=== PATIENT | female | born 1975 | race Caucasian/White ===

== ENCOUNTER 2025-02-25 13:12 | Emergency (ER) | payer MEDICAID, SELFPAY ==
[2025-02-25] VITALS (12 sets, daily range): BP systolic 150–195; BP diastolic 76–110; PULSE 81–101; RESP 9–23; TEMP 36.4; O2SAT 88–100; BMI 57.9
--- NOTE | 2025-02-25 13:16 | ECG_ITS ---
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 Measurements Intervals Gill Rate: 101 P: 39 NE: 156 QRS: 24 QRSD: 89 T: 78 QT: 346 QTc: 449 Interpretive Statements SINUS TACHYCARDIA ABNORMAL RHYTHM ECG No previous ECG available for comparison Electronically Signed On 02-26-2025 11:57:58 CDT by Jing Stewart M.D. [id number] [id number]
--- NOTE | 2025-02-25 14:20 | XR_ITS ---
WS: [id number] Exam: XR chest 1V portable [id number] Date/Time of Exam: 02/25/2025 2:23 PM Reason For Exam: chest pain No priors. Lungs are clear and fully inflated. Normal cardiomediastinal silhouette and regional bony elements. No pleural effusions. XR/XR chest 1V portable [id number] IMPRESSION: 1. Normal chest.
--- NOTE | 2025-02-25 14:21 | ED_ITS ---
Documented by User: Cornelio Smith DO 02/26/25 14:55 HPI - Chest Pain 2 General: Chief Complaint: Chest Pain Stated Complaint: chest pain Time Seen by Provider: 02/25/25 14:19 History of Present Illness: 49-year-old female with a history of cor onary disease presents emergency room complaining of chest pain along with vomiting. She is complaining of some epigastric left upper quadrant abdominal pains. She states has had it in the past multiple times she states she has a chronic pancreatic condition as well as coronary artery disease she is usually seen at [facility]. She is not having any shortness of breath denies any hematemesis coffee-ground emesis no dysuria urgency or frequency. Old records were ordered from [facility]. Associated symptoms: Deny abdominal pain, dyspnea or fever(s) Related Data Home Medications ?Medication ?Instructions ?Recorded ?Confirmed cetirizine 10 mg tablet 10 mg PO DAILY 03/22/2302/10 insulin regular human 100 unit/mL See Rx Instructions .Route .COMPLEX 03/22/23 02/25/25 injection solution (Humulin R Regular U-100 Insulin) aspirin 81 mg tablet,delayed 81 mg PO DAILY 02/25/25 0 02/25/25 release clopidogrel 75 mg tablet (Plavix) 75 mg PO DAILY 02/2502/25/25 pantoprazole 40 mg tablet,delayed 40 mg PO DAILY 02/2502/25/25 release (Protonix) Previous Rx's ?Medication ?Instructions ?Recorded hyoscyamine sulfate 0.125 mg 0.125 mg sublingual Q8H P RN 02/26/25 sublingual tablet (Levsin/SL) epigastric abdominal paulo n #20 tabs ondansetron 8 mg disintegrating 8 mg PO Q8H PRN nausea and 02/26/25 tablet vomiting 5 days #20 tabs promethazine 25 mg rectal 25 mg AR Q4H PRN nausea and 02/26/25 suppository vomiting #12 ea Allergies Allergy/AdvReac Type Severity Reaction Status Date / Time tramadol Allergy Mild hives Verified 02/25/25 19:34 sulfamethoxazole (From Allergy ALGY-Hives Verified 02/25/25 13:24 Bactrim) trimethoprim (From Bactrim) Allergy ALGY-Hives Verified 02/25/25 13:24 flurocet Allergy ADR-Confusi Uncoded 02/25/25 13:24 on Review of Systems 2 Const: Denies: fever(s) or chills Card: Denies: chest pain Resp: Denies: dyspnea GI: Denies: abdominal pain : Denies: dysuria, urinary frequency or urinary urgency Musc: Denies: neck pain or back pain Skin/Breast: Denies: rash Physical Exam 2 Const: GENERAL APPEARANCE: cooperative ORIENTATION/CONSCIOUSNESS: Yes awake, Yes oriented to person, Yes oriented to place and Yes oriented to time HENMT: COMMON NORMALS: normocephalic, atraumatic and hearing grossly normal bilaterally HEAD & SCALP: normocephalic and atraumatic Resp: COMMON NORMALS: normal respiratory effort, No retractions, No use of accessory muscles and clear to auscultation bilaterally AUSCULTATION: clear to auscultation bilaterally Cardio: COMMON NORMALS: regular rate, regular rhythm and No murmurs present (Cardio) RATE: regular rate RHYTHM: regular rhythm GI: COMMON NORMALS: No hepatosplenomegaly present AUSCULTATION: Yes normoactive bowel sounds PALPATION: Yes Tenderness to palpation present (GI) (Epigastric left upper quadrant), No Guarding due to palpation present (GI) and Yes No hepatosplenomegaly present Extremity: COMMON NORMALS: normal to inspection, capillary refill normal, no clubbing, cyanosis or edema, no calf tenderness and no pedal edema Neuro: SENSORIUM/ORIENTATION: Yes oriented to person, Yes oriented to place and Yes oriented to time Skin: COMMON NORMALS: no rashes or lesions noted GENERAL SKIN EXAM: no rashes or lesions noted Course 2 Vital Signs: Vital signs: Vital Signs Temperature 97.5 F L 02/25/25 13:19 Pulse Rate 88 02/26/25 03:47 Respiratory Rate 16 02/26/25 03:47 Blood Pressure 191/95 02/26/25 03:47 Pulse Oximetry 100 02/26/25 03:47 Oxygen Delivery Me thod Nasal Cannula 02/26/25 02:00 Oxygen Flow Rate 2 02/26/25 02:00 MDM - Chest Pain Medical Decision Making Old records received from outside facility. Care signed out to Dr. Sam at change of shift. See final notes for diagnosis and disposition. 49-year-old female, O2 dependent, insulin diabetic emotionally labile by history. BMI in the 60s. History of PAD with toe potation's. Heart failure with preserved EF. Untreated SANGITA, pancreatic device some and CKD 3. Who has chronic epigastric abdominal pain plus or minus cyclical emesis plus or minus hyperemesis cannabinoid syndrome. The patient strongly advocates that this could not possibly be the cause of her issues despite using copious marijuana products and not stopping them despite having a consistently issue with nausea vomiting abdominal pain. She has been seen in this ER. Treated with multiple medications. She absolutely refuses, incentive care treatments for some things. Including only a one-time try before and mild side effects that can be avoided. No allergies to medications. She only wants Dilaudid Phenergan and Zofran. She has chronic pain prescriptions. Reviewed outside hospital paperwork for patient advised she took previous care. She does have documented history of pancreatic device on. As well as chronic pain and emotional lability. Is also clear that they have concerns for cannabinoid hyperemesis as well. Lab Data 02/25/25 14:36 02/25/25 14:36 Radiology Impressions Chest X-Ray 02/25/25 14:20 IMPRESSION: 1. Normal chest. Abdomen/Pelvis CT 02/25/25 14:35 IMPRESSION: 1. No acute findings. 2. Small fat containing ventral hernia. 3. Splenomegaly. Laboratory Results WBC 10.82 10^3/uL (3.29-11.43) 02/25/25 14:36 RBC 4.42 10^6/uL (3.85-5.65) 02/25/25 14:36 Hgb 12.20 g/dL (11.27-16.99) 02/25/25 14:36 Hct 37.0 % (36-47) 02/25/25 14:36 MCV 83.7 fl (85-98) L 02/25/25 14:36 MCH 27.6 pg (27-33) 02/25/25 14:36 MCHC 33.0 g/dL (30-55) 02/25/25 14:36 RDW 15.1 % (12.1-15.1) 02/25/25 14:36 Plt Count 276 10^3/cmm (157-399) 02/25/25 14:36 MPV 10.4 fL (7.4-10.4) 02/25/25 14:36 Neut % (Auto) 89.7 % 02/25/25 14:36 Lymph % (Auto) 6.7 % 02/25/25 14:36 Fleming % (Auto) 2.8 % 02/25/25 14:36 Eos % (Auto) 0.1 % 02/25/25 14:36 Baso % (Auto) 0.3 % 02/25/25 14:36 Neut # (Auto) 9.72 10^3/uL (1.8-7.7) H 02/25/25 14:36 Lymph # (Auto) 0.7 10^3/uL (0.8-4.8) L 02/25/25 14:36 Fleming # (Auto) 0.3 10^3/uL (0.2-0.9) 02/25/25 14:36 Eos # (Auto) 0.0 10^3/uL (0.0-0.8) 02/25/25 14:36 Baso # (Auto) 0.0 10^3/uL (0.0-0.1) 02/25/25 14:36 Nucleated RBC % (auto) 0 % 02/25/25 14:36 Nucleated RBCs # 0.0 /100WBC 02/25/25 14:36 Sodium 135 mmol/L (136-145) L 02/25/25 14:36 Potassium 4.5 mmol/L (3.5-5.1) 02/25/25 14:36 Chloride 98 mmol/L (98-107) 02/25/25 14:36 Carbon Dioxide 21 mmol/L (22-29) L 02/25/25 14:36 Anion Gap 20.5 (5-19) H 02/25/25 14:36 BUN 26 mg/dL (6-20) H 02/25/25 14:36 Creatinine 1.2 mg/dL (0.5-0.9) H 02/25/25 14:36 GFR Calculation 48.2 mL/min (90-130) L 02/25/25 14:36 Glucose 433 mg/dL (65-115) H 02/25/25 14:36 POC Glucose 332 mg/dL (70-110) H 02/25/25 21:03 Calculated Osmolality 303 mOsm/kg (285-295) H 02/25/25 14:36 Calcium 9.5 mg/dL (8.5-10.5) 02/25/25 14:36 Total Bilirubin 0.4 mg/dL (0.15-1.2) 02/25/25 14:36 AST 14 U/L (0-32) 02/25/25 14:36 ALT 13 U/L (0-33) 02/25/25 14:36 Alkaline Phosphatase 75 U/L (35-105) 02/25/25 14:36 Troponin T Baseline 35 ng/L (0-10) H 02/25/25 14:36 Troponin T 120 Minute 30.65 ng/L (0-10) H 02/25/25 16:55 Delta Troponin T -4.35 ABS# (0-10) L 02/25/25 16:55 Troponin T Hi Sens 6Hr 27.52 ng/L (0-10) H 02/25/25 20:02 Troponin T Hi Sens 6Hr Delta -7.48 ng/L (0-12) L 02/25/25 20:02 Total Protein 7.5 g/dL (6.6-8.7) 02/25/25 14:36 Albumin 3.7 g/dL (3.5-5.2) 02/25/25 14:36 Globulin 3.8 g/dL (1.3-4.6) 02/25/25 14:36 Lipase 19 U/L (13-60) 02/25/25 14:36 Urine Color Yellow (Yellow) 02/25/25 17:24 Urine Appearance Clear (CLEAR) 02/25/25 17:24 Urine pH 6.5 (5-7) 02/25/25 17:24 Ur Specific Carson 1.034 (1.005-1.030) H 02/25/25 17:24 Urine Protein 4+ (Negative) A 02/25/25 17:24 Urine Glucose (UA) 3+ (Normal) H 02/25/25 17:24 Urine Ketones Negative (Negative) 02/25/25 17:24 Urine Blood 2+ (Negative) A 02/25/25 17:24 Urine Nitrate Negative (Negative) 02/25/25 17:24 Urine Bilirubin Negative (Negative) 02/25/25 17:24 Urine Urobilinogen 0.2 mg/dL (Negative) 02/25/25 17:24 Ur Leukocyte Esterase Negative (Negative) 02/25/25 17:24 Urine RBC 6-10 /hpf (0-2) 02/25/25 17:24 Urine WBC 0-5 /hpf (0-5) 02/25/25 17:24 Ur Squamous Epith Cells 0-5 /hpf (0-5) 02/25/25 17:24 Amorphous Sediment Not Reportable 02/25/25 17:24 Urine Bacteria None seen /hpf (NONE) 02/25/25 17:24 Hyaline Casts 0.40 /lpf 02/25/25 17:24 Discharge Plan Discharge Patient Disposition: Home Clinical Impression: Nausea & vomiting, Abdominal pain, chronic, epigastric Condition: Stable Prescriptions: New promethazine 25 mg suppository 25 mg AR Q4H PRN (Reason: nausea and vomiting) Qty: 12 2RF ondansetron 8 mg tablet,disintegrating 8 mg PO Q8H PRN (Reason: nausea and vomiting) 5 Days Qty: 20 0RF hyoscyamine sulfate [Levsin/SL] 0.125 mg tablet, sublingual 0.125 mg sublingual Q8H PRN (Reason: epigastric abdominal pain) Qty: 20 0RF No Action Humulin R Regular U-100 Insuln 100 unit/mL solution See Rx Instructions .ROUTE .COMPLEX Rx Instructions: inject 20 units subcut in AM, 10 units at noon, and 20 units at HS cetirizine 10 mg tablet 10 mg PO DAILY clopidogrel [Plavix] 75 mg Tablet 75 mg PO DAILY aspirin [Aspir-81] 81 mg Tablet,Delayed Release (Dr/Ec) 81 mg PO DAILY pantoprazole [Protonix] 40 mg Tablet,Delayed Release (Dr/Ec) 40 mg PO DAILY Discharge Orders: Discharge ED (Routine); Ordered 02/26/25 Ordered By: Flaco Bergeron Discharge Diet: Advance as tolerated and Full LIquid Discharge Activity: Increase activity as tolerated Patient Instructions: Chronic Pain (ED), Abdominal Pain (ED), Pain Management Activity Restrictions/Additional Instructions: Please follow-up with your primary care and your GI doctor. If you are having chronic pain you may also want to consider following up with a pain management clinic. For more consistency in your care and with continuity. Recommend following from the same health system as those providers as well. However when you have emergencies always feel free to seek your nearest emergency department. Print Language: Malagasy Sign Out Sign Out Data: Patient Sign Out occurred on 02/25/25 at 18:28. Patient's care was discussed, and care was transferred from Cornelio Smith DO to Flaco Bergeron MD. Coding Level of Care Code ED Business Banking Relationship Manager for Chg Fwd Documented by User: Flaco Bergeron MD 02/26/25 03:40 HPI - Chest Pain 2 General: Chief Complaint: Chest Pain Stated Complaint: chest pain Time Seen by Provider: 02/25/25 14:19 Related Data Home Medications ?Medication ?Instructions ?Recorded ?Confirmed cetirizine 10 mg tablet 10 mg PO DAILY 03/22/2302/10 insulin regular human 100 unit/mL See Rx Instructions .Route .COMPLEX 03/22/23 02/25/25 injection solution (Humulin R Regular U-100 Insulin) aspirin 81 mg tablet,delayed 81 mg PO DAILY 02/25/25 0 02/25/25 release clopidogrel 75 mg tablet (Plavix) 75 mg PO DAILY 02/2502/25/25 pantoprazole 40 mg tablet,delayed 40 mg PO DAILY 02/2502/25/25 release (Protonix) Previous Rx's ?Medication ?Instructions ?Recorded hyoscyamine sulfate 0.125 mg 0.125 mg sublingual Q8H P RN 02/26/25 sublingual tablet (Levsin/SL) epigastric abdominal paulo n #20 tabs ondansetron 8 mg disintegrating 8 mg PO Q8H PRN nausea and 02/26/25 tablet vomiting 5 days #20 tabs promethazine 25 mg rectal 25 mg AR Q4H PRN nausea and 02/26/25 suppository vomiting #12 ea Allergies Allergy/AdvReac Type Severity Reaction Status Date / Time tramadol Allergy Mild hives Verified 02/25/25 19:34 sulfamethoxazole (From Allergy ALGY-Hives Verified 02/25/25 13:24 Bactrim) trimethoprim (From Bactrim) Allergy ALGY-Hives Verified 02/25/25 13:24 flurocet Allergy ADR-Confusi Uncoded 02/25/25 13:24 on Course 2 Reevaluation(s): Reevaluation #1: Reevaluated patient, still having issues with pain and nausea vomiting. Requesting more medication for pain. Time: 19:30 Reevaluation #2: Her patient vomitings went back and rechecked. She is still having vomiting episodes. She reports she was resting and doing fine but then we woke her up, implying that it is our fault that she is still vomiting. Offered to try something else for her nausea vomiting but she refuses all other meds. Due to the potential for side effects that she finds displeasing. It is apparent that she finds the nausea vomiting less displeasing than the side effects. Time: 21:19 Reevaluation #3: Up until this moment patient has been stable sleeping in room. Also has had food in the room. So she is tolerated some p.o. intake. Patient then woke up and called the nurse reporting that she needed more blankets even more than she had before as well as more pain medication and nausea medication. Vitals have remained stable. Patient has unremarkable lab work. Time: 03:29 Vital Signs: Vital signs: Vital Signs Temperature 97.5 F L 02/25/25 13:19 Pulse Rate 88 02/26/25 03:47 Respiratory Rate 16 02/26/25 03:47 Blood Pressure 191/95 02/26/25 03:47 Pulse Oximetry 100 02/26/25 03:47 Oxygen Delivery Me thod Nasal Cannula 02/26/25 02:00 Oxygen Flow Rate 2 02/26/25 02:00 MDM - Chest Pain Medical Decision Making 49-year-old female, O2 dependent, insulin diabetic emotionally labile by history. BMI in the 60s. History of PAD with toe potation's. Heart failure with preserved EF. Untreated SANGITA, pancreatic device some and CKD 3. Who has chronic epigastric abdominal pain plus or minus cyclical emesis plus or minus hyperemesis cannabinoid syndrome. The patient strongly advocates that this could not possibly be the cause of her issues despite using copious marijuana products and not stopping them despite having a consistently issue with nausea vomiting abdominal pain. She has been seen in this ER. Treated with multiple medications. She absolutely refuses, incentive care treatments for some things. Including only a one-time try before and mild side effects that can be avoided. No allergies to medications. She only wants Dilaudid Phenergan and Zofran. She has chronic pain prescriptions. Reviewed outside hospital paperwork for patient advised she took previous care. She does have documented history of pancreatic device on. As well as chronic pain and emotional lability. Is also clear that they have concerns for cannabinoid hyperemesis as well. Medical Records I reviewed the patient's medical records. Lab Data I reviewed the patient's lab results. 02/25/25 14:36 02/25/25 14:36 Radiology Impressions Chest X-Ray 02/25/25 14:20 IMPRESSION: 1. Normal chest. Abdomen/Pelvis CT 02/25/25 14:35 IMPRESSION: 1. No acute findings. 2. Small fat containing ventral hernia. 3. Splenomegaly. Laboratory Results WBC 10.82 10^3/uL (3.29-11.43) 02/25/25 14:36 RBC 4.42 10^6/uL (3.85-5.65) 02/25/25 14:36 Hgb 12.20 g/dL (11.27-16.99) 02/25/25 14:36 Hct 37.0 % (36-47) 02/25/25 14:36 MCV 83.7 fl (85-98) L 02/25/25 14:36 MCH 27.6 pg (27-33) 02/25/25 14:36 MCHC 33.0 g/dL (30-55) 02/25/25 14:36 RDW 15.1 % (12.1-15.1) 02/25/25 14:36 Plt Count 276 10^3/cmm (157-399) 02/25/25 14:36 MPV 10.4 fL (7.4-10.4) 02/25/25 14:36 Neut % (Auto) 89.7 % 02/25/25 14:36 Lymph % (Auto) 6.7 % 02/25/25 14:36 Fleming % (Auto) 2.8 % 02/25/25 14:36 Eos % (Auto) 0.1 % 02/25/25 14:36 Baso % (Auto) 0.3 % 02/25/25 14:36 Neut # (Auto) 9.72 10^3/uL (1.8-7.7) H 02/25/25 14:36 Lymph # (Auto) 0.7 10^3/uL (0.8-4.8) L 02/25/25 14:36 Fleming # (Auto) 0.3 10^3/uL (0.2-0.9) 02/25/25 14:36 Eos # (Auto) 0.0 10^3/uL (0.0-0.8) 02/25/25 14:36 Baso # (Auto) 0.0 10^3/uL (0.0-0.1) 02/25/25 14:36 Nucleated RBC % (auto) 0 % 02/25/25 14:36 Nucleated RBCs # 0.0 /100WBC 02/25/25 14:36 Sodium 135 mmol/L (136-145) L 02/25/25 14:36 Potassium 4.5 mmol/L (3.5-5.1) 02/25/25 14:36 Chloride 98 mmol/L (98-107) 02/25/25 14:36 Carbon Dioxide 21 mmol/L (22-29) L 02/25/25 14:36 Anion Gap 20.5 (5-19) H 02/25/25 14:36 BUN 26 mg/dL (6-20) H 02/25/25 14:36 Creatinine 1.2 mg/dL (0.5-0.9) H 02/25/25 14:36 GFR Calculation 48.2 mL/min (90-130) L 02/25/25 14:36 Glucose 433 mg/dL (65-115) H 02/25/25 14:36 POC Glucose 332 mg/dL (70-110) H 02/25/25 21:03 Calculated Osmolality 303 mOsm/kg (285-295) H 02/25/25 14:36 Calcium 9.5 mg/dL (8.5-10.5) 02/25/25 14:36 Total Bilirubin 0.4 mg/dL (0.15-1.2) 02/25/25 14:36 AST 14 U/L (0-32) 02/25/25 14:36 ALT 13 U/L (0-33) 02/25/25 14:36 Alkaline Phosphatase 75 U/L (35-105) 02/25/25 14:36 Troponin T Baseline 35 ng/L (0-10) H 02/25/25 14:36 Troponin T 120 Minute 30.65 ng/L (0-10) H 02/25/25 16:55 Delta Troponin T -4.35 ABS# (0-10) L 02/25/25 16:55 Troponin T Hi Sens 6Hr 27.52 ng/L (0-10) H 02/25/25 20:02 Troponin T Hi Sens 6Hr Delta -7.48 ng/L (0-12) L 02/25/25 20:02 Total Protein 7.5 g/dL (6.6-8.7) 02/25/25 14:36 Albumin 3.7 g/dL (3.5-5.2) 02/25/25 14:36 Globulin 3.8 g/dL (1.3-4.6) 02/25/25 14:36 Lipase 19 U/L (13-60) 02/25/25 14:36 Urine Color Yellow (Yellow) 02/25/25 17:24 Urine Appearance Clear (CLEAR) 02/25/25 17:24 Urine pH 6.5 (5-7) 02/25/25 17:24 Ur Specific Carson 1.034 (1.005-1.030) H 02/25/25 17:24 Urine Protein 4+ (Negative) A 02/25/25 17:24 Urine Glucose (UA) 3+ (Normal) H 02/25/25 17:24 Urine Ketones Negative (Negative) 02/25/25 17:24 Urine Blood 2+ (Negative) A 02/25/25 17:24 Urine Nitrate Negative (Negative) 02/25/25 17:24 Urine Bilirubin Negative (Negative) 02/25/25 17:24 Urine Urobilinogen 0.2 mg/dL (Negative) 02/25/25 17:24 Ur Leukocyte Esterase Negative (Negative) 02/25/25 17:24 Urine RBC 6-10 /hpf (0-2) 02/25/25 17:24 Urine WBC 0-5 /hpf (0-5) 02/25/25 17:24 Ur Squamous Epith Cells 0-5 /hpf (0-5) 02/25/25 17:24 Amorphous Sediment Not Reportable 02/25/25 17:24 Urine Bacteria None seen /hpf (NONE) 02/25/25 17:24 Hyaline Casts 0.40 /lpf 02/25/25 17:24 All radiology interpretation(s) finalized by discharge Discharge Plan Discharge Patient Disposition: Home Clinical Impression: Nausea & vomiting, Abdominal pain, chronic, epigastric Condition: Stable Prescriptions: New promethazine 25 mg suppository 25 mg AR Q4H PRN (Reason: nausea and vomiting) Qty: 12 2RF ondansetron 8 mg tablet,disintegrating 8 mg PO Q8H PRN (Reason: nausea and vomiting) 5 Days Qty: 20 0RF hyoscyamine sulfate [Levsin/SL] 0.125 mg tablet, sublingual 0.125 mg sublingual Q8H PRN (Reason: epigastric abdominal pain) Qty: 20 0RF No Action Humulin R Regular U-100 Insuln 100 unit/mL solution See Rx Instructions .ROUTE .COMPLEX Rx Instructions: inject 20 units subcut in AM, 10 units at noon, and 20 units at HS cetirizine 10 mg tablet 10 mg PO DAILY clopidogrel [Plavix] 75 mg Tablet 75 mg PO DAILY aspirin [Aspir-81] 81 mg Tablet,Delayed Release (Dr/Ec) 81 mg PO DAILY pantoprazole [Protonix] 40 mg Tablet,Delayed Release (Dr/Ec) 40 mg PO DAILY Discharge Orders: Discharge ED (Routine); Ordered 02/26/25 Ordered By: Flaco Bergeron Discharge Diet: Advance as tolerated and Full LIquid Discharge Activity: Increase activity as tolerated Patient Instructions: Chronic Pain (ED), Abdominal Pain (ED), Pain Management Activity Restrictions/Additional Instructions: Please follow-up with your primary care and your GI doctor. If you are having chronic pain you may also want to consider following up with a pain management clinic. For more consistency in your care and with continuity. Recommend following from the same health system as those providers as well. However when you have emergencies always feel free to seek your nearest emergency department. Print Language: Malagasy Sign Out Sign Out Data: Patient Sign Out occurred on 02/25/25 at 18:28. Patient's care was discussed, and care was transferred from Cornelio Smith DO to Flaco Bergeron MD. Coding Level of Care Code ED Business Banking Relationship Manager for Chg Reny
--- NOTE | 2025-02-25 14:35 | CTR_ITS ---
PROCEDURE INFORMATION: Exam: CT Abdomen And Pelvis With Contrast Exam date and time: 02/25/2025 4:01 PM Age: 49 years old Clinical indication: Vomiting; Abdominal pain; Additional info: Abd pain TECHNIQUE: Imaging protocol: Computed tomography of the abdomen and pelvis with contrast. Radiation optimization: All CT scans at this facility use at least one of these dose optimization techniques: automated exposure control; mA and/or kV adjustment per patient size (includes targeted exams where dose is matched to clinical indication); or iterative reconstruction. Contrast material: OMNI 350; Contrast volume: 100 ml; Contrast route: INTRAVENOUS (IV); COMPARISON: CR XR chest 1V portable [id number] 02/25/2025 2:45 PM RADIATION DOSE METRICS: Total DLP (mGy-cm): 1401.23 FINDINGS: Liver: Normal. No mass. Gallbladder and biliary ducts: Status post cholecystectomy. No ductal dilation. Pancreas: Normal. No ductal dilation. Spleen: Splenomegaly with craniocaudal dimension 17.7 cm. Adrenal glands: Right adrenal nodularity measures 1.1 cm. Kidneys and ureters: Normal. No hydronephrosis. Stomach and bowel: Unremarkable. No obstruction. No mucosal thickening. Appendix: No evidence of appendicitis. Intraperitoneal space: Unremarkable. No free air. No significant fluid collection. Vasculature: Unremarkable. No abdominal aortic aneurysm. Lymph nodes: Unremarkable. No enlarged lymph nodes. Urinary bladder: Unremarkable as visualized. Reproductive: Unremarkable as visualized. Bones/joints: Unremarkable. No acute fracture. Soft tissues: There is a mild fat containing ventral hernia which is periumbilical. CT/CT abdomen pelvis w con* [id number] IMPRESSION: 1. No acute findings. 2. Small fat containing ventral hernia. 3. Splenomegaly.
[2025-02-25 14:48] LABS: Basophils % 0.3 %; Eosinophils % 0.1 %; Lymphocytes # 0.7 10^3/uL (0.8-4.8); Lymphocytes % 6.7 %; Mean Corpuscular Hemoglobin 27.6 pg (27-33); Mean Corpuscular Volume 83.7 fl (85-98); Mean Platelet Volume 10.4 fL (7.4-10.4); Monocytes # 0.3 10^3/uL (0.2-0.9); Monocytes % 2.8 %; Neutrophils # 9.72 10^3/uL (1.8-7.7); Neutrophils % 89.7 %; Nucleated Red Blood Cells % 0 %; Platelet Count 276 10^3/cmm (157-399); Red Blood Count 4.42 10^6/uL (3.85-5.65); Red Cell Distribution Width 15.1 % (12.1-15.1); White Blood Count 10.82 10^3/uL (3.29-11.43)
[2025-02-25] MEDS: promethazine 25 mg/mL SDV 1 mL IM ×2 (14:52→19:45)
[2025-02-25] MEDS: aspirin 81 mg Chew Tablet 324 MG PO (14:54)
[2025-02-25 15:00] LABS: Troponin(5th) Baseline 35 ng/L (0-10)
[2025-02-25 15:10] LABS: Alanine Aminotransferase 13 U/L (0-33); Albumin Level 3.7 g/dL (3.5-5.2); Alkaline Phosphatase 75 U/L (35-105); Aspartate Amino Transferase 14 U/L (0-32); Blood Urea Nitrogen 26 mg/dL (6-20); Calcium 9.5 mg/dL (8.5-10.5); Carbon Dioxide 21 mmol/L (22-29); Chloride 98 mmol/L (98-107); Creatinine Clr Calc Pharmacy 95.2366; Globulin 3.8 g/dL (1.3-4.6); Glomerular Filtration Rate 48.2 mL/min (90-130); Glucose 433 mg/dL (65-115); Lipase 19 U/L (13-60); Osmolality Calculated 303 mOsm/kg (285-295); Sodium 135 mmol/L (136-145); Total Bilirubin 0.4 mg/dL (0.15-1.2); Total Protein 7.5 g/dL (6.6-8.7)
[2025-02-25 15:11] LABS: Anion Gap 20.5 (5-19); Potassium 4.5 mmol/L (3.5-5.1)
--- NOTE | 2025-02-25 15:12 | PC.PHAR ---
Pt verified her medications and states she last took them yesterday 02/24/25. MIC Vidal. gave last fill dates with day supply. Pt should be out of these medications.
[2025-02-25] MEDS: iohexol 350 mg/mL 500 mL Btl (per mL) IV (16:09)
[2025-02-25] MEDS: ketorolac 30 mg/mL INJ 60 MG IM (16:15)
[2025-02-25] MEDS: sodium chloride 0.9% 1,000 ML 999 ML IV (16:16)
--- NOTE | 2025-02-25 16:57 | ECG_ITS ---
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 Measurements Intervals [place] Rate: 93 P: 55 MI: 160 QRS: 56 QRSD: 92 T: 87 QT: 390 QTc: 487 Interpretive Statements SINUS RHYTHM Compared to ECG 02/25/2025 13:16:41 Sinus tachycardia no longer present Electronically Signed On 02-26-2025 13:05:32 CDT by Jing Stewart M.D. [email or web address]
[2025-02-25] MEDS: LORazepam 1 MG/0.5 ML injection 2 MG IVP (17:14)
[2025-02-25 17:26] LABS: Troponin 5 2HR 30.65 ng/L (0-10)
[2025-02-25 17:27] LABS: Troponin 5 2HR Delta -4.35 ABS# (0-10)
[2025-02-25 17:30] LABS: Bilirubin Urine Negative (Negative); Blood Urine 2+ (Negative); Glucose Urine UA 3+ (Normal); Ketones Urine Negative (Negative); Leukocyte Esterase Urine Negative (Negative); Nitrate Urine Negative (Negative); Protein Urine 4+ (Negative); Urine Appearance Clear (CLEAR); Urine Color Yellow (Yellow); Urobilinogen Urine 0.2 mg/dL (Negative); pH Urine 6.5 (5-7)
[2025-02-25 17:35] LABS: Add Urine Microscopic? YES; Bacteria Urine None Seen /hpf; Squamous Epithelial Cell Urine 0-5 /hpf (0-5); WBC Urine 0-5 /hpf (0-5)
[2025-02-25 17:40] LABS: Specific Gravity, Urine 1.034 (1.005-1.030)
[2025-02-25] MEDS: diphenhydrAMINE 50 mg/mL SDV 1mL IVP (18:17)
[2025-02-25] MEDS: HYDROmorphone 0.5 MG/0.5 ML INJ IVP (19:44)
[2025-02-25] MEDS: insulin regular-human 100 units/1 mL 10 UNIT IVP (20:10)
[2025-02-25 20:14] LABS: Glucose Point of Care 386 mg/dL (70-110)
--- NOTE | 2025-02-25 20:17 | ECG_ITS ---
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 Measurements Intervals [place] Rate: 97 P: 88 IA: 159 QRS: 63 QRSD: 91 T: 76 QT: 389 QTc: 495 Interpretive Statements SINUS RHYTHM Compared to ECG 02/25/2025 16:57:52 No significant changes Electronically Signed On 02-26-2025 12:14:37 CDT by Jing Stewart M.D. [email or web address]
[2025-02-25 20:27] LABS: Troponin 5 6HR 27.52 ng/L (0-10); Troponin 5 6HR Delta -7.48 ng/L (0-12)
[2025-02-25 21:07] LABS: Glucose Point of Care 332 mg/dL (70-110)
[2025-02-25] MEDS: ondansetron 2 mg/ML SDV 2 mL 8 MG IVP (21:48)
[2025-02-26] VITALS: BP 143/81; PULSE 90; RESP 19; O2SAT 93
[2025-02-26 01:00] VITALS: BP 148/82; PULSE 80; RESP 15; O2SAT 98
[2025-02-26 02:00] VITALS: BP 171/91; PULSE 83; RESP 15; O2SAT 96
[2025-02-26] MEDS: promethazine 25 mg/mL SDV 1 mL IM (03:36)
[2025-02-26] MEDS: HYDROmorphone 0.5 MG/0.5 ML INJ IVP (03:37)
[2025-02-26 03:47] VITALS: BP 191/95; PULSE 88; RESP 16; O2SAT 100
== END 2025-02-26 03:52 | disposition home or self-care (01) ==
PROVIDERS: Family Medicine; Emergency Provider Emergency Medicine
DX: R11.2 Nausea with vomiting, unspecified (principal); R10.13 Epigastric pain; Z79.82 Long term (current) use of aspirin; Z79.02 Long term (current) use of antithrombotics/antiplatelets
CPT/HCPCS: 36415; 36416; 71045; 74177; 80053; 81001; 82962; 83690; 84484; 85025; 93005; 96372; 96374; 96375; 96376; 99285; J1171; J1200; J1815; J1885; J2060; J2405; J2550; J7030; J9999

== ENCOUNTER 2025-03-28 22:05 | Inpatient (IN) | payer MEDICAID, SELFPAY ==
[2025-03-28 22:45] LABS: Basophils % 0.2 %; Eosinophils # 0.1 10^3/uL (0.0-0.8); Eosinophils % 0.7 %; Hematocrit 35.1 % (36-47); Lymphocytes # 0.9 10^3/uL (0.8-4.8); Lymphocytes % 6.3 %; Mean Corpuscular HGB Conc 32.5 g/dL (30-55); Mean Corpuscular Hemoglobin 28.9 pg (27-33); Mean Corpuscular Volume 88.9 fl (85-98); Mean Platelet Volume 10.3 fL (7.4-10.4); Monocytes # 0.8 10^3/uL (0.2-0.9); Monocytes % 5.7 %; Neutrophils # 12.57 10^3/uL (1.8-7.7); Neutrophils % 86.5 %; Nucleated Red Blood Cells % 0 %; Platelet Count 212 10^3/cmm (157-399); Red Blood Count 3.95 10^6/uL (3.85-5.65); Red Cell Distribution Width 14.9 % (12.1-15.1); White Blood Count 14.53 10^3/uL (3.29-11.43)
[2025-03-28 22:46] LABS: Erythrocyte Sedimentation Rate 28 mm/hr (0-15)
[2025-03-28 23:07] LABS: Alanine Aminotransferase 9 U/L (0-33); Albumin Level 3.5 g/dL (3.5-5.2); Alkaline Phosphatase 63 U/L (35-105); Anion Gap 19.7 (5-19); Aspartate Amino Transferase 11 U/L (0-32); Blood Urea Nitrogen 28 mg/dL (6-20); Carbon Dioxide 18 mmol/L (22-29); Chloride 101 mmol/L (98-107); Globulin 3.7 g/dL (1.3-4.6); Glomerular Filtration Rate 53.2 mL/min (90-130); Glucose 300 mg/dL (65-115); Osmolality Calculated 295 mOsm/kg (285-295); Potassium 4.7 mmol/L (3.5-5.1); Sodium 134 mmol/L (136-145); Total Bilirubin 0.4 mg/dL (0.15-1.2); Total Protein 7.2 g/dL (6.6-8.7)
[2025-03-28 23:12] LABS: Lactic Sepsis W/Reflex 1.6 mmol/L (0.5-2.2)
[2025-03-29] VITALS (24 sets, daily range): BP systolic 101–185; BP diastolic 50–92; PULSE 73–120; RESP 16–26; TEMP 36.6–38; O2SAT 92–99; BMI 57.9; BMI 60.0
--- NOTE | 2025-03-29 01:02 | XRR_ITS ---
PROCEDURE INFORMATION: Exam: XR Chest Exam date and time: 03/29/2025 1:35 AM Age: 49 years old Clinical indication: Fever; Additional info: Fevers TECHNIQUE: Imaging protocol: Radiologic exam of the chest. Views: 1 view. COMPARISON: CR XR chest 1V portable [id number] 02/25/2025 2:45 PM FINDINGS: Tubes, catheters and devices: Right IJ central line unchanged in position. Lungs: Unremarkable. No consolidation. Pleural spaces: Unremarkable. No pleural effusion. No pneumothorax. Heart/Mediastinum: Unremarkable. No cardiomegaly. Bones/joints: Unremarkable. XR/XR chest 1V portable [id number] IMPRESSION: No acute cardiopulmonary process.
--- NOTE | 2025-03-29 01:14 | ED_ITS ---
HPI - Fever 2 General: Chief Complaint: Fever Stated Complaint: fever,chills,R side neck pain, alonzo port issue Time Seen by Provider: 03/29/25 00:58 History of Present Illness: 49-year-old female with history of obesi ty, diabetes and osteomyelitis who presents emergency room with fevers and malaise. She is concerned about her right sided cath that she had placed for IV antibiotics for osteomyelitis about a year ago. She feels like she has some swelling and lymph nodes in her right chest. No cough. No shortness of breath. No dysuria. Related Data Home Medications ?Medication ?Instructions ?Recorded ?Confirmed cetirizine 10 mg tablet 10 mg PO DAILY 03/22/2302/10 insulin regular human 100 unit/mL See Rx Instructions .Route .COMPLEX 03/22/23 02/25/25 injection solution (Humulin R Regular U-100 Insulin) aspirin 81 mg tablet,delayed 81 mg PO DAILY 02/25/25 0 02/25/25 release clopidogrel 75 mg tablet (Plavix) 75 mg PO DAILY 02/2502/25/25 pantoprazole 40 mg tablet,delayed 40 mg PO DAILY 02/2502/25/25 release (Protonix) Previous Rx's ?Medication ?Instructions ?Recorded hyoscyamine sulfate 0.125 mg 0.125 mg sublingual Q8H P RN 02/26/25 sublingual tablet (Levsin/SL) epigastric abdominal paulo n #20 tabs promethazine 25 mg rectal 25 mg [place] Q4H PRN nausea and 02/26/25 suppository vomiting #12 ea Allergies Allergy/AdvReac Type Severity Reaction Status Date / Time tramadol Allergy Mild hives Verified 02/25/25 19:34 sulfamethoxazole (From Allergy ALGY-Hives Verified 02/25/25 13:24 Bactrim) trimethoprim (From Bactrim) Allergy ALGY-Hives Verified 02/25/25 13:24 daptomycin AdvReac blurry Verified 03/29/25 00:15 vision flurocet Allergy ADR-Confusi Uncoded 02/25/25 13:24 on Review of Systems 2 Narrative: Constitutional symptoms: Negative except as documented in HPI. Skin symptoms: Negative except as documented in HPI. Eye symptoms: Negative except as documented in HPI. ENMT symptoms: Negative except as documented in HPI. Respiratory symptoms: Negative except as documented in HPI. Cardiovascular symptoms: Negative except as documented in HPI. Gastrointestinal symptoms: Negative except as documented in HPI. Genitourinary symptoms: Negative except as documented in HPI. Musculoskeletal symptoms: Negative except as documented in HPI. Neurologic symptoms: Negative except as documented in HPI. Psychiatric symptoms: Negative except as documented in HPI. Endocrine symptoms: Negative except as documented in HPI. [facility] ED 2 Female Reproductive History: Date of last menstrual period: 03/24/25 Physical Exam 2 Narrative: EXAM NARRATIVE: General: Alert, no acute distress. Skin: Warm, dry. Head: Normocephalic, atraumatic. Neck: Supple, trachea midline. Eye: Extraocular movements are intact. Ears, nose, mouth and throat: mucosa moist. Cardiovascular: Regular, Normal peripheral perfusion. There is a right subclavian central line. Respiratory: Lungs are clear to auscultation, respirations are non-labored, breath sounds are equal, Symmetrical chest wall expansion. Gastrointestinal: Soft, Nontender, Non distended Musculoskeletal: Normal ROM, no deformity. Neurological: Alert and oriented, No focal neurological deficit observed. Psychiatric: Cooperative, appropriate mood & affect. Course 2 Vital Signs: Vital signs: Vital Signs Temperature 99.5 F 03/29/25 00:03 Pulse Rate 97 03/29/25 00:03 Respiratory Rate 16 03/29/25 00:03 Blood Pressure 109/77 03/29/25 00:03 Pulse Oximetry 97 03/29/25 00:03 Oxygen Delivery Me thod Room Air 03/29/25 00:03 MDM - Fever Medical Decision Making Medical decision making: Differential diagnosis for patient presenting with generalized weakness including but not limited to and based on the above HPI, review of systems and physical exam: Sepsis. Dehydration. Renal failure. Electrolyte abnormalities. Anemia. Congestive heart failure. Hypotension. Coronary syndrome. Hepatitis. Cirrhosis. Infections such as pneumonia, urinary tract infection, [place] illness, Cellulitis, Viral infections including influenza and Covid-19. Workup: labwork and lab/exam driven imaging ordered to evaluate, rule in and rule out above pathologies. Chest x-ray: Central line in place. No acute process. No infiltrate. No pneumothorax. Films were interpreted by myself the emergency room provider and pending final radiology review.. Lab Review: Laboratory results were reviewed and interpreted by myself the emergency room physician. Leukocytosis with white count of 14,000. BUN and creatinine are mildly elevated at 28 1.1. Lactate is not elevated it is 1.4. CRP is quite elevated. Urinalysis is negative. Flu COVID and RSV are negative. I reviewed the patient's medical record. Reexamination: Patient remained stable. No increased work of breathing. No altered mental status. No focal motor deficits. Consultation: I spoke with Dr. Strange who says he can be consulted tomorrow for line removal. Consultation: I spoke with Dr. Brown who is on-call for the hospitalist service who agrees to admission. Assessment and plan: Central line infection ?In this patient with no other source of infection and overdue central line must presume that her fevers and white count are secondary to a line infection. Broad-spectrum antibiotics were given and fluids. She does not appear septic at this time. Zyvox and meropenem were given. -I discussed the patient with the hospitalist on-call who is admitting the patient. - Discussed findings and plan with patient. Answered any questions. - All laboratory values were reviewed and interpreted personally by myself, the ER physician - All imaging was reviewed and interpreted personally by myself, the ER physician. - Evaluation and treatment of this problem were appropriate in the emergency setting Lab Data 03/28/25 22:38 03/28/25 22:38 Laboratory Results WBC 14.53 10^3/uL (3.29-11.43) H 03/28/25 22:38 RBC 3.95 10^6/uL (3.85-5.65) 03/28/25 22:38 Hgb 11.40 g/dL (11.27-16.99) 03/28/25 22:38 Hct 35.1 % (36-47) L 03/28/25 22:38 MCV 88.9 fl (85-98) 03/28/25 22:38 MCH 28.9 pg (27-33) 03/28/25 22: MCHC 32.5 g/dL (30-55) 03/28/25 22:38 RDW 14.9 % (12.1-15.1) 03/28/25 22:38 Plt Count 212 10^3/cmm (157-399) 03/28/25 22:38 MPV 10.3 fL (7.4-10.4) 03/28/25 22:38 Neut % (Auto) 86.5 % 03/28/25 22:38 Lymph % (Auto) 6.3 % 03/28/25 22:38 [place] % (Auto) 5.7 % 03/28/25 22: Eos % (Auto) 0.7 % 03/28/25 22:38 Baso % (Auto) 0.2 % 03/28/25 22: Neut # (Auto) 12.57 10^3/uL (1.8-7.7) H 03/28/25 22:38 Lymph # (Auto) 0.9 10^3/uL (0.8-4.8) 03/28/25 22:38 [place] # (Auto) 0.8 10^3/uL (0.2-0.9) 03/28/25 22: Eos # (Auto) 0.1 10^3/uL (0.0-0.8) 03/28/25 22: Baso # (Auto) 0.0 10^3/uL (0.0-0.1) 03/28/25 22: Nucleated RBC % (auto) 0 % 03/28/25: Nucleated RBCs # 0.0 /100WBC 03/28/25 22:38 ESR 28 mm/hr (0-15) H 03/28/25 22:38 Sodium 134 mmol/L (136-145) L 03/28/25 22:38 Potassium 4.7 mmol/L (3.5-5.1) 03/28/25 22: Chloride 101 mmol/L (98-107) 03/28/25 22:38 Carbon Dioxide 18 mmol/L (22-29) L 03/28/25 22:38 Anion Gap 19.7 (5-19) H 03/28/25 22:38 BUN 28 mg/dL (6-20) H 03/28/25 22:38 Creatinine 1.1 mg/dL (0.5-0.9) H 03/28/25 22:38 GFR Calculation 53.2 mL/min (90-130) L 03/28/25 22:38 Glucose 300 mg/dL (65-115) H 03/28/25 22:38 Calculated Osmolality 295 mOsm/kg (285-295) 03/28/25 22:38 Lactic Acid 1.4 mmol/L (0.5-2.2) 03/29/25 01:58 Calcium 9.0 mg/dL (8.5-10.5) 03/28/25 22:38 Total Bilirubin 0.4 mg/dL (0.15-1.2) 03/28/25 22:38 AST 11 U/L (0-32) 03/28/25 22:38 ALT 9 U/L (0-33) 03/28/25 22:38 Alkaline Phosphatase 63 U/L (35-105) 03/28/25 22:38 C-Reactive Protein 48.0 mg/L (0.0-4.9) H 03/28/25 22:38 Total Protein 7.2 g/dL (6.6-8.7) 03/28/25 22:38 Albumin 3.5 g/dL (3.5-5.2) 03/28/25 22:38 Globulin 3.7 g/dL (1.3-4.6) 03/28/25 22:38 Procalcitonin 0.10 ng/mL (0-0.5) 03/29/25 00:00 Urine Color Yellow (Yellow) 03/29/25 01:38 Urine Appearance Clear (CLEAR) 03/29/25 01:38 Urine pH 5.5 (5-7) 03/29/25 01:38 Ur Specific [place] 1.022 (1.005-1.030) 03/29/25 01:38 Urine Protein 4+ (Negative) A 03/29/25 01:38 Urine Glucose (UA) 2+ (Normal) H 03/29/25 01:38 Urine Ketones Negative (Negative) 03/29/25 01:38 Urine Blood 3+ (Negative) A 03/29/25 01:38 Urine Nitrate Negative (Negative) 03/29/25 01:38 Urine Bilirubin Negative (Negative) 03/29/25 01:38 Urine Urobilinogen 1.0 mg/dL (Negative) 03/29/25 01:38 Ur Leukocyte Esterase Negative (Negative) 03/29/25 01:38 Urine RBC 0-2 /hpf (0-2) 03/29/25 01:38 Urine WBC 0-5 /hpf (0-5) 03/29/25 01:38 Ur Squamous Epith Cells 0-5 /hpf (0-5) 03/29/25 01:38 Amorphous Sediment Not Reportable 03/29/25 01:38 Urine Bacteria Trace /hpf (NONE) 03/29/25 01:38 Hyaline Casts 4.11 /lpf 03/29/25 01:38 Influenza A (PCR) Negative (Negative) 03/29/25 01:00 Influenza Type B (PCR) Negative (Negative) 03/29/25 01:00 RSV (PCR) Negative (Negative) 03/29/25 01:00 SARS-CoV-2 (PCR) Negative (Negative) 03/29/25 01:00 XR interpretation done by ED provider, pending radiology final review Discharge Plan Discharge Patient Disposition: Admitted As Inpatient Clinical Impression: Central line infection Condition: Stable Coding Level of Care Code ED [employer] 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
[2025-03-29 01:50] LABS: Bilirubin Urine Negative (Negative); Blood Urine 3+ (Negative); Glucose Urine UA 2+ (Normal); Ketones Urine Negative (Negative); Leukocyte Esterase Urine Negative (Negative); Nitrate Urine Negative (Negative); Protein Urine 4+ (Negative); Specific Gravity, Urine 1.022 (1.005-1.030); Urine Appearance Clear (CLEAR); Urine Color Yellow (Yellow); pH Urine 5.5 (5-7)
[2025-03-29 01:55] LABS: Bacteria Urine Trace /hpf; Hyaline Casts Urine 4.11 /lpf; RBC Urine 0-2 /hpf (0-2); Squamous Epithelial Cell Urine 0-5 /hpf (0-5); WBC Urine 0-5 /hpf (0-5)
[2025-03-29 02:01] LABS: Influenza A NEGATIVE (Negative); Influenza B NEGATIVE (Negative); Respiratory Syncytial Virus Ce NEGATIVE (Negative); SARS-CoV-2 PCR NEGATIVE (Negative)
--- NOTE | 2025-03-29 02:02 | ECG_ITS ---
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 Measurements Intervals [place] Rate: 101 P: 39 [place]: 145 QRS: 29 QRSD: 89 T: 95 QT: 349 QTc: 453 Interpretive Statements SINUS TACHYCARDIA ABNORMAL QRS-T ANGLE [QRS-T AXIS DIFFERENCE > 60] Compared to ECG 02/25/2025 20:17:07 Sinus rhythm no longer present Electronically Signed On 03-31-2025 08:22:34 CDT by Jing Stewart M.D. [email or web address]
[2025-03-29] MEDS: sodium chloride 0.9% 1,000 ML 999 ML IV (02:03)
[2025-03-29] MEDS: linezolid premix 600 MG/300 ML PREMIX 300 MG IV ×2 (02:04→11:48)
[2025-03-29] MEDS: meropenem 500 mg SDV IVP (02:05)
[2025-03-29 02:11] LABS: Add Urine Culture? No; UA Slide Review UA Slide Review Perf
[2025-03-29 02:19] LABS: Lactic Sepsis W/Reflex 1.4 mmol/L (0.5-2.2)
[2025-03-29] MEDS: HYDROcodone-acetaminophen 5-325 mg Tablet 1 TAB PO (02:36)
--- NOTE | 2025-03-29 04:42 | PM.HP ---
Providers/Chief Complaint Admitting Physician: Shannan Brown MD--- patient seen after 12 midnight Primary Care Provider: Joselo Burris MD Chief Complaint: fever,chills,R side neck pain, alonzo port issue, History of Present Illness Pablo Saunders is a 49 year old female with medical history significant for a prior acute renal failure requiring hemodialysis which has since resolved. Patient also had a history of osteomyelitis of the foot requiring a Alonzo catheter to be placed for treatment osteomyelitis. The osteomyelitis he has since also been resolved. The Alonzo has been in place for the past 1 year post treatment to the formerly [facility]. Patient now started having fevers, myalgia neck pain headaches not feeling well . For this reason patient came to the emergency room for further evaluation. Patient has been seen by ED attending who called called general surgeon on consultation concerning the Alonzo catheter removal. This will be removed today by general surgeon. Patient has been pancultured from blood and had received Zyvox and meropenem in the emergency room. I have continued with cefepime and Zyvox for this patient. Must monitor patient prior to discharge. Patient be fever free at least 24 to 48 hours prior to discharge. Must continue to monitor closely. Review of Systems Narrative: System review upon 10 organ review were noted to be unremarkable except for systemic fever Cardiovascular patient does have a Alonzo most likely had been infected and a plan to remove it today. Medications/Allergies Home Medications ?Medication ?Instructions ?Recorded ?Confirmed ?Last Taken ?Type cetirizine 10 mg tablet 10 mg PO DAILY 03/22/23 03/29/25 03/28/25 History insulin regular human 100 unit/mL See Rx Instructions .Route .COMPLEX 03/22/23 03/29/25 02/24/25 History injection solution (Humulin R Regular U-100 Insulin) aspirin 81 mg tablet,delayed 81 mg PO DAILY 02/25/25 03/29/25 03/28/25 History release clopidogrel 75 mg tablet (Plavix) 75 mg PO DAILY 02/25/25 03/29/25 03/28/25 History pantoprazole 40 mg tablet,delayed 40 mg PO DAILY 02/25/25 03/29/25 03/28/25 History release (Protonix) hyoscyamine sulfate 0.125 mg 0.125 mg sublingual Q8H PRN 02/26/25 03/29/25 Unknown Rx sublingual tablet (Levsin/SL) epigastric abdominal pain #20 tabs promethazine 25 mg rectal 25 mg [place] Q4H PRN nausea and 02/26/25 03/29/25 Unknown Rx suppository vomiting #12 ea alprazolam 0.5 mg tablet (Xanax) 0.5 mg PO TID PRN Anxiety 03/29/25 03/29/25 Unknown History tizanidine 4 mg tablet 4 mg PO TID PRN muscle spasms 03/29/25 03/29/25 Unknown History Allergies Allergy/AdvReac Type Severity Reaction Status Date / Time tramadol Allergy Mild hives Verified 02/25/25 19:34 sulfamethoxazole (From Allergy ALGY-Hives Verified 02/25/25 13:24 Bactrim) trimethoprim (From Bactrim) Allergy ALGY-Hives Verified 02/25/25 13:24 daptomycin AdvReac blurry Verified 03/29/25 00:15 vision flurocet Allergy ADR-Confusi Uncoded 02/25/25 13:24 on PFSH Acute Female Reproductive History: Date of last menstrual period: 03/24/25 Vitals/I&O/Wt Last Vital Signs Temp 97.8 F 03/29/25 03:42 Pulse 108 H 03/29/25 03:42 Resp 19 H 03/29/25 03:42 BP 185/69 03/29/25 03:42 Pulse Ox 94 03/29/25 03:42 O2 Del Method Room Air 03/29/25 02:53 03/28/25 03/28/25 03/29/25 14:59 22:59 06:59 Intake Total 1300 / 1300 Balance 1300 / 1300 Weight last 48 hrs Weight 174.043 kg Weight 167.829 kg Physical Exam Narrative: Generally patient is doing okay stable had lites sepsis but not in shock. Patient mentating well. HEENT normocephalic atraumatic neck neck is supple cardiovascular heart rate is regular lungs are pretty much clear abdomen soft nontender nondistended however a very weak obese abdomen. unremarkable extremities intact no edema has good pulses neurology he has no focality lab studies lab studies reviewed and noted For leukocytosis and hyperglycemia and is not indicative of infection underlining Data 03/28/25 22:38 06/16/25 22:38 Micro: Microbiology 03/29/25 01:58 Blood Culture - Preliminary Blood SPECIMEN COLLECTED 03/28/25 22:28 Blood Culture - Preliminary Blood SPECIMEN COLLECTED A&P Assessment and plan (1) Line sepsis: Admit to general medical floor Panculture from blood Antibiotics initiated from the emergency room I have continued with cefepime and vancomycin for pharmacy to dose. (2) Central line infection: Alonzo is a tunneled catheter continue to care for line sepsis (3) Myalgia: Myalgia will go away once patient is adequately treated with IV antibiotics and following up with the cultures. (4) Fever: Fever will resolve most monitor and optimize (5) Leukocytosis: Leukocytosis indicative of underlining infection in this case we will continue to treat with IV antibiotics this will resolve as well. Monitor for serial CBC. (6) Diabetes type 2: Keep patient euglycemic optimize blood sugar while infection is being treated. Must continue to monitor PDMP PDMP Reviewed: Last Reviewed 03/29/25 08:00 by Shannan Brown MD Attestations Medical Necessity Statement*: Patient with Sepsis need to be admitted pancultured follow through with antibiotics treatment follow through with lab studies with CBC and keep patient fever free for at least 24 to 48 hours prior to discharge. And should the blood culture be bacteremic it must be free of bacteremia prior to discharge. This being said patient does deserve inpatient admission allowing at least a minimum of 2 midnights Coding Level of Care Code 85968 Diagnoses Line sepsis T85.79XA; A41.9 Central line infection T80.219A Myalgia M79.10 Fever R50.9 Leukocytosis D72.829 Diabetes type 2 E11.9 Time Spent (min) 60
[2025-03-29] MEDS: pantoprazole 40 mg SDV IVP (05:26)
[2025-03-29] MEDS: sodium chloride 0.9% 1,000 ML 75 ML IV (05:26)
[2025-03-29] MEDS: ondansetron 2 mg/ML SDV 2 mL 4 MG IVP ×2 (05:26→14:00)
[2025-03-29] MEDS: docusate sodium 100 mg Capsule PO (07:28)
[2025-03-29] MEDS: cefepime 1,000 mg SDV 1000 MG IVP (07:29)
[2025-03-29] MEDS: morphine 4 mg/mL SDV 1 mL 2 MG IVP ×4 (07:41→22:58)
--- NOTE | 2025-03-29 08:01 | P.CONIM_ITS ---
Providers/Reason For Consult 2 Consulting Physician/Specialty*: General Surgery Reason for Consult*: Sepsis due to tunneled catheter infection Attending Physician: Shannan Brown MD Primary Care Provider: Joselo Burris MD History of Present Illness History of Present Illness Pablo Saunders is a 49 year old female with multiple comorbidities who has history of osteomyelitis for which she got a tunneled catheter on the right IJ that has been used for antibiotics until January of this year. Over the last 24 to 40 hours she has noted purulent discharge around the catheter fever chills and neck pain. Workup in the ER shows evidence of tachycardia and an elevated white count. Review of Systems 2 General: Reports: 10 or more systems reviewed and unremarkable except in HPI and below Medications/Allergies Home Medications ?Medication ?Instructions ?Recorded ?Confirmed ?Last Taken ?Type cetirizine 10 mg tablet 10 mg PO DAILY 03/22/2303/1303/28/25 History insulin regular human 100 unit/mL See Rx Instructions .Route .COMPLEX 03/22/23 03/29/25 02/24/25 History injection solution (Humulin R Regular U-100 Insulin) aspirin 81 mg tablet,delayed 81 mg PO DAILY 02/25/25 0 03/29/25 03/28/25 History release clopidogrel 75 mg tablet (Plavix) 75 mg PO DAILY 02/2503/29/25 03/28/25 History pantoprazole 40 mg tablet,delayed 40 mg PO DAILY 02/2503/29/25 03/28/25 History release (Protonix) hyoscyamine sulfate 0.125 mg 0.125 mg sublingual Q8H P RN 02/26/25 03/29/25 Unknown Rx sublingual tablet (Levsin/SL) epigastric abdominal paulo n #20 tabs promethazine 25 mg rectal 25 mg [place] Q4H PRN nausea and 02/26/25 03/29/25 Unknown Rx suppository vomiting #12 ea alprazolam 0.5 mg tablet (Xanax) 0.5 mg PO TID PRN Anx iety 03/29/25 03/29/25 Unknown History tizanidine 4 mg tablet 4 mg PO TID PRN muscle spasm s 03/29/25 03/29/25 Unknown History Allergies Allergy/AdvReac Type Severity Reaction Status Date / Time tramadol Allergy Mild hives Verified 02/25/25 19:34 sulfamethoxazole (From Allergy ALGY-Hives Verified 02/25/25 13:24 Bactrim) trimethoprim (From Bactrim) Allergy ALGY-Hives Verified 02/25/25 13:24 daptomycin AdvReac blurry Verified 03/29/25 00:15 vision flurocet Allergy ADR-Confusi Uncoded 02/25/25 13:24 on Current Medications Generic Name Dose Route Start Last Admin Trade Name Freq PRN Reason Stop Dose Admin Cefepime HCl 1,000 mg 03/29/25 08:00 03/29/25 07:29 Cefepime 1,000 Mg Sdv IVP 1,000 mg Q8H HEATHER Administration Protocol Docusate Sodium 100 mg 03/29/25 09:00 03/29/25 07:28 Docusate Sodium 100 Mg Capsule PO 100 mg BID HEATHER Administration Heparin Sodium (Porcine) 5,000 unit 03/29/25 09:00 03/29/25 07:31 Heparin 5,000 Unit/Ml Inj 1 Ml SUBCUT Not Given Q12H HEATHER Sodium Chloride 1,000 mls @ 75 mls/hr 03/29/25 04:30 03/29/25 05:26 Sodium Chloride 0.9% IV 75 mls/hr .[id number] HEATHER Administration Morphine Sulfate 2 mg 03/29/25 04:30 03/29/25 07:41 Morphine 4 Mg/Ml Sdv 1 Ml IVP 2 mg Q4H PRN Administration SEVERE PAIN Ondansetron HCl 4 mg 03/29/25 04:30 03/29/25 05:26 Ondansetron 2 Mg/Ml Sdv 2 Ml IVP 4 mg Q8H PRN Administration vomiting, or N/V if npo Pantoprazole Sodium 40 mg 03/29/25 04:30 03/29/25 05:26 Pantoprazole 40 Mg Sdv IVP 40 mg Q24H HEATHER Administration PFSH Acute 2 Female Reproductive History: Date of last menstrual period: 03/24/25 Vitals/I&O/Wt Last Vital Signs Temp 98.9 F 03/29/25 07:43 Pulse 120 H 03/29/25 07:43 Resp 18 03/29/25 07:43 BP 152/67 03/29/25 07:43 Pulse Ox 99 03/29/25 07:43 O2 Del Method Nasal Cannula 03/29/25 07:43 03/28/25 03/29/25 03/29/25 22:59 06:59 14:59 Intake Total 1300 / 1300 Balance 1300 / 1300 Weight last 48 hrs Weight 383 lb Weight 383 lb 11.2 oz Weight 370 lb Physical Exam 2 Chest: OTHER: In the right upper chest there is a tunneled line. There is purulent discharge around the line Data 03/28/25 22:38 03/28/25 22:38 Micro: Microbiology 03/29/25 01:58 Blood Culture - Preliminary Blood SPECIMEN COLLECTED 03/28/25 22:28 Blood Culture - Preliminary Blood SPECIMEN COLLECTED A&P Assessment and plan (1) Central line infection: Plan After complete history physical examination and review of all available clinical data I have offered the patient excision of tunneled catheter due to sepsis. I have informed the patient all risk and benefits including the risk of bleeding, infection, increased risk of intraprocedural alarm postprocedural bleeding due to Plavix use. Patellar fracture and retained fragments, need for transfer to higher level of care, inability to remove the catheter. She shows understanding agrees with the plan. We will take the patient to the OR this afternoon for excision of the catheter. All other management per medical team PDMP PDMP Reviewed: Not Reviewed Coding Level of Care Code Acute Code for Chg Fwd Diagnoses Central line infection T80.219A
[2025-03-29] MEDS: morphine 4 mg/mL SDV 1 mL 2 MG IM (09:22)
[2025-03-29 11:25] LABS: Glucose Point of Care 496 mg/dL (70-110)
[2025-03-29] MEDS: insulin lispro 100 unit/1 mL SUBCUT ×3 (11:47→23:00)
--- NOTE | 2025-03-29 12:18 | ANES.PREANE2 ---
Pre-Anesthetic Assessment Height/Weight: Height 5 ft 7 in Weight 383 lb Temp Pulse Resp BP Pulse Ox O2 Del Method 99.8 F H 91 16 158/54 94 Nasal Cannula 03/29/25 12:05 03/29/25 12:05 03/29/25 12:05 03/29/25 12:05 03/29/25 12:05 03/29/25 12:05 Preop Diagnosis: Dialysis catheter infection Operation Date: 03/29/25 13:50 Proposed Procedures p Dialysis Catheter Removal(Not Applicable) - Scout Bennett MD Was Beta Andrea taken within 24 hours: N/A Was Clonidine taken within 24 hours: N/A Social No alcohol and No tobacco Exam alert, oriented x 3 and regular rate & rhythm Airway Submandibular: within normal limits Cervical ROM: within normal limits Mallampati: Class III Comments: Comments: edentulous, large neck circumference Anesthetic Plan ASA status: 4 Other: Patient admitted today for for concern of dialysis catheter infection. Hemodialysis catheter was initially placed for acute renal failure in the setting of osteomyelitis of the foot requiring prolonged antibiotics. Mcdermott catheter has been in place for the past year Patient is actively throwing up bile in the preop area History of type 2 diabetes on chronic insulin. Patient received insulin on the floor. BS 372 in preop. Will recheck prior to going to surgery GERD on Protonix Labs reviewed, leukocytosis noted Patient is currently febrile with temp of 99.8 Plan for GETA with RSI Medications/Allergies Home Medications ?Medication ?Instructions ?Recorded ?Confirmed ?Last Taken ?Type cetirizine 10 mg tablet 10 mg PO DAILY 03/22/23 03/29/25 03/28/25 History insulin regular human 100 unit/mL See Rx Instructions .Route .COMPLEX 03/22/23 03/29/25 02/24/25 History injection solution (Humulin R Regular U-100 Insulin) aspirin 81 mg tablet,delayed 81 mg PO DAILY 02/25/25 03/29/25 03/28/25 History release clopidogrel 75 mg tablet (Plavix) 75 mg PO DAILY 02/25/25 03/29/25 03/28/25 History pantoprazole 40 mg tablet,delayed 40 mg PO DAILY 02/25/25 03/29/25 03/28/25 History release (Protonix) hyoscyamine sulfate 0.125 mg 0.125 mg sublingual Q8H PRN 02/26/25 03/29/25 Unknown Rx sublingual tablet (Levsin/SL) epigastric abdominal pain #20 tabs promethazine 25 mg rectal 25 mg MS Q4H PRN nausea and 02/26/25 03/29/25 Unknown Rx suppository vomiting #12 ea alprazolam 0.5 mg tablet (Xanax) 0.5 mg PO TID PRN Anxiety 03/29/25 03/29/25 Unknown History tizanidine 4 mg tablet 4 mg PO TID PRN muscle spasms 03/29/25 03/29/25 Unknown History Allergies Allergy/AdvReac Type Severity Reaction Status Date / Time tramadol Allergy Mild hives Verified 02/25/25 19:34 sulfamethoxazole (From Allergy ALGY-Hives Verified 02/25/25 13:24 Bactrim) trimethoprim (From Bactrim) Allergy ALGY-Hives Verified 02/25/25 13:24 daptomycin AdvReac blurry Verified 03/29/25 00:15 vision flurocet Allergy ADR-Confusi Uncoded 02/25/25 13:24 on Current Medications Generic Name Dose Route Start Last Admin Trade Name Freq PRN Reason Stop Dose Admin Cefepime HCl 1,000 mg 03/29/25 08:00 03/29/25 07:29 Cefepime 1,000 Mg Sdv IVP 1,000 mg Q8H [facility] Administration Protocol Docusate Sodium 100 mg 03/29/25 09:00 03/29/25 07:28 Docusate Sodium 100 Mg Capsule PO 100 mg BID [facility] Administration Heparin Sodium (Porcine) 5,000 unit 03/29/25 09:00 03/29/25 07:31 Heparin 5,000 Unit/Ml Inj 1 Ml SUBCUT Not Given Q12H [facility] Linezolid 600 mg in 300 mls @ 300 mls/hr 03/29/25 12:00 03/29/25 11:48 Zyvox Premix IV 300 mls/hr Q12H [facility] Administration Protocol Insulin Human Lispro 0 unit 03/29/25 12:00 03/29/25 11:47 Insulin Lispro 100 Unit/1 Ml SUBCUT 16 unit WM&BEDTIME [facility] Administration Protocol Morphine Sulfate 2 mg 03/29/25 04:30 03/29/25 11:47 Morphine 4 Mg/Ml Sdv 1 Ml IVP 2 mg Q4H PRN Administration SEVERE [employer]IN Ondansetron HCl 4 mg 03/29/25 04:30 03/29/25 05:26 Ondansetron 2 Mg/Ml Sdv 2 Ml IVP 4 mg Q8H PRN Administration vomiting, or N/V if npo Pantoprazole Sodium 40 mg 03/29/25 04:30 03/29/25 05:26 Pantoprazole 40 Mg Sdv IVP 40 mg Q24H HEATHER Administration PFSH Anesthesia Female Reproductive History Date of last menstrual period: 03/24/25 Data Anesthesia 03/28/25 22:38 03/28/25 22:38 Short CBC 03/28/25 Range/Units 22:38 WBC 14.53 H (3.29-11.43) 10^3/uL Hgb 11.40 (11.27-16.99) g/dL Hct 35.1 L (36-47) % MCV 88.9 (85-98) fl Plt Count 212 (157-399) 10^3/cmm Neut % (Auto) 86.5 % Neut # (Auto) 12.57 H (1.8-7.7) 10^3/uL BMP 03/28/25 22:38 Sodium 134 L Potassium 4.7 Chloride 101 Carbon Dioxide 18 L BUN 28 H Creatinine 1.1 H Glucose 300 H Calcium 9.0 Liver Function 03/28/25 Range/Units 22:38 Total Bilirubin 0.4 (0.15-1.2) mg/dL AST 11 (0-32) U/L ALT 9 (0-33) U/L Alkaline Phosphatase 63 (35-105) U/L Albumin 3.5 (3.5-5.2) g/dL Urine 03/29/25 Range/Units 01:38 Urine Color Yellow (Yellow) Urine Appearance Clear (CLEAR) Urine pH 5.5 (5-7) Ur Specific [place] 1.022 (1.005-1.030) Urine Protein 4+ A (Negative) Urine Glucose (UA) 2+ H (Normal) Urine Ketones Negative (Negative) Urine Nitrate Negative (Negative) Urine Bilirubin Negative (Negative) Ur Leukocyte Esterase Negative (Negative) Urine RBC 0-2 (0-2) /hpf Urine WBC 0-5 (0-5) /hpf COVID Results 03/29/25 01:00 SARS-CoV-2 (PCR) Negative Coags 03/28/25 22:38 ESR 28 H C-Reactive Protein 48.0 H Microbiology 03/29/25 01:58 Blood Culture - Preliminary Blood SPECIMEN COLLECTED 03/28/25 22:28 Blood Culture - Preliminary Blood SPECIMEN COLLECTED
[2025-03-29 12:56] LABS: OR HCG Qualitative Urine Negative (Negative)
[2025-03-29 13:35] LABS: Glucose Point of Care 372 mg/dL (70-110)
--- NOTE | 2025-03-29 14:58 | SUR.PREOP ---
14:45 anesthesia informed of pt's temperature.
[2025-03-29] MEDS: BUPivacaine 0.5% INJ 30 mL INJECTION (15:31)
[2025-03-29] MEDS: lidocaine-epi 1% PF 1:200,000 30 mL SDV INJECTION (15:34)
--- NOTE | 2025-03-29 15:45 | USCV_ITS ---
Pablo Saunders Age: 49 Gender: F : 1975 Exam Date: 03/29/2025 19:13 Ordering Phys: Steve Baker MD Technologist: MIS [place] [facility] [place]: positive blood cultures, acute renal failure on dialysis BP: 133 / 73 HR: 85 Rhythm: Sinus Technical Quality: Adequate MEASUREMENTS (Male / Female) Normal Values 2D ECHO LV Diastolic Diameter PLAX 4.7 cm 4.2 - 5.9 / 3.9 - 5.3 cm IVS Diastolic Thickness 1.3 cm 0.6 - 1.0 / 0.6 - 0.9 cm IVS Systolic Thickness 2.0 cm LVPW Diastolic Thickness 1.6 cm 0.6 - 1.0 / 0.6 - 0.9 cm LVPW Systolic Thickness 1.9 cm LVOT Diameter 2.5 cm LV Ejection Fraction 2D Teich 68.0 % LV Ejection Fraction MOD 4C 36.9 % LV Ejection Fraction MOD 2C 77.4 % LV Ejection Fraction 2C AL 79.2 % LA Diameter 5.0 cm Aorta at Sinotubular Diameter 2.8 cm IVC Diameter 2.0 cm M-MODE LA Ao Ratio MM 1.8 AV Cusp Separation MM 1.8 cm DOPPLER AV Peak Velocity 154.0 cm/s LVOT Peak Velocity 94.0 cm/s AV Area Cont Eq vti 3.1 cm squared AV Area Cont Eq pk 2.9 cm squared MV Peak Velocity 136.0 cm/s MV Area PHT 3.5 cm squared Mitral E to A Ratio 1.5 TV Peak Velocity 309.0 cm/s TR Peak Velocity 370.0 cm/s TR Peak Gradient 54.8 mmHg TV Peak E Velocity 65.0 cm/s PV Peak Velocity 127.0 cm/s FINDINGS Left Ventricle Normal left ventricular size and systolic function, EF 68%.no regional wall motion abnormalities. Mild left ventricular hypertrophy. Right Ventricle The right ventricle is normal in size and function. Right Atrium The right atrium is normal in size. Left Atrium Mildly increased left atrial size. Mitral Valve Mild mitral annular calcification. Thickened mitral valve. Aortic Valve No gross abnormalities noted Tricuspid Valve Trace to mild tricuspid valve regurgitation. Pulmonic Valve No gross abnormalities noted Pericardium Normal pericardium without effusion. Aorta Normal aortic annulus size. IVC Normal inferior vena cava. CONCLUSIONS Normal left ventricular size and systolic function, EF 68%.no regional wall motion abnormalities. Mild left ventricular hypertrophy. Mildly increased left atrial size. Mild mitral annular calcification. Thickened mitral valve. Trace to mild tricuspid valve regurgitation. There is no pericardial effusion. There are no intracardiac masses. No obvious vegetation No similar previous studies are available for comparison Dr William Rucker MD FACC (Electronically Signed) Final Date: 29 March 2025 22:43 S
--- NOTE | 2025-03-29 15:45 | P.OP_ITS ---
Operative Report Date of procedure: March 29, 2025 Pre-op diagnosis: Sepsis Post-op diagnosis: Same Procedure done: Excision of right IJ tunneled central line Specimens removed/disposition: Right IJ tunneled central line Surgeon: Scout Bennett MD Banana Rip[facility] Room Supervisor: AURELIO OR STaff Estimated blood loss: 5 Brief History: 49-year-old female with sepsis lately due to central line. I was consulted for line removal. After discussion with reason benefits documented my preop note except to proceed to the OR for removal Procedure: Patient was brought into the OR, she was placed in the supine position. Anesthesia care was initiated. The right upper chest was prepped and draped in the usual sterile fashion. A timeout was conducted. I removed several stitches from the line to the skin. I then proceeded to use a hemostat to dilate the tract. I then took cultures from inside the tract, minimal purulence was noted. I then circumferentially dissected them cuff and with a firm pulm maneuver I was able to remove the whole line. Distal tip of the line was caught and sent for culture. Pressures was held until hemostasis was verified. I then washed the wound with profuse amount of saline. The wound was then packed with quarter inch iodoform packing and a sterile dressing was applied. At the end of the procedure all counts were correct the patient tolerated well the procedure was transferred to PACU in stable condition
--- NOTE | 2025-03-29 15:48 | CTR_ITS ---
PROCEDURE INFORMATION: Exam: CT Chest Without Contrast; Diagnostic Exam date and time: 03/29/2025 4:56 PM Age: 49 years old Clinical indication: Fever; Dyspnea; Additional info: Fever, n/v TECHNIQUE: Imaging protocol: Diagnostic computed tomography of the chest without contrast. Radiation optimization: All CT scans at this facility use at least one of these dose optimization techniques: automated exposure control; mA and/or kV adjustment per patient size (includes targeted exams where dose is matched to clinical indication); or iterative reconstruction. COMPARISON: CR (CHEST, ) 03/29/2025 1:35 AM RADIATION DOSE METRICS: Total DLP (mGy-cm): 1744.2 FINDINGS: Lungs: Linear scarring involves both lung bases. I see no infiltrate or mass. Pleural spaces: Unremarkable. No pneumothorax. No pleural effusion. Heart: Unremarkable. No cardiomegaly. No pericardial effusion. Coronary arteries: Coronary artery calcifications are noted. Lymph nodes: Unremarkable. No enlarged lymph nodes. Vasculature: Unremarkable. No aortic aneurysm. Bones/joints: Unremarkable. No acute fracture. Soft tissues: Unremarkable. PROCEDURE INFORMATION: Exam: CT Abdomen And Pelvis Without Contrast Exam date and time: 03/29/2025 4:56 PM Age: 49 years old Clinical indication: Fever; Dyspnea; Additional info: Fever, n/v TECHNIQUE: Imaging protocol: Computed tomography of the abdomen and pelvis without contrast. Radiation optimization: All CT scans at this facility use at least one of these dose optimization techniques: automated exposure control; mA and/or kV adjustment per patient size (includes targeted exams where dose is matched to clinical indication); or iterative reconstruction. COMPARISON: CT abdomen pelvis w con* [id number] 02/25/2025 4:01 PM RADIATION DOSE METRICS: Total DLP (mGy-cm): 23.66 FINDINGS: Lungs: Lung bases are clear. No pleural effusion. Liver: Normal. No mass. Gallbladder and biliary ducts: The gallbladder has been resected. Pancreas: Normal. No ductal dilation. Spleen: Moderate splenomegaly is noted. Adrenal glands: Normal. No mass. Kidneys and ureters: Normal. No hydronephrosis. Stomach and bowel: Unremarkable. No obstruction. No mucosal thickening. Appendix: No evidence of appendicitis. Intraperitoneal space: Unremarkable. No free air. No significant fluid collection. Vasculature: Unremarkable. No abdominal aortic aneurysm. Lymph nodes: Unremarkable. No enlarged lymph nodes. Urinary bladder: Unremarkable as visualized. Reproductive: Unremarkable as visualized. Bones/joints: Unremarkable. No acute fracture. Soft tissues: Unremarkable. CT/[place] [id number] IMPRESSION: No acute findings. IMPRESSION: 1. No acute findings. 2. Moderate splenomegaly of uncertain etiology
[2025-03-29 16:01] LABS: Glucose Point of Care 337 mg/dL (70-110)
[2025-03-29 16:22] LABS: Basophils % 0.4 %; Eosinophils % 0.4 %; Hematocrit 30.5 % (36-47); Lymphocytes # 0.4 10^3/uL (0.8-4.8); Lymphocytes % 3.4 %; Mean Corpuscular HGB Conc 33.4 g/dL (30-55); Mean Corpuscular Hemoglobin 29.4 pg (27-33); Mean Corpuscular Volume 87.9 fl (85-98); Monocytes # 0.5 10^3/uL (0.2-0.9); Monocytes % 4.9 %; Neutrophils # 9.62 10^3/uL (1.8-7.7); Neutrophils % 89.8 %; Nucleated Red Blood Cells % 0 %; Platelet Count 164 10^3/cmm (157-399); Red Blood Count 3.47 10^6/uL (3.85-5.65); Red Cell Distribution Width 15.3 % (12.1-15.1); White Blood Count 10.71 10^3/uL (3.29-11.43)
--- NOTE | 2025-03-29 16:22 | ANE.PACU2 ---
Inpatient post-anesthesia follow up: Airway intact: Yes Vital signs: Temperature 97.6 F Pulse Rate 87 Respiratory Rate 18 Blood Pressure 125/66 Pulse Oximetry 95 Oxygen Delivery Me thod Room Air Oxygen Flow Rate 2 Fraction of Inspir ed Oxygen Hydration adequate: Yes Nausea and vomiting: No Pain level: 1 Mental status: Baseline
[2025-03-29 16:38] LABS: Anion Gap 14.9 (5-19); Blood Urea Nitrogen 26 mg/dL (6-20); C Reactive Protein 181.3 mg/L (0.0-4.9); Calcium 8.1 mg/dL (8.5-10.5); Carbon Dioxide 19 mmol/L (22-29); Chloride 97 mmol/L (98-107); Glomerular Filtration Rate 40.3 mL/min (90-130); Glucose 308 mg/dL (65-115); Lipase 11 U/L (13-60); Osmolality Calculated 278 mOsm/kg (285-295); Potassium 4.9 mmol/L (3.5-5.1); Sodium 126 mmol/L (136-145)
[2025-03-29 16:48] LABS: Ketone (Acetest) Serum Negative (Negative)
[2025-03-29 16:49] LABS: ABG PCO2 36.1 mmHg (35-45); ABG PH Result 7.38 (7.35-7.45); Arterial Blood Gas Hematocrit 32.7 % (37-47); Base Excess ABG -3.1 mmol/L (-2.0-2.0); Blood Gas Operator Identificat GD; Blood Gas Sample Site Brachial, left; Blood Gas Sample Type Arterial; HCO3 ABG 21.5 mmol/L (22-26); Oxygen Device NC; PO2 ABG 83.6 mmHg (80.0-100.0); PO2 FiO2 Ratio Arterial Blood 298
[2025-03-29 17:02] LABS: Alanine Aminotransferase 13 U/L (0-33); Albumin Level 3.2 g/dL (3.5-5.2); Alkaline Phosphatase 54 U/L (35-105); Anion Gap 15.9 (5-19); Aspartate Amino Transferase 17 U/L (0-32); Blood Urea Nitrogen 26 mg/dL (6-20); Calcium 7.9 mg/dL (8.5-10.5); Carbon Dioxide 19 mmol/L (22-29); Chloride 97 mmol/L (98-107); Globulin 2.6 g/dL (1.3-4.6); Glomerular Filtration Rate 40.3 mL/min (90-130); Glucose 308 mg/dL (65-115); Magnesium 1.3 mg/dL (1.7-2.3); Osmolality Calculated 280 mOsm/kg (285-295); Phosphorus 2.7 mg/dL (2.5-4.5); Potassium 4.9 mmol/L (3.5-5.1); Sodium 127 mmol/L (136-145); Total Bilirubin 0.8 mg/dL (0.15-1.2); Total Protein 5.8 g/dL (6.6-8.7)
--- NOTE | 2025-03-29 17:34 | P.PN_ITS ---
Subjective 2 Subjective: - Patient was seen this morning - She reports that she had a Mcdermott cat heter placed in July at [facility] for diabetic foot infection which has healed - Since then her Mcdermott catheter was ke pt in she is not exactly clear why potentially for poor peripheral access - Nonetheless she tells me that she has not had any of her dressing changed on her Mcdermott catheter nor has she had her port flushed - Reports that she had noticed increased swelling around Mcdermott catheter site, with some purulence around Mcdermott catheter site - Does report nausea and vomiting - Does report fevers and chills - She does on her bilateral lower extrem ities, have areas of erythema, she tells me that she had venous ulcers in these locations which have healed over well she used to follow-up with wound care - Denies any abdominal pain, no diarrhea , she is status post cholecystectomy - No shortness of breath, no cough - Discussed plans on removal of Mcdermott catheter, she agrees - Patient was seen on postop recovery, -I was told by anesthesia, patient was i ntubated for procedure as she had nausea vomiting before the procedure, no evidence of aspiration - She is on oxy mask, alert oriented x 3 , following all commands, denies any abdominal pain - She was extubated with no evidence of aspiration - Repeat BMP, ABG, ketones ordered to ru le out DKA - Discussed with patient we will put her on clear liquids, advance her diet as tolerated, broaden antibiotic coverage, CT chest ordered, cardiac echo ordered - Will monitor her blood sugars closely Vitals/I&O/Wt Last Vital Signs Temp 98.3 F 03/29/25 16:36 Pulse 97 03/29/25 16:36 Resp 18 03/29/25 16:36 BP 133/73 03/29/25 16:36 Pulse Ox 93 03/29/25 16:36 O2 Del Method Nasal Cannula 03/29/25 16:36 O2 Flow Rate 2 03/29/25 16:17 03/29/25 03/29/25 03/29/25 06:59 14:59 22:59 Intake Total 1300 / 1300 825 / 825 100 / 925 Output Total 5 / 5 Balance 1300 / 1300 825 / 825 95 / 920 Weight last 48 hrs Weight 173.726 kg Weight 174.043 kg Weight 167.829 kg Physical Exam 2 Const: COMMON NORMALS: no acute distress and patient oriented x3 Resp: COMMON NORMALS: normal respiratory effort, No retractions, No use of accessory muscles and clear to auscultation bilaterally AUSCULTATION: clear to auscultation bilaterally Cardio: COMMON NORMALS: regular rate, regular rhythm, S1 normal heart sound present and S2 normal heart sound present RATE: regular rate RHYTHM: r egular rhythm HEART SOUNDS: S1 normal heart sound present and S2 normal heart sound present GI: COMMON NORMALS: Normal to inspection, nondistended, normoactive bowel sounds present and non-tender Extremity: COMMON NORMALS: no pedal edema Neuro: COMMON NORMALS: patient oriented x3 Psych: COMMON NORMALS: mental status grossly normal Skin: NARRATIVE SKIN EXAM: Bilateral shins, patchy areas of erythema, swelling, tenderness, Right right measuring 5 x 5 cm Will left measuring 5 x 5 cm Data 03/29/25 16:10 03/29/25 16:10 Micro: Microbiology 03/28/25 22:28 Blood Culture - Preliminary Blood Staphylococcus aureus 03/29/25 01:58 Blood Culture - Preliminary Blood SPECIMEN COLLECTED A&P Assessment and plan (1) Central line infection: (2) Line sepsis: (3) Leukocytosis: (4) Diabetes type 2: (5) Fever: Plan Hyperglycemia, with history of type 2 diabetes - Blood sugars over 400, with nausea vomiting - Repeat BMP ordered anion gap 14.9, bicarb 19, ketones negative, pH 7.38, currently no evidence of diabetic ketoacidosis or HHS - Blood sugars now down to 337 Plan - Continue high-dose sliding scale - Lantus 10 units every 24 hours - Monitor blood sugars closely - Clear liquids for now Intractable nausea vomiting - Patient had episode of nausea and vomiting before surgery - She was intubated for surgery - She was seen in postop recovery, on nasal cannula - Denies any abdominal pain - Will continue to monitor nausea vomiting - Zofran for nausea - Reglan for nausea Mcdermott catheter infection, concerns for CLABSI -Status post removal of Mcdermott catheter - Follow blood cultures - Follow catheter tip culture - Follow abscess culture - Continue vancomycin - Continue Zosyn - Cardiac echo to evaluate valves - CT chest abdomen and pelvis Bilateral lower extremity anterior pedraza erythema - Concern for cellulitis - Continue broad-spectrum antibiotic therapy History of CAD status post 4 stents in March 2024 - Resume aspirin, Plavix tomorrow as per surgery Hypomagnesemia, will replace Acute kidney injury, IV fluids Morbid obesity Full code Lovenox for DVT prophylaxis PDMP PDMP Reviewed: Not Reviewed Attestations 2 Medical Necessity Statement*: Patient requires hospitalization for Mcdermott catheter infection, bilateral extremity cellulitis, hyperglycemia, HIREN, intractable nausea vomiting Diagnoses Central line infection T80.219A Line sepsis T85.79XA; A41.9 Leukocytosis D72.829 Diabetes type 2 E11.9 Fever R50.9
[2025-03-29] MEDS: lactated ringers 500 ML 999 ML IV (17:55)
[2025-03-29] MEDS: lactated ringers 1,000 ML 125 ML IV (17:58)
[2025-03-29] MEDS: vancomycin 2,000 MG/400 ML PIGGYBACK 200 MG IV (17:59)
[2025-03-29 18:25] LABS: Glucose Point of Care 439 mg/dL (70-110)
[2025-03-29 18:25] LABS: Glucose Point of Care 375 mg/dL (70-110)
[2025-03-29] MEDS: magnesium sulfate premix 1 GM/100 ML PIGGYBACK IV (18:38)
[2025-03-29 19:25] LABS: Estmated Average Glucose 243; Hemoglobin A1C 10.1 % (4.0-6.0)
--- NOTE | 2025-03-29 20:34 | PHA.VACGOAL ---
Vancomycin Goal - Goal Vancomycin Goal:: 15-20 mg/L Vancomycin Indication:: Other (Central line infection) - Therapy Current therapy:: Pip/Tazo Day of therpy:: Day [1]of [] . Actual body weight (kg): 173.726 kg - Data Labs: WBC 10.71 10^3/uL (3.29-11.43) 03/29/25 16:10 RBC 3.47 10^6/uL (3.85-5.65) L 03/29/25 16:10 Hgb 10.20 g/dL (11.27-16.99) L 03/29/25 16:10 Hct 30.5 % (36-47) L 03/29/25 16:10 MCV 87.9 fl (85-98) 03/29/25 16:10 MCH 29.4 pg (27-33) 03/29/25 16:10 MCHC 33.4 g/dL (30-55) 03/29/25 16:10 RDW 15.3 % (12.1-15.1) H 03/29/25 16:10 Sodium 126 mmol/L (136-145) L 03/29/25 16:10 Sodium 127 mmol/L (136-145) L 03/29/25 16:10 Potassium 4.9 mmol/L (3.5-5.1) 03/29/25 16:10 Potassium 4.9 mmol/L (3.5-5.1) 03/29/25 16:10 Chloride 97 mmol/L (98-107) L 03/29/25 16:10 Chloride 97 mmol/L (98-107) L 03/29/25 16:10 Carbon Dioxide 19 mmol/L (22-29) L 03/29/25 16:10 Carbon Dioxide 19 mmol/L (22-29) L 03/29/25 16:10 Anion Gap 14.9 (5-19) 03/29/25 16:10 Anion Gap 15.9 (5-19) 03/29/25 16:10 BUN 26 mg/dL (6-20) H 03/29/25 16:10 BUN 26 mg/dL (6-20) H 03/29/25 16:10 Creatinine 1.4 mg/dL (0.5-0.9) H 03/29/25 16:10 Creatinine 1.4 mg/dL (0.5-0.9) H 03/29/25 16:10 GFR Calculation 40.3 mL/min (90-130) L 03/29/25 16:10 GFR Calculation 40.3 mL/min (90-130) L 03/29/25 16:10 Treatment plan:: new consult Regimen:: New start vancomcyin for Central line infection/cellulitis. Blood cultures drawn on 03/28 growing-Staphylococcus aureus. No prior vancomycin history found. 2000 mg loading dose ordered. Started on maintenance dose of 1750 mg q18h. Microbiology 03/28/25 22:28 Blood Blood Culture - Preliminary Staphylococcus aureus
[2025-03-29 20:41] LABS: Glucose Point of Care 374 mg/dL (70-110)
[2025-03-29] MEDS: piperacillin-tazobactam 3.375 GM in sodium chloride 0.9% (plus) 50 ML IV (21:27)
[2025-03-29] MEDS: ALPRAZolam 0.5 mg Tablet PO (21:28)
[2025-03-29 22:20] LABS: Amphetamines Screen Urine Negative (Negative); Barbiturates Screen Urine Negative (Negative); Benzodiazepines Screen Urine Negative (Negative); Cocaine Screen Urine Negative (Negative); Opiate Screen Urine Positive (Negative); PCP Screen Urine Negative (Negative); THC Screen Urine Positive (Negative)
[2025-03-29] MEDS: tizanidine 4 mg Tablet PO (23:00)
[2025-03-30] VITALS (11 sets, daily range): BP systolic 109–126; BP diastolic 66–82; PULSE 81–89; RESP 16–20; TEMP 36.4–37; O2SAT 95–98
[2025-03-30] MEDS: acetaminophen 325 mg Tablet 650 MG PO (01:14)
[2025-03-30] MEDS: pantoprazole 40 mg SDV IVP (04:59)
[2025-03-30] MEDS: vancomycin 1,750 MG/350 ML PIGGYBACK 175 MG IV (05:00)
[2025-03-30] MEDS: morphine 4 mg/mL SDV 1 mL 2 MG IVP ×5 (05:02→22:26)
[2025-03-30 06:12] LABS: Basophils % 0.6 %; Eosinophils % 0.2 %; Hematocrit 29.2 % (36-47); Lymphocytes # 0.7 10^3/uL (0.8-4.8); Lymphocytes % 11.3 %; Mean Corpuscular HGB Conc 32.2 g/dL (30-55); Mean Corpuscular Hemoglobin 28.5 pg (27-33); Mean Corpuscular Volume 88.5 fl (85-98); Mean Platelet Volume 10.7 fL (7.4-10.4); Monocytes # 0.4 10^3/uL (0.2-0.9); Neutrophils # 5.28 10^3/uL (1.8-7.7); Neutrophils % 80.8 %; Nucleated Red Blood Cells % 0 %; Platelet Count 151 10^3/cmm (157-399); Red Cell Distribution Width 15.6 % (12.1-15.1); White Blood Count 6.53 10^3/uL (3.29-11.43)
[2025-03-30 06:20] LABS: Glucose Point of Care 391 mg/dL (70-110)
[2025-03-30 06:30] LABS: Alanine Aminotransferase 19 U/L (0-33); Albumin Level 2.9 g/dL (3.5-5.2); Alkaline Phosphatase 64 U/L (35-105); Anion Gap 16.9 (5-19); Aspartate Amino Transferase 30 U/L (0-32); Blood Urea Nitrogen 30 mg/dL (6-20); C Reactive Protein 227.7 mg/L (0.0-4.9); Calcium 8.1 mg/dL (8.5-10.5); Carbon Dioxide 20 mmol/L (22-29); Chloride 97 mmol/L (98-107); Globulin 3.3 g/dL (1.3-4.6); Glomerular Filtration Rate 30.2 mL/min (90-130); Glucose 341 mg/dL (65-115); Magnesium 1.6 mg/dL (1.7-2.3); Osmolality Calculated 288 mOsm/kg (285-295); Phosphorus 3.4 mg/dL (2.5-4.5); Potassium 4.9 mmol/L (3.5-5.1); Sodium 129 mmol/L (136-145); Total Bilirubin 0.9 mg/dL (0.15-1.2); Total Protein 6.2 g/dL (6.6-8.7)
[2025-03-30 06:48] LABS: Procalcitonin 1.07 ng/mL (0-0.5)
--- NOTE | 2025-03-30 08:24 | PC.NURSE ---
Addendum entered by Rebecca Gaffney LPN 03/30/25 08:33: md changed orders at this time. Original Note: patient continues to refuse lantus. blood sugar of 391 this am. sliding scale given as ordered. MD notified of refusal.
[2025-03-30] MEDS: ALPRAZolam 0.5 mg Tablet PO ×2 (08:48→18:06)
[2025-03-30] MEDS: insulin lispro 100 unit/1 mL 21 UNIT SUBCUT (08:49)
[2025-03-30] MEDS: piperacillin-tazobactam 3.375 GM in sodium chloride 0.9% (plus) 50 ML IV ×2 (08:49→17:08)
[2025-03-30] MEDS: aspirin 81 mg EC Tablet PO (09:08)
[2025-03-30] MEDS: clopidogrel 75 mg Tablet PO (09:08)
[2025-03-30] MEDS: docusate sodium 100 mg Capsule PO ×2 (09:08→17:09)
[2025-03-30] MEDS: lactated ringers 1,000 ML 125 ML IV (09:08)
--- NOTE | 2025-03-30 10:44 | PC.CHAP ---
Pastoral Care Encounter/Spiritual Assessment Type of Contact [] Declined guard museum visit [] Patient/Family/Request visit [] Outpatient visit [] Follow-up visit [] Physician referral [] Code/Alert [x] Routine visit [] Staff referral [] Actively dying [] Patient sleeping [] Family support [] [] Out of room [] Palliative care [] [] Receiving care in room [] Pre-surgical visit [] Trauma [] Long length of stay [] ICU visit [] Other: Relational/Emotional Strength [x] Patient feels connected with others/family/visitors/staff [] Distress [] Loneliness/isolation [] Abandonment Spirituality of Patient [x] Person of Lillie [] Attends Restorationist of their Lillie [x] Believes in Prayer [] Reads Bible or Restorationist materials [] There are Spiritual issues to be addressed Molder Inflated Ball Interventions [x] Prayer [x] Active listening [] Non-anxious presence [x] Spiritual/emotional support [] Crisis/trauma care [] Spiritual counseling [] Bereavement support [] Provided bereavement packet [] Provided Bible/devotional materials [] Provided toy/stuffed animal, coloring book to patient or family member [] Provided Communion [] Anointing/[place] [] Salvation [x] Completed spiritual assessment [] Other: Impact on Illness or Injury [] Angry [] Fearful [] Anxious [] Often cries [] Exhaustion [] Unable to work [] Unable to attend denominational [] Unable to walk/stand [] Unable to read [] Unable to drive [] Unable to eat/drink [] Unable to sleep [] Unable to be with family [] Patient intubated [] Other: Summary Time spent with patient 5 min
--- NOTE | 2025-03-30 11:32 | P.CONIM_ITS ---
<Statement entered by Johnathan Hanson MD - 03/30/25 14:00> I have reviewed the documentation and plan of care and agree with the assessment and plan of care as written. Dr. Johnathan Hanson Providers/Reason For Consult 2 Consulting Physician/Specialty*: Wound care Reason for Consult*: Open wound to second digit on right foot Requesting Physician: Dr. Baker Attending Physician: Steve Baker MD Primary Care Provider: Joselo Burris MD History of Present Illness History of Present Illness Pablo Saunders is a 49 year old female who was admitted to the hospital on March 29 for a central line infection. She has a past medical history that includes coronary artery disease-s/p 4 stents in 2023, type 2 diabetes, kidney disease for which she was treated with temporary dialysis during December and January 2025, morbid obesity, neuropathy, venous leg ulcers, and osteomyelitis of a diabetic foot wound in July 2024 for which she received IV antibiotics. She permanently resides in [place], [place] and she is established as a patient within the [facility]. She is currently visiting her sister in a nearby town. She presented to the emergency room on March 29 due to concerns of the central line which has not been used since January. She was admitted to the medical surgical floor for a central line infection, sepsis, type 2 diabetes with hyperglycemia, hypomagnesemia, and acute kidney injury all being managed by hospitalist service. Dr. Yanes, general surgeon removed the Mcdermott catheter yesterday. Cultures are pending. Ms. Saunders has had multiple toe amputations including the left 3rd and 4th toes in 2016 and the right great toe, 3rd toe, and a partial amputation of the 2nd toe which occurred between 2021 and 2023. She reports the partial amputation of the 2nd toe was performed in 2022. The open ulceration is located on the distal end of the remaining second toe. She reports this has been open for a month or so and she has been monitoring it. She sees a engineer technician at [facility], Dr. Brannon for whom she was scheduled to see tomorrow for evaluation of this. She reports pain in the toe 4 out of 10 currently and describes it as a constant pain. Review of Systems 2 General: Reports: 10 or more systems reviewed and unremarkable except in HPI and below Const: Denies: chills, change in appetite or change in weight Card: Denies: chest pain Resp: Denies: dyspnea GI: Denies: abdominal pain Skin/Breast: Reports: sores (On remaining end of right second toe) Medications/Allergies Home Medications ?Medication ?Instructions ?Recorded ?Confirmed ?Last Taken ?Type cetirizine 10 mg tablet 10 mg PO DAILY 03/22/2303/1303/28/25 History insulin regular human 100 unit/mL See Rx Instructions .Route .COMPLEX 03/22/23 03/29/25 02/24/25 History injection solution (Humulin R Regular U-100 Insulin) aspirin 81 mg tablet,delayed 81 mg PO DAILY 02/25/25 0 03/29/25 03/28/25 History release clopidogrel 75 mg tablet (Plavix) 75 mg PO DAILY 02/2503/29/25 03/28/25 History pantoprazole 40 mg tablet,delayed 40 mg PO DAILY 02/2503/29/25 03/28/25 History release (Protonix) hyoscyamine sulfate 0.125 mg 0.125 mg sublingual Q8H P RN 02/26/25 03/29/25 Unknown Rx sublingual tablet (Levsin/SL) epigastric abdominal paulo n #20 tabs promethazine 25 mg rectal 25 mg [place] Q4H PRN nausea and 02/26/25 03/29/25 Unknown Rx suppository vomiting #12 ea alprazolam 0.5 mg tablet (Xanax) 0.5 mg PO TID PRN Anx iety 03/29/25 03/29/25 Unknown History tizanidine 4 mg tablet 4 mg PO TID PRN muscle spasm s 03/29/25 03/29/25 Unknown History Allergies Allergy/AdvReac Type Severity Reaction Status Date / Time tramadol Allergy Mild hives Verified 02/25/25 19:34 sulfamethoxazole (From Allergy ALGY-Hives Verified 02/25/25 13:24 Bactrim) trimethoprim (From Bactrim) Allergy ALGY-Hives Verified 02/25/25 13:24 daptomycin AdvReac blurry Verified 03/29/25 00:15 vision flurocet Allergy ADR-Confusi Uncoded 02/25/25 13:24 on Current Medications Generic Name Dose Route Start Last Admin Trade Name Freq PRN Reason Stop Dose Admin Acetaminophen 650 mg 03/29/25 04:30 03/30/25 01:14 Acetaminophen 325 Mg Tablet PO 650 mg Q6H PRN Administration Mild/Mod Pain Or Temp >/= 101 Alprazolam 0.5 mg 03/29/25 17:53 03/30/25 08:48 Alprazolam 0.5 Mg Tablet PO 0.5 mg TID PRN Administration ANXIETY Aspirin 81 mg 03/30/25 09:00 03/30/25 09:08 Aspirin 81 Mg Ec Tablet PO 81 mg DAILY HEATHER Administration Clopidogrel Bisulfate 75 mg 03/30/25 09:00 03/30/25 09:08 Clopidogrel 75 Mg Tablet PO 75 mg DAILY HEATHER Administration Docusate Sodium 100 mg 03/29/25 09:00 03/30/25 09:08 Docusate Sodium 100 Mg Capsule PO 100 mg BID HEATHER Administration Heparin Sodium (Porcine) 5,000 unit 03/29/25 09:00 03/30/25 09:06 Heparin 5,000 Unit/Ml Inj 1 Ml SUBCUT Not Given Q12H HEATHER Lactated Ringer's 1,000 mls @ 50 mls/hr 03/29/25 16:15 03/30/25 09:38 Lactated Ringers IV 50 mls/hr .Q20H HEATHER Infusion Vancomycin HCl 1,750 mg in 350 mls @ 175 mls/hr 03/30/25 06:00 03/30/25 06:40 Vancocin IV 175 mls/hr On Hold: 03/30/25 07:18 Q18H HEATHER Infusion Comment: WAITING ON TROUGH RESULT Piperacillin Sod/Tazobactam 50 mls @ 12.5 mls/hr 03/29/25 18:30 03/30/25 08:49 Sod 3.375 gm/ Sodium Chloride IV 12.5 mls/hr Q8H HEATHER Administration Morphine Sulfate 2 mg 03/29/25 04:30 03/30/25 09:22 Morphine 4 Mg/Ml Sdv 1 Ml IVP 2 mg Q4H PRN Administration SEVERE PAIN Ondansetron HCl 4 mg 03/29/25 04:30 03/29/25 05:26 Ondansetron 2 Mg/Ml Sdv 2 Ml IVP 4 mg Q8H PRN Administration vomiting, or N/V if npo Pantoprazole Sodium 40 mg 03/29/25 04:30 03/30/25 04:59 Pantoprazole 40 Mg Sdv IVP 40 mg Q24H HEATHER Administration Tizanidine HCl 4 mg 03/29/25 22:32 03/29/25 23:00 Tizanidine 4 Mg Tablet PO 4 mg TID PRN Administration SPASMS PFSH Acute 2 Female Reproductive History: Date of last menstrual period: 03/24/25 Vitals/I&O/Wt Last Vital Signs Temp 98.6 F 03/30/25 07:48 Pulse 89 03/30/25 07:48 Resp 20 H 03/30/25 09:22 BP 116/73 03/30/25 07:48 Pulse Ox 95 03/30/25 07:48 O2 Del Method Room Air 03/30/25 07:48 O2 Flow Rate 2 03/29/25 16:17 03/29/25 03/30/25 03/30/25 22:59 06:59 14:59 Intake Total 1589.792 / 2414.792 1986.875 / 4401.667 720.833 / 720.833 Output Total 5 / 5 Balance 1584.792 / 2409.792 1986.875 / 4396.667 720.833 / 720.833 Weight last 48 hrs Weight 173.726 kg Weight 173.726 kg Weight 174.043 kg Weight 167.829 kg Physical Exam 2 Const: COMMON NORMALS: no acute distress, patient oriented x3 and alert G ENERAL APPEARANCE: cooperative and comfortable NUTRITIONAL APPEARANCE: obese morbidly obese ORIENTATION/CONSCIOUSNESS: Yes awake, Yes oriented to person, Yes oriented to place and Yes oriented to time HENMT: COMMON NORMALS: normocephalic HEAD & SCALP: normal to inspection and normocephalic Eye: GENERAL EYE: appearance normal, both eyes and all related structures Neck/C-Spine: GENERAL: Yes normal visual inspection and Yes trachea midline Chest: OTHER: clean dry and intact tegaderm/gauze dressing to right upper chest Resp: COMMON NORMALS: normal respiratory effort EFFORT & INSPECTION: Yes able to speak in complete sentences and Yes symmetric chest movement Cardio: COMMON NORMALS: regular rate and regular rhythm RATE: regular rate RHYTHM: regular rhythm PERIPHERAL PULSES: posterior tibial pulses present positive right dopplerable (Biphasic) and dorsalis pedis present positive right dopplerable (Biphasic) OTHER: Less than 3-second capillary refill in distal digits of right foot Extremity: RIGHT LOWER EXTREMITY: Yes lower leg Right lower leg: Yes inspection (Edematous; hemosiderin staining) LEFT LOWER EXTREMITY: Yes lower leg Left lower leg: Yes inspection (Edematous; hemosiderin staining) Neuro: COMMON NORMALS: patient oriented x3 SENSORIUM/ORIENTATION: Yes alert, Yes oriented to person, Yes oriented to place and Yes oriented to time Psych: COMMON NORMALS: mental status grossly normal, Normal thought process present, cooperative and speech normal ATTITUDE: Yes calm and Yes engaged ACTIVITY/MOTOR BEHAVIOR: Yes appropriate eye contact SPEECH: Yes normal speech THOUGHT PROCESS: Normal thought process present MEMORY/COGNITION: Y es memory grossly intact Skin: WOUNDS: Yes wounds noted (See wound assessment) Data 03/30/25 05:35 03/30/25 05:35 Micro: Microbiology 03/29/25 01:58 Blood Culture - Preliminary Blood NEGATIVE TO DATE 03/28/25 22:28 Blood Culture - Preliminary Blood Staphylococcus aureus A&P Assessment and plan (1) Type 2 diabetes mellitus with foot ulcer: (2) Diabetes type 2: Plan Ms. Saunders has had a previous history of osteomyelitis in the right second toe which required a partial toe amputation. The wound extends 0.6 cm abutting the remaining phalanx, though there is soft tissue coverage over this. The toe is slightly edematous and has modest erythema surrounding the wound edges. No streaking is appreciated. Given her history of multiple amputations due to osteomyelitis and the noted above findings, it would be beneficial to obtain an xray to rule out any bony process. I have discussed this with Dr. Baker and placed and order for the x- ray of the right foot. The wound would benefit from a debridement in the near future to remove periwound callus as well as biofilm and exudative material. We will utilize Hydrofera Blue as the primary dressing. This should be changed daily. She reports her skin tears with most tape, therefore she requested to use Tegaderm to secure the dressing. Wound was thoroughly cleansed and the dressing was applied during the visit. Offloading of this area will be necessary for wound healing. Tight glucose control and opitimized nutrition will expedite healing as well. Once discharged she would benefit from ongoing wound care. Will schedule appointment upon discharge to [facility]. Wound care will follow-up daily until discharge. PDMP PDMP Reviewed: Not Reviewed Consult Attestations 2 Time Spent in Patient Care: 16 - 35 minutes Coding Level of Care Code Acute Code for Chg Fwd Diagnoses Type 2 diabetes mellitus with foot ulcer E11.621; L97.509 Diabetes type 2 E11.9 Wound Assessment Wound Assessment Wound Number 1 Toe Second: Descriptor: Right Primary Etiology: Diabetic Would/Ulcer of the Lower Extremity Classification: Grade 1 Length (cm): 1.4 cm Width (cm): 1.6 cm Depth (cm): 0.6 cm Epithelialization: None Tunneling: No Undermining: No Exudate Amount: Medium Drainage Type: Serosanguineous Foul Odor After Cleansing: No Slough/Fibrin?: No Granulation Amount: Medium (34-66%) Granulation Quality: Thorp Necrotic Amount: Small (1-33%) Necrotic Type: Adherent Slough Wound Orders Wound Number 1: Dressing change frequency: Daily Wound Cleansing: Saline Primary Wound Care Dressing: Hydrofera Blue ready Secondary Wound Care Dressing: Tegaderm Bathing/Showering/Hygiene: May shower with protection but do not get dressing wet. Off-Loading: Other (Limit ambulation)
--- NOTE | 2025-03-30 12:07 | P.CONIM_ITS ---
Providers/Reason For Consult 2 Consulting Physician/Specialty*: josie stringer md/ telenephrology Reason for Consult*: ESRD care Requesting Physician: Dr Rakel Baker Attending Physician: Steve Baker MD Primary Care Provider: Joselo Burris MD History of Present Illness History of Present Illness Pablo Saunders is a 49 year old female with medical history significant for uncontrolled IDDM, rt leg surgery w/ a [place], osteomyelitis of the foot requiring a Mcdermott catheter to be placed for treatment osteomyelitis. BRIDGET requiring temporary HD at [facility], morbid obesity. Pt presented yesterday with an infected Mcdermott catheter. She was having fevers, myalgia neck pain headaches not feeling well . she was started on iv abx -zosyn and vaco. she grew out a staph bacteremia. she was on home bumex. she was hypotensive yesterday. her cr nafisa from 1.1 to 1.4 to 1.8 mg/dl in last 48 hrs. she developed hyponatremia and renal is asked to see the pt. Review of Systems 2 Narrative: She complains of leg edema but states it is better she has no shortness of breath. She states her fevers are better headaches are better she is feeling better since she had surgery and removal of her Mcdermott catheter. She was not eating well. She denies urinary complaints she has redness and tenderness in her legs which are chronic. Medications/Allergies Home Medications ?Medication ?Instructions ?Recorded ?Confirmed ?Last Taken ?Type cetirizine 10 mg tablet 10 mg PO DAILY 03/22/2303/1303/28/25 History insulin regular human 100 unit/mL See Rx Instructions .Route .COMPLEX 03/22/23 03/29/25 02/24/25 History injection solution (Humulin R Regular U-100 Insulin) aspirin 81 mg tablet,delayed 81 mg PO DAILY 02/25/25 0 03/29/25 03/28/25 History release clopidogrel 75 mg tablet (Plavix) 75 mg PO DAILY 02/2503/29/25 03/28/25 History pantoprazole 40 mg tablet,delayed 40 mg PO DAILY 02/2503/29/25 03/28/25 History release (Protonix) hyoscyamine sulfate 0.125 mg 0.125 mg sublingual Q8H P RN 02/26/25 03/29/25 Unknown Rx sublingual tablet (Levsin/SL) epigastric abdominal paulo n #20 tabs promethazine 25 mg rectal 25 mg [place] Q4H PRN nausea and 02/26/25 03/29/25 Unknown Rx suppository vomiting #12 ea alprazolam 0.5 mg tablet (Xanax) 0.5 mg PO TID PRN Anx iety 03/29/25 03/29/25 Unknown History tizanidine 4 mg tablet 4 mg PO TID PRN muscle spasm s 03/29/25 03/29/25 Unknown History Allergies Allergy/AdvReac Type Severity Reaction Status Date / Time tramadol Allergy Mild hives Verified 02/25/25 19:34 sulfamethoxazole (From Allergy ALGY-Hives Verified 02/25/25 13:24 Bactrim) trimethoprim (From Bactrim) Allergy ALGY-Hives Verified 02/25/25 13:24 daptomycin AdvReac blurry Verified 03/29/25 00:15 vision flurocet Allergy ADR-Confusi Uncoded 02/25/25 13:24 on Current Medications Generic Name Dose Route Start Last Admin Trade Name Freq PRN Reason Stop Dose Admin Acetaminophen 650 mg 03/29/25 04:30 03/30/25 01:14 Acetaminophen 325 Mg Tablet PO 650 mg Q6H PRN Administration Mild/Mod Pain Or Temp >/= 101 Alprazolam 0.5 mg 03/29/25 17:53 03/30/25 08:48 Alprazolam 0.5 Mg Tablet PO 0.5 mg TID PRN Administration ANXIETY Aspirin 81 mg 03/30/25 09:00 03/30/25 09:08 Aspirin 81 Mg Ec Tablet PO 81 mg DAILY HEATHER Administration Clopidogrel Bisulfate 75 mg 03/30/25 09:00 03/30/25 09:08 Clopidogrel 75 Mg Tablet PO 75 mg DAILY HEATHER Administration Docusate Sodium 100 mg 03/29/25 09:00 03/30/25 09:08 Docusate Sodium 100 Mg Capsule PO 100 mg BID HEATHER Administration Heparin Sodium (Porcine) 5,000 unit 03/29/25 09:00 03/30/25 09:06 Heparin 5,000 Unit/Ml Inj 1 Ml SUBCUT Not Given Q12H [facility] Lactated Ringer's 1,000 mls @ 50 mls/hr 03/29/25 16:15 03/30/25 09:38 Lactated Ringers IV 50 mls/hr .Q20H HEATHER Infusion Vancomycin HCl 1,750 mg in 350 mls @ 175 mls/hr 03/30/25 06:00 03/30/25 06:40 Vancocin IV 175 mls/hr On Hold: 03/30/25 07:18 Q18H HEATHER Infusion Comment: WAITING ON TROUGH RESULT Piperacillin Sod/Tazobactam 50 mls @ 12.5 mls/hr 03/29/25 18:30 03/30/25 08:49 Sod 3.375 gm/ Sodium Chloride IV 12.5 mls/hr Q8H HEATHER Administration Morphine Sulfate 2 mg 03/29/25 04:30 03/30/25 09:22 Morphine 4 Mg/Ml Sdv 1 Ml IVP 2 mg Q4H PRN Administration SEVERE PAIN Ondansetron HCl 4 mg 03/29/25 04:30 03/29/25 05:26 Ondansetron 2 Mg/Ml Sdv 2 Ml IVP 4 mg Q8H PRN Administration vomiting, or N/V if npo Pantoprazole Sodium 40 mg 03/29/25 04:30 03/30/25 04:59 Pantoprazole 40 Mg Sdv IVP 40 mg Q24H HEATHER Administration Tizanidine HCl 4 mg 03/29/25 22:32 03/29/25 23:00 Tizanidine 4 Mg Tablet PO 4 mg TID PRN Administration SPASMS PFSH Acute 2 Female Reproductive History: Date of last menstrual period: 03/24/25 Vitals/I&O/Wt Last Vital Signs Temp 97.6 F 03/30/25 12:00 Pulse 87 03/30/25 12:00 Resp 18 03/30/25 12:00 BP 125/66 03/30/25 12:00 Pulse Ox 98 03/30/25 12:00 O2 Del Method Room Air 03/30/25 12:00 O2 Flow Rate 2 03/29/25 16:17 03/29/25 03/30/25 03/30/25 22:59 06:59 14:59 Intake Total 1589.792 / 2414.792 1986.875 / 4401.667 720.833 / 720.833 Output Total 5 / 5 Balance 1584.792 / 2409.792 1986.875 / 4396.667 720.833 / 720.833 Weight last 48 hrs Weight 173.726 kg Weight 173.726 kg Weight 174.043 kg Weight 167.829 kg Physical Exam 2 Narrative: Morbidly obese lady sitting up in bed no apparent distress. Vital signs noted blood pressure stable. Oxygenating well. HEENT normocephalic atraumatic. Neck is supple no JVP. Lungs are clear to auscultation. Heart is regular without rubs or gallops. Abdomen is soft positive bowel sounds. Extremities left greater than right leg edema with redness. Denies tenderness. Patient states edema is chronic. Neuro awake alert oriented x 3. Data 03/30/25 05:35 03/30/25 05:35 Micro: Microbiology 03/29/25 01:58 Blood Culture - Preliminary Blood NEGATIVE TO DATE 03/28/25 22:28 Blood Culture - Preliminary Blood Staphylococcus aureus A&P Assessment and plan (1) BRIDGET (acute kidney injury): 49 lady diabetic, morbid obesity, question of heart failure preserved EF, proteinuria. History of acute kidney injury within the last year requiring temporary dialysis that has improved. Patient is here now with sepsis due to infected Mcdermott catheter. Patient grew out Staphylococcus bacteremia. Patient was hypotensive yesterday Mcdermott catheter removed 1. Acute kidney injury likely from being on Bumex and having sepsis concern for prerenal azotemia versus ATN. Can send urine electrolytes but hold diuretics and would also hold IV fluids at this time. 2. Hyponatremia likely from effective intravascular volume depletion from low albumin recent diuretics and leaky capillaries from sepsis. With free water restrict and monitor can check an a.m. cortisol level and TSH. Will check urine electrolytes. 3. Hyperglycemia insulin as per primary care 4. Continue to replete magnesium. 5. Anemia evaluation. 6. Patient has underlying proteinuria and urinalysis has some hematuria most likely she has diabetic nephropathy. I discussed with her that she can follow- up with her outpatient respiratory scientist to see if there is any reason to look for further glomerular disease. However hemoglobin A1c of 10.2- this is likely diabetic nephropathy. Will follow the patient along with you as stated would hold diuretics and fluids at this time. Limit salt in diet. Limit water. Patient was seen examined using audiovisual equipment with the aid of a nurse. The patient consented to telehealth visit. Case discussed in detail with medical team including nurse and Dr. Rakel Baker PDMP PDMP Reviewed: Not Reviewed Consult Attestations 2 Medical Necessity Statement: bridget, hyponatremia Time Spent in Patient Care: Greater than 35 minutes (>than 50% of time spent in counselling and/or direct pt care on unit) . Coding Level of Care Code Acute Code for [facility] Fwd Diagnoses BRIDGET (acute kidney injury) N17.9
[2025-03-30 12:08] LABS: Glucose Point of Care 321 mg/dL (70-110)
--- NOTE | 2025-03-30 12:18 | USR_ITS ---
PROCEDURE INFORMATION: Exam: US Retroperitoneal, Complete, Kidneys and Bladder Exam date and time: 03/30/2025 4:01 PM Age: 49 years old Clinical indication: Condition or disease; Other: Dav TECHNIQUE: Imaging protocol: Real-time ultrasound of the retroperitoneum with image documentation. Complete exam focused on the bilateral kidneys and urinary bladder. COMPARISON: CT abdomen pelvis w con* [id number] 02/25/2025 4:01 PM FINDINGS: Limitations: Study is limited due to patient body habitus. Right kidney: Right kidney measures 10.1 x 4.7 x 4.7 cm (volume 115 cc). There is normal cortical thickness and echogenicity. No focal abnormality is seen in the right kidney. There is no hydronephrosis. Left kidney: Left kidney measures 11.7 x 4.6 x 4.8 cm (volume 132 cc). There is normal cortical thickness and echogenicity. No focal abnormality seen in the left kidney. There is no hydronephrosis. Urinary bladder: Urinary bladder not seen on this examination US/US renal BI* [id number] IMPRESSION: Limited study due to patient body habitus. The kidneys are grossly normal without hydronephrosis.
[2025-03-30] MEDS: insulin lispro 100 unit/1 mL 35 UNIT SUBCUT ×2 (13:04→17:09)
--- NOTE | 2025-03-30 13:40 | XR_ITS ---
WS: [id number] Right foot, 3 views, 03/30/2025 Clinical Data: non-healing ulcer r 2nd toe; r/o osteomyelitis Comparison: Right foot, 04/22/2023 Findings: There is amputation of the right first and third toes and of the middle and distal phalanges of the right second toe. No bone destruction or erosion is seen. There are no fractures or dislocations. 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 There is a plantar spur and an Achilles spur. There are subcutaneous calc ifications of the distal right leg with swelling probably from edema. XR/XR foot RT min 3V* [id number] Impression: 1. No definite osteomyelitis is present. 2. Amputation of right first and third toes and middle and distal phalanges of right second toe. 3. Soft tissue swelling of the distal right leg. 4. 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
[2025-03-30] MEDS: tizanidine 4 mg Tablet PO ×2 (13:44→22:24)
[2025-03-30 14:37] LABS: Creatinine Urine, Random 127 mg/dL (28-217)
[2025-03-30 14:38] LABS: Potassium, Radom Urine 44 mmol/L; Urine Creatinine 122 mg/dL (28-217); Urine Protein Random 157 mg/dL; Urine Random Chloride 15 mmol/L; Urine Random Sodium 39 mmol/L
[2025-03-30 14:51] LABS: Microalbum Creatinine Ratio Ur 780 mg/dL (0-20); Microalbumin Random Urine 99 ug/dL (0-20)
--- NOTE | 2025-03-30 15:06 | P.PN_ITS ---
Subjective 2 Subjective: Patient was seen this morning, currently alert oriented x 3, following all commands, tells me her nausea is more under control she tells me that she does not tolerate Lantus well, he has declined Lantus she takes Humalog 25 units 3 times daily with meals that typically controls her blood sugar, denies any fevers, no chills, Vitals/I&O/Wt Last Vital Signs Temp 97.6 F 03/30/25 12:00 Pulse 87 03/30/25 12:00 Resp 18 03/30/25 13:45 BP 125/66 03/30/25 12:00 Pulse Ox 95 03/30/25 13:45 O2 Del Method Room Air 03/30/25 12:00 O2 Flow Rate 2 03/29/25 16:17 03/30/25 03/30/25 03/30/25 06:59 14:59 22:59 Intake Total 1985.875 / 4401.667 1250.833 / 1250.833 Output Total 150 / 150 Balance 1985.875 / 4396.667 1100.833 / 1100.833 Weight last 48 hrs Weight 173.726 kg Weight 173.726 kg Weight 174.043 kg Weight 167.829 kg Physical Exam 2 Const: COMMON NORMALS: no acute distress and patient oriented x3 Chest: OTHER: Right hip pain chest port site looks clean and dry Resp: COMMON NORMALS: normal respiratory effort, No retractions, No use of accessory muscles and clear to auscultation bilaterally AUSCULTATION: clear to auscultation bilaterally Cardio: COMMON NORMALS: regular rate, regular rhythm, S1 normal heart sound present and S2 normal heart sound present RATE: regular rate RHYTHM: r egular rhythm HEART SOUNDS: S1 normal heart sound present and S2 normal heart sound present GI: COMMON NORMALS: Normal to inspection, nondistended, normoactive bowel sounds present and non-tender Extremity: COMMON NORMALS: no pedal edema Neuro: COMMON NORMALS: patient oriented x3 Psych: COMMON NORMALS: mental status grossly normal Skin: NARRATIVE SKIN EXAM: Right foot, second digit, wound, looks clean and dry Data 03/30/25 05:35 03/30/25 05:35 Micro: Microbiology 03/29/25 01:58 Blood Culture - Preliminary Blood NEGATIVE TO DATE 03/28/25 22:28 Blood Culture - Preliminary Blood Staphylococcus aureus A&P Assessment and plan (1) Central line infection: (2) Line sepsis: (3) Leukocytosis: (4) Diabetes type 2: (5) Fever: (6) Staphylococcus aureus bacteremia: Plan Hyperglycemia, with history of type 2 diabetes - Blood sugars over 400, with nausea vomiting - Repeat BMP ordered anion gap 14.9, bicarb 19, ketones negative, pH 7.38, currently no evidence of diabetic ketoacidosis or HHS - Blood sugars now down to 300s Plan - Switch to her home NovoLog 25 units 3 times daily with meals - Patient declines taking Lantus or Levemir - Monitor blood sugars closely - Switch to diabetic diet Intractable nausea vomiting - Patient had episode of nausea and vomiting before surgery - She was intubated for surgery - She was seen in postop recovery, on nasal cannula, currently on room air - Denies any abdominal pain - Will continue to monitor nausea vomiting - Zofran for nausea - Reglan for nausea Staphylococcus aureus bacteremia Mcdermott catheter infection, concerns for CLABSI -Status post removal of Mcdermott catheter - Follow blood cultures, positive for Staph aureus -Follow repeat blood cultures - Follow catheter tip culture - Follow abscess culture - Continue vancomycin - Continue Zosyn - Cardiac echo to evaluate valves no gross vegetation -Will pursue transesophageal echocardiogram, cardiology consulted - CT chest abdomen and pelvis, no acute findings Bilateral lower extremity anterior pedraza erythema - Concern for cellulitis - Continue broad-spectrum antibiotic therapy Right foot, second digit, diabetic wound - Wound care History of CAD status post 4 stents in March 2024 - Resume aspirin, Plavix tomorrow as per surgery Hypomagnesemia, monitor Acute kidney injury, creatinine 1.8 -Patient reports a history of CKD -Back in January 2025 she was hospitalized at [facility] she needed dialysis for over a week for fluid overload was then taken off dialysis - Nephrology consulted - Gentle IV hydration Morbid obesity Full code Lovenox for DVT prophylaxis Plan for today continue IV antibiotics, wound care consulted, cardiology consulted, nephrology consulted PDMP PDMP Reviewed: Not Reviewed Attestations 2 Medical Necessity Statement*: Patient requires hospitalization for Staph aureus bacteremia Diagnoses Central line infection T80.219A Line sepsis T85.79XA; A41.9 Leukocytosis D72.829 Diabetes type 2 E11.9 Fever R50.9 Staphylococcus aureus bacteremia R78.81; B95.61
[2025-03-30 15:36] LABS: Complement C3 143 mg/dL (90-180); Creatine Phosphokinase 50 U/L (26-192); Uric Acid 10.2 mg/dL (2.4-5.7)
--- NOTE | 2025-03-30 15:45 | P.PN_ITS ---
Subjective 2 Subjective: Patient doing well overnight no significant issues has been feeling much better since catheter was removed. Vitals/I&O/Wt Last Vital Signs Temp 97.6 F 03/30/25 15:34 Pulse 71 03/30/25 15:34 Resp 16 03/30/25 15:34 BP 151/87 03/30/25 15:34 Pulse Ox 94 03/30/25 15:34 O2 Del Method Nasal Cannula 03/30/25 15:34 O2 Flow Rate 2 03/29/25 16:17 03/30/25 03/30/25 03/30/25 06:59 14:59 22:59 Intake Total 1985.875 / 4401.667 1250.833 / 1250.833 Output Total 150 / 150 Balance 1985.875 / 4396.667 1100.833 / 1100.833 Weight last 48 hrs Weight 383 lb Weight 383 lb Weight 383 lb 11.2 oz Weight 370 lb Physical Exam 2 Chest: OTHER: Right upper chest catheter site is healing well packing was removed and replaced with a dry dressing. Data 03/30/25 05:35 03/30/25 05:35 Micro: Microbiology 03/30/25 14:52 Blood Culture - Preliminary Blood SPECIMEN COLLECTED 03/30/25 14:52 Blood Culture - Preliminary Blood SPECIMEN COLLECTED 03/29/25 01:58 Blood Culture - Preliminary Blood NEGATIVE TO DATE 03/28/25 22:28 Blood Culture - Preliminary Blood Staphylococcus aureus A&P Assessment and plan (1) Staphylococcus aureus bacteremia: Plan Good progression from the surgical standpoint. Can continue dry dressing daily. No need for packing. All other management per medical team. At this point general surgery will sign off. PDMP PDMP Reviewed: Not Reviewed Attestations 2 Medical Necessity Statement*: Per medical team Coding Level of Care Code Acute Code for [facility] Fwd Diagnoses Staphylococcus aureus bacteremia R78.81; B95.61
[2025-03-30 16:31] LABS: Glucose Point of Care 157 mg/dL (70-110)
--- NOTE | 2025-03-30 17:02 | P.CONIM_ITS ---
Providers/Reason For Consult 2 Consulting Physician/Specialty*: LILIAN Rucker MD/cardiology Reason for Consult*: Patient with staph bacteremia, infected Mcdermott catheter, consider HERMINIO for ruling out endocarditis Requesting Physician: Dr. Baker Attending Physician: Steve Baker MD Primary Care Provider: Joselo Burris MD History of Present Illness History of Present Illness Pablo Saunders is a 49 year old female, is admitted to the hospital with complaints of fever and chills for the last few days. She was found to have an infected Mcdermott catheter. The catheter was taken out yesterday. The blood culture grew gram-positive cocci. Patient is morbidly obese. A HERMINIO was requested to look for any evidence of endocarditis. This patient has a history of atherosclerotic heart diseas, diabetes and dyslipidemia. She had multivessel PCI in January of 2024 total of 4 stents. She had a 1 more stent in April 2024 at the [facility] in [place]. Since then, she has been doing okay with no chest pain or chest tightness. No unusual shortness of breath. She has a questionable history of heart failure but no recent decompensation. She has a history of esophageal erosion and gastric ulcer bleeding many years ago. Occasionally she may have some difficulty in swallowing. She had endoscopies in the past and had no difficulty?. Denies any abdominal pain. She has a history of chronic osteomyelitis of both lower extremities. Review of Systems 2 Narrative: CONSTITUTIONAL: Fever and chills as mentioned above EYES: No blurring of vision or other visual disturbances lately. [] ENT: No hoarseness of voice, auditory disturbances or sore throat. [] CARDIOVASCULAR: As mentioned above. [] RESPIRATORY: No significant cough. [] GASTROINTESTINAL: No hematemesis or melena. [] GENITOURINARY: No dysuria or hematuria. [] INTEGUMENTARY: No skin rashes or history of skin cancer. [] NEURO: No transient ischemic attacks or amaurosis. [] PSYCHIATRIC: No history of psychosis or major depression. [] HEMATOLOGIC: No bleeding disorders or significant anemia. [] ENDOCRINE: No history of polyuria or polydipsia. [] MUSCULOSKELETAL: No recent joint pain or swelling. [] ALLERGY/IMMUNOLOGY: As mentioned above. [] Medications/Allergies Home Medications ?Medication ?Instructions ?Recorded ?Confirmed ?Last Taken ?Type cetirizine 10 mg tablet 10 mg PO DAILY 03/22/23 06/05/0603/28/25 History insulin regular human 100 unit/mL See Rx Instructions .Route .COMPLEX 03/22/23 03/29/25 02/24/25 History injection solution (Humulin R Regular U-100 Insulin) aspirin 81 mg tablet,delayed 81 mg PO DAILY 02/25/25 0 03/29/25 03/28/25 History release clopidogrel 75 mg tablet (Plavix) 75 mg PO DAILY 02/2503/29/25 03/28/25 History pantoprazole 40 mg tablet,delayed 40 mg PO DAILY 02/2503/29/25 03/28/25 History release (Protonix) hyoscyamine sulfate 0.125 mg 0.125 mg sublingual Q8H P RN 02/26/25 03/29/25 Unknown Rx sublingual tablet (Levsin/SL) epigastric abdominal paulo n #20 tabs promethazine 25 mg rectal 25 mg AR Q4H PRN nausea and 02/26/25 03/29/25 Unknown Rx suppository vomiting #12 ea alprazolam 0.5 mg tablet (Xanax) 0.5 mg PO TID PRN Anx iety 03/29/25 03/29/25 Unknown History tizanidine 4 mg tablet 4 mg PO TID PRN muscle spasm s 03/29/25 03/29/25 Unknown History Allergies Allergy/AdvReac Type Severity Reaction Status Date / Time tramadol Allergy Mild hives Verified 02/25/25 19:34 sulfamethoxazole (From Allergy ALGY-Hives Verified 02/25/25 13:24 Bactrim) trimethoprim (From Bactrim) Allergy ALGY-Hives Verified 02/25/25 13:24 daptomycin AdvReac blurry Verified 03/29/25 00:15 vision flurocet Allergy ADR-Confusi Uncoded 02/25/25 13:24 on Current Medications Generic Name Dose Route Start Last Admin Trade Name Freq PRN Reason Stop Dose Admin Acetaminophen 650 mg 03/29/25 04:30 03/30/25 01:14 Acetaminophen 325 Mg Tablet PO 650 mg Q6H PRN Administration Mild/Mod Pain Or Temp >/= 101 Alprazolam 0.5 mg 03/29/25 17:53 03/30/25 08:48 Alprazolam 0.5 Mg Tablet PO 0.5 mg TID PRN Administration ANXIETY Aspirin 81 mg 03/30/25 09:00 03/30/25 09:08 Aspirin 81 Mg Ec Tablet PO 81 mg DAILY HEATHER Administration Clopidogrel Bisulfate 75 mg 03/30/25 09:00 03/30/25 09:08 Clopidogrel 75 Mg Tablet PO 75 mg DAILY HEATHER Administration Docusate Sodium 100 mg 03/29/25 09:00 03/30/25 09:08 Docusate Sodium 100 Mg Capsule PO 100 mg BID HEATHER Administration Heparin Sodium (Porcine) 5,000 unit 03/29/25 09:00 03/30/25 09:06 Heparin 5,000 Unit/Ml Inj 1 Ml SUBCUT Not Given Q12H HEATHER Lactated Ringer's 1,000 mls @ 50 mls/hr 03/29/25 16:15 03/30/25 09:38 Lactated Ringers IV 50 mls/hr .Q20H HEATHER Infusion Vancomycin HCl 1,750 mg in 350 mls @ 175 mls/hr 03/30/25 06:00 03/30/25 06:40 Vancocin IV 175 mls/hr On Hold: 03/30/25 07:18 Q18H HEATHER Infusion Comment: WAITING ON TROUGH RESULT Piperacillin Sod/Tazobactam 50 mls @ 12.5 mls/hr 03/29/25 18:30 03/30/25 13:05 Sod 3.375 gm/ Sodium Chloride IV Infused Q8H HEATHER Infusion Insulin Human Lispro 35 unit 03/30/25 12:00 03/30/25 13:04 Insulin Lispro 100 Unit/1 Ml SUBCUT 35 unit TIDWM HEATHER Administration Morphine Sulfate 2 mg 03/29/25 04:30 03/30/25 13:45 Morphine 4 Mg/Ml Sdv 1 Ml IVP 2 mg Q4H PRN Administration SEVERE PAIN Ondansetron HCl 4 mg 03/29/25 04:30 03/29/25 05:26 Ondansetron 2 Mg/Ml Sdv 2 Ml IVP 4 mg Q8H PRN Administration vomiting, or N/V if npo Pantoprazole Sodium 40 mg 03/29/25 04:30 03/30/25 04:59 Pantoprazole 40 Mg Sdv IVP 40 mg Q24H HEATHER Administration Tizanidine HCl 4 mg 03/29/25 22:32 03/30/25 13:44 Tizanidine 4 Mg Tablet PO 4 mg TID PRN Administration SPASMS PFSH Acute 2 Female Reproductive History: Date of last menstrual period: 03/24/25 Vitals/I&O/Wt Last Vital Signs Temp 98.2 F 03/30/25 15:34 Pulse 83 03/30/25 15:34 Resp 17 03/30/25 15:34 BP 111/67 03/30/25 15:34 Pulse Ox 96 03/30/25 15:34 O2 Del Method Nasal Cannula 03/30/25 15:34 O2 Flow Rate 2 03/29/25 16:17 03/30/25 03/30/25 03/30/25 06:59 14:59 22:59 Intake Total 1985.875 / 4401.667 1250.833 / 1250.833 Output Total 150 / 150 Balance 1986.875 / 4396.667 1100.833 / 1100.833 Weight last 48 hrs Weight 383 lb Weight 383 lb Weight 383 lb 11.2 oz Weight 370 lb Physical Exam 2 Narrative: GENERAL: The patient is alert and oriented times three. Not in any acute distress. Morbidly obese HEENT: No significant pallor, icterus or lymphadenopathy.Oral cavity: There are no mucous membrane lesions. NECK: Trachea appears to be central. No masses noted. No JVD or thyromegaly appreciated. RESPIRATORY: Chest is symmetrical. No intercostals muscle retraction or any accessory muscle activation. There is no chest wall tenderness. Breath sounds are heard bilaterally. No rales or rhonchi heard. No evidence of any consolidation. BREASTS: Deferred. HEART: The heart sounds are normal. No S3 or S4. No significant murmurs. No pericardial rub ABDOMEN: No vessel pulsations or distention. No tenderness. No organomegaly appreciated. Bowel sounds are normally heard. : Deferred. RECTAL: Deferred. LYMPHATIC: No lymphadenopathy noted in the neck. EXTREMITIES: Features of chronic venous stasis, stasis dermatitis MUSCULOSKELETAL: No acute joint deformities or swelling SKIN: There are no significant rashes or ecchymosis NEUROPSYCHIATRIC: The patient is alert and oriented x3. Appears to be in a good mood. No tremors or rigidity noted. Data 03/30/25 05:35 03/30/25 05:35 Other Labs: Laboratory Last Values WBC 6.53 10^3/uL (3.29-11.43) 03/30/25 05:35 RBC 3.30 10^6/uL (3.85-5.65) L 03/30/25 05:35 Hgb 9.40 g/dL (11.27-16.99) L 03/30/25 05:35 Hct 29.2 % (36-47) L 03/30/25 05:35 MCV 88.5 fl (85-98) 03/30/25 05:35 MCH 28.5 pg (27-33) 03/30/25 05:35 MCHC 32.2 g/dL (30-55) 03/30/25 05:35 RDW 15.6 % (12.1-15.1) H 03/30/25 05:35 Plt Count 151 10^3/cmm (157-399) L 03/30/25 05:35 MPV 10.7 fL (7.4-10.4) H 03/30/25 05:35 Neut % (Auto) 80.8 % 03/30/25 05:35 Lymph % (Auto) 11.3 % 03/30/25 05:35 Petroleum % (Auto) 6.0 % 03/30/25 05:35 Eos % (Auto) 0.2 % 03/30/25 05:35 Baso % (Auto) 0.6 % 03/30/25 05:35 Neut # (Auto) 5.28 10^3/uL (1.8-7.7) 03/30/25 05:35 Lymph # (Auto) 0.7 10^3/uL (0.8-4.8) L 03/30/25 05:35 Petroleum # (Auto) 0.4 10^3/uL (0.2-0.9) 03/30/25 05:35 Eos # (Auto) 0.0 10^3/uL (0.0-0.8) 03/30/25 05:35 Baso # (Auto) 0.0 10^3/uL (0.0-0.1) 03/30/25 05:35 Nucleated RBC % (auto) 0 % 03/30/25 05:35 Nucleated RBCs # 0.0 /100WBC 03/30/25 05:35 ESR 28 mm/hr (0-15) H 03/28/25 22:38 Specimen Type Arterial 03/29/25 16:32 Sample Site Brachial, left 03/29/25 16:32 ABG pH 7.38 (7.35-7.45) 03/29/25 16:32 ABG pCO2 36.1 mmHg (35-45) 03/29/25 16:32 ABG pO2 83.6 mmHg (80.0-100.0) 03/29/25 16:32 ABG PO2/FiO2 Ratio 298 03/29/25 16:32 ABG HCO3 21.5 mmol/L (22-26) L 03/29/25 16:32 ABG Base Excess -3.1 mmol/L (-2.0-2.0) L 03/29/25 16:32 Johny Test N/a 03/29/25 16:32 Hematocrit 32.7 % (37-47) L 03/29/25 16:32 O2 Delivery Device Nc 03/29/25 16:32 O2 Liters/Min 2.0 % 03/29/25 16:32 FiO2 28.0 % 03/29/25 16:32 International Representative ID Gd 03/29/25 16:32 Sodium 129 mmol/L (136-145) L 03/30/25 05:35 Potassium 4.9 mmol/L (3.5-5.1) 03/30/25 05:35 Chloride 97 mmol/L (98-107) L 03/30/25 05:35 Carbon Dioxide 20 mmol/L (22-29) L 03/30/25 05:35 Anion Gap 16.9 (5-19) 03/30/25 05:35 BUN 30 mg/dL (6-20) H 03/30/25 05:35 Creatinine 1.8 mg/dL (0.5-0.9) H 03/30/25 05:35 GFR Calculation 30.2 mL/min (90-130) L 03/30/25 05:35 Glucose 341 mg/dL (65-115) H 03/30/25 05:35 POC Glucose 157 mg/dL (70-110) H 03/30/25 16:22 Estimat Average Glucose 243 03/29/25 18:50 Hemoglobin A1c 10.1 % (4.0-6.0) H 03/29/25 18:50 Calculated Osmolality 288 mOsm/kg (285-295) 03/30/25 05:35 Lactic Acid 1.4 mmol/L (0.5-2.2) 03/29/25 01:58 Uric Acid 10.2 mg/dL (2.4-5.7) H 03/30/25 14:52 Calcium 8.1 mg/dL (8.5-10.5) L 03/30/25 05:35 Phosphorus 3.4 mg/dL (2.5-4.5) 03/30/25 05:35 Magnesium 1.6 mg/dL (1.7-2.3) L 03/30/25 05:35 Total Bilirubin 0.9 mg/dL (0.15-1.2) 03/30/25 05:35 AST 30 U/L (0-32) 03/30/25 05:35 ALT 19 U/L (0-33) 03/30/25 05:35 Alkaline Phosphatase 64 U/L (35-105) 03/30/25 05:35 Creatine Kinase 50 U/L (26-192) 03/30/25 14:52 C-Reactive Protein 227.7 mg/L (0.0-4.9) H 03/30/25 05:35 Total Protein 6.2 g/dL (6.6-8.7) L 03/30/25 05:35 Albumin 2.9 g/dL (3.5-5.2) L 03/30/25 05:35 Globulin 3.3 g/dL (1.3-4.6) 03/30/25 05:35 Lipase 11 U/L (13-60) L 03/29/25 16:10 Procalcitonin 1.07 ng/mL (0-0.5) H 03/30/25 05:35 Urine Color Yellow (Yellow) 03/29/25 01:38 Urine Appearance Clear (CLEAR) 03/29/25 01:38 Urine pH 5.5 (5-7) 03/29/25 01:38 Ur Specific Bearden 1.022 (1.005-1.030) 03/29/25 01:38 Urine Protein 4+ (Negative) A 03/29/25 01:38 Urine Glucose (UA) 2+ (Normal) H 03/29/25 01:38 Urine Ketones Negative (Negative) 03/29/25 01:38 Urine Blood 3+ (Negative) A 03/29/25 01:38 Urine Nitrate Negative (Negative) 03/29/25 01:38 Urine Bilirubin Negative (Negative) 03/29/25 01:38 Urine Urobilinogen 1.0 mg/dL (Negative) 03/29/25 01:38 Ur Leukocyte Esterase Negative (Negative) 03/29/25 01:38 Urine RBC 0-2 /hpf (0-2) 03/29/25 01:38 Urine WBC 0-5 /hpf (0-5) 03/29/25 01:38 Ur Squamous Epith Cells 0-5 /hpf (0-5) 03/29/25 01:38 Amorphous Sediment Not Reportable 03/29/25 01:38 Urine Bacteria Trace /hpf (NONE) 03/29/25 01:38 Hyaline Casts 4.11 /lpf 03/29/25 01:38 Ur Random Microalbumin 99 ug/dL (0-20) H 03/30/25 13:53 U Random Total Protein 157 mg/dL 03/30/25 13:53 Ur Random Sodium 39 mmol/L 03/30/25 13:53 Ur Random Potassium 44 mmol/L 03/30/25 13:53 Ur Random Chloride 15 mmol/L 03/30/25 13:53 Urine Creatinine 122 mg/dL (28-217) 03/30/25 13:53 Urine Creatinine 127 mg/dL (28-217) 03/30/25 13:53 Microalb/Creat Ratio 780 mg/dL (0-20) H 03/30/25 13:53 Urine HCG, Qual Negative (Negative) 03/29/25 01:38 Urine Opiates Screen Positive ng/mL (Negative) H 03/29/25 21:28 Ur Barbiturates Screen Negative ng/mL (Negative) 03/29/25 21:28 Ur Phencyclidine Scrn Negative ng/mL (Negative) 03/29/25 21:28 Ur Amphetamines Screen Negative ng/mL (Negative) 03/29/25 21:28 U Benzodiazepines Scrn Negative ng/mL (Negative) 03/29/25 21:28 Urine Cocaine Screen Negative ng/mL (Negative) 03/29/25 21:28 U Marijuana (THC) Screen Positive ng/mL (Negative) H 03/29/25 21:28 Serum Ketones Negative (Negative) 03/29/25 16:10 Complement C3 143 mg/dL (90-180) 03/30/25 14:52 Complement C4 23 mg/dL (10-40) 03/30/25 14:52 Influenza A (PCR) Negative (Negative) 03/29/25 01:00 Influenza Type B (PCR) Negative (Negative) 03/29/25 01:00 RSV (PCR) Negative (Negative) 03/29/25 01:00 SARS-CoV-2 (PCR) Negative (Negative) 03/29/25 01:00 Micro: Microbiology 03/29/25 15:43 Gram Stain - Final Chest 03/30/25 14:52 Blood Culture - Preliminary Blood SPECIMEN COLLECTED 03/30/25 14:52 Blood Culture - Preliminary Blood SPECIMEN COLLECTED 03/29/25 01:58 Blood Culture - Preliminary Blood NEGATIVE TO DATE 03/28/25 22:28 Blood Culture - Preliminary Blood Staphylococcus aureus A&P Assessment and plan (1) Staphylococcus aureus bacteremia: Most likely related to the infected Mcdermott's catheter. Possibility of endocarditis cannot be excluded. Because of her morbid obesity, a HERMINIO might be appropriate to evaluate for any endocarditis. (2) Central line infection: Status post removal of the infected catheter (3) Atherosclerosis of coronary artery of [place] heart without angina pectoris: Clinically stable. (4) HIREN (acute kidney injury): May continue the close monitoring (5) Type 2 diabetes mellitus with foot ulcer: The diabetes seems to be fairly under control Plan To better evaluate for the endocarditis, a HERMINIO would be appropriate. The risks and benefits of the procedure discussed with the patient in detail. The risk of aspiration, bleeding, soft tissue injury, perforation of the stomach/esophagus and other concomitant complications were explained to the patient in detail. The patient understood this well and consented to proceed. Because of the patient's history of esophageal erosions/gastric ulcer she carries a higher risk of bleeding. Patient understand this well. As of now she has no hematemesis or melena. Will keep the patient n.p.o. after midnight. We we will plan to have the procedure done sometime in the morning. PDMP PDMP Reviewed: Not Reviewed Consult Attestations 2 Medical Necessity Statement: Patient requires continued hospital stay for close monitoring and further management Coding Level of Care Code 33621 Diagnoses Staphylococcus aureus bacteremia R78.81; B95.61 Central venous line infection, initial encounter T80.219A Encounter type: initial encounter Atherosclerosis of [place] coronary artery of [place] heart without angina pectoris I25.10 Coronary Disease-Associated Artery/Lesion type: [place] artery HIREN (acute kidney injury) N17.9 Type 2 diabetes mellitus with foot ulcer, with long-term current use of insulin E11.621; L97.509; Z79.4 Diabetes mellitus intermediate teacher insulin use: with intermediate teacher use
[2025-03-30 20:44] LABS: Glucose Point of Care 248 mg/dL (70-110)
[2025-03-30 22:29] LABS: Vancomycin Trough 22.9 ug/mL (10-15)
[2025-03-31] VITALS (12 sets, daily range): BP systolic 107–160; BP diastolic 54–87; PULSE 80–99; RESP 16–21; TEMP 36.3–37.1; O2SAT 93–99
[2025-03-31] MEDS: ALPRAZolam 0.5 mg Tablet PO ×3 (00:16→15:24)
[2025-03-31] MEDS: piperacillin-tazobactam 3.375 GM in sodium chloride 0.9% (plus) 50 ML IV (00:16)
[2025-03-31] MEDS: acetaminophen 325 mg Tablet 650 MG PO (00:28)
[2025-03-31] MEDS: pantoprazole 40 mg SDV IVP ×2 (03:41→15:01)
[2025-03-31] MEDS: lactated ringers 1,000 ML 50 ML IV (03:42)
[2025-03-31] MEDS: morphine 4 mg/mL SDV 1 mL 2 MG IVP ×2 (03:42→08:05)
[2025-03-31 05:16] LABS: Bacillus cereus group Not Detected (NOT DETECT); Bacillus subtillis group Not Detected (NOT DETECT); Corynebacterium Not Detected (NOT DETECT); Cutibacterium acnes (P.acnes) Not Detected (NOT DETECT); Enterococcus Not Detected (NOT DETECT); Enterococcus faecalis Not Detected (NOT DETECT); Enterococcus faecium Not Detected (NOT DETECT); Lactobacillus species Not Detected (NOT DETECT); Listeria Not Detected (NOT DETECT); Listeria monocytogenes Not Detected (NOT DETECT); Micrococcus Not Detected (NOT DETECT); Pan Candida Not Detected (NOT DETECT); Pan Gram-Negative Not Detected (NOT DETECT); Staphylococcus epidermidis Not Detected (NOT DETECT); Staphylococcus lugdunensis Detected (NOT DETECT); Staphylococcus species Detected (NOT DETECT); Streptococcus agalactiae Not Detected (NOT DETECT); Streptococcus anginosus group Not Detected (NOT DETECT); Streptococcus pneumoniae Not Detected (NOT DETECT); Streptococcus pyogenes Not Detected (NOT DETECT); Streptococcus species Not Detected (NOT DETECT); mecA Not Detected (NOT DETECT); mecC Not Detected (NOT DETECT)
[2025-03-31 06:12] LABS: Basophils % 0.4 %; Eosinophils # 0.1 10^3/uL (0.0-0.8); Eosinophils % 1.5 %; Hematocrit 27.3 % (36-47); Lymphocytes # 0.9 10^3/uL (0.8-4.8); Lymphocytes % 16.7 %; Mean Corpuscular HGB Conc 32.2 g/dL (30-55); Mean Corpuscular Volume 90.1 fl (85-98); Mean Platelet Volume 10.8 fL (7.4-10.4); Monocytes # 0.6 10^3/uL (0.2-0.9); Monocytes % 10.1 %; Neutrophils # 3.84 10^3/uL (1.8-7.7); Neutrophils % 70.4 %; Nucleated Red Blood Cells % 0 %; Platelet Count 130 10^3/cmm (157-399); Red Blood Count 3.03 10^6/uL (3.85-5.65); Red Cell Distribution Width 15.8 % (12.1-15.1); White Blood Count 5.45 10^3/uL (3.29-11.43)
[2025-03-31 06:32] LABS: Alanine Aminotransferase 34 U/L (0-33); Albumin Level 2.8 g/dL (3.5-5.2); Alkaline Phosphatase 71 U/L (35-105); Anion Gap 16.9 (5-19); Aspartate Amino Transferase 43 U/L (0-32); Blood Urea Nitrogen 39 mg/dL (6-20); C Reactive Protein 143.2 mg/L (0.0-4.9); Carbon Dioxide 21 mmol/L (22-29); Chloride 96 mmol/L (98-107); Globulin 3.4 g/dL (1.3-4.6); Glomerular Filtration Rate 22.7 mL/min (90-130); Glucose 432 mg/dL (65-115); Magnesium 1.8 mg/dL (1.7-2.3); Osmolality Calculated 296 mOsm/kg (285-295); Phosphorus 4.9 mg/dL (2.5-4.5); Potassium 4.9 mmol/L (3.5-5.1); Sodium 129 mmol/L (136-145); Total Bilirubin 0.7 mg/dL (0.15-1.2); Total Protein 6.2 g/dL (6.6-8.7)
[2025-03-31 07:00] LABS: Procalcitonin 1.17 ng/mL (0-0.5)
--- NOTE | 2025-03-31 07:08 | P.PN_ITS ---
Subjective 2 Subjective: Patient is feeling okay. No chest pain or shortness of breath. Remains afebrile. She underwent a HERMINIO today. Was found to have no evidence of endocarditis Medications: Medication Review Details: Current Medications Acetaminophen (Acetaminophen 325 Mg Tablet) 650 mg PO Q6H PRN PRN Reason: Mild/Mod Pain Or Temp >/= 101 Last Admin: 03/31/25 00:28 Dose: 650 mg Alprazolam (Alprazolam 0.5 Mg Tablet) 0.5 mg PO TID PRN PRN Reason: ANXIETY Last Admin: 03/31/25 00:16 Dose: 0.5 mg Aspirin (Aspirin 81 Mg Ec Tablet) 81 mg PO DAILY [facility] Last Admin: 03/30/25 09:08 Dose: 81 mg Clopidogrel Bisulfate (Clopidogrel 75 Mg Tablet) 75 mg PO DAILY [facility] Last Admin: 03/30/25 09:08 Dose: 75 mg Docusate Sodium (Docusate Sodium 100 Mg Capsule) 100 mg PO BID [facility] Last Admin: 03/30/25 17:09 Dose: 100 mg Glucagon (Glucagon 1 Mg/Ml Kit 1 Ml) 1 mg IM ONCE PRN; Protocol PRN Reason: Adult Acute Hypoglycemia Nursing Prot. Heparin Sodium (Porcine) (Heparin 5,000 Unit/Ml Inj 1 Ml) 5,000 unit SUBCUT Q12H [facility] Last Admin: 03/30/25 20:21 Dose: Not Given Dextrose (D5w) 500 mls @ 0 mls/hr IV ONCE PRN; Protocol PRN Reason: Adult Acute Hypoglycemia Prot Dextrose (D10w) 125 mls @ 750 mls/hr IV PRN PRN; Protocol PRN Reason: Adult Acute Hypoglycemia Nursing Protocol Dextrose (D10w) 250 mls @ 1,000 mls/hr IV PRN PRN; Protocol PRN Reason: Adult Acute Hypoglycemia Nursing Protocol Lactated Ringer's (Lactated Ringers) 1,000 mls @ 50 mls/hr IV .Q20H [facility] Last Admin: 03/31/25 03:42 Dose: 50 mls/hr Vancomycin HCl (Vancocin) 1,750 mg in 350 mls @ 175 mls/hr IV Q18H [facility] On Hold: 03/31/25 00:09 Last Infusion: 03/30/25 06:40 Dose: 175 mls/hr Piperacillin Sod/Tazobactam (Sod 3.375 gm/ Sodium Chloride) 50 mls @ 12.5 mls/hr IV Q8H [facility] Last Infusion: 03/31/25 05:16 Dose: Infused Insulin Human Lispro (Insulin Lispro 100 Unit/1 Ml) 35 unit SUBCUT TIDWM [facility] Last Admin: 03/30/25 17:09 Dose: 35 unit Metoclopramide HCl (Metoclopramide 5 Mg/Ml Sdv 2 Ml) 5 mg IVP Q6H PRN PRN Reason: NAUSEA AND VOMITING Morphine Sulfate (Morphine 4 Mg/Ml Sdv 1 Ml) 2 mg IVP Q4H PRN PRN Reason: SEVERE PAIN Last Admin: 03/31/25 03:42 Dose: 2 mg Ondansetron HCl (Ondansetron 2 Mg/Ml Sdv 2 Ml) 4 mg IVP Q8H PRN PRN Reason: vomiting, or N/V if npo Last Admin: 03/29/25 05:26 Dose: 4 mg Pantoprazole Sodium (Pantoprazole 40 Mg Sdv) 40 mg IVP Q24H [facility] Last Admin: 03/31/25 03:41 Dose: 40 mg Tizanidine HCl (Tizanidine 4 Mg Tablet) 4 mg PO TID PRN PRN Reason: SPASMS Last Admin: 03/30/25 22:24 Dose: 4 mg Vitals/I&O/Wt Last Vital Signs Temp 97.7 F 03/31/25 04:00 Pulse 80 03/31/25 04:00 Resp 18 03/31/25 04:00 BP 121/71 03/31/25 04:00 Pulse Ox 94 03/31/25 04:00 O2 Del Method Room Air 03/31/25 04:00 O2 Flow Rate 2 03/29/25 16:17 03/30/25 03/31/25 03/31/25 22:59 06:59 14:59 Intake Total 530 / 1780.833 987.5 / 2768.333 Output Total 0 / 150 Balance 530 / 1630.833 987.5 / 2618.333 Weight last 48 hrs Weight 399 lb Weight 383 lb Physical Exam 2 Narrative: GENERAL: The patient is alert and oriented times three. Not in any acute distress. Morbidly obese HEENT: No significant pallor, icterus or lymphadenopathy.Oral cavity: There are no mucous membrane lesions. NECK: Trachea appears to be central. No masses noted. No JVD or thyromegaly appreciated. RESPIRATORY: Chest is symmetrical. No intercostals muscle retraction or any accessory muscle activation. There is no chest wall tenderness. Breath sounds are heard bilaterally. No rales or rhonchi heard. No evidence of any consolidation. BREASTS: Deferred. HEART: The heart sounds are normal. No S3 or S4. No significant murmurs. No pericardial rub ABDOMEN: No vessel pulsations or distention. No tenderness. No organomegaly appreciated. Bowel sounds are normally heard. : Deferred. RECTAL: Deferred. LYMPHATIC: No lymphadenopathy noted in the neck. EXTREMITIES: Features of chronic venous stasis, stasis dermatitis MUSCULOSKELETAL: No acute joint deformities or swelling SKIN: There are no significant rashes or ecchymosis NEUROPSYCHIATRIC: The patient is alert and oriented x3. Appears to be in a good mood. No tremors or rigidity noted. Data 03/31/25 05:27 03/31/25 13:42 Micro: Microbiology 03/29/25 01:58 Blood Culture - Preliminary Blood Staphylococcus aureus Staphylococcus lugdunensis 03/29/25 15:43 Gram Stain - Final Chest Anaerobic Culture - Preliminary Abscess Culture - Preliminary 03/30/25 14:52 Blood Culture - Preliminary Blood SPECIMEN COLLECTED 03/30/25 14:52 Blood Culture - Preliminary Blood SPECIMEN COLLECTED A&P Assessment and plan (1) Staphylococcus aureus bacteremia: HERMINIO revealed no evidence of vegetations. (2) Central line infection: Status post removal of the infected catheter. (3) Atherosclerosis of coronary artery of [place] heart without angina pectoris: Clinically stable. May continue on the current management (4) HIREN (acute kidney injury): May continue the close monitoring (5) Type 2 diabetes mellitus with foot ulcer: The diabetes seems to be fairly under control Plan Since the patient's cardiovascular status seems to be stable, she may not require any further cardiac intervention at this point. I may sign off at this point. PDMP PDMP Reviewed: Not Reviewed Attestations 2 Medical Necessity Statement*: Deferred to the primary Coding Level of Care Code 59483 Diagnoses Staphylococcus aureus bacteremia R78.81; B95.61 Central venous line infection, initial encounter T80.219A Encounter type: initial encounter Atherosclerosis of [place] coronary artery of [place] heart without angina pectoris I25.10 Coronary Disease-Associated Artery/Lesion type: [place] artery HIREN (acute kidney injury) N17.9 Type 2 diabetes mellitus with foot ulcer, with long-term current use of insulin E11.621; L97.509; Z79.4 Diabetes mellitus snf insulin use: with intermodal dispatcher use
[2025-03-31] MEDS: insulin lispro 100 unit/1 mL 35 UNIT SUBCUT ×3 (08:00→18:11)
[2025-03-31] MEDS: aspirin 81 mg EC Tablet PO (08:06)
[2025-03-31] MEDS: docusate sodium 100 mg Capsule PO ×2 (08:06→18:10)
[2025-03-31 08:23] LABS: Glucose Point of Care 461 mg/dL (70-110)
[2025-03-31] MEDS: sodium chloride 0.9% 1,000 ML 15 ML IV (08:33)
[2025-03-31 08:40] LABS: Glucose Point of Care 385 mg/dL (70-110)
--- NOTE | 2025-03-31 09:17 | P.ANESASSM_ITS ---
Pre-Anesthetic Assessment Height/Weight: Height 5 ft 7 in Weight 399 lb Temp Pulse Resp BP Pulse Ox O2 Del Method O2 Flow Rate 98.1 F 86 17 160/81 98 Room Air 2 03/31/25 08:22 03/31/25 08:22 03/31/25 08:22 03/31/25 08:22 03/31/25 08:22 03/31/25 08:22 03/29/25 16:17 Preop Diagnosis: Dialysis catheter infection Operation Date: 03/29/25 13:50 Proposed Procedures p Dialysis Catheter Removal(Not Applicable) - Scout Bennett MD Operation Date: 03/31/25 09:00 Proposed Procedures p HERMINIO(Not Applicable) - William Rucker MD Was Beta Andrea taken within 24 hours: N/A Was Clonidine taken within 24 hours: N/A Last intake: Intake Last Liquid Date 03/30/25 Last Liquid Time 23:30 Last Solid Date 03/30/25 Last Solid Time 22:00 Social No alcohol and No tobacco Exam alert, oriented x 3, clear to auscultation bilaterally and regular rate & rhythm Airway Submandibular: within normal limits Cervical ROM: within normal limits Mallampati: Class III Comments: Comments: Edentulous, large neck circumference Anesthetic Plan ASA status: 4 Anesthesia: MAC Other: Patient admitted today for for concern of dialysis catheter infection. Hemodialysis catheter was initially placed for acute renal failure in the setting of osteomyelitis of the foot requiring prolonged antibiotics. General anesthesia on 03/29/2025 without issues History of type 2 diabetes on chronic insulin. Patient received insulin on the floor. Blood sugar 432 prior to insulin this morning. Recheck in preop GERD on Protonix Labs reviewed, leukocytosis noted Plan for MAC anesthesia Medications/Allergies Home Medications ?Medication ?Instructions ?Recorded ?Confirmed ?Last Taken ?Type cetirizine 10 mg tablet 10 mg PO DAILY 03/22/23 06/05/0603/28/25 History insulin regular human 100 unit/mL See Rx Instructions .Route .COMPLEX 03/22/23 03/29/25 02/24/25 History injection solution (Humulin R Regular U-100 Insulin) aspirin 81 mg tablet,delayed 81 mg PO DAILY 02/25/25 0 03/29/25 03/28/25 History release clopidogrel 75 mg tablet (Plavix) 75 mg PO DAILY 02/2503/29/2503/28/25 History pantoprazole 40 mg tablet,delayed 40 mg PO DAILY 02/2503/29/25 03/28/25 History release (Protonix) hyoscyamine sulfate 0.125 mg 0.125 mg sublingual Q8H P RN 02/26/25 03/29/25 Unknown Rx sublingual tablet (Levsin/SL) epigastric abdominal paulo n #20 tabs promethazine 25 mg rectal 25 mg NM Q4H PRN nausea and 02/26/25 03/29/25 Unknown Rx suppository vomiting #12 ea alprazolam 0.5 mg tablet (Xanax) 0.5 mg PO TID PRN Anx iety 03/29/25 03/29/25 Unknown History tizanidine 4 mg tablet 4 mg PO TID PRN muscle spasm s 03/29/25 03/29/25 Unknown History Allergies Allergy/AdvReac Type Severity Reaction Status Date / Time tramadol Allergy Mild hives Verified 02/25/25 19:34 sulfamethoxazole (From Allergy ALGY-Hives Verified 02/25/25 13:24 Bactrim) trimethoprim (From Bactrim) Allergy ALGY-Hives Verified 02/25/25 13:24 daptomycin AdvReac blurry Verified 03/29/25 00:15 vision flurocet Allergy ADR-Confusi Uncoded 02/25/25 13:24 on Current Medications Generic Name Dose Route Start Last Admin Trade Name Freq PRN Reason Stop Dose Admin Acetaminophen 650 mg 03/29/25 04:30 03/31/25 00:28 Acetaminophen 325 Mg Tablet PO 650 mg On Hold: 03/31/25 08:21 Q6H PRN Administration Comment: Order held by Process Mild/Mod Pain Or Temp >/= 101 Transfer Alprazolam 0.5 mg 03/29/25 17:53 03/31/25 08:06 Alprazolam 0.5 Mg Tablet PO 0.5 mg On Hold: 03/31/25 08:21 TID PRN Administration Comment: Order held by Process ANXIETY Transfer Aspirin 81 mg 03/30/25 09:00 03/31/25 08:06 Aspirin 81 Mg Ec Tablet PO 81 mg On Hold: 03/31/25 08:21 DAILY [facility] Administration Comment: Order held by Process Transfer Clopidogrel Bisulfate 75 mg 03/30/25 09:00 03/30/25 09:08 Clopidogrel 75 Mg Tablet PO 75 mg On Hold: 03/31/25 08:21 DAILY [facility] Administration Comment: Order held by Process Transfer Docusate Sodium 100 mg 03/29/25 09:00 03/31/25 08:06 Docusate Sodium 100 Mg Capsule PO 100 mg On Hold: 03/31/25 08:21 BID [facility] Administration Comment: Order held by Process Transfer Heparin Sodium (Porcine) 5,000 unit 03/29/25 09:00 03/30/25 20:21 Heparin 5,000 Unit/Ml Inj 1 Ml SUBCUT Not Given On Hold: 03/31/25 08:21 Q12H [facility] Comment: Order held by Process Transfer Lactated Ringer's 1,000 mls @ 50 mls/hr 03/29/25 16:15 03/31/25 03:42 Lactated Ringers IV 50 mls/hr On Hold: 03/31/25 08:21 .Q20H [facility] Administration Comment: Order held by Process Transfer Vancomycin HCl 1,750 mg in 350 mls @ 175 mls/hr 03/30/25 06:00 03/30/25 06:40 Vancocin IV 175 mls/hr On Hold: 03/31/25 00:09 Q18H [facility] Infusion Piperacillin Sod/Tazobactam 50 mls @ 12.5 mls/hr 03/29/25 18:30 03/31/25 05:16 Sod 3.375 gm/ Sodium Chloride IV Infused On Hold: 03/31/25 08:21 Q8H [facility] Infusion Comment: Order held by Process Transfer Sodium Chloride 1,000 mls @ 15 mls/hr 03/31/25 08:22 03/31/25 08:33 Sodium Chloride 0.9% IV 04/01/25 08:21 15 mls/hr .Q24H PRN Administration COLONOSCOPY FLUIDS Insulin Human Lispro 35 unit 03/30/25 12:00 03/30/25 17:09 Insulin Lispro 100 Unit/1 Ml SUBCUT 35 unit On Hold: 03/31/25 08:21 TIDWM [facility] Administration Comment: Order held by Process Transfer Morphine Sulfate 2 mg 03/29/25 04:30 03/31/25 08:05 Morphine 4 Mg/Ml Sdv 1 Ml IVP 2 mg On Hold: 03/31/25 08:21 Q4H PRN Administration Comment: Order held by Process SEVERE PAIN Transfer Ondansetron HCl 4 mg 03/29/25 04:30 03/29/25 05:26 Ondansetron 2 Mg/Ml Sdv 2 Ml IVP 4 mg On Hold: 03/31/25 08:21 Q8H PRN Administration Comment: Order held by Process vomiting, or N/V if npo Transfer Pantoprazole Sodium 40 mg 03/29/25 04:30 03/31/25 03:41 Pantoprazole 40 Mg Sdv IVP 40 mg On Hold: 03/31/25 08:21 Q24H [facility] Administration Comment: Order held by Process Transfer Tizanidine HCl 4 mg 03/29/25 22:32 03/30/25 22:24 Tizanidine 4 Mg Tablet PO 4 mg On Hold: 03/31/25 08:21 TID PRN Administration Comment: Order held by Process SPASMS Transfer Additional Medication Information Current Medications Acetaminophen (Acetaminophen 325 Mg Tablet) 650 mg PO Q6H PRN PRN Reason: Mild/Mod Pain Or Temp >/= 101 Last Admin: 03/31/25 00:28 Dose: 650 mg Alprazolam (Alprazolam 0.5 Mg Tablet) 0.5 mg PO TID PRN PRN Reason: ANXIETY Last Admin: 03/31/25 00:16 Dose: 0.5 mg Aspirin (Aspirin 81 Mg Ec Tablet) 81 mg PO DAILY [facility] Last Admin: 03/30/25 09:08 Dose: 81 mg Clopidogrel Bisulfate (Clopidogrel 75 Mg Tablet) 75 mg PO DAILY [facility] Last Admin: 03/30/25 09:08 Dose: 75 mg Docusate Sodium (Docusate Sodium 100 Mg Capsule) 100 mg PO BID [facility] Last Admin: 03/30/25 17:09 Dose: 100 mg Glucagon (Glucagon 1 Mg/Ml Kit 1 Ml) 1 mg IM ONCE PRN; Protocol PRN Reason: Adult Acute Hypoglycemia Nursing Prot. Heparin Sodium (Porcine) (Heparin 5,000 Unit/Ml Inj 1 Ml) 5,000 unit SUBCUT Q12H [facility] Last Admin: 03/30/25 20:21 Dose: Not Given Dextrose (D5w) 500 mls @ 0 mls/hr IV ONCE PRN; Protocol PRN Reason: Adult Acute Hypoglycemia Prot Dextrose (D10w) 125 mls @ 750 mls/hr IV PRN PRN; Protocol PRN Reason: Adult Acute Hypoglycemia Nursing Protocol Dextrose (D10w) 250 mls @ 1,000 mls/hr IV PRN PRN; Protocol PRN Reason: Adult Acute Hypoglycemia Nursing Protocol Lactated Ringer's (Lactated Ringers) 1,000 mls @ 50 mls/hr IV .Q20H [facility] Last Admin: 03/31/25 03:42 Dose: 50 mls/hr Vancomycin HCl (Vancocin) 1,750 mg in 350 mls @ 175 mls/hr IV Q18H [facility] On Hold: 03/31/25 00:09 Last Infusion: 03/30/25 06:40 Dose: 175 mls/hr Piperacillin Sod/Tazobactam (Sod 3.375 gm/ Sodium Chloride) 50 mls @ 12.5 mls/hr IV Q8H [facility] Last Infusion: 03/31/25 05:16 Dose: Infused Insulin Human Lispro (Insulin Lispro 100 Unit/1 Ml) 35 unit SUBCUT TIDWM [facility] Last Admin: 03/30/25 17:09 Dose: 35 unit Metoclopramide HCl (Metoclopramide 5 Mg/Ml Sdv 2 Ml) 5 mg IVP Q6H PRN PRN Reason: NAUSEA AND VOMITING Morphine Sulfate (Morphine 4 Mg/Ml Sdv 1 Ml) 2 mg IVP Q4H PRN PRN Reason: SEVERE PAIN Last Admin: 03/31/25 03:42 Dose: 2 mg Ondansetron HCl (Ondansetron 2 Mg/Ml Sdv 2 Ml) 4 mg IVP Q8H PRN PRN Reason: vomiting, or N/V if npo Last Admin: 03/29/25 05:26 Dose: 4 mg Pantoprazole Sodium (Pantoprazole 40 Mg Sdv) 40 mg IVP Q24H [facility] Last Admin: 03/31/25 03:41 Dose: 40 mg Tizanidine HCl (Tizanidine 4 Mg Tablet) 4 mg PO TID PRN PRN Reason: SPASMS Last Admin: 03/30/25 22:24 Dose: 4 mg PFSH Anesthesia Female Reproductive History Date of last menstrual period: 03/24/25 Data Anesthesia 03/31/25 05:27 03/31/25 05:27 Short CBC 03/29/25 03/30/2525 Range/Units 16:10 05:35 05:27 WBC 10.71 6.53 5.45 (3.29-11.43) 10^3/uL Hgb 10.20 L 9.40 L 8.80 L (11.27-16.99) g/dL Hct 30.5 L 29.2 L 27.3 L (36-47) % MCV 87.9 88.5 90.1 (85-98) fl Plt Count 164 151 L 130 L (157-399) 10^3/cmm Neut % (Auto) 89.8 80.8 70.4 % Neut # (Auto) 9.62 H 5.28 3.84 (1.8-7.7) 10^3/uL BMP 03/29/25 03/29/25 03/29/25 16:10 16:10 16:10 Sodium 127 L 126 L Potassium 4.9 4.9 Chloride 97 L Carbon Dioxide BUN Creatinine Glucose Calcium 03/29/25 03/29/25 03/29/25 16:10 16:10 16:10 Sodium Potassium Chloride 97 L Carbon Dioxide 19 L 19 L BUN 26 H 26 H Creatinine 1.4 H Glucose Calcium 03/29/25 03/29/25 03/29/25 16:10 16:10 16:10 Sodium Potassium Chloride Carbon Dioxide BUN Creatinine 1.4 H Glucose 308 H 308 H Calcium 7.9 L 8.1 L 03/30/25 03/31/25 05:35 05:27 Sodium 129 L 129 L Potassium 4.9 4.9 Chloride 97 L 96 L Carbon Dioxide 20 L 21 L BUN 30 H 39 H Creatinine 1.8 H 2.3 H Glucose 341 H 432 H Calcium 8.1 L 8.0 L Cardiac Enzymes 03/30/25 Range/Units 14:52 Creatine Kinase 50 (26-192) U/L Liver Function 03/29/25 03/30/25 03/31/25 Range/Units 16:10 05:35 05:27 Total Bilirubin 0.8 0.9 0.7 (0.15-1.2) mg/dL AST 17 30 43 H (0-32) U/L ALT 13 19 34 H (0-33) U/L Alkaline Phosphatase 54 64 71 (35-105) U/L Albumin 3.2 L 2.9 L 2.8 L (3.5-5.2) g/dL Coags 03/29/25 03/30/25 03/31/25 16:10 05:35 05:27 C-Reactive Protein 181.3 H 227.7 H 143.2 H ABG 03/29/25 16:32 Specimen Type Arterial Sample Site Brachial, left ABG pH 7.38 ABG pCO2 36.1 ABG pO2 83.6 ABG PO2/FiO2 Ratio 298 ABG HCO3 21.5 L ABG Base Excess -3.1 L O2 Delivery Device Nc O2 Liters/Min 2.0 FiO2 28.0 Microbiology 03/29/25 01:58 Blood Culture - Preliminary Blood Staphylococcus aureus Staphylococcus lugdunensis 03/29/25 15:43 Gram Stain - Final Chest Anaerobic Culture - Preliminary Abscess Culture - Preliminary 03/30/25 14:52 Blood Culture - Preliminary Blood SPECIMEN COLLECTED 03/30/25 14:52 Blood Culture - Preliminary Blood SPECIMEN COLLECTED Cardiac Studies: 2 Echocardiogram 03/29/25
--- NOTE | 2025-03-31 09:34 | W.PM.OPSUD ---
Surgery/Procedure H&P Update DATE OF PROCEDURE: March 31, 2025 DATE H&P PERFORMED: 03/30/25 H&P UPDATE INFORMATION: I have reviewed H&P completed within last 30 days, I have examined patient prior to procedure and No changes to prior documentation PREOP DIAGNOSIS: Rule out endocarditis PRIMARY INDICATION FOR PROCEDURE: [place] catheter infection. Gram-positive bacteremia. Rule out endocarditis PLANNED PROCEDURE: Operation Date: 03/29/25 13:50 Proposed Procedures p Dialysis Catheter Removal(Not Applicable) - Scout Bennett MD Operation Date: 03/31/25 09:00 Proposed Procedures p HERMINIO(Not Applicable) - William Rucker MD
--- NOTE | 2025-03-31 10:17 | PM.OP ---
Operative Report Date of procedure: March 31, 2025 Pre-op diagnosis: Sepsis Surgeon: William Rucker MD Procedure: Patient had a HERMINIO under IV sedation by the anesthesia She was found to have no vegetations. Mild tricuspid regurgitation. Tolerated the procedure well. No complications.
--- NOTE | 2025-03-31 10:37 | ANE.PACU2 ---
Inpatient post-anesthesia follow up: Airway intact: Yes Vital signs: Temperature 97.4 F Pulse Rate 93 Respiratory Rate 18 Blood Pressure 123/54 Pulse Oximetry 95 Oxygen Delivery Me thod Room Air Oxygen Flow Rate 2 Fraction of Inspir ed Oxygen Hydration adequate: Yes Nausea and vomiting: No Pain level: 1 Mental status: Baseline
[2025-03-31] MEDS: HYDROmorphone 0.5 MG/0.5 ML INJ IVP ×3 (10:58→19:55)
[2025-03-31] MEDS: ondansetron 2 mg/ML SDV 2 mL 4 MG IVP ×2 (10:59→19:55)
--- NOTE | 2025-03-31 11:13 | USCV_ITS ---
Chip Pablo Age: 49 Gender: F : 1975 Exam Date: 03/30/2025 13:38 Ordering Phys: Steve Baker MD Technologist: Exam Location: [facility] – [place], [place] Indication: ? veg BP: 98 / 61 HR: Rhythm: Sinus Technical Quality: Good MEASUREMENTS (Male / Female) Normal Values DOPPLER TR Peak Velocity 305.0 cm/s TR Peak Gradient 37.2 mmHg Medications IV propofol administered with anesthesia service Complications None Proc. Components The HERMINIO probe was passed into the posterior pharynx , mid- esophagus, distal esophagus, and gastric fundus. HERMINIO was performed at multiple levels. The patient tolerated the procedure well and there were no complications. FINDINGS Left Ventricle Normal left ventricular size and systolic function, EF 55%. Right Ventricle Normal LV size ejection fraction Right Atrium The right atrium is normal in size. Left Atrium No intracavitary masses. Appears to be of normal size LA Appendage Normal size and contractility IA Septum Interatrial septum measuring 1.6 x 1.0 cm. No thrombus or intracavitary masses noted Mitral Valve No gross abnormalities noted no gross abnormalities noted Aortic Valve Structurally normal trileaflet aortic valve. Tricuspid Valve Mild tricuspid valve regurgitation. Pulmonic Valve No gross abnormalities noted Pericardium No pericardial effusion. Aorta Mild diffuse plaques CONCLUSIONS Normal left ventricular size and systolic function, EF 55%. No vegetations or masses noted in the intracardiac structures No evidence of any [id number] shunt based on the color-flow Doppler examination No intracavitary mass Left atrial appendage appears to be of normal size and contractility. No similar previous studies are available for comparison Dr William Rucker MD [facility] (Electronically Signed) Final Date: 01 April 2025 12:16 S
[2025-03-31 11:38] LABS: Glucose Point of Care 243 mg/dL (70-110)
[2025-03-31] MEDS: ceFAZolin 2,000 mg SDV 2000 MG IVP ×2 (12:38→18:10)
--- NOTE | 2025-03-31 13:27 | PM.PN ---
Subjective Subjective: denies h/a, d/itching, cp. has nausea and throat pain. Medications: Reviewed: Yes Medication Review Details: Current Medications Acetaminophen (Acetaminophen 325 Mg Tablet) 650 mg PO Q6H PRN PRN Reason: Mild/Mod Pain Or Temp >/= 101 Last Admin: 03/31/25 00:28 Dose: 650 mg Alprazolam (Alprazolam 0.5 Mg Tablet) 0.5 mg PO TID PRN PRN Reason: ANXIETY Last Admin: 03/31/25 08:06 Dose: 0.5 mg Aspirin (Aspirin 81 Mg Ec Tablet) 81 mg PO DAILY [facility] Last Admin: 03/31/25 08:06 Dose: 81 mg Cefazolin Sodium (Cefazolin 2,000 Mg Sdv) 2,000 mg IVP Q8H [facility]; Protocol Last Admin: 03/31/25 12:38 Dose: 2,000 mg Clopidogrel Bisulfate (Clopidogrel 75 Mg Tablet) 75 mg PO DAILY [facility] Last Admin: 03/30/25 09:08 Dose: 75 mg Docusate Sodium (Docusate Sodium 100 Mg Capsule) 100 mg PO BID [facility] Last Admin: 03/31/25 08:06 Dose: 100 mg Glucagon (Glucagon 1 Mg/Ml Kit 1 Ml) 1 mg IM ONCE PRN; Protocol PRN Reason: Adult Acute Hypoglycemia Nursing Prot. Heparin Sodium (Porcine) (Heparin 5,000 Unit/Ml Inj 1 Ml) 5,000 unit SUBCUT Q12H [facility] Last Admin: 03/30/25 20:21 Dose: Not Given Hydromorphone HCl (Hydromorphone 0.5 Mg/0.5 Ml Inj) 0.5 mg IVP Q4H PRN PRN Reason: PAIN Last Admin: 03/31/25 10:58 Dose: 0.5 mg Dextrose (D5w) 500 mls @ 0 mls/hr IV ONCE PRN; Protocol PRN Reason: Adult Acute Hypoglycemia Prot Dextrose (D10w) 125 mls @ 750 mls/hr IV PRN PRN; Protocol PRN Reason: Adult Acute Hypoglycemia Nursing Protocol Dextrose (D10w) 250 mls @ 1,000 mls/hr IV PRN PRN; Protocol PRN Reason: Adult Acute Hypoglycemia Nursing Protocol Insulin Human Lispro (Insulin Lispro 100 Unit/1 Ml) 35 unit SUBCUT TIDWM [facility] Last Admin: 03/31/25 12:37 Dose: 35 unit Metoclopramide HCl (Metoclopramide 5 Mg/Ml Sdv 2 Ml) 5 mg IVP Q6H PRN PRN Reason: NAUSEA AND VOMITING Ondansetron HCl (Ondansetron 2 Mg/Ml Sdv 2 Ml) 4 mg IVP Q8H PRN PRN Reason: vomiting, or N/V if npo Last Admin: 03/31/25 10:59 Dose: 4 mg Pantoprazole Sodium (Pantoprazole 40 Mg Sdv) 40 mg IVP Q24H [facility] Last Admin: 03/31/25 03:41 Dose: 40 mg Tizanidine HCl (Tizanidine 4 Mg Tablet) 4 mg PO TID PRN PRN Reason: SPASMS Last Admin: 03/30/25 22:24 Dose: 4 mg Vitals/I&O/Wt Last Vital Signs Temp 98.1 F 03/31/25 12:15 Pulse 87 03/31/25 12:15 Resp 18 03/31/25 12:15 BP 157/78 03/31/25 12:15 Pulse Ox 99 03/31/25 12:15 O2 Del Method Room Air 03/31/25 12:15 O2 Flow Rate 2 03/29/25 16:17 03/30/25 03/31/25 03/31/25 22:59 06:59 14:59 Intake Total 530 / 1780.833 987.5 / 2768.333 774.920 / 774.920 Output Total 0 / 150 Balance 530 / 1630.833 987.5 / 2618.333 774.920 / 774.920 Weight last 48 hrs Weight 180.983 kg Weight 173.726 kg Physical Exam Narrative: Morbidly obese lady sitting up in bed no apparent distress. Vital signs noted blood pressure stable. Oxygenating well. HEENT normocephalic atraumatic. Neck is supple no JVP. Lungs are clear to auscultation. Heart is regular without rubs or gallops. Abdomen is soft positive bowel sounds. Extremities left greater than right leg edema with redness. Denies tenderness. Patient states edema is chronic. Neuro awake alert oriented x 3. Data 03/31/25 05:27 03/31/25 05:27 Micro: Microbiology 03/29/25 01:58 Blood Culture - Preliminary Blood Staphylococcus aureus Staphylococcus lugdunensis 03/29/25 15:43 Gram Stain - Final Chest Anaerobic Culture - Preliminary Abscess Culture - Preliminary 03/30/25 14:52 Blood Culture - Preliminary Blood SPECIMEN COLLECTED 03/30/25 14:52 Blood Culture - Preliminary Blood SPECIMEN COLLECTED A&P Assessment and plan (1) HIREN (acute kidney injury): 49 lady diabetic, morbid obesity, question of heart failure preserved EF, proteinuria. History of acute kidney injury within the last year requiring temporary dialysis that has improved. Patient is here now with sepsis due to infected Mcdermott catheter. Patient grew out Staphylococcus bacteremia. Patient was hypotensive yesterday Mcdermott catheter removed 1. Acute kidney injury likely from being on Bumex and having sepsis concern for prerenal azotemia versus ATN. she was hypotensive and had an infection -normal complements speak against infection related GN -urine noted. she was on bumex then ivf -for now will hold ivf and diuretics. 1b. anemia and HIREN- send LDH, retic count and haptoglobin 2. Hyponatremia likely from effective intravascular volume depletion from low albumin recent diuretics and leaky capillaries from sepsis. also HIREN can contribute -check tsh free water restrict 3. Hyperglycemia insulin as per primary care 4. Continue to replete magnesium. 5. Anemia evaluation. 6. Patient has underlying proteinuria and urinalysis has some hematuria most likely she has diabetic nephropathy. I discussed with her that she can follow-up with her outpatient [employer] consultant to see if there is any reason to look for further glomerular disease. However hemoglobin A1c of 10.2- this is likely diabetic nephropathy. Will follow the patient along with you as stated would hold diuretics and fluids at this time. Limit salt in diet. Limit water. Patient was seen examined using audiovisual equipment with the aid of a nurse. The patient consented to telehealth visit. Case discussed in detail with pt and RN HERMINIO today w/o significant valvular abnormalities Plan see above PDMP PDMP Reviewed: Not Reviewed Attestations Medical Necessity Statement*: hiren, bacteremia Time Spent in Patient Care: Greater than 35 minutes (>than 50% of time spent in counselling and/or direct pt care on unit). Coding Level of Care Code Acute Code for [facility] Diagnoses HIREN (acute kidney injury) N17.9
[2025-03-31] MEDS: tizanidine 4 mg Tablet PO (13:59)
--- NOTE | 2025-03-31 14:08 | PM.PN ---
Subjective Subjective: Ms. Saunders was evaluated at bedside on [facility] today. She underwent a HERMINIO earlier this morning. Reports some nausea from the anesthesia. The dressing is clean dry and intact to her right second toe. Vitals/I&O/Wt Last Vital Signs Temp 98.1 F 03/31/25 12:15 Pulse 87 03/31/25 12:15 Resp 18 03/31/25 12:15 BP 157/78 03/31/25 12:15 Pulse Ox 99 03/31/25 12:15 O2 Del Method Room Air 03/31/25 12:15 O2 Flow Rate 2 03/29/25 16:17 03/30/25 03/31/25 03/31/25 22:59 06:59 14:59 Intake Total 530 / 1780.833 987.5 / 2768.333 774.920 / 774.920 Output Total 0 / 150 Balance 530 / 1630.833 987.5 / 2618.333 774.920 / 774.920 Weight last 48 hrs Weight 180.983 kg Weight 173.726 kg Physical Exam Const: COMMON NORMALS: no acute distress, patient oriented x3 and alert GENERAL APPEARANCE: cooperative and comfortable NUTRITIONAL APPEARANCE: obese morbidly obese ORIENTATION/CONSCIOUSNESS: Yes awake, Yes oriented to person, Yes oriented to place and Yes oriented to time HENMT: COMMON NORMALS: normocephalic HEAD & SCALP: normal to inspection and normocephalic Eye: GENERAL EYE: appearance normal, both eyes and all related structures Neck/C-Spine: GENERAL: Yes normal visual inspection and Yes trachea midline Resp: COMMON NORMALS: normal respiratory effort EFFORT & INSPECTION: Yes able to speak in complete sentences and Yes symmetric chest movement Cardio: COMMON NORMALS: regular rate RATE: regular rate OTHER: Less than 3-second capillary refill in distal digits of right foot Extremity: RIGHT LOWER EXTREMITY: Yes lower leg Right lower leg: Yes inspection (Edematous; hemosiderin staining) LEFT LOWER EXTREMITY: Yes lower leg Left lower leg: Yes inspection (Edematous; hemosiderin staining) Neuro: COMMON NORMALS: patient oriented x3 SENSORIUM/ORIENTATION: Yes alert, Yes oriented to person, Yes oriented to place and Yes oriented to time Psych: COMMON NORMALS: mental status grossly normal, Normal thought process present, cooperative and speech normal ATTITUDE: Yes calm and Yes engaged ACTIVITY/MOTOR BEHAVIOR: Yes appropriate eye contact SPEECH: Yes normal speech THOUGHT PROCESS: Normal thought process present MEMORY/COGNITION: Yes memory grossly intact Skin: WOUNDS: Yes wounds noted (See wound assessment) Data 03/31/25 05:27 03/31/25 05:27 Micro: Microbiology 03/29/25 01:58 Blood Culture - Preliminary Blood Staphylococcus aureus Staphylococcus lugdunensis 03/29/25 15:43 Gram Stain - Final Chest Anaerobic Culture - Preliminary Abscess Culture - Preliminary 03/30/25 14:52 Blood Culture - Preliminary Blood SPECIMEN COLLECTED 03/30/25 14:52 Blood Culture - Preliminary Blood SPECIMEN COLLECTED A&P Assessment and plan (1) Type 2 diabetes mellitus with foot ulcer: (2) Diabetes type 2: Plan Wound to right second toe remains stable without evidence of further decline. No signs or symptoms of active infection at this time. X-ray taken yesterday showed no bone destruction or erosion in the remaining phalanx of the right second toe. The wound would benefit from a debridement in the near future to remove periwound callus as well as biofilm and exudative material. I have encouraged her to keep the open wound covered at all times due to risk for infection. Will continue utilizing Hydrofera Blue as the primary dressing. Continue daily dressing change. She reports her skin tears with most tape, therefore she requested to use Tegaderm to secure the dressing. Wound was thoroughly cleansed and the dressing was applied during the visit. Offloading of this area will be necessary for wound healing. Tight glucose control and optimized nutrition will expedite healing as well. Once discharged she would benefit from ongoing wound care. Will schedule appointment upon discharge to [facility]. Wound care will follow-up daily until discharge. PDMP PDMP Reviewed: Not Reviewed Attestations Medical Necessity Statement*: Ongoing wound care Medical management per hospitalist service Time Spent in Patient Care: 16 - 35 minutes Coding Level of Care Code Acute Code for [facility] Diagnoses Type 2 diabetes mellitus with foot ulcer, with long-term current use of insulin E11.621; L97.509; Z79.4 Diabetes mellitus terminal carman insulin use: with senior living use Diabetes type 2 E11.9 Wound Assessment Wound Assessment Wound Number 1 Toe Second: Descriptor: Right Primary Etiology: Diabetic Would/Ulcer of the Lower Extremity Classification: Grade 1 Length (cm): 1.4 cm Width (cm): 1.6 cm Depth (cm): 0.6 cm Epithelialization: None Tunneling: No Undermining: No Exudate Amount: Medium Drainage Type: Serosanguineous Foul Odor After Cleansing: No Slough/Fibrin?: No Granulation Amount: Medium (34-66%) Granulation Quality: [place] Necrotic Amount: Small (1-33%) Necrotic Type: Adherent Slough Wound Orders Wound Number 1: Dressing change frequency: Daily Wound Cleansing: Saline Primary Wound Care Dressing: Hydrofera Blue ready Secondary Wound Care Dressing: Tegaderm Bathing/Showering/Hygiene: May shower with protection but do not get dressing wet. Off-Loading: Other (Limit ambulation)
[2025-03-31 14:16] LABS: Glucose Point of Care 264 mg/dL (70-110)
[2025-03-31 14:30] LABS: Alanine Aminotransferase 35 U/L (0-33); Alkaline Phosphatase 71 U/L (35-105); Anion Gap 16.6 (5-19); Aspartate Amino Transferase 37 U/L (0-32); Blood Urea Nitrogen 38 mg/dL (6-20); Calcium 8.1 mg/dL (8.5-10.5); Carbon Dioxide 20 mmol/L (22-29); Chloride 101 mmol/L (98-107); Globulin 3.4 g/dL (1.3-4.6); Glomerular Filtration Rate 25.2 mL/min (90-130); Glucose 247 mg/dL (65-115); Lactate Dehydrogenase 232 U/L (135-214); Osmolality Calculated 293 mOsm/kg (285-295); Potassium 4.6 mmol/L (3.5-5.1); Sodium 133 mmol/L (136-145); Thyroid Stimulating Hormone 4.22 uIU/mL (0.27-4.20); Total Bilirubin 0.4 mg/dL (0.15-1.2); Total Protein 6.4 g/dL (6.6-8.7)
[2025-03-31 14:32] LABS: Reticulocyte % 3.5 % (0.5-2.0)
[2025-03-31] MEDS: sucralfate 1 gm/10 mL Oral Liq UDC PO ×2 (15:01→20:49)
[2025-03-31] MEDS: promethazine 25 mg/mL SDV 1 mL 12.5 MG IM (15:02)
[2025-03-31 16:00] LABS: Anti-Double Strand DNA AB <1 IU/mL
[2025-03-31] MEDS: lactulose oral liq 20 gm/30 mL UDC PO (16:00)
--- NOTE | 2025-03-31 16:22 | P.PN_ITS ---
Subjective 2 Subjective: Patient was seen this morning, currently alert oriented x 3, following all commands - She status post transesophageal echoca rdiogram - We discussed watching her kidney funct ion as her creatinine is up to 2.3 - She tells me that when she was hospita lized back in July the vancomycin in her terms seem to mess up my kidneys so they took her off of it but denies a specific allergy to vancomycin - Discussed switching her off vancomycin and trying cefazolin as cultures are showing Staphylococcus aureus - Discussed her uncontrolled blood sugar s, we discussed that I have increased her NovoLog to 35 units twice daily I might have to add on a sliding scale on top of that - Discussed trying Lantus or Levemir but patient adamantly declines using these medications as she tells me that her body and her pancreas does not processes medications well Vitals/I&O/Wt Last Vital Signs Temp 97.7 F 03/31/25 15:58 Pulse 86 03/31/25 15:58 Resp 18 03/31/25 15:58 BP 149/87 03/31/25 15:58 Pulse Ox 96 03/31/25 15:58 O2 Del Method Room Air 03/31/25 15:58 O2 Flow Rate 2 03/29/25 16:17 03/31/25 03/31/25 03/31/25 06:59 14:59 22:59 Intake Total 987.5 / 2768.333 1254.920 / 1254.920 Output Total 0 / 150 Balance 987.5 / 2618.333 1254.920 / 1254.920 Weight last 48 hrs Weight 180.983 kg Weight 173.726 kg Physical Exam 2 Const: COMMON NORMALS: no acute distress and patient oriented x3 Resp: COMMON NORMALS: normal respiratory effort, No retractions, No use of accessory muscles and clear to auscultation bilaterally AUSCULTATION: clear to auscultation bilaterally Cardio: COMMON NORMALS: regular rate, regular rhythm, S1 normal heart sound present and S2 normal heart sound present RATE: regular rate RHYTHM: r egular rhythm HEART SOUNDS: S1 normal heart sound present and S2 normal heart sound present GI: COMMON NORMALS: Normal to inspection, nondistended, normoactive bowel sounds present and non-tender Extremity: COMMON NORMALS: no pedal edema Neuro: COMMON NORMALS: patient oriented x3 Psych: COMMON NORMALS: mental status grossly normal Data 03/31/25 05:27 03/31/25 13:42 Micro: Microbiology 03/29/25 15:43 Gram Stain - Final Chest Anaerobic Culture - Preliminary Abscess Culture - Preliminary Coag positive Staphylococcus 03/29/25 15:43 Catheter Tip Culture - Preliminary Other Source Coag positive Staphylococcus 03/30/25 14:52 Blood Culture - Preliminary Blood NEGATIVE TO DATE 03/30/25 14:52 Blood Culture - Preliminary Blood NEGATIVE TO DATE 03/28/25 22:28 Blood Culture - Preliminary Blood Staphylococcus aureus 03/29/25 01:58 Blood Culture - Preliminary Blood Staphylococcus aureus Staphylococcus lugdunensis A&P Assessment and plan (1) Central line infection: (2) Line sepsis: (3) Leukocytosis: (4) Diabetes type 2: (5) Fever: (6) Staphylococcus aureus bacteremia: Plan Hyperglycemia, with history of type 2 diabetes - Blood sugars over 400, with nausea vomiting - Repeat BMP ordered anion gap 14.9, bicarb 19, ketones negative, pH 7.38, currently no evidence of diabetic ketoacidosis or HHS - Blood sugars now down to 300s Plan - Switch to her home NovoLog 35 units 3 times daily with meals - Patient declines taking Lantus or Levemir - Monitor blood sugars closely - Switch to diabetic diet Intractable nausea vomiting, resolving - Patient had episode of nausea and vomiting before surgery - She was intubated for surgery - She was seen in postop recovery, on nasal cannula, currently on room air - Denies any abdominal pain - Will continue to monitor nausea vomiting - Zofran for nausea - Reglan for nausea Staphylococcus aureus bacteremia Mcdermott catheter infection, concerns for CLABSI -Status post removal of Mcdermott catheter - Follow blood cultures, positive for Staph aureus -Follow repeat blood cultures, so far negative - Follow catheter tip culture showing Staph aureus - Follow abscess culture showed Staph aureus - De-escalate to cefazolin - Cardiac echo to evaluate valves no gross vegetation - Transesophageal echocardiogram no vegetations seen - CT chest abdomen and pelvis, no acute findings Bilateral lower extremity anterior pedraza erythema - Concern for cellulitis - De-escalate antibiotic therapy Right foot, second digit, diabetic wound - Wound care History of CAD status post 4 stents in March 2024 - Resume aspirin, Plavix Hypomagnesemia, monitor Acute kidney injury, creatinine 2.3 -Patient reports a history of CKD -Back in January 2025 she was hospitalized at [facility] she needed dialysis for over a week for fluid overload was then taken off dialysis - Nephrology consulted - Gentle IV hydration Morbid obesity Full code Lovenox for DVT prophylaxis Plan for today status post HERMINIO, monitor blood sugars, continue cefazolin PDMP PDMP Reviewed: Not Reviewed Attestations 2 Medical Necessity Statement*: Patient requires hospitalization for Staphylococcus aureus bacteremia Diagnoses Central venous line infection, initial encounter T80.219A Encounter type: initial encounter Line sepsis T85.79XA; A41.9 Leukocytosis D72.829 Diabetes type 2 E11.9 Fever R50.9 Staphylococcus aureus bacteremia R78.81; B95.61
[2025-03-31 16:26] LABS: Glucose Point of Care 325 mg/dL (70-110)
[2025-03-31 20:30] LABS: Glucose Point of Care 217 mg/dL (70-110)
[2025-03-31] MEDS: insulin lispro 100 unit/1 mL SUBCUT (20:48)
[2025-04-01] MEDS: phenol oral Spray 177 mL 3 SPRAY MUCOUS MEM ×2 (00:20→03:18)
[2025-04-01] MEDS: HYDROmorphone 0.5 MG/0.5 ML INJ IVP ×5 (00:21→20:56)
[2025-04-01] MEDS: tizanidine 4 mg Tablet PO ×2 (00:22→22:41)
[2025-04-01] MEDS: promethazine 25 mg/mL SDV 1 mL 12.5 MG IM ×3 (00:42→22:22)
[2025-04-01] MEDS: pantoprazole 40 mg SDV IVP ×2 (03:15→13:01)
[2025-04-01] MEDS: sucralfate 1 gm/10 mL Oral Liq UDC PO ×4 (03:16→20:56)
[2025-04-01] MEDS: ceFAZolin 2,000 mg SDV 2000 MG IVP ×3 (03:16→22:22)
[2025-04-01 03:59] VITALS: BP 136/76; PULSE 85; RESP 18; TEMP 36.6; O2SAT 95
[2025-04-01 05:40] LABS: Basophils % 0.3 %; Eosinophils # 0.1 10^3/uL (0.0-0.8); Eosinophils % 1.2 %; Hematocrit 26.8 % (36-47); Lymphocytes # 1.4 10^3/uL (0.8-4.8); Lymphocytes % 23.1 %; Mean Corpuscular HGB Conc 31.7 g/dL (30-55); Mean Corpuscular Hemoglobin 29.1 pg (27-33); Mean Corpuscular Volume 91.8 fl (85-98); Monocytes # 0.6 10^3/uL (0.2-0.9); Monocytes % 10.7 %; Neutrophils # 3.82 10^3/uL (1.8-7.7); Neutrophils % 63.9 %; Nucleated Red Blood Cells % 0 %; Platelet Count 154 10^3/cmm (157-399); Red Blood Count 2.92 10^6/uL (3.85-5.65); Red Cell Distribution Width 15.6 % (12.1-15.1); White Blood Count 5.98 10^3/uL (3.29-11.43)
[2025-04-01 05:58] LABS: Vancomycin Random 13.1 ug/mL (20.0-40.0)
[2025-04-01 05:59] LABS: Alanine Aminotransferase 48 U/L (0-33); Alkaline Phosphatase 105 U/L (35-105); Anion Gap 18.3 (5-19); Aspartate Amino Transferase 59 U/L (0-32); Blood Urea Nitrogen 39 mg/dL (6-20); C Reactive Protein 82.9 mg/L (0.0-4.9); Calcium 8.3 mg/dL (8.5-10.5); Carbon Dioxide 20 mmol/L (22-29); Chloride 98 mmol/L (98-107); Glomerular Filtration Rate 25.2 mL/min (90-130); Glucose 335 mg/dL (65-115); Magnesium 1.9 mg/dL (1.7-2.3); Osmolality Calculated 295 mOsm/kg (285-295); Phosphorus 4.5 mg/dL (2.5-4.5); Potassium 5.3 mmol/L (3.5-5.1); Sodium 131 mmol/L (136-145); Total Bilirubin 0.4 mg/dL (0.15-1.2)
[2025-04-01 06:10] LABS: Cortisol Random 10.66 ug/dL (2.47-19.5)
[2025-04-01 06:11] LABS: Procalcitonin 0.76 ng/mL (0-0.5); Thyroid Stimulating Hormone 2.03 uIU/mL (0.27-4.20)
[2025-04-01 06:23] LABS: Glucose Point of Care 341 mg/dL (70-110)
[2025-04-01 07:11] LABS: PROTEIN, TOTAL 5.5 g/dL (6.1-8.1)
[2025-04-01 07:31] VITALS: BP 131/83; PULSE 82; RESP 16; TEMP 36.4; O2SAT 94
[2025-04-01] MEDS: insulin lispro 100 unit/1 mL 35 UNIT SUBCUT ×3 (08:22→17:13)
[2025-04-01] MEDS: ALPRAZolam 0.5 mg Tablet PO ×2 (08:23→17:14)
[2025-04-01] MEDS: aspirin 81 mg EC Tablet PO (08:23)
[2025-04-01] MEDS: clopidogrel 75 mg Tablet PO (08:23)
--- NOTE | 2025-04-01 09:00 | P.PN_ITS ---
Subjective 2 Subjective: Patient was seen and examined. Patient developed shortness of breath and required to sit up this morning complains of orthopnea and dyspnea. Patient started wheezing patient has a right second toe wound as per Dr. Solorzano. Medications: Reviewed: Yes Medication Review Details: Current Medications Acetaminophen (Acetaminophen 325 Mg Tablet) 650 mg PO Q6H PRN PRN Reason: Mild/Mod Pain Or Temp >/= 101 Last Admin: 03/31/25 00:28 Dose: 650 mg Alprazolam (Alprazolam 0.5 Mg Tablet) 0.5 mg PO TID PRN PRN Reason: ANXIETY Last Admin: 04/01/25 08:23 Dose: 0.5 mg Aspirin (Aspirin 81 Mg Ec Tablet) 81 mg PO DAILY [facility] Last Admin: 04/01/25 08:23 Dose: 81 mg Cefazolin Sodium (Cefazolin 2,000 Mg Sdv) 2,000 mg IVP Q8H [facility]; Protocol Last Admin: 04/01/25 03:16 Dose: 2,000 mg Clopidogrel Bisulfate (Clopidogrel 75 Mg Tablet) 75 mg PO DAILY [facility] Last Admin: 04/01/25 08:23 Dose: 75 mg Docusate Sodium (Docusate Sodium 100 Mg Capsule) 100 mg PO BID [facility] Last Admin: 04/01/25 08:23 Dose: Not Given Glucagon (Glucagon 1 Mg/Ml Kit 1 Ml) 1 mg IM ONCE PRN; Protocol PRN Reason: Adult Acute Hypoglycemia Nursing Prot. Glucagon (Glucagon 1 Mg/Ml Kit 1 Ml) 1 mg IM ONCE PRN; Protocol PRN Reason: Adult Acute Hypoglycemia Nursing Prot. Heparin Sodium (Porcine) (Heparin 5,000 Unit/Ml Inj 1 Ml) 5,000 unit SUBCUT Q12H [facility] Last Admin: 04/01/25 08:23 Dose: Not Given Hydromorphone HCl (Hydromorphone 0.5 Mg/0.5 Ml Inj) 0.5 mg IVP Q4H PRN PRN Reason: PAIN Last Admin: 04/01/25 08:23 Dose: 0.5 mg Dextrose (D5w) 500 mls @ 0 mls/hr IV ONCE PRN; Protocol PRN Reason: Adult Acute Hypoglycemia Prot Dextrose (D10w) 125 mls @ 750 mls/hr IV PRN PRN; Protocol PRN Reason: Adult Acute Hypoglycemia Nursing Protocol Dextrose (D10w) 250 mls @ 1,000 mls/hr IV PRN PRN; Protocol PRN Reason: Adult Acute Hypoglycemia Nursing Protocol Dextrose (D5w) 500 mls @ 0 mls/hr IV ONCE PRN; Protocol PRN Reason: Adult Acute Hypoglycemia Prot Dextrose (D10w) 125 mls @ 750 mls/hr IV PRN PRN; Protocol PRN Reason: Adult Acute Hypoglycemia Nursing Protocol Dextrose (D10w) 250 mls @ 1,000 mls/hr IV PRN PRN; Protocol PRN Reason: Adult Acute Hypoglycemia Nursing Protocol Insulin Human Lispro (Insulin Lispro 100 Unit/1 Ml) 35 unit SUBCUT TIDWM [facility] Last Admin: 04/01/25 08:22 Dose: 35 unit Insulin Human Lispro (Insulin Lispro 100 Unit/1 Ml) 0 unit SUBCUT BEDTIME [facility]; Protocol Last Admin: 03/31/25 20:48 Dose: 2 unit Ondansetron HCl (Ondansetron 2 Mg/Ml Sdv 2 Ml) 4 mg IVP Q8H PRN PRN Reason: vomiting, or N/V if npo Last Admin: 03/31/25 19:55 Dose: 4 mg Pantoprazole Sodium (Pantoprazole 40 Mg Sdv) 40 mg IVP Q12H [facility] Last Admin: 04/01/25 03:15 Dose: 40 mg Phenol (Phenol Oral Bogart 177 Ml) 3 spray MUCOUS MEM Q2H PRN PRN Reason: SORE THROAT Last Admin: 04/01/25 03:18 Dose: 3 spray Promethazine HCl (Promethazine 25 Mg/Ml Sdv 1 Ml) 12.5 mg IM Q6H PRN PRN Reason: NAUSEA Last Admin: 04/01/25 00:42 Dose: 12.5 mg Sucralfate (Sucralfate 1 Gm/10 Ml Oral Liq Udc) 1 gm PO Q6H [facility] Last Admin: 04/01/25 08:23 Dose: 1 gm Tizanidine HCl (Tizanidine 4 Mg Tablet) 4 mg PO TID PRN PRN Reason: SPASMS Last Admin: 04/01/25 00:22 Dose: 4 mg Vitals/I&O/Wt Last Vital Signs Temp 97.6 F 04/01/25 07:31 Pulse 82 04/01/25 07:31 Resp 16 04/01/25 07:31 BP 131/83 04/01/25 07:31 Pulse Ox 94 04/01/25 07:31 O2 Del Method Room Air 04/01/25 07:31 O2 Flow Rate 2 03/29/25 16:17 03/31/25 04/01/25 04/01/25 22:59 06:59 14:59 Intake Total 800 / 2054.920 300 / 2354.920 Output Total 500 / 500 Balance 300 / 1554.920 300 / 1854.920 Weight last 48 hrs Weight 178.942 kg Weight 180.983 kg Physical Exam 2 Narrative: Morbidly obese lady sitting up in bed no apparent distress. Vital signs noted blood pressure stable. She is saturating 94% on room air HEENT normocephalic atraumatic. Neck is supple no JVP. Lungs she has developed expiratory wheezes Heart is regular without rubs or gallops. Abdomen is soft positive bowel sounds. Extremities left greater than right leg edema with redness. Denies tenderness. Patient states edema is chronic. Neuro awake alert oriented x 3. Data 04/01/25 04:48 04/01/25 04:48 Micro: Microbiology 03/29/25 15:43 Gram Stain - Final Chest Anaerobic Culture - Preliminary Abscess Culture - Preliminary Coag positive Staphylococcus 03/29/25 15:43 Catheter Tip Culture - Preliminary Other Source Coag positive Staphylococcus 03/30/25 14:52 Blood Culture - Preliminary Blood NEGATIVE TO DATE 03/30/25 14:52 Blood Culture - Preliminary Blood NEGATIVE TO DATE 03/28/25 22:28 Blood Culture - Preliminary Blood Staphylococcus aureus 03/29/25 01:58 Blood Culture - Preliminary Blood Staphylococcus aureus Staphylococcus lugdunensis A&P Assessment and plan (1) HIREN (acute kidney injury): 49 lady diabetic, morbid obesity, question of heart failure preserved EF, proteinuria. History of acute kidney injury within the last year requiring temporary dialysis that has improved. Patient is here now with sepsis due to infected Mcdermott catheter. Patient grew out Staphylococcus bacteremia. Patient was hypotensive yesterday Mcdermott catheter removed 1. Acute kidney injury likely from being on Bumex and having sepsis concern for prerenal azotemia versus ATN. she was hypotensive and had an infection -normal complements speak against infection related GN -urine noted. she was on bumex then ivf - Creatinine is stable. 2. Patient developed shortness of breath will give a dose of furosemide. See if it helps her. If it does not please get a chest x-ray. 3. Hyponatremia Free water restrict the patient monitor how she does on diuretics. Please note that sodium corrects to approximately 134 given glucose of 335 4. Hyperkalemia patient needs to be on a low potassium diet will give Kayexalate once. 5. anemia mild thrombocytopenia, and HIREN-this is unlikely to be hemolysis his total bilirubin is 0.4 His LDH is 232 mildly elevated Serum protein electrophoresis is pending. Please follow-up on retic count and haptoglobin 6. Hyperglycemia insulin as per primary care 7. Patient has underlying proteinuria and urinalysis has some hematuria most likely she has diabetic nephropathy. 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 However hemoglobin A1c of 10.2- this is likely diabetic nephropathy. 8. Appreciate podiatry liking a toe wound. Creatinine is stabilizing hopefully she will turn around soon. Monitor shortness of breath may need x-ray. Patient was seen examined using audiovisual equipment with the aid of a nurse. The patient consented to telehealth visit. Case discussed in detail with pt and RN HERMINIO today w/o significant valvular abnormalities Plan see above PDMP PDMP Reviewed: Not Reviewed Attestations 2 Medical Necessity Statement*: Acute kidney injury, hyponatremia, toe infection/wound, hyperkalemia, shortness of breath Time Spent in Patient Care: Greater than 35 minutes (>than 50% of time spent in counselling and/or direct pt care on unit) . Coding Level of Care Code Acute Code for [facility] Diagnoses HIREN (acute kidney injury) N17.9
--- NOTE | 2025-04-01 09:38 | PM.CONSULT ---
Providers/Reason For Consult Consulting Physician/Specialty*: Lucy Díaz MD/ Infectious disease Reason for Consult*: Staphylococcus bacteremia Requesting Physician: Steve Baker MD Attending Physician: Steve Baker MD Primary Care Provider: Joselo Burris MD History of Present Illness History of Present Illness Pablo Saunders is a 49 year old female with PMH DM, h/o osteomyelitis of the foot in 07/2024 which required placement of a Mcdermott catheter for iv abx infusion at OSH. Patient is uncertain why she received a [place] instead of a PICC line at that time. Reportedly her hospital discharge course was complicated by development of renal failure needing temporary dialysis via HD cath in the left upper chest which has been removed as of December 2024. She states she had not had any routine care for her iv access and was planned to undergo a scheduled mcdermott catheter removal at the end of March. On 03/29 she came to the ER with 3-4 days of swelling and pus discharge at site of her catheter. Her blood cx has returned positive for MSSA and Staph lugdiensis fare. from 03/29. HERMINIO has returned negative for vegetations she does not have any indwelling cardiac hardware She has an orthopedic [place] in her left tibia but no other replaced joints. She denies any lymphedema. Noted to have B/L LE edema today for which she is on diuresis No recent cellulitis. She had skin breakdown over left pedraza however this has since improved. Patient states this was not present at time of admit. Review of Systems General: Reports: 10 or more systems reviewed and unremarkable except in HPI and below Const: Denies: fever(s), chills or body aches Eyes: Denies: change in vision, blurry vision or photophobia ENMT: Reports: hoarseness; Denies: throat pain, enlarged tonsils, odynophagia or nasal congestion Card: Denies: chest pain, palpitations, irregular heart rhythm, edema, swelling of feet/ankles, lightheadedness, pre-syncope, dyspnea on exertion or orthopnea Resp: Denies: dyspnea, productive cough, non-productive cough, wheezing, stridor, pain on inspiration, change in phlegm color, hemoptysis or chest congestion GI: Denies: abdominal pain, nausea, vomiting, hematemesis, coffee ground emesis, dysphagia, heartburn, diarrhea, constipation, GI cramping, change in stool character, hematochezia or melena : Denies: flank pain, difficulty voiding, dysuria, urinary frequency, urinary urgency, urinary hesitancy or hematuria Musc: Denies: neck pain, back pain, extremity pain, joint swelling, joint warmth or deformity Neuro: Denies: headache(s), numbness in extremities, weakness in extremities, sensory changes, difficulty walking, frequent falls, dizziness, vertigo, behavioral changes, Slurred speech present or seizure-like activity Psych: Denies: anxiety, depression, suicidal ideation or homicidal ideation Endo: Denies: polyuria, polydipsia, tired all the time, cold intolerance or hot flashes Chris/Lymph: Denies: easy bruising or easy bleeding Medications/Allergies Home Medications ?Medication ?Instructions ?Recorded ?Confirmed ?Last Taken ?Type cetirizine 10 mg tablet 10 mg PO DAILY 03/22/23 03/29/25 03/28/25 History insulin regular human 100 unit/mL See Rx Instructions .Route .COMPLEX 03/22/23 03/29/25 02/24/25 History injection solution (Humulin R Regular U-100 Insulin) aspirin 81 mg tablet,delayed 81 mg PO DAILY 02/25/25 03/29/25 03/28/25 History release clopidogrel 75 mg tablet (Plavix) 75 mg PO DAILY 02/25/25 03/29/25 03/28/25 History pantoprazole 40 mg tablet,delayed 40 mg PO DAILY 02/25/25 03/29/25 03/28/25 History release (Protonix) hyoscyamine sulfate 0.125 mg 0.125 mg sublingual Q8H PRN 02/26/25 03/29/25 Unknown Rx sublingual tablet (Levsin/SL) epigastric abdominal pain #20 tabs promethazine 25 mg rectal 25 mg NC Q4H PRN nausea and 02/26/25 03/29/25 Unknown Rx suppository vomiting #12 ea alprazolam 0.5 mg tablet (Xanax) 0.5 mg PO TID PRN Anxiety 03/29/25 03/29/25 Unknown History tizanidine 4 mg tablet 4 mg PO TID PRN muscle spasms 03/29/25 03/29/25 Unknown History Allergies Allergy/AdvReac Type Severity Reaction Status Date / Time tramadol Allergy Mild hives Verified 02/25/25 19:34 sulfamethoxazole (From Allergy ALGY-Hives Verified 02/25/25 13:24 Bactrim) trimethoprim (From Bactrim) Allergy ALGY-Hives Verified 02/25/25 13:24 daptomycin AdvReac blurry Verified 03/29/25 00:15 vision flurocet Allergy ADR-Confusi Uncoded 02/25/25 13:24 on Current Medications Generic Name Dose Route Start Last Admin Trade Name Freq PRN Reason Stop Dose Admin Acetaminophen 650 mg 03/29/25 04:30 03/31/25 00:28 Acetaminophen 325 Mg Tablet PO 650 mg Q6H PRN Administration Mild/Mod Pain Or Temp >/= 101 Alprazolam 0.5 mg 03/29/25 17:53 04/01/25 08:23 Alprazolam 0.5 Mg Tablet PO 0.5 mg TID PRN Administration ANXIETY Aspirin 81 mg 03/30/25 09:00 04/01/25 08:23 Aspirin 81 Mg Ec Tablet PO 81 mg DAILY HEATHER Administration Cefazolin Sodium 2,000 mg 03/31/25 11:00 04/01/25 03:16 Cefazolin 2,000 Mg Sdv IVP 2,000 mg Q8H HEATHER Administration Protocol Clopidogrel Bisulfate 75 mg 03/30/25 09:00 04/01/25 08:23 Clopidogrel 75 Mg Tablet PO 75 mg DAILY HEATHER Administration Docusate Sodium 100 mg 03/29/25 09:00 04/01/25 08:23 Docusate Sodium 100 Mg Capsule PO Not Given BID HEATHER Heparin Sodium (Porcine) 5,000 unit 03/29/25 09:00 04/01/25 08:23 Heparin 5,000 Unit/Ml Inj 1 Ml SUBCUT Not Given Q12H HEATHER Hydromorphone HCl 0.5 mg 03/31/25 10:53 04/01/25 08:23 Hydromorphone 0.5 Mg/0.5 Ml Inj IVP 0.5 mg Q4H PRN Administration PAIN Insulin Human Lispro 35 unit 03/30/25 12:00 04/01/25 08:22 Insulin Lispro 100 Unit/1 Ml SUBCUT 35 unit TIDWM HEATHER Administration Insulin Human Lispro 0 unit 03/31/25 21:00 03/31/25 20:48 Insulin Lispro 100 Unit/1 Ml SUBCUT 2 unit BEDTIME HEATHER Administration Protocol Ondansetron HCl 4 mg 03/29/25 04:30 03/31/25 19:55 Ondansetron 2 Mg/Ml Sdv 2 Ml IVP 4 mg Q8H PRN Administration vomiting, or N/V if npo Pantoprazole Sodium 40 mg 03/31/25 14:30 04/01/25 03:15 Pantoprazole 40 Mg Sdv IVP 40 mg Q12H HEATHER Administration Phenol 3 spray 03/31/25 22:38 04/01/25 03:18 Phenol Oral [place] 177 Ml MUCOUS MEM 3 spray Q2H PRN Administration SORE THROAT Promethazine HCl 12.5 mg 03/31/25 14:23 04/01/25 00:42 Promethazine 25 Mg/Ml Sdv 1 Ml IM 12.5 mg Q6H PRN Administration NAUSEA Sucralfate 1 gm 03/31/25 14:30 04/01/25 08:23 Sucralfate 1 Gm/10 Ml Oral Liq Udc PO 1 gm Q6H HEATHER Administration Tizanidine HCl 4 mg 03/29/25 22:32 04/01/25 00:22 Tizanidine 4 Mg Tablet PO 4 mg TID PRN Administration SPASMS PFSH Acute Female Reproductive History: Date of last menstrual period: 03/24/25 Vitals/I&O/Wt Last Vital Signs Temp 97.6 F 04/01/25 07:31 Pulse 82 04/01/25 07:31 Resp 16 04/01/25 07:31 BP 131/83 04/01/25 07:31 Pulse Ox 94 04/01/25 07:31 O2 Del Method Room Air 04/01/25 07:31 O2 Flow Rate 2 03/29/25 16:17 03/31/25 04/01/25 04/01/25 22:59 06:59 14:59 Intake Total 800 / 2054.920 300 / 2354.920 720 / 720 Output Total 500 / 500 Balance 300 / 1554.920 300 / 1854.920 720 / 720 Weight last 48 hrs Weight 178.942 kg Weight 180.983 kg Physical Exam Narrative: General: No acute distress, AO x3 HEENT: PERRLA, pupils bilaterally equal and reactive, pallors not present Chest: Normal vesicular breath sounds, no added sounds, equal good air entry bilaterally CVS: S1-S2 regular, no murmurs, no tachycardia, no gallops, no rubs Abdomen: Soft, nontender, no organomegaly, bowel sounds present Neuro: No focal deficits, no facial deformity, AO x3, power 5/5 in all limbs Data 04/01/25 04:48 04/01/25 04:48 Micro: Microbiology 03/29/25 15:43 Gram Stain - Final Chest Anaerobic Culture - Preliminary Abscess Culture - Preliminary Coag positive Staphylococcus S aureus M.I.C. RX --------- ------ * Ciprofloxacin <=1 S * Clindamycin <=0.5 S * Erythromycin <=0.5 S * Gentamicin <=4 S * Levofloxacin <=1 S * Linezolid 2 S * Moxifloxacin <=0.5 S * Oxacillin 0.5 S * Penicillin >8 R * Rifampin <=1 S * Tetracycline <=4 S * Trimethoprim/Sulfamethoxazole <=0.5/9.5 S Vancomycin 1 S Daptomycin <=0.5 S 03/29/25 15:43 Catheter Tip Culture - Preliminary Other Source Coag positive Staphylococcus 03/30/25 14:52 Blood Culture - Preliminary Blood NEGATIVE TO DATE 03/30/25 14:52 Blood Culture - Preliminary Blood NEGATIVE TO DATE 03/28/25 22:28 Blood Culture - Preliminary Blood Staphylococcus aureus S aureus M.I.C. RX --------- ------ * Ciprofloxacin <=1 S * Clindamycin <=0.5 S * Erythromycin <=0.5 S * Levofloxacin <=1 S * Linezolid 4 S * Moxifloxacin <=0.5 S * Oxacillin 1 S * Penicillin >8 R * Rifampin <=1 S * Tetracycline <=4 S * Trimethoprim/Sulfamethoxazole <=0.5/9.5 S Vancomycin 2 S Daptomycin 1 S 03/29/25 01:58 Blood Culture - Preliminary Blood Staphylococcus aureus Staphylococcus lugdunensis Blood Culture Preliminary 03/31/25-0533 1 OF 4 BOTTLES POSITIVE DIRECT GRAM STAIN: GRAM POSITIVE COCCI IN CLUSTERS IDENTIFICATION BY DIRECT PCR RESULTS TO FOLLOW Organism 1 Staphylococcus aureus Growth 1 BOTTLE Organism 2 Staphylococcus lugdunensis Growth 1 BOTTLE CRITICAL RESULT YES/NO: YES CRITICAL CALLED BY: [email or web address] TO AND READ BACK BY: [email or web address] DATE: 03/31/25 TIME: 0533 Blood Culture Preliminary (changed) 03/30/25-199 NEGATIVE TO DATE Blood Culture Preliminary (changed) 03/29/25-205 SPECIMEN COLLECTED Other data: Operative Report Date of procedure: March 31, 2025 Pre-op diagnosis: Sepsis Surgeon: William Rucker MD Procedure: Patient had a HERMINIO under IV sedation by the anesthesia She was found to have no vegetations. Mild tricuspid regurgitation. Tolerated the procedure well. No complications. A&P Assessment and plan (1) Staphylococcus aureus bacteremia: (2) Infected venous access port: Plan 49 female with PMH as above currently admitted for MSSA septicemia related to infected Mcdermott catheter now s/p removal of above catheter on 03/29 Blood cx from 03/28 with MSSA Blood cx 03/29 with MSSA and Staph lugdeniensis reported on direct PCR. Discussed at length with microbiology tech today. In reviewing the PCR log from this date and also reviewing all culture plates, there is no evidence of Staph lugdenienses. The latter appears to have been an error in reporting, reporst will be addended in the computer after all verification is completed. Thus far PCR and cx from 03/28 and 03/29 show MSSA only. HERMINIO negative for vegetations Agree with switch to ov cefazolin. Please dose at 2g iv q12h for cr cl 25 Should cr cl improve to > 30, dose to be optimized to 2g iv q8h Total duration to be 6 weeks from port removal (03/29-05/10) Okay to place PICC line once blood x from 03/30 is negative for 48-72 hrs Thank you for this consult. PDMP PDMP Reviewed: Not Reviewed Coding Level of Care Code Acute Code for [facility] Diagnoses Staphylococcus aureus bacteremia R78.81; B95.61 Infected venous access port T80.219A
[2025-04-01 10:34] LABS: Glucose Point of Care 334 mg/dL (70-110)
--- NOTE | 2025-04-01 10:59 | P.PN_ITS ---
Subjective 2 Subjective: Ms. Saunders was evaluated at bedside on [facility] today. She reports she is feeling okay, though tired. She was up multiple times this morning while the nurse was trying to get a new IV placed. She also reports her lower extremities are more swollen. Nurse was at bedside and was administering IV Lasix during time of visit. She is on a fluid restriction. She was sitting on the side of the bed with her leg hanging off the side upon arrival. The Hydrofera Blue had shifted off of the right second toe, but was still covered by the Tegaderm. Vitals/I&O/Wt Last Vital Signs Temp 97.6 F 04/01/25 07:31 Pulse 82 04/01/25 07:31 Resp 16 04/01/25 07:31 BP 131/83 04/01/25 07:31 Pulse Ox 94 04/01/25 07:31 O2 Del Method Room Air 04/01/25 07:31 O2 Flow Rate 2 03/29/25 16:17 03/31/25 04/01/25 04/01/25 22:59 06:59 14:59 Intake Total 800 / 2054.920 300 / 2354.920 720 / 720 Output Total 500 / 500 Balance 300 / 1554.920 300 / 1854.920 720 / 720 Weight last 48 hrs Weight 178.942 kg Weight 180.983 kg Physical Exam 2 Const: COMMON NORMALS: no acute distress, patient oriented x3 and alert G ENERAL APPEARANCE: cooperative and comfortable NUTRITIONAL APPEARANCE: obese morbidly obese ORIENTATION/CONSCIOUSNESS: Yes awake, Yes oriented to person, Yes oriented to place and Yes oriented to time HENMT: COMMON NORMALS: normocephalic HEAD & SCALP: normal to inspection and normocephalic Eye: GENERAL EYE: appearance normal, both eyes and all related structures Neck/C-Spine: GENERAL: Yes normal visual inspection and Yes trachea midline Resp: COMMON NORMALS: normal respiratory effort EFFORT & INSPECTION: Yes able to speak in complete sentences and Yes symmetric chest movement Cardio: COMMON NORMALS: regular rate RATE: regular rate OTHER: Less than 3-second capillary refill in distal digits of right foot Extremity: RIGHT LOWER EXTREMITY: Yes lower leg Right lower leg: Yes inspection (Edematous; hemosiderin staining) LEFT LOWER EXTREMITY: Yes lower leg Left lower leg: Yes inspection (Edematous; hemosiderin staining) Neuro: COMMON NORMALS: patient oriented x3 SENSORIUM/ORIENTATION: Yes alert, Yes oriented to person, Yes oriented to place and Yes oriented to time Psych: COMMON NORMALS: mental status grossly normal, Normal thought process present, cooperative and speech normal ATTITUDE: Yes calm and Yes engaged ACTIVITY/MOTOR BEHAVIOR: Yes appropriate eye contact SPEECH: Yes normal speech THOUGHT PROCESS: Normal thought process present MEMORY/COGNITION: Y es memory grossly intact Skin: WOUNDS: Yes wounds noted (See wound assessment) Data 04/01/25 04:48 04/01/25 04:48 Micro: Microbiology 03/29/25 15:43 Gram Stain - Final Chest Anaerobic Culture - Preliminary Abscess Culture - Preliminary Coag positive Staphylococcus 03/29/25 15:43 Catheter Tip Culture - Preliminary Other Source Coag positive Staphylococcus 03/30/25 14:52 Blood Culture - Preliminary Blood NEGATIVE TO DATE 03/30/25 14:52 Blood Culture - Preliminary Blood NEGATIVE TO DATE 03/28/25 22:28 Blood Culture - Preliminary Blood Staphylococcus aureus A&P Assessment and plan (1) Type 2 diabetes mellitus with foot ulcer: (2) Diabetes type 2: Plan Wound remains stable without signs or symptoms of active infection. There is a small amount of new epithelialization noted at the superior portion of the wound. Will continue Hydrofera Blue to the wound daily securing with Tegaderm. I educated the patient to frequently check her foot to ensure the dressing was in proper placement and if it was not, to have her nurse redressed the wound. The wound was cleansed and the dressing was applied during the visit. I have encouraged her to keep the open wound covered at all times due to risk for infection. Offloading of this area will be necessary for wound healing. She has been educated to limit her ambulation. Tight glucose control and optimized nutrition will expedite healing as well. I thoroughly educated her on leg elevation and to avoid hanging her legs in a dependent position for long periods of time. Once discharged she would benefit from ongoing wound care. Will schedule appointment upon discharge to [facility]. Will sign off for now. Any further wound care recommendation should be guided by hospitalist service. If patient is still admitted on Friday, I will follow- up at that time. If not we will plan to see her in the wound care center. 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
[2025-04-01 11:21] VITALS: BP 147/89; PULSE 78; RESP 17; TEMP 36.9; O2SAT 94
[2025-04-01] MEDS: FUROsemide 10 mg/mL SDV 4mL 40 MG IVP (11:31)
[2025-04-01] MEDS: sodium polystyrene sulfonate 15 gm/60 mL Btl 30 GM PO (11:49)
[2025-04-01 14:15] LABS: KAPPA LIGHT CHAIN, FREE, SERUM 78.1 mg/L (3.3-19.4); KAPPA/LAMBDA LIGHT CHAINS FREE 1.53 (0.26-1.65); LAMBDA LIGHT CHAIN, FREE, SERU 50.9 mg/L (5.7-26.3)
--- NOTE | 2025-04-01 14:48 | P.PN_ITS ---
Subjective 2 Subjective: Patient was seen this morning, no acute events overnight no fevers, no chills, no cough, discussed her Staph aureus bacteremia, so far blood cultures are -24 hours will follow repeat blood cultures to ensure that they are negative before placing an PICC line, she will likely need IV antibiotics, but will speak with infectious disease, one of her blood culture bottles were positive for Staphylococcus lugdunensis, will speak with infectious disease Vitals/I&O/Wt Last Vital Signs Temp 98.5 F 04/01/25 11:21 Pulse 78 04/01/25 11:21 Resp 17 04/01/25 11:21 BP 147/89 04/01/25 11:21 Pulse Ox 94 04/01/25 11:21 O2 Del Method Room Air 04/01/25 11:21 O2 Flow Rate 2 03/29/25 16:17 03/31/25 04/01/25 04/01/25 22:59 06:59 14:59 Intake Total 800 / 2054.920 300 / 2354.920 720 / 720 Output Total 500 / 500 1350 / 1350 Balance 300 / 1554.920 300 / 1854.920 -630 / -630 Weight last 48 hrs Weight 178.942 kg Weight 180.983 kg Physical Exam 2 Const: COMMON NORMALS: no acute distress and patient oriented x3 Resp: COMMON NORMALS: normal respiratory effort, No retractions, No use of accessory muscles and clear to auscultation bilaterally AUSCULTATION: clear to auscultation bilaterally Cardio: COMMON NORMALS: regular rate, regular rhythm, S1 normal heart sound present and S2 normal heart sound present RATE: regular rate RHYTHM: r egular rhythm HEART SOUNDS: S1 normal heart sound present and S2 normal heart sound present GI: COMMON NORMALS: Normal to inspection, nondistended, normoactive bowel sounds present and non-tender Extremity: COMMON NORMALS: no pedal edema Neuro: COMMON NORMALS: patient oriented x3 Psych: COMMON NORMALS: mental status grossly normal Data 04/01/25 04:48 04/01/25 04:48 Micro: Microbiology 03/29/25 15:43 Gram Stain - Final Chest Anaerobic Culture - Preliminary Abscess Culture - Final Staphylococcus aureus 03/29/25 15:43 Catheter Tip Culture - Final Other Source Staphylococcus aureus 03/30/25 14:52 Blood Culture - Preliminary Blood NEGATIVE TO DATE 03/30/25 14:52 Blood Culture - Preliminary Blood NEGATIVE TO DATE 03/28/25 22:28 Blood Culture - Preliminary Blood Staphylococcus aureus A&P Assessment and plan (1) Central line infection: (2) Line sepsis: (3) Leukocytosis: (4) Diabetes type 2: (5) Fever: (6) Staphylococcus aureus bacteremia: Plan Hyperglycemia, with history of type 2 diabetes - Blood sugars over 400, with nausea vomiting - Repeat BMP ordered anion gap 14.9, bicarb 19, ketones negative, pH 7.38, currently no evidence of diabetic ketoacidosis or HHS - Blood sugars now down to 300s Plan - Switch to her home NovoLog 35 units 3 times daily with meals - Patient declines taking Lantus or Levemir - Monitor blood sugars closely - Switch to diabetic diet Intractable nausea vomiting, resolving - Patient had episode of nausea and vomiting before surgery - She was intubated for surgery - She was seen in postop recovery, on nasal cannula, currently on room air - Denies any abdominal pain - Will continue to monitor nausea vomiting - Zofran for nausea - Reglan for nausea Staphylococcus aureus bacteremia Mcdermott catheter infection, concerns for CLABSI -Status post removal of Mcdermott catheter - Follow blood cultures, positive for Staph aureus -Follow repeat blood cultures, so far negative - Follow catheter tip culture showing Staph aureus - Follow abscess culture showed Staph aureus - De-escalate to cefazolin - Cardiac echo to evaluate valves no gross vegetation - Transesophageal echocardiogram no vegetations seen - CT chest abdomen and pelvis, no acute findings - Once blood cultures are -[address] PICC line - Will require 6 weeks of IV cefazolin from negative blood culture 1 out of 4 blood cultures positive for Staphylococcus lugdunensis - Will speak with infectious disease Bilateral lower extremity anterior pedraza erythema - Concern for cellulitis - De-escalate antibiotic therapy Right foot, second digit, diabetic wound - Wound care History of CAD status post 4 stents in March 2024 - Resume aspirin, Plavix Hypomagnesemia, monitor Acute kidney injury, creatinine 2.1 -Patient reports a history of CKD -Back in January 2025 she was hospitalized at [facility] she needed dialysis for over a week for fluid overload was then taken off dialysis - Nephrology consulted - Receiving Lasix today Morbid obesity Full code Lovenox for DVT prophylaxis Plan for today continue IV cefazolin, monitor creatinine, monitor urine output PDMP PDMP Reviewed: Not Reviewed Attestations 2 Medical Necessity Statement*: Patient requires hospitalization for Staphylococcus aureus bacteremia Diagnoses Central venous line infection, initial encounter T80.219A Encounter type: initial encounter Line sepsis T85.79XA; A41.9 Leukocytosis D72.829 Diabetes type 2 E11.9 Fever R50.9 Staphylococcus aureus bacteremia R78.81; B95.61
[2025-04-01 15:16] LABS: Anti-Nuclear Antibody Screen NEGATIVE (NEGATIVE)
[2025-04-01 15:39] VITALS: BP 163/91; PULSE 85; RESP 18; TEMP 36.7; O2SAT 95
--- NOTE | 2025-04-01 16:18 | PC.NURSE ---
Pt has refused all stool softeners.
[2025-04-01 16:48] LABS: Glucose Point of Care 175 mg/dL (70-110)
[2025-04-01 20:00] VITALS: BP 153/68; PULSE 92; RESP 17; TEMP 36.6; O2SAT 94
[2025-04-01 20:31] LABS: Glucose Point of Care 196 mg/dL (70-110)
[2025-04-01] MEDS: insulin lispro 100 unit/1 mL SUBCUT (20:55)
[2025-04-01 23:42] VITALS: BP 163/80; PULSE 89; RESP 18; TEMP 36.8; O2SAT 98
[2025-04-02] MEDS: HYDROmorphone 0.5 MG/0.5 ML INJ IVP ×2 (01:12→08:41)
[2025-04-02] MEDS: ALPRAZolam 0.5 mg Tablet PO ×3 (01:13→21:26)
[2025-04-02] MEDS: pantoprazole 40 mg SDV IVP ×2 (01:13→13:41)
[2025-04-02] MEDS: sucralfate 1 gm/10 mL Oral Liq UDC PO ×4 (01:13→21:26)
[2025-04-02 04:00] VITALS: BP 143/83; PULSE 91; RESP 19; TEMP 37.2; O2SAT 92
[2025-04-02 05:13] LABS: Basophils % 0.3 %; Eosinophils # 0.1 10^3/uL (0.0-0.8); Eosinophils % 1.2 %; Hematocrit 27.9 % (36-47); Lymphocytes # 1.7 10^3/uL (0.8-4.8); Lymphocytes % 29.8 %; Mean Corpuscular HGB Conc 31.5 g/dL (30-55); Mean Corpuscular Hemoglobin 28.3 pg (27-33); Mean Corpuscular Volume 89.7 fl (85-98); Mean Platelet Volume 10.7 fL (7.4-10.4); Monocytes # 0.6 10^3/uL (0.2-0.9); Monocytes % 9.8 %; Neutrophils # 3.37 10^3/uL (1.8-7.7); Neutrophils % 57.9 %; Nucleated Red Blood Cells % 0 %; Platelet Count 148 10^3/cmm (157-399); Red Blood Count 3.11 10^6/uL (3.85-5.65); Red Cell Distribution Width 15.4 % (12.1-15.1); White Blood Count 5.83 10^3/uL (3.29-11.43)
[2025-04-02 05:28] LABS: Alanine Aminotransferase 36 U/L (0-33); Albumin Level 2.8 g/dL (3.5-5.2); Alkaline Phosphatase 112 U/L (35-105); Anion Gap 15.4 (5-19); Aspartate Amino Transferase 43 U/L (0-32); Blood Urea Nitrogen 32 mg/dL (6-20); Calcium 8.6 mg/dL (8.5-10.5); Carbon Dioxide 22 mmol/L (22-29); Chloride 101 mmol/L (98-107); Creatine Phosphokinase 18 U/L (26-192); Globulin 3.7 g/dL (1.3-4.6); Glomerular Filtration Rate 40.3 mL/min (90-130); Glucose 222 mg/dL (65-115); Lactate Dehydrogenase 226 U/L (135-214); Magnesium 1.7 mg/dL (1.7-2.3); Osmolality Calculated 292 mOsm/kg (285-295); Phosphorus 3.6 mg/dL (2.5-4.5); Potassium 4.4 mmol/L (3.5-5.1); Sodium 134 mmol/L (136-145); Total Bilirubin 0.3 mg/dL (0.15-1.2); Total Protein 6.5 g/dL (6.6-8.7)
[2025-04-02 06:46] LABS: Glucose Point of Care 258 mg/dL (70-110)
[2025-04-02 07:44] VITALS: BP 130/86; PULSE 87; RESP 18; TEMP 36.5; O2SAT 92
[2025-04-02] MEDS: acetaminophen 325 mg Tablet 650 MG PO (08:33)
[2025-04-02] MEDS: clopidogrel 75 mg Tablet PO (08:33)
[2025-04-02] MEDS: aspirin 81 mg EC Tablet PO (08:34)
[2025-04-02] MEDS: insulin lispro 100 unit/1 mL 35 UNIT SUBCUT ×3 (08:35→17:43)
--- NOTE | 2025-04-02 10:02 | P.PN_ITS ---
Subjective 2 Subjective: The patient feels better. She is thirsty. She is urinating she says her urine is now normal color. She has no nausea vomiting fevers or chills she is hungry and would like to drink more fluids. Rest review of systems has improved or is negative. Her edema is improving. Medications: Reviewed: Yes Medication Review Details: Current Medications Acetaminophen (Acetaminophen 325 Mg Tablet) 650 mg PO Q6H PRN PRN Reason: Mild/Mod Pain Or Temp >/= 101 Last Admin: 04/02/25 08:33 Dose: 650 mg Alprazolam (Alprazolam 0.5 Mg Tablet) 0.5 mg PO TID PRN PRN Reason: ANXIETY Last Admin: 04/02/25 01:13 Dose: 0.5 mg Aspirin (Aspirin 81 Mg Ec Tablet) 81 mg PO DAILY [facility] Last Admin: 04/02/25 08:34 Dose: 81 mg Cefazolin Sodium (Cefazolin 2,000 Mg Sdv) 2,000 mg IVP Q12H [facility]ATH[facility]; Protocol Last Admin: 04/01/25 22:22 Dose: 2,000 mg Clopidogrel Bisulfate (Clopidogrel 75 Mg Tablet) 75 mg PO DAILY [facility] Last Admin: 04/02/25 08:33 Dose: 75 mg Docusate Sodium (Docusate Sodium 100 Mg Capsule) 100 mg PO BID [facility] Last Admin: 04/02/25 08:33 Dose: Not Given Glucagon (Glucagon 1 Mg/Ml Kit 1 Ml) 1 mg IM ONCE PRN; Protocol PRN Reason: Adult Acute Hypoglycemia Nursing Prot. Glucagon (Glucagon 1 Mg/Ml Kit 1 Ml) 1 mg IM ONCE PRN; Protocol PRN Reason: Adult Acute Hypoglycemia Nursing Prot. Heparin Sodium (Porcine) (Heparin 5,000 Unit/Ml Inj 1 Ml) 5,000 unit SUBCUT Q12H [facility]ATH[facility] Last Admin: 04/02/25 08:34 Dose: Not Given Hydromorphone HCl (Hydromorphone 0.5 Mg/0.5 Ml Inj) 0.5 mg IVP Q4H PRN PRN Reason: PAIN Last Admin: 04/02/25 08:41 Dose: 0.5 mg Dextrose (D5w) 500 mls @ 0 mls/hr IV ONCE PRN; Protocol PRN Reason: Adult Acute Hypoglycemia Prot Dextrose (D10w) 125 mls @ 750 mls/hr IV PRN PRN; Protocol PRN Reason: Adult Acute Hypoglycemia Nursing Protocol Dextrose (D10w) 250 mls @ 1,000 mls/hr IV PRN PRN; Protocol PRN Reason: Adult Acute Hypoglycemia Nursing Protocol Dextrose (D5w) 500 mls @ 0 mls/hr IV ONCE PRN; Protocol PRN Reason: Adult Acute Hypoglycemia Prot Dextrose (D10w) 125 mls @ 750 mls/hr IV PRN PRN; Protocol PRN Reason: Adult Acute Hypoglycemia Nursing Protocol Dextrose (D10w) 250 mls @ 1,000 mls/hr IV PRN PRN; Protocol PRN Reason: Adult Acute Hypoglycemia Nursing Protocol Insulin Human Lispro (Insulin Lispro 100 Unit/1 Ml) 35 unit SUBCUT TIDWM [facility] Last Admin: 04/02/25 08:35 Dose: 35 unit Insulin Human Lispro (Insulin Lispro 100 Unit/1 Ml) 0 unit SUBCUT BEDTIME [facility]; Protocol Last Admin: 04/01/25 20:55 Dose: 2 unit Ondansetron HCl (Ondansetron 2 Mg/Ml Sdv 2 Ml) 4 mg IVP Q8H PRN PRN Reason: vomiting, or N/V if npo Last Admin: 03/31/25 19:55 Dose: 4 mg Pantoprazole Sodium (Pantoprazole 40 Mg Sdv) 40 mg IVP Q12H [facility] Last Admin: 04/02/25 01:13 Dose: 40 mg Phenol (Phenol Oral [place] 177 Ml) 3 spray MUCOUS MEM Q2H PRN PRN Reason: SORE THROAT Last Admin: 04/01/25 03:18 Dose: 3 spray Polyethylene Glycol (Polyethylene Glycol 3350 Pkt 17 Gm) 17 gm PO BID [facility] Last Admin: 04/02/25 08:33 Dose: Not Given Promethazine HCl (Promethazine 25 Mg/Ml Sdv 1 Ml) 12.5 mg IM Q6H PRN PRN Reason: NAUSEA Last Admin: 04/01/25 22:22 Dose: 12.5 mg Senna/Docusate Sodium (Sennosides-Docusate Tablet) 2 tab PO BID [facility] Last Admin: 04/02/25 08:35 Dose: Not Given Sucralfate (Sucralfate 1 Gm/10 Ml Oral Liq Udc) 1 gm PO Q6H [facility] Last Admin: 04/02/25 08:33 Dose: 1 gm Tizanidine HCl (Tizanidine 4 Mg Tablet) 4 mg PO TID PRN PRN Reason: SPASMS Last Admin: 04/01/25 22:41 Dose: 4 mg Vitals/I&O/Wt Last Vital Signs Temp 97.7 F 04/02/25 07:44 Pulse 87 04/02/25 07:44 Resp 18 04/02/25 07:44 BP 130/86 04/02/25 07:44 Pulse Ox 92 04/02/25 07:44 O2 Del Method Room Air 04/02/25 07:44 O2 Flow Rate 2 04/02/25 08:47 04/01/25 04/02/25 04/02/25 22:59 06:59 14:59 Intake Total 420 / 1140 0 / 1140 Output Total 650 / 2000 800 / 2800 700 / 700 Balance -230 / -860 -800 / -1660 -700 / -700 Weight last 48 hrs Weight 185.429 kg Weight 178.942 kg Physical Exam 2 Narrative: Morbidly obese lady sitting up in bed no apparent distress. Vital signs noted blood pressure stable. She is saturating 94% on room air HEENT normocephalic atraumatic. Neck is supple no JVP. Lungs -clear b/l Heart is regular without rubs or gallops. Abdomen is soft positive bowel sounds. Extremities left greater than right leg edema with redness. Denies tenderness. dec edema Neuro awake alert oriented x 3. Data 04/02/25 04:38 04/02/25 04:38 Micro: Microbiology 03/29/25 15:43 Gram Stain - Final Chest Anaerobic Culture - Preliminary Abscess Culture - Final Staphylococcus aureus 03/29/25 15:43 Catheter Tip Culture - Final Other Source Staphylococcus aureus A&P Assessment and plan (1) HIREN (acute kidney injury): 49 lady diabetic, morbid obesity, question of heart failure preserved EF, proteinuria. History of acute kidney injury within the last year requiring temporary dialysis that has improved. Patient is here now with sepsis due to infected Mcdermott catheter. Patient grew out Staphylococcus bacteremia. Patient was hypotensive yesterday Mcdermott catheter removed 1. Acute kidney injury likely from being on Bumex and having sepsis concern for prerenal azotemia versus ATN. she was hypotensive and had an infection -normal complements speak against infection related GN -urine noted. she was on bumex then ivf - Creatinine is improving 2. Hyponatremia Free water restrict to 1600 milliliters per day. The patient is very thirsty. I explained to her that yesterday she was volume overloaded required diuretics and limiting fluids will help with her breathing. 3. anemia mild thrombocytopenia, and HIREN-this is unlikely to be hemolysis his total bilirubin is 0.4 His LDH is 232 mildly elevated, has improved to 226 Haptoglobin was 179 Serum protein electrophoresis is pending. 4. Hyperglycemia insulin as per primary care 5. Patient has underlying proteinuria and urinalysis has some hematuria most likely she has diabetic nephropathy. I discussed with her that she can follow- up with her outpatient primary education professor to see if there is any reason to look for further glomerular disease. However hemoglobin A1c of 10.2- this is likely diabetic nephropathy. Renal functions improving. Place PICC line as per medicine. Discharge as per medicine Patient was seen examined using audiovisual equipment with the aid of a nurse. The patient consented to telehealth visit. Case discussed in detail with pt and RN HERMINIO today w/o significant valvular abnormalities Plan see above PDMP PDMP Reviewed: Not Reviewed Attestations 2 Medical Necessity Statement*: Bacteremia, improving HIREN improving hyponatremia Time Spent in Patient Care: 16 - 35 minutes (>than 50% of time sp ent in counselling and/or direct pt care on unit) . Coding Level of Care Code Acute Code for [facility] Diagnoses HIREN (acute kidney injury) N17.9
[2025-04-02] MEDS: ceFAZolin 2,000 mg SDV 2000 MG IVP ×2 (10:07→17:42)
[2025-04-02 11:03] LABS: Glucose Point of Care 300 mg/dL (70-110)
[2025-04-02 11:19] LABS: ABNORMAL PROTEIN BAND 1 0.2 g/dL (NONE DETECTED); ALBUMIN 2.7 g/dL (3.8-4.8); ALPHA 1 GLOBULIN 0.4 g/dL (0.2-0.3); ALPHA 2 GLOBULIN 0.7 g/dL (0.5-0.9); BETA 1 GLOBULIN 0.4 g/dL (0.4-0.6); BETA 2 GLOBULIN 0.4 g/dL (0.2-0.5)
[2025-04-02 12:20] VITALS: BP 125/69; PULSE 90; RESP 19; TEMP 36.6; O2SAT 91
[2025-04-02] MEDS: HYDROmorphone 0.5 MG/0.5 ML INJ 0.75 MG IVP ×3 (13:40→22:56)
[2025-04-02] MEDS: tizanidine 4 mg Tablet PO (13:41)
--- NOTE | 2025-04-02 15:13 | P.PN_ITS ---
Subjective 2 Subjective: Patient was seen this morning, currently alert oriented x 3, following all commands, does report diffuse musculoskeletal pain, no fevers, no chills Vitals/I&O/Wt Last Vital Signs Temp 97.9 F 04/02/25 12:20 Pulse 90 04/02/25 12:20 Resp 19 H 04/02/25 12:20 BP 125/69 04/02/25 12:20 Pulse Ox 91 04/02/25 12:20 O2 Del Method Room Air 04/02/25 12:20 O2 Flow Rate 2 04/02/25 08:47 04/02/25 04/02/25 04/02/25 06:59 14:59 22:59 Intake Total 0 / 1140 480 / 480 Output Total 800 / 2800 700 / 700 Balance -800 / -1660 -220 / -220 Weight last 48 hrs Weight 185.429 kg Weight 178.942 kg Physical Exam 2 Const: COMMON NORMALS: no acute distress and patient oriented x3 Resp: COMMON NORMALS: normal respiratory effort, No retractions, No use of accessory muscles and clear to auscultation bilaterally AUSCULTATION: clear to auscultation bilaterally Cardio: COMMON NORMALS: regular rate, regular rhythm, S1 normal heart sound present and S2 normal heart sound present RATE: regular rate RHYTHM: r egular rhythm HEART SOUNDS: S1 normal heart sound present and S2 normal heart sound present GI: COMMON NORMALS: Normal to inspection, nondistended, normoactive bowel sounds present and non-tender Extremity: COMMON NORMALS: no pedal edema Neuro: COMMON NORMALS: patient oriented x3 Psych: COMMON NORMALS: mental status grossly normal Data 04/02/25 04:38 04/02/25 04:38 Micro: Microbiology 03/29/25 15:43 Gram Stain - Final Chest Anaerobic Culture - Preliminary Abscess Culture - Final Staphylococcus aureus 03/29/25 01:58 Blood Culture - Final Blood Staphylococcus aureus 03/28/25 22:28 Blood Culture - Final Blood Staphylococcus aureus 03/29/25 15:43 Catheter Tip Culture - Final Other Source Staphylococcus aureus A&P Assessment and plan (1) Central line infection: (2) Line sepsis: (3) Leukocytosis: (4) Diabetes type 2: (5) Fever: (6) Staphylococcus aureus bacteremia: Plan Hyperglycemia, with history of type 2 diabetes - Blood sugars over 400, with nausea vomiting - Repeat BMP ordered anion gap 14.9, bicarb 19, ketones negative, pH 7.38, currently no evidence of diabetic ketoacidosis or HHS - Blood sugars now down to 300s Plan - Switch to her home NovoLog 35 units 3 times daily with meals -Insulin sliding scale at bedtime - Patient declines taking Lantus or Levemir - Monitor blood sugars closely - Switch to diabetic diet Intractable nausea vomiting, resolving - Patient had episode of nausea and vomiting before surgery - She was intubated for surgery - She was seen in postop recovery, on nasal cannula, currently on room air - Denies any abdominal pain - Will continue to monitor nausea vomiting - Zofran for nausea - Reglan for nausea Staphylococcus aureus bacteremia Mcdermott catheter infection, concerns for CLABSI -Status post removal of Mcdermott catheter - Follow blood cultures, positive for Staph aureus -Follow repeat blood cultures, so far negative - Follow catheter tip culture showing Staph aureus - Follow abscess culture showed Staph aureus - De-escalate to cefazolin - Cardiac echo to evaluate valves no gross vegetation - Transesophageal echocardiogram no vegetations seen - CT chest abdomen and pelvis, no acute findings - Once blood cultures are -[address] PICC line - Will require 6 weeks of IV cefazolin from negative blood culture 1 out of 4 blood cultures positive for Staphylococcus lugdunensis - Will speak with infectious disease Bilateral lower extremity anterior pedraza erythema - Concern for cellulitis - De-escalate antibiotic therapy Right foot, second digit, diabetic wound - Wound care History of CAD status post 4 stents in March 2024 - Resume aspirin, Plavix Hypomagnesemia, monitor Acute kidney injury, creatinine 1.4 -Patient reports a history of CKD -Back in January 2025 she was hospitalized at [facility] she needed dialysis for over a week for fluid overload was then taken off dialysis - Nephrology consulted - Receiving Lasix today Morbid obesity Full code Lovenox for DVT prophylaxis Plan for today continue IV cefazolin, monitor creatinine, monitor urine output PDMP PDMP Reviewed: Not Reviewed Attestations 2 Medical Necessity Statement*: Patient requires hospitalization for Staphylococcus aureus bacteremia Diagnoses Central venous line infection, initial encounter T80.219A Encounter type: initial encounter Line sepsis T85.79XA; A41.9 Leukocytosis D72.829 Diabetes type 2 E11.9 Fever R50.9 Staphylococcus aureus bacteremia R78.81; B95.61
[2025-04-02 15:38] LABS: Glucose Point of Care 209 mg/dL (70-110)
[2025-04-02 18:03] VITALS: BP 95/59; PULSE 75; RESP 19; TEMP 36.9; O2SAT 91
[2025-04-02 18:31] VITALS: BP 112/63
[2025-04-02 19:38] VITALS: BP 153/81; PULSE 82; RESP 18; TEMP 36.7; O2SAT 94
[2025-04-02 21:05] LABS: Glucose Point of Care 289 mg/dL (70-110)
[2025-04-02] MEDS: insulin lispro 100 unit/1 mL SUBCUT (21:26)
[2025-04-02] MEDS: promethazine 25 mg/mL SDV 1 mL 12.5 MG IM (22:56)
[2025-04-03] VITALS (10 sets, daily range): BP systolic 145–183; BP diastolic 68–83; PULSE 78–94; RESP 17–19; TEMP 36.4–36.8; O2SAT 90–98
[2025-04-03 00:01] LABS: Phospholipase A2 Elisa IgG <4 RU/mL; Phospholipase A2 IFA AB NEGATIVE (NEGATIVE)
[2025-04-03] MEDS: sucralfate 1 gm/10 mL Oral Liq UDC PO ×3 (02:18→20:56)
[2025-04-03] MEDS: pantoprazole 40 mg SDV IVP (02:19)
[2025-04-03] MEDS: ceFAZolin 2,000 mg SDV 2000 MG IVP ×3 (02:19→17:13)
[2025-04-03] MEDS: HYDROmorphone 0.5 MG/0.5 ML INJ 0.75 MG IVP (03:56)
[2025-04-03 04:58] LABS: Basophils % 0.5 %; Eosinophils # 0.1 10^3/uL (0.0-0.8); Eosinophils % 1.6 %; Hematocrit 29.3 % (36-47); Lymphocytes # 1.9 10^3/uL (0.8-4.8); Lymphocytes % 25.7 %; Mean Corpuscular HGB Conc 31.1 g/dL (30-55); Mean Corpuscular Hemoglobin 28.7 pg (27-33); Mean Corpuscular Volume 92.4 fl (85-98); Mean Platelet Volume 10.6 fL (7.4-10.4); Monocytes # 0.6 10^3/uL (0.2-0.9); Monocytes % 8.1 %; Neutrophils # 4.71 10^3/uL (1.8-7.7); Neutrophils % 62.2 %; Nucleated Red Blood Cells % 0 %; Platelet Count 180 10^3/cmm (157-399); Red Blood Count 3.17 10^6/uL (3.85-5.65); Red Cell Distribution Width 15.2 % (12.1-15.1); White Blood Count 7.56 10^3/uL (3.29-11.43)
[2025-04-03 05:18] LABS: Alanine Aminotransferase 22 U/L (0-33); Albumin Level 2.9 g/dL (3.5-5.2); Alkaline Phosphatase 120 U/L (35-105); Anion Gap 18.8 (5-19); Aspartate Amino Transferase 24 U/L (0-32); Blood Urea Nitrogen 25 mg/dL (6-20); Calcium 8.9 mg/dL (8.5-10.5); Carbon Dioxide 22 mmol/L (22-29); Chloride 104 mmol/L (98-107); Glomerular Filtration Rate 43.9 mL/min (90-130); Glucose 264 mg/dL (65-115); Osmolality Calculated 304 mOsm/kg (285-295); Potassium 4.8 mmol/L (3.5-5.1); Sodium 140 mmol/L (136-145); Total Bilirubin 0.3 mg/dL (0.15-1.2); Total Protein 6.9 g/dL (6.6-8.7)
[2025-04-03 06:45] LABS: Glucose Point of Care 361 mg/dL (70-110)
[2025-04-03] MEDS: clopidogrel 75 mg Tablet PO (09:28)
[2025-04-03] MEDS: aspirin 81 mg EC Tablet PO (09:28)
[2025-04-03] MEDS: insulin lispro 100 unit/1 mL 35 UNIT SUBCUT ×2 (09:31→11:11)
--- NOTE | 2025-04-03 09:56 | PM.PN ---
Subjective Subjective: has right sided headache. weak, + thirsty. is urinating well. Medications: Reviewed: Yes Medication Review Details: Current Medications Acetaminophen (Acetaminophen 325 Mg Tablet) 650 mg PO Q6H PRN PRN Reason: Mild/Mod Pain Or Temp >/= 101 Last Admin: 04/02/25 08:33 Dose: 650 mg Alprazolam (Alprazolam 0.5 Mg Tablet) 0.5 mg PO TID PRN PRN Reason: ANXIETY Last Admin: 04/02/25 21:26 Dose: 0.5 mg Aspirin (Aspirin 81 Mg Ec Tablet) 81 mg PO DAILY [facility] Last Admin: 04/03/25 09:28 Dose: 81 mg Cefazolin Sodium (Cefazolin 2,000 Mg Sdv) 2,000 mg IVP Q8H [facility]; Protocol Last Admin: 04/03/25 09:28 Dose: 2,000 mg Clopidogrel Bisulfate (Clopidogrel 75 Mg Tablet) 75 mg PO DAILY [facility] Last Admin: 04/03/25 09:28 Dose: 75 mg Docusate Sodium (Docusate Sodium 100 Mg Capsule) 100 mg PO BID [facility] Last Admin: 04/03/25 09:30 Dose: Not Given Glucagon (Glucagon 1 Mg/Ml Kit 1 Ml) 1 mg IM ONCE PRN; Protocol PRN Reason: Adult Acute Hypoglycemia Nursing Prot. Glucagon (Glucagon 1 Mg/Ml Kit 1 Ml) 1 mg IM ONCE PRN; Protocol PRN Reason: Adult Acute Hypoglycemia Nursing Prot. Heparin Sodium (Porcine) (Heparin 5,000 Unit/Ml Inj 1 Ml) 5,000 unit SUBCUT Q12H [facility] Last Admin: 04/03/25 09:30 Dose: Not Given Hydromorphone HCl (Hydromorphone 0.5 Mg/0.5 Ml Inj) 0.75 mg IVP Q4H PRN PRN Reason: PAIN Last Admin: 04/03/25 03:56 Dose: 0.75 mg Dextrose (D5w) 500 mls @ 0 mls/hr IV ONCE PRN; Protocol PRN Reason: Adult Acute Hypoglycemia Prot Dextrose (D10w) 125 mls @ 750 mls/hr IV PRN PRN; Protocol PRN Reason: Adult Acute Hypoglycemia Nursing Protocol Dextrose (D10w) 250 mls @ 1,000 mls/hr IV PRN PRN; Protocol PRN Reason: Adult Acute Hypoglycemia Nursing Protocol Dextrose (D5w) 500 mls @ 0 mls/hr IV ONCE PRN; Protocol PRN Reason: Adult Acute Hypoglycemia Prot Dextrose (D10w) 125 mls @ 750 mls/hr IV PRN PRN; Protocol PRN Reason: Adult Acute Hypoglycemia Nursing Protocol Dextrose (D10w) 250 mls @ 1,000 mls/hr IV PRN PRN; Protocol PRN Reason: Adult Acute Hypoglycemia Nursing Protocol Insulin Human Lispro (Insulin Lispro 100 Unit/1 Ml) 35 unit SUBCUT TIDWM [facility] Last Admin: 04/03/25 09:31 Dose: 35 unit Insulin Human Lispro (Insulin Lispro 100 Unit/1 Ml) 0 unit SUBCUT BEDTIME [facility]; Protocol Last Admin: 04/02/25 21:26 Dose: 4 unit Ondansetron HCl (Ondansetron 2 Mg/Ml Sdv 2 Ml) 4 mg IVP Q8H PRN PRN Reason: vomiting, or N/V if npo Last Admin: 03/31/25 19:55 Dose: 4 mg Oxycodone HCl (Oxycodone 5 Mg Ir Tab/Cap) 5 mg PO Q4H PRN PRN Reason: MODERATE PAIN Pantoprazole Sodium (Pantoprazole 40 Mg Sdv) 40 mg IVP Q12H [facility] Last Admin: 04/03/25 02:19 Dose: 40 mg Phenol (Phenol Oral [place] 177 Ml) 3 spray MUCOUS MEM Q2H PRN PRN Reason: SORE THROAT Last Admin: 04/01/25 03:18 Dose: 3 spray Polyethylene Glycol (Polyethylene Glycol 3350 Pkt 17 Gm) 17 gm PO BID [facility] Last Admin: 04/03/25 09:30 Dose: Not Given Promethazine HCl (Promethazine 25 Mg/Ml Sdv 1 Ml) 12.5 mg IM Q6H PRN PRN Reason: NAUSEA Last Admin: 04/02/25 22:56 Dose: 12.5 mg Senna/Docusate Sodium (Sennosides-Docusate Tablet) 2 tab PO BID [facility] Last Admin: 04/03/25 09:30 Dose: Not Given Sucralfate (Sucralfate 1 Gm/10 Ml Oral Liq Udc) 1 gm PO Q6H [facility] Last Admin: 04/03/25 09:29 Dose: 1 gm Tizanidine HCl (Tizanidine 4 Mg Tablet) 4 mg PO TID PRN PRN Reason: SPASMS Last Admin: 04/02/25 13:41 Dose: 4 mg Vitals/I&O/Wt Last Vital Signs Temp 97.7 F 04/03/25 07:14 Pulse 78 04/03/25 07:14 Resp 19 H 04/03/25 07:14 BP 145/68 04/03/25 07:14 Pulse Ox 90 04/03/25 07:14 O2 Del Method Room Air 04/03/25 07:14 O2 Flow Rate 2 04/02/25 08:47 04/02/25 04/03/25 04/03/25 22:59 06:59 14:59 Intake Total 240 / 720 Balance 240 / 20 Weight last 48 hrs Weight 188.195 kg Weight 185.429 kg Physical Exam Narrative: Morbidly obese lady sitting up in bed no apparent distress. Vital signs noted blood pressure stable. She is saturating 94% on room air HEENT normocephalic atraumatic. Neck is supple no JVP. Lungs -clear b/l Heart is regular without rubs or gallops. Abdomen is soft positive bowel sounds. Extremities left greater than right leg edema with redness. Denies tenderness. Neuro awake alert oriented x 3. Data 04/03/25 04:04 04/03/25 04:04 Micro: Microbiology 03/29/25 15:43 Gram Stain - Final Chest Anaerobic Culture - Preliminary Abscess Culture - Final Staphylococcus aureus 03/29/25 01:58 Blood Culture - Final Blood Staphylococcus aureus 03/28/25 22:28 Blood Culture - Final Blood Staphylococcus aureus A&P Assessment and plan (1) HIREN (acute kidney injury): 49 lady diabetic, morbid obesity, question of heart failure preserved EF, proteinuria. History of acute kidney injury within the last year requiring temporary dialysis that has improved. Patient is here now with sepsis due to infected Mcdermott catheter. Patient grew out Staphylococcus bacteremia. Patient was hypotensive yesterday Mcdermott catheter removed 1. Acute kidney injury likely from being on Bumex and having sepsis concern for prerenal azotemia versus ATN. she was hypotensive and had an infection -normal complements speak against infection related GN -urine noted. she was on bumex then ivf - Creatinine is improving 2. Hyponatremia -improved. can liberalize free water restrict to 1800 milliliters per day. 3. anemia mild thrombocytopenia, and HIREN-this is unlikely to be hemolysis his total bilirubin is 0.4 His LDH is 232 mildly elevated, has improved to 226 Haptoglobin was 179 Serum protein electrophoresis Poorly defined band (possible M-spike) migrating in the gamma region. awiat SIFE -PLEASE ENSURE THAT SHE HAS OUTPT HEMATOLOGY EVALUATION 4. Hyperglycemia insulin as per primary care 5. Patient has underlying proteinuria and urinalysis has some hematuria most likely she has diabetic nephropathy. However hemoglobin A1c of 10.2- this is likely diabetic nephropathy. -if SIFE is + then consider outpt renal biopsy Renal functions improving. Place PICC line as per medicine. Discharge as per medicine Patient was seen examined using audiovisual equipment with the aid of a nurse. The patient consented to telehealth visit. Case discussed in detail with pt and RN HERMINIO today w/o significant valvular abnormalities Plan see above PDMP PDMP Reviewed: Not Reviewed Attestations Medical Necessity Statement*: per hospitalist Time Spent in Patient Care: 16 - 35 minutes (>than 50% of time spent in counselling and/or direct pt care on unit). Coding Level of Care Code Acute Code for g [facility]wd Diagnoses HIREN (acute kidney injury) N17.9
[2025-04-03 10:58] LABS: Glucose Point of Care 357 mg/dL (70-110)
[2025-04-03] MEDS: oxyCODONE 5 mg IR Tab/Cap PO ×3 (11:11→21:17)
[2025-04-03] MEDS: ALPRAZolam 0.5 mg Tablet PO ×2 (11:11→21:17)
--- NOTE | 2025-04-03 12:58 | P.PN_ITS ---
Subjective 2 Subjective: Patient was seen this morning, she denies fevers, or chills, or cough Vitals/I&O/Wt Last Vital Signs Temp 97.9 F 04/03/25 11:43 Pulse 86 04/03/25 11:43 Resp 19 H 04/03/25 11:43 BP 168/72 04/03/25 11:43 Pulse Ox 97 04/03/25 11:43 O2 Del Method Room Air 04/03/25 11:43 O2 Flow Rate 2 04/02/25 08:47 04/02/25 04/03/25 04/03/25 22:59 06:59 14:59 Intake Total 240 / 720 Balance 240 / 20 Weight last 48 hrs Weight 188.195 kg Weight 185.429 kg Physical Exam 2 Const: COMMON NORMALS: no acute distress and patient oriented x3 Resp: COMMON NORMALS: normal respiratory effort, No retractions, No use of accessory muscles and clear to auscultation bilaterally AUSCULTATION: clear to auscultation bilaterally Cardio: COMMON NORMALS: regular rate, regular rhythm, S1 normal heart sound present and S2 normal heart sound present RATE: regular rate RHYTHM: r egular rhythm HEART SOUNDS: S1 normal heart sound present and S2 normal heart sound present GI: COMMON NORMALS: Normal to inspection, nondistended, normoactive bowel sounds present and non-tender Extremity: COMMON NORMALS: no clubbing, cyanosis or edema and no pedal edema Neuro: COMMON NORMALS: patient oriented x3 Psych: COMMON NORMALS: mental status grossly normal Data 04/03/25 04:04 04/03/25 04:04 Micro: Microbiology 03/29/25 15:43 Gram Stain - Final Chest Anaerobic Culture - Preliminary Abscess Culture - Final Staphylococcus aureus 03/29/25 01:58 Blood Culture - Final Blood Staphylococcus aureus 03/28/25 22:28 Blood Culture - Final Blood Staphylococcus aureus A&P Assessment and plan (1) Central line infection: (2) Line sepsis: (3) Leukocytosis: (4) Diabetes type 2: (5) Fever: (6) Staphylococcus aureus bacteremia: Plan Hyperglycemia, with history of type 2 diabetes - Blood sugars over 400, with nausea vomiting - Repeat BMP ordered anion gap 14.9, bicarb 19, ketones negative, pH 7.38, currently no evidence of diabetic ketoacidosis or HHS - Blood sugars now down to 300s Plan - Increase NovoLog to 40 units 3 times daily -Insulin sliding scale at bedtime - Patient declines taking Lantus or Levemir - Monitor blood sugars closely - Switch to diabetic diet Intractable nausea vomiting, resolving - Patient had episode of nausea and vomiting before surgery - She was intubated for surgery - She was seen in postop recovery, on nasal cannula, currently on room air - Denies any abdominal pain - Will continue to monitor nausea vomiting - Zofran for nausea - Reglan for nausea Staphylococcus aureus bacteremia Mcdermott catheter infection, concerns for CLABSI -Status post removal of Mcdermott catheter - Follow blood cultures, positive for Staph aureus -Follow repeat blood cultures, so far negative - Follow catheter tip culture showing Staph aureus - Follow abscess culture showed Staph aureus - De-escalate to cefazolin - Cardiac echo to evaluate valves no gross vegetation - Transesophageal echocardiogram no vegetations seen - CT chest abdomen and pelvis, no acute findings - Once blood cultures are -[address] PICC line, placed tomorrow - Will require 6 weeks of IV cefazolin from negative blood culture 1 out of 4 blood cultures positive for Staphylococcus lugdunensis - Will speak with infectious disease Bilateral lower extremity anterior pedraza erythema - Concern for cellulitis - De-escalate antibiotic therapy Right foot, second digit, diabetic wound - Wound care History of CAD status post 4 stents in March 2024 - Resume aspirin, Plavix Hypomagnesemia, monitor Acute kidney injury, creatinine 1.4 -Patient reports a history of CKD -Back in January 2025 she was hospitalized at [facility] she needed dialysis for over a week for fluid overload was then taken off dialysis - Nephrology consulted - Receiving Lasix today Morbid obesity Full code Lovenox for DVT prophylaxis Plan for today continue IV cefazolin, PICC line to be placed tomorrow monitor creatinine, monitor urine output PDMP PDMP Reviewed: Not Reviewed Attestations 2 Medical Necessity Statement*: Patient requires hospitalization for Staph aureus bacteremia Diagnoses Central venous line infection, initial encounter T80.219A Encounter type: initial encounter Line sepsis T85.79XA; A41.9 Leukocytosis D72.829 Diabetes type 2 E11.9 Fever R50.9 Staphylococcus aureus bacteremia R78.81; B95.61
[2025-04-03 16:38] LABS: Glucose Point of Care 267 mg/dL (70-110)
[2025-04-03] MEDS: insulin lispro 100 unit/1 mL 40 UNIT SUBCUT (17:00)
--- NOTE | 2025-04-03 17:14 | PC.NURSE ---
d/c pt ivp dialudid, pt upset that he did this. educ pt that he ordered oral pain meds , so that pt would be able to d/c with same pain mgmt goals and regiment that she is on here. educ. her that i would get pain meds for her as soon as verified by pharmacy. pt recieved po pain meds and was able to nap per pt. gave verbal order for pt to ambulate, pt refused multiple times, even after pain meds admin. pt stated, these meds aren't working, i want him to increase them. notified and aware of pts request. pt able to rest with resp. multiple times throughout the shift. pt also is not adhering to the diet or fluid restriction. pt does not appear in pain presesntly, per my nursing judgment, will continue to monitor pt
[2025-04-03 20:33] LABS: Glucose Point of Care 291 mg/dL (70-110)
[2025-04-03 20:51] LABS: Immunofixation Serum Normal pattern.
[2025-04-03] MEDS: tizanidine 4 mg Tablet PO (20:56)
[2025-04-03] MEDS: insulin lispro 100 unit/1 mL SUBCUT (20:57)
[2025-04-04] VITALS (9 sets, daily range): BP systolic 130–193; BP diastolic 64–95; PULSE 81–93; RESP 18–19; TEMP 36.4–36.8; O2SAT 93–97
[2025-04-04] MEDS: acetaminophen 325 mg Tablet 650 MG PO ×2 (01:21→16:23)
[2025-04-04] MEDS: oxyCODONE 5 mg IR Tab/Cap PO ×4 (01:21→16:20)
[2025-04-04] MEDS: ceFAZolin 2,000 mg SDV 2000 MG IVP ×2 (01:21→11:18)
[2025-04-04] MEDS: sucralfate 1 gm/10 mL Oral Liq UDC PO ×3 (02:21→14:29)
[2025-04-04] MEDS: pantoprazole 40 mg SDV IVP ×2 (02:21→14:28)
[2025-04-04 05:22] LABS: Basophils # 0.1 10^3/uL (0.0-0.1); Basophils % 0.5 %; Eosinophils # 0.2 10^3/uL (0.0-0.8); Eosinophils % 1.7 %; Lymphocytes # 2.3 10^3/uL (0.8-4.8); Lymphocytes % 21.3 %; Mean Corpuscular HGB Conc 30.4 g/dL (30-55); Mean Corpuscular Hemoglobin 28.3 pg (27-33); Mean Corpuscular Volume 93.3 fl (85-98); Mean Platelet Volume 10.9 fL (7.4-10.4); Monocytes # 0.7 10^3/uL (0.2-0.9); Monocytes % 6.7 %; Neutrophils # 7.27 10^3/uL (1.8-7.7); Nucleated Red Blood Cells % 0.3 %; Platelet Count 215 10^3/cmm (157-399); Red Cell Distribution Width 15.4 % (12.1-15.1); White Blood Count 11.01 10^3/uL (3.29-11.43)
[2025-04-04 05:47] LABS: Alanine Aminotransferase 14 U/L (0-33); Alkaline Phosphatase 104 U/L (35-105); Anion Gap 19.1 (5-19); Aspartate Amino Transferase 17 U/L (0-32); Blood Urea Nitrogen 22 mg/dL (6-20); Calcium 8.5 mg/dL (8.5-10.5); Carbon Dioxide 21 mmol/L (22-29); Chloride 102 mmol/L (98-107); Globulin 3.6 g/dL (1.3-4.6); Glomerular Filtration Rate 48.2 mL/min (90-130); Glucose 323 mg/dL (65-115); Osmolality Calculated 300 mOsm/kg (285-295); Potassium 5.1 mmol/L (3.5-5.1); Sodium 137 mmol/L (136-145); Total Bilirubin 0.2 mg/dL (0.15-1.2); Total Protein 6.6 g/dL (6.6-8.7)
[2025-04-04 06:43] LABS: Glucose Point of Care 365 mg/dL (70-110)
[2025-04-04] MEDS: docusate sodium 100 mg Capsule PO ×2 (08:27→17:37)
[2025-04-04] MEDS: sennosides-docusate Tablet 2 TAB PO ×2 (08:27→17:37)
[2025-04-04] MEDS: clopidogrel 75 mg Tablet PO (08:27)
[2025-04-04] MEDS: aspirin 81 mg EC Tablet PO (08:27)
[2025-04-04] MEDS: polyethylene glycol 3350 Pkt 17 gm PO (08:27)
[2025-04-04] MEDS: insulin lispro 100 unit/1 mL 40 UNIT SUBCUT ×3 (08:28→17:35)
--- NOTE | 2025-04-04 10:30 | PICC.NOTE ---
Midline placed to right basilic vein. Referred to vascular access nurse for PICC placement due to need for IV antibiotics x 6 weeks. Risks and benefits discussed and informed consent obtained from pt by Meenakshi Moraes RN. Right arm assessed with right brachial vein measuring 3.2 mm, straight, and apparent best choice for placement. Using sterile technique and MST, Meenakshi Moraes attempted access to brachial vein without success. This RN took over insertion with right basilic vein accessed x 1 stick. Mid-arm circumference measured 10 cm from right AC 50 cm. After insertion, unable to get cath to pass to SVC. Midline catheter obtained and placed. Trimmed cath 10 cm with 0 cm external length noted, placing tip at axilla. Dr. Baker notified of inability to place PICC and midline placed instead. Line secured with stat-lock. Insertion site covered with Biopatch and TSM. Report given to bedside nurse, STEPHANIE Colon. Excessive bleeding noted upon insertion. Pressure held for approx 5 minutes and pressure dressing applied. Will reassess dressing and change if needed later this afternoon.
[2025-04-04] MEDS: FUROsemide 10 mg/mL SDV 4mL 40 MG IVP (11:19)
[2025-04-04 11:30] LABS: Glucose Point of Care 336 mg/dL (70-110)
--- NOTE | 2025-04-04 13:33 | P.PN_ITS ---
Subjective 2 Subjective: Ms. Saunders was evaluated at bedside on [facility] today. She is in good spirits. She states the plan is for potential discharge after a new PICC line is placed today. The dressing to her right second toe is clean, dry, and intact upon evaluation today. Vitals/I&O/Wt Last Vital Signs Temp 97.5 F L 04/04/25 11:21 Pulse 93 04/04/25 11:21 Resp 19 H 04/04/25 11:21 BP 130/69 04/04/25 11:21 Pulse Ox 96 04/04/25 11:21 O2 Del Method Room Air 04/04/25 11:21 O2 Flow Rate 2 04/02/25 08:47 04/03/25 04/04/25 04/04/25 22:59 06:59 14:59 Intake Total 940 / 1420 100 / 1520 720 / 720 Output Total 350 / 350 Balance 940 / 1420 100 / 1520 370 / 370 Weight last 48 hrs Weight 187.016 kg Weight 188.195 kg Physical Exam 2 Const: COMMON NORMALS: no acute distress, patient oriented x3 and alert G ENERAL APPEARANCE: cooperative and comfortable NUTRITIONAL APPEARANCE: obese morbidly obese ORIENTATION/CONSCIOUSNESS: Yes awake, Yes oriented to person, Yes oriented to place and Yes oriented to time HENMT: COMMON NORMALS: normocephalic HEAD & SCALP: normal to inspection and normocephalic Eye: GENERAL EYE: appearance normal, both eyes and all related structures Neck/C-Spine: GENERAL: Yes normal visual inspection and Yes trachea midline Resp: COMMON NORMALS: normal respiratory effort EFFORT & INSPECTION: Yes able to speak in complete sentences and Yes symmetric chest movement Cardio: COMMON NORMALS: regular rate RATE: regular rate OTHER: Less than 3-second capillary refill in distal digits of right foot Extremity: RIGHT LOWER EXTREMITY: Yes lower leg Right lower leg: Yes inspection (Edematous; hemosiderin staining) LEFT LOWER EXTREMITY: Yes lower leg Left lower leg: Yes inspection (Edematous; hemosiderin staining) Neuro: COMMON NORMALS: patient oriented x3 SENSORIUM/ORIENTATION: Yes alert, Yes oriented to person, Yes oriented to place and Yes oriented to time Psych: COMMON NORMALS: mental status grossly normal, Normal thought process present, cooperative and speech normal ATTITUDE: Yes calm and Yes engaged ACTIVITY/MOTOR BEHAVIOR: Yes appropriate eye contact SPEECH: Yes normal speech THOUGHT PROCESS: Normal thought process present MEMORY/COGNITION: Y es memory grossly intact Skin: WOUNDS: Yes wounds noted (See wound assessment) Data 04/04/25 04:56 04/04/25 04:56 Micro: Microbiology 03/29/25 15:43 Gram Stain - Final Chest Anaerobic Culture - Preliminary Abscess Culture - Final Staphylococcus aureus A&P Assessment and plan (1) Type 2 diabetes mellitus with foot ulcer: (2) Diabetes type 2: Plan Wound appears slightly improved without signs or symptoms of active infection. There is new epithelialization surrounding the entire wound. Will continue Hydrofera Blue to the wound daily securing with Tegaderm. I have encouraged her to keep the open wound covered at all times due to risk for infection. Offloading of this area will be necessary for wound healing and to prevent decline and wound complications. She has been educated to limit her ambulation. Tight glucose control and optimized nutrition will expedite healing as well. I thoroughly educated her on leg elevation and to avoid hanging her legs in a dependent position for long periods of time. Plan is for discharge today pending vascular access for ongoing IV antibiotics. Will plan for patient to follow-up outpatient at [facility] wound care within 1 week. PDMP PDMP Reviewed: Not Reviewed Attestations 2 Medical Necessity Statement*: Ongoing wound care Per hospitalist service Time Spent in Patient Care: 16 - 35 minutes Coding Level of Care Code Acute Code for Chg Fwd Diagnoses Type 2 diabetes mellitus with foot ulcer, with long-term current use of insulin E11.621; L97.509; Z79.4 Diabetes mellitus barrel scraper insulin use: with barrel scraper use Diabetes type 2 E11.9 Wound Assessment Wound Assessment Wound Number 1 Toe Second: Descriptor: Right Primary Etiology: Diabetic Would/Ulcer of the Lower Extremity Classification: Grade 1 Length (cm): 0.9 cm Width (cm): 0.9 cm Depth (cm): 0.5 cm Epithelialization: Small (1-33%) Tunneling: No Undermining: No Exudate Amount: Medium Drainage Type: Serosanguineous Foul Odor After Cleansing: No Slough/Fibrin?: No Granulation Amount: Medium (34-66%) Granulation Quality: [place] Necrotic Amount: Small (1-33%) Necrotic Type: Adherent Slough Wound Orders Wound Number 1: Duration: 7 Days Dressing change frequency: Daily Wound Cleansing: Saline Primary Wound Care Dressing: Hydrofera Blue ready Secondary Wound Care Dressing: Tegaderm Bathing/Showering/Hygiene: May shower with protection but do not get dressing wet. Off-Loading: Other (Limit ambulation)
--- NOTE | 2025-04-04 14:11 | XR_ITS ---
WS: [id number] Exam: XR chest 1V portable [id number] Date/Time of Exam: 04/04/2025 2:11 PM Reason For Exam: Post PICC insertion Comparison 03/29/2025. Left-sided PICC line has been placed and ends at the cavoatrial junction in good position. The lungs are clear and fully expanded. Normal cardiomediastinal silhouette and bony structures. XR/XR chest 1V portable [id number] IMPRESSION: 1. Left-sided PICC line ending at the cavoatrial junction in good position. Rem aining aspects of the chest are normal.
[2025-04-04] MEDS: ALPRAZolam 0.5 mg Tablet PO (14:37)
--- NOTE | 2025-04-04 15:00 | PICC.NOTE ---
? PICC placed to vein. Referred to vascular access nurse for PICC placement due to . Risks and benefits discussed and informed consent obtained. arm assessed with vein measuring mm, straight, and apparent best choice for placement. Using sterile technique and MST, vein accessed x 1 stick. Mid-arm circumference measured 10 cm from ____ AC ___ cm. Trimmed cath cm with ____ cm external length noted. CXR shows tip in , in good position for use per radiologist. Line secured with stat-lock. Insertion site covered with Biopatch and TSM. Report given to bedside nurse, .
--- NOTE | 2025-04-04 15:00 | PICC.NOTE ---
Single lumen PICC placed to left basilic vein. Midline placed earlier today in right arm noted to leak with flushing. Pt states she would be willing for this nurse to attempt PICC in left arm. Referred to vascular access nurse for PICC placement due to need for IV antibiotics x 6 weeks. Risks and benefits discussed and informed consent obtained from pt. Left arm assessed with left basilic vein measuring 5.0 mm, straight, and apparent best choice for placement. Using sterile technique and MST, left basilic vein accessed x 1 stick. Mid-arm circumference measured 10 cm from left AC 45 cm. Trimmed cath 45 cm with 0 cm external length noted. CXR shows tip in cavoatrial junction, in good position for use per radiologist. Line secured with stat-lock. Insertion site covered with Biopatch and TSM. Report given to bedside nurse, JUAN Jose. Dr. Baker and case management updated on successful placement of PICC to left arm. Midline to right arm removed.
--- NOTE | 2025-04-04 15:07 | PM.PN ---
Subjective Subjective: Infectious Disease progress note. PICC line placed today, patient planned to be discharged, all cultures updated to reflect MSSA only. Medications: Reviewed: Yes Medication Review Details: Current Medications Acetaminophen (Acetaminophen 325 Mg Tablet) 650 mg PO Q6H PRN PRN Reason: Mild/Mod Pain Or Temp >/= 101 Last Admin: 04/02/25 08:33 Dose: 650 mg Alprazolam (Alprazolam 0.5 Mg Tablet) 0.5 mg PO TID PRN PRN Reason: ANXIETY Last Admin: 04/02/25 21:26 Dose: 0.5 mg Aspirin (Aspirin 81 Mg Ec Tablet) 81 mg PO DAILY [facility] Last Admin: 04/03/25 09:28 Dose: 81 mg Cefazolin Sodium (Cefazolin 2,000 Mg Sdv) 2,000 mg IVP Q8H [facility]; Protocol Last Admin: 04/03/25 09:28 Dose: 2,000 mg Clopidogrel Bisulfate (Clopidogrel 75 Mg Tablet) 75 mg PO DAILY [facility] Last Admin: 04/03/25 09:28 Dose: 75 mg Docusate Sodium (Docusate Sodium 100 Mg Capsule) 100 mg PO BID [facility] Last Admin: 04/03/25 09:30 Dose: Not Given Glucagon (Glucagon 1 Mg/Ml Kit 1 Ml) 1 mg IM ONCE PRN; Protocol PRN Reason: Adult Acute Hypoglycemia Nursing Prot. Glucagon (Glucagon 1 Mg/Ml Kit 1 Ml) 1 mg IM ONCE PRN; Protocol PRN Reason: Adult Acute Hypoglycemia Nursing Prot. Heparin Sodium (Porcine) (Heparin 5,000 Unit/Ml Inj 1 Ml) 5,000 unit SUBCUT Q12H [facility] Last Admin: 04/03/25 09:30 Dose: Not Given Hydromorphone HCl (Hydromorphone 0.5 Mg/0.5 Ml Inj) 0.75 mg IVP Q4H PRN PRN Reason: PAIN Last Admin: 04/03/25 03:56 Dose: 0.75 mg Dextrose (D5w) 500 mls @ 0 mls/hr IV ONCE PRN; Protocol PRN Reason: Adult Acute Hypoglycemia Prot Dextrose (D10w) 125 mls @ 750 mls/hr IV PRN PRN; Protocol PRN Reason: Adult Acute Hypoglycemia Nursing Protocol Dextrose (D10w) 250 mls @ 1,000 mls/hr IV PRN PRN; Protocol PRN Reason: Adult Acute Hypoglycemia Nursing Protocol Dextrose (D5w) 500 mls @ 0 mls/hr IV ONCE PRN; Protocol PRN Reason: Adult Acute Hypoglycemia Prot Dextrose (D10w) 125 mls @ 750 mls/hr IV PRN PRN; Protocol PRN Reason: Adult Acute Hypoglycemia Nursing Protocol Dextrose (D10w) 250 mls @ 1,000 mls/hr IV PRN PRN; Protocol PRN Reason: Adult Acute Hypoglycemia Nursing Protocol Insulin Human Lispro (Insulin Lispro 100 Unit/1 Ml) 35 unit SUBCUT TIDWM [facility] Last Admin: 04/03/25 09:31 Dose: 35 unit Insulin Human Lispro (Insulin Lispro 100 Unit/1 Ml) 0 unit SUBCUT BEDTIME [facility]; Protocol Last Admin: 04/02/25 21:26 Dose: 4 unit Ondansetron HCl (Ondansetron 2 Mg/Ml Sdv 2 Ml) 4 mg IVP Q8H PRN PRN Reason: vomiting, or N/V if npo Last Admin: 03/31/25 19:55 Dose: 4 mg Oxycodone HCl (Oxycodone 5 Mg Ir Tab/Cap) 5 mg PO Q4H PRN PRN Reason: MODERATE PAIN Pantoprazole Sodium (Pantoprazole 40 Mg Sdv) 40 mg IVP Q12H [facility] Last Admin: 04/03/25 02:19 Dose: 40 mg Phenol (Phenol Oral [place] 177 Ml) 3 spray MUCOUS MEM Q2H PRN PRN Reason: SORE THROAT Last Admin: 04/01/25 03:18 Dose: 3 spray Polyethylene Glycol (Polyethylene Glycol 3350 Pkt 17 Gm) 17 gm PO BID [facility] Last Admin: 04/03/25 09:30 Dose: Not Given Promethazine HCl (Promethazine 25 Mg/Ml Sdv 1 Ml) 12.5 mg IM Q6H PRN PRN Reason: NAUSEA Last Admin: 04/02/25 22:56 Dose: 12.5 mg Senna/Docusate Sodium (Sennosides-Docusate Tablet) 2 tab PO BID [facility] Last Admin: 04/03/25 09:30 Dose: Not Given Sucralfate (Sucralfate 1 Gm/10 Ml Oral Liq Udc) 1 gm PO Q6H [facility] Last Admin: 04/03/25 09:29 Dose: 1 gm Tizanidine HCl (Tizanidine 4 Mg Tablet) 4 mg PO TID PRN PRN Reason: SPASMS Last Admin: 04/02/25 13:41 Dose: 4 mg Vitals/I&O/Wt Last Vital Signs Temp 97.5 F L 04/04/25 11:21 Pulse 93 04/04/25 11:21 Resp 19 H 04/04/25 11:21 BP 130/69 04/04/25 11:21 Pulse Ox 96 04/04/25 11:21 O2 Del Method Room Air 04/04/25 11:21 O2 Flow Rate 2 04/02/25 08:47 04/04/25 04/04/25 04/04/25 06:59 14:59 22:59 Intake Total 100 / 1520 720 / 720 Output Total 350 / 350 Balance 100 / 1520 370 / 370 Weight last 48 hrs Weight 187.016 kg Weight 188.195 kg Physical Exam Narrative: General: No acute distress, AO x3 HEENT: PERRLA, pupils bilaterally equal and reactive, pallors not present Chest: Normal vesicular breath sounds, no added sounds, equal good air entry bilaterally CVS: S1-S2 regular, no murmurs, no tachycardia, no gallops, no rubs Abdomen: Soft, nontender, no organomegaly, bowel sounds present Neuro: No focal deficits, no facial deformity, AO x3, power 5/5 in all limbs Data 04/04/25 04:56 04/04/25 04:56 Micro: Microbiology 03/29/25 15:43 Gram Stain - Final Chest Anaerobic Culture - Preliminary Abscess Culture - Final Staphylococcus aureus NAME: Pablo Saunders [facility] #: [id number] LOC: [facility] #: [id number] AGE/SX: 49/F ROOM: 270 RE03/29/[address]: Steve Baker MD : 1975 BED: 1 DIS: FAX #: STATUS: ADM IN TLOC: Spec #: [id number] Amaury: 03/28/25 Status: COMP Req #: [id number] Recd: 03/28/25-[address]: Maureen Yuan MD Src: Blood SpDesc: Ordered: Bcult Procedure Result Verified Site Blood Culture Final 04/02/25-1156 3 OF 3 BOTTLES POSITIVE DIRECT GRAM STAIN: GRAM POSITIVE COCCI IN CLUSTERS IDENTIFICATION BY DIRECT PCR Organism 1 Staphylococcus aureus Growth 3 BOTTLES Gram Stain Charge Charge for Gram Stain CRITICAL RESULT YES/NO: YES CRITICAL CALLED BY: RT TO AND READ BACK BY: ANNY DATE: 03/29/25 TIME: 1650 S aureus M.I.C. RX --------- ------ * Ciprofloxacin <=1 S * Clindamycin <=0.5 S * Erythromycin <=0.5 S * Levofloxacin <=1 S * Linezolid 4 S * Moxifloxacin <=0.5 S * Oxacillin 1 S * Penicillin >8 R * Rifampin <=1 S * Tetracycline <=4 S * Trimethoprim/Sulfamethoxazole <=0.5/9.5 S Vancomycin 2 S Daptomycin 1 S Blood Culture Preliminary (changed) 03/31/25-1422 2 OF 3 BOTTLES POSITIVE DIRECT GRAM STAIN: GRAM POSITIVE COCCI IN CLUSTERS IDENTIFICATION BY DIRECT PCR Organism 1 Staphylococcus aureus Growth 1 BOTTLE Gram Stain Charge Charge for Gram Stain CRITICAL RESULT YES/NO: YES CRITICAL CALLED BY: RT TO AND READ BACK BY: ANNY DATE: 03/29/25 TIME: 1650 S aureus M.I.C. RX --------- ------ * Ciprofloxacin <=1 S * Clindamycin <=0.5 S * Erythromycin <=0.5 S * Levofloxacin <=1 S * Linezolid 4 S * Moxifloxacin <=0.5 S * Oxacillin 1 S * Penicillin >8 R * Rifampin <=1 S * Tetracycline <=4 S * Trimethoprim/Sulfamethoxazole <=0.5/9.5 S Vancomycin 2 S Daptomycin 1 S Blood Culture Preliminary (changed) 03/29/25-1651 2 OF 3 BOTTLES POSITIVE DIRECT GRAM STAIN: GRAM POSITIVE COCCI IN CLUSTERS IDENTIFICATION BY DIRECT PCR RESULTS TO FOLLOW Organism 1 Staphylococcus aureus Growth 1 BOTTLE Gram Stain Charge Charge for Gram Stain CRITICAL RESULT YES/NO: YES CRITICAL CALLED BY: RT TO AND READ BACK BY: ANNY DATE: 03/29/25 TIME: 1650 NAME: Pablo Saunders LOC: [facility] #: [id number] AGE/SX: 49/F ROOM: 270 RE03/29/[address]: Steve Baker MD : 1975 BED: 1 DIS: FAX #: STATUS: ADM IN TLOC: Spec #: [id number] Amaury: 03/29/25-0158 Status: COMP Req #: [id number] Recd: 03/29/25-[address]: Maureen Yuan MD Src: Blood SpDesc: Ordered: Bcult Procedure Result Verified Site Blood Culture Final 04/02/25-1199 3 OF 3 BOTTLES POSITIVE DIRECT GRAM STAIN: GRAM POSITIVE COCCI IN CLUSTERS IDENTIFICATION BY DIRECT PCR STAPH LUGDUNENSIS DNA DETECTED BY PCR BUT NOT ISOLATED ON SUB-CULTURE PLATES Organism 1 Staphylococcus aureus Growth 3 BOTTLES Gram Stain Charge Charge for Gram Stain CRITICAL RESULT YES/NO: YES CRITICAL CALLED BY: SARBJIT TO AND READ BACK BY: [place] [employer]rator[employer]ice DATE: 03/31/25 TIME: 532 Blood Culture Preliminary (changed) 03/31/25 1 OF 4 BOTTLES POSITIVE DIRECT GRAM STAIN: GRAM POSITIVE COCCI IN CLUSTERS IDENTIFICATION BY DIRECT PCR RESULTS TO FOLLOW Organism 1 Staphylococcus aureus Growth 1 BOTTLE Organism 2 Staphylococcus lugdunensis Growth 1 BOTTLE CRITICAL RESULT YES/NO: YES CRITICAL CALLED BY: SARBJIT TO AND READ BACK BY: Root Orange DATE: 03/31/25 TIME: 532 Blood Culture Preliminary (changed) 03/30/25-199 NEGATIVE TO DATE Blood Culture Preliminary (changed) 03/29/25-205 SPECIMEN COLLECTED NAME: Pablo Saunders LOC: [facility] #: [id number] AGE/SX: 49/F ROOM: 270 RE03/29/[address]: Steve Baker MD : 1975 BED: 1 DIS: FAX #: STATUS: ADM IN TLOC: Spec #: [id number] Amaury: 03/29/251543 Status: COMP Req #: [id number] Recd: 03/29/25-[address]: Scout Judd Src: Other Sour SpDesc: Ordered: CTIP Comments: ORIGINAL ORDER WAS FOR WOUND CULTURE, NOT APPROPRIATE FOR CATH TIP CULTURE. Procedure Result Verified Site Catheter Tip Culture Final 04/01/25-1439 Organism 1 Staphylococcus aureus Growth HEAVY FEW MIXED SUPERFICIAL EUGENIE ON DAY 2 CRITICAL RESULT YES/NO: YES CRITICAL CALLED BY: MARY TO AND READ BACK BY: NICOLÁS DATE: 04/01/25 TIME: 1439 S aureus M.I.C. RX --------- ------ * Ciprofloxacin <=1 S * Clindamycin <=0.5 S * Erythromycin <=0.5 S * Gentamicin <=4 S * Levofloxacin <=1 S * Linezolid 4 S * Moxifloxacin <=0.5 S * Oxacillin 1 S * Penicillin >8 R * Rifampin <=1 S * Tetracycline <=4 S * Trimethoprim/Sulfamethoxazole <=0.5/9.5 S Vancomycin 2 S Daptomycin 1 S Catheter Tip Culture Preliminary (changed) 03/31/25-153 Organism 1 Coag positive Staphylococcus Growth >15 NAME: Pablo Saunders LOC: [facility] #: [id number] AGE/SX: 49/F ROOM: 270 RE03/29/[address]: Steve Baker MD : 1975 BED: 1 DIS: FAX #: STATUS: ADM IN TLOC: Spec #: [id number] Amaury: 03/29/25-154 Status: RES Req #: [id number] Recd: 03/29/25-[address]: Scout Judd Src: Chest SpDesc: Ordered: Absces Cult&GS, Anaer Procedure Result Verified Site Gram Stain Final 03/30/25-1626 Result SCANT GRAM POSITIVE COCCI IN PAIRS SCANT WHITE BLOOD CELLS Anaerobic Culture Preliminary 04/04/25-1115 NO ANAEROBES ISOLATED ON DAY 6 Anaerobic Culture Preliminary (changed) 04/03/25-1253 NO ANAEROBES ISOLATED ON DAY 5 Anaerobic Culture Preliminary (changed) 04/02/25-1437 NO ANAEROBES ISOLATED ON DAY 4 Anaerobic Culture Preliminary (changed) 04/01/25-172 NO ANAEROBES ISOLATED ON DAY 3 Anaerobic Culture Preliminary (changed) 03/31/25-1703 NO ANAEROBES ISOLATED ON DAY 2 Anaerobic Culture Preliminary (changed) 03/30/25-1908 NO ANAEROBES ISOLATED ON DAY 1 Abscess Culture Final 04/01/25-1440 Organism 1 Staphylococcus aureus Growth HEAVY MODERATE MIXED SUPERFICIAL EUGENIE ON DAY 3 CRITICAL RESULT YES/NO: YES CRITICAL CALLED BY: MARY TO AND READ BACK BY: NICOLÁS DATE: 04/01/25 TIME: 1440 S aureus M.I.C. RX --------- ------ * Ciprofloxacin <=1 S * Clindamycin <=0.5 S * Erythromycin <=0.5 S * Gentamicin <=4 S * Levofloxacin <=1 S * Linezolid 2 S * Moxifloxacin <=0.5 S * Oxacillin 0.5 S * Penicillin >8 R * Rifampin <=1 S * Tetracycline <=4 S * Trimethoprim/Sulfamethoxazole <=0.5/9.5 S Vancomycin 1 S Daptomycin <=0.5 S Abscess Culture Preliminary (changed) 03/31/25-1618 Organism 1 Coag positive Staphylococcus Growth HEAVY MODERATE MIXED SUPERFICIAL EUGENIE ON DAY 2 RESULTS TO FOLLOW Abscess Culture Preliminary (changed) 03/30/25-1716 MODERATE MIXED SUPERFICIAL EUGENIE ON DAY 1 RESULTS TO FOLLOW NAME: Pablo Saunders LOC: [facility] U #: [id number] AGE/SX: 49/F ROOM: 270 RE03/29/[address]: Steve Baker MD : 1975 BED: 1 DIS: FAX #: STATUS: ADM IN OC: Spec #: [id number] Amaury: 03/30/25 Status: RES Req #: [id number] Recd: 03/30/25-[address]: Steve Baker MD Src: Blood SpDesc: Ordered: Bcult Procedure Result Verified Site Blood Culture Preliminary 03/31/25-1509 NEGATIVE TO DATE Blood Culture Preliminary (changed) 03/30/25-1516 SPECIMEN COLLECTED A&P Assessment and plan (1) Staphylococcus aureus bacteremia: (2) Infected venous access port: Plan 49 female with PMH as above currently admitted for MSSA septicemia related to infected Mcdermott catheter now s/p removal of above catheter on 03/29 Blood cx from 03/28 with MSSA Blood cx 03/29 with MSSA and Staph lugdeniensis reported on direct PCR. Discussed at length with microbiology tech today. In reviewing the PCR log from this date and also reviewing all culture plates, there is no evidence of Staph lugdenienses. The latter appears to have been an error in reporting, reporst will be addended in the computer after all verification is completed. Thus far PCR and cx from 03/28 and 03/29 show MSSA only. HERMINIO negative for vegetations Agree with switch to ov cefazolin. Please dose at 2g iv q12h for cr cl 25 Should cr cl improve to > 30, dose to be optimized to 2g iv q8h Total duration to be 6 weeks from port removal (03/29-05/10) Okay to place PICC line once blood x from 03/30 is negative for 48-72 hrs Thank you for this consult. April 04, 2025. All cultures have been updated to reflect MSSA only. On March 28, 2025 3 out of 3 blood cultures positive for MSSA. Staph lugdunensis previously identified on direct PCR was not grown on any subculture plates. Abscess culture from chest wall also with MSSA. Repeat blood culture from March 30, 2025 remain negative to date. PICC line has been placed today to facilitate 6-week course of IV antibiotics until May 10, 2025. Status post port removal on March 29, 2025. HERMINIO negative for any vegetations. Patient remains afebrile and hemodynamically stable. Follow-up in ID clinic PDMP PDMP Reviewed: Not Reviewed Attestations Medical Necessity Statement*: per admitting Coding Level of Care Code Acute Code for [facility] Fwd Diagnoses Staphylococcus aureus bacteremia R78.81; B95.61 Infected venous access port T80.219A
[2025-04-04] MEDS: tizanidine 4 mg Tablet PO (16:20)
[2025-04-04 16:41] LABS: Glucose Point of Care 196 mg/dL (70-110)
--- NOTE | 2025-04-04 16:58 | P.DS_ITS ---
Discharge Providers Date of Admission: 03/29/25 01:53 Date of Discharge: April 04, 2025 Attending Provider at Admission: Shannan Brown MD Attending Provider at Discharge: Steve Baker MD Primary Care Provider: Joselo Burris MD Diagnoses at Discharge Discharge Diagnosis (1) Staphylococcus aureus bacteremia: Status: Resolved (2) Infected venous access port: Status: Resolved Reason for Visit Reason for Visit: fever,chills,R side neck pain, alonzo port issue, Hospital Course Hospital Course This is a 49-year-old female with past medical history of HIREN, history of acute renal failure requiring dialysis in the past, history of Alonzo catheter placed for IV antibiotics, kept in place due to poor peripheral access, type 2 diabetes Patient was admitted to Center for Staphylococcus aureus bacteremia, Alonzo catheter infection, general surgery consult, status post removal by general surgery, infectious disease consulted, cardiology consultation transesophageal echocardiogram no vegetations, managed with IV antibiotics, repeat blood cultures negative, discharged on IV cefazolin for total 6 weeks via PICC line Bilateral extremity anterior pedraza erythema, concern for cellulitis manage on antibiotics Right foot secondary to diabetic wound, wound care was consulted, discharged with follow-up with outpatient wound care Hyperglycemia with type 2 diabetes, -Inject NovoLog 40 units 3 times daily with meals -Please monitor your blood sugars closely -Monitor your blood sugars 3 times daily as after meals -Please record your blood sugars, and a blood sugar log -If your blood sugar is greater than 500 go to the emergency room -If your blood sugar is less than 60 or at anytime you feel lightheaded or dizzy or diaphoretic or have chest palpitations check your blood sugar, and eat a hard candy or drink orange juice and go immediately to the emergency room -Remember hypoglycemia kills, so if his blood sugar is less than 60 we have to increase it by taking in a sugary meal such as a hard candy or orange juice and go to the emergency room -If you have any questions please call us where here to help - cefazolin 2 g IV every 8 hours for total of 6 weeks start date 03/29/2025 Physical Exam Const: COMMON NORMALS: no acute distress and patient oriented x3 Resp: COMMON NORMALS: normal respiratory effort, No retractions, No use of accessory muscles and clear to auscultation bilaterally AUSCULTATION: clear to auscultation bilaterally Cardio: COMMON NORMALS: regular rate, regular rhythm, S1 normal heart sound present and S2 normal heart sound present RATE: regular rate RHYTHM: regular rhythm HEART SOUNDS: S1 normal heart sound present and S2 normal heart sound present GI: COMMON NORMALS: Normal to inspection, nondistended, normoactive bowel sounds present and non-tender Extremity: COMMON NORMALS: no pedal edema Neuro: COMMON NORMALS: patient oriented x3 Psych: COMMON NORMALS: mental status grossly normal Discharge Data Studies Completed and Pending Completed Studies During Hospitalization Category Date Time Status CT chest abdomen pelvis [[place] [id number] Cat Scan 03/29/25 15:48 Completed ] Stat CXRP [XR chest 1V portable [id number]] Routine Exams 04/04/25 14:11 Completed XR chest 1V portable [id number] Stat Exams 03/29/25 01:02 Completed XR foot RT min 3V* [id number] Routine Exams 03/30/25 13:40 Completed CV. echo complete* [id number] Stat Ultrasound 03/29/25 15:45 Completed CV. echo transesophageal [id number] Routine Ultrasound 03/31/25 11:13 Completed US renal BI* [id number] Routine Ultrasound 03/30/25 12:18 Completed Pending at discharge Category Date Time Status Abscess Culture and Gram Stain Routine Lab 03/29/25 15:43 Results Anaerobic Culture Routine Lab 03/29/25 15:43 Results Complete Blood Count w/Auto AM LABS Lab 04/05/25 04:00 Ordered Radiology Impressions Chest/Abdomen/Pelvis CT 03/29/25 15:48 IMPRESSION: No acute findings. IMPRESSION: 1. No acute findings. 2. Moderate splenomegaly of uncertain etiology Renal Ultrasound 03/30/25 12:18 IMPRESSION: Limited study due to patient body habitus. The kidneys are grossly normal without hydronephrosis. Foot X-Ray 03/30/25 13:40 Impression: 1. No definite osteomyelitis is present. 2. Amputation of right first and third toes and middle and distal phalanges of right second toe. 3. Soft tissue swelling of the distal right leg. 4. 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 Chest X-Ray 04/04/25 14:11 IMPRESSION: 1. Left-sided PICC line ending at the cavoatrial junction in good position. Remaining aspects of the chest are normal. Laboratory Results WBC 11.01 10^3/uL (3.29-11.43) 04/04/25 04:56 RBC 3.00 10^6/uL (3.85-5.65) L 04/04/25 04:56 Hgb 8.50 g/dL (11.27-16.99) L 04/04/25 04:56 Hct 28.0 % (36-47) L 04/04/25 04:56 MCV 93.3 fl (85-98) 04/04/25 04:56 MCH 28.3 pg (27-33) 04/04/25 04:56 MCHC 30.4 g/dL (30-55) 04/04/25 04:56 RDW 15.4 % (12.1-15.1) H 04/04/25 04:56 Plt Count 215 10^3/cmm (157-399) 04/04/25 04:56 MPV 10.9 fL (7.4-10.4) H 04/04/25 04:56 Neut % (Auto) 66.0 % 04/04/25 04:56 Lymph % (Auto) 21.3 % 04/04/25 04:56 [place] % (Auto) 6.7 % 04/04/25 04:56 Eos % (Auto) 1.7 % 04/04/25 04:56 Baso % (Auto) 0.5 % 04/04/25 04:56 Reticulocyte % (Auto) 3.5 % (0.5-2.0) H 03/31/25 05:27 Neut # (Auto) 7.27 10^3/uL (1.8-7.7) 04/04/25 04:56 Lymph # (Auto) 2.3 10^3/uL (0.8-4.8) 04/04/25 04:56 [place] # (Auto) 0.7 10^3/uL (0.2-0.9) 04/04/25 04:56 Eos # (Auto) 0.2 10^3/uL (0.0-0.8) 04/04/25 04:56 Baso # (Auto) 0.1 10^3/uL (0.0-0.1) 04/04/25 04:56 Nucleated RBC % (auto) 0.3 % 04/04/25 04:56 Nucleated RBCs # 0.0 /100WBC 04/04/25 04:56 ESR 28 mm/hr (0-15) H 03/28/25 22:38 Haptoglobin 179.0 mg/L (30-200) 03/31/25 13:42 Specimen Type Arterial 03/29/25 16:32 Sample Site Brachial, left 03/29/25 16:32 ABG pH 7.38 (7.35-7.45) 03/29/25 16:32 ABG pCO2 36.1 mmHg (35-45) 03/29/25 16:32 ABG pO2 83.6 mmHg (80.0-100.0) 03/29/25 16:32 ABG PO2/FiO2 Ratio 298 03/29/25 16:32 ABG HCO3 21.5 mmol/L (22-26) L 03/29/25 16:32 ABG Base Excess -3.1 mmol/L (-2.0-2.0) L 03/29/25 16:32 Johny Test N/a 03/29/25 16:32 Hematocrit 32.7 % (37-47) L 03/29/25 16:32 O2 Delivery Device Nc 03/29/25 16:32 O2 Liters/Min 2.0 % 03/29/25 16:32 FiO2 28.0 % 03/29/25 16:32 Therapeutic Strategy Lead ID Gd 03/29/25 16:32 Sodium 137 mmol/L (136-145) 04/04/25 04:56 Potassium 5.1 mmol/L (3.5-5.1) 04/04/25 04:56 Chloride 102 mmol/L (98-107) 04/04/25 04:56 Carbon Dioxide 21 mmol/L (22-29) L 04/04/25 04:56 Anion Gap 19.1 (5-19) H 04/04/25 04:56 BUN 22 mg/dL (6-20) H 04/04/25 04:56 Creatinine 1.2 mg/dL (0.5-0.9) H 04/04/25 04:56 GFR Calculation 48.2 mL/min (90-130) L 04/04/25 04:56 Glucose 323 mg/dL (65-115) H 04/04/25 04:56 POC Glucose 196 mg/dL (70-110) H 04/04/25 16:30 Estimat Average Glucose 243 03/29/25 18:50 Hemoglobin A1c 10.1 % (4.0-6.0) H 03/29/25 18:50 Calculated Osmolality 300 mOsm/kg (285-295) H 04/04/25 04:56 Lactic Acid 1.4 mmol/L (0.5-2.2) 03/29/25 01:58 Uric Acid 10.2 mg/dL (2.4-5.7) H 03/30/25 14:52 Calcium 8.5 mg/dL (8.5-10.5) 04/04/25 04:56 Phosphorus 3.6 mg/dL (2.5-4.5) 04/02/25 04:38 Magnesium 1.7 mg/dL (1.7-2.3) 04/02/25 04:38 Total Bilirubin 0.2 mg/dL (0.15-1.2) 04/04/25 04:56 AST 17 U/L (0-32) 04/04/25 04:56 ALT 14 U/L (0-33) 04/04/25 04:56 Alkaline Phosphatase 104 U/L (35-105) 04/04/25 04:56 Lactate Dehydrogenase 226 U/L (135-214) H 04/02/25 04:38 Creatine Kinase 18 U/L (26-192) L 04/02/25 04:38 C-Reactive Protein 82.9 mg/L (0.0-4.9) H 04/01/25 04:48 Total Protein 6.6 g/dL (6.6-8.7) 04/04/25 04:56 Albumin 3.0 g/dL (3.5-5.2) L 04/04/25 04:56 Globulin 3.6 g/dL (1.3-4.6) 04/04/25 04:56 Fzhrw-6-Qzloshemj 0.4 g/dL (0.2-0.3) H 03/30/25 14:52 Ldlal-9-Kooeprhii 0.7 g/dL (0.5-0.9) 03/30/25 14:52 Xuya-9-Ivdtihxa 0.4 g/dL (0.4-0.6) 03/30/25 14:52 Cwmj-5-Mehrkour 0.4 g/dL (0.2-0.5) 03/30/25 14:52 Gamma Globulins 1.0 g/dL (0.8-1.7) 03/30/25 14:52 Abnorm Protein Band 1 0.2 g/dL (NONE DETECTED) H 03/30/25 14:52 Lipase 11 U/L (13-60) L 03/29/25 16:10 Procalcitonin 0.76 ng/mL (0-0.5) H 04/01/25 04:48 TSH 2.03 uIU/mL (0.27-4.20) 04/01/25 04:48 Random Cortisol 10.66 ug/dL (2.47-19.5) 04/01/25 04:48 Urine Color Yellow (Yellow) 03/29/25 01:38 Urine Appearance Clear (CLEAR) 03/29/25 01:38 Urine pH 5.5 (5-7) 03/29/25 01:38 Ur Specific [place] 1.022 (1.005-1.030) 03/29/25 01:38 Urine Protein 4+ (Negative) A 03/29/25 01:38 Urine Glucose (UA) 2+ (Normal) H 03/29/25 01:38 Urine Ketones Negative (Negative) 03/29/25 01:38 Urine Blood 3+ (Negative) A 03/29/25 01:38 Urine Nitrate Negative (Negative) 03/29/25 01:38 Urine Bilirubin Negative (Negative) 03/29/25 01:38 Urine Urobilinogen 1.0 mg/dL (Negative) 03/29/25 01:38 Ur Leukocyte Esterase Negative (Negative) 03/29/25 01:38 Urine RBC 0-2 /hpf (0-2) 03/29/25 01:38 Urine WBC 0-5 /hpf (0-5) 03/29/25 01:38 Ur Squamous Epith Cells 0-5 /hpf (0-5) 03/29/25 01:38 Amorphous Sediment Not Reportable 03/29/25 01:38 Urine Bacteria Trace /hpf (NONE) 03/29/25 01:38 Hyaline Casts 4.11 /lpf 03/29/25 01:38 Ur Random Microalbumin 99 ug/dL (0-20) H 03/30/25 13:53 U Random Total Protein 157 mg/dL 03/30/25 13:53 Ur Random Sodium 39 mmol/L 03/30/25 13:53 Ur Random Potassium 44 mmol/L 03/30/25 13:53 Ur Random Chloride 15 mmol/L 03/30/25 13:53 Urine Creatinine 122 mg/dL (28-217) 03/30/25 13:53 Urine Creatinine 127 mg/dL (28-217) 03/30/25 13:53 Microalb/Creat Ratio 780 mg/dL (0-20) H 03/30/25 13:53 U Abnormal Prot Band 2 Not Reportable 03/30/25 14:52 U Abnormal Prot Band 3 Not Reportable 03/30/25 14:52 Urine HCG, Qual Negative (Negative) 03/29/25 01:38 Vancomycin Trough 22.9 ug/mL (10-15) H 03/30/25 22:04 Random Vancomycin 13.1 ug/mL (20.0-40.0) L 04/01/25 04:48 Urine Opiates Screen Positive ng/mL (Negative) H 03/29/25 21:28 Ur Barbiturates Screen Negative ng/mL (Negative) 03/29/25 21:28 Ur Phencyclidine Scrn Negative ng/mL (Negative) 03/29/25 21:28 Ur Amphetamines Screen Negative ng/mL (Negative) 03/29/25 21:28 U Benzodiazepines Scrn Negative ng/mL (Negative) 03/29/25 21:28 Urine Cocaine Screen Negative ng/mL (Negative) 03/29/25 21:28 U Marijuana (THC) Screen Positive ng/mL (Negative) H 03/29/25 21:28 Serum Ketones Negative (Negative) 03/29/25 16:10 Pro Electrophoresis Int See note 03/30/25 14:52 Serum Immunofixation Normal pattern. 03/30/25 14:52 MITCH Screen Negative (NEGATIVE) 03/30/25 14:52 Anti-ds DNA IgG Ab <1 IU/mL 03/30/25 14:52 Complement C3 143 mg/dL (90-180) 03/30/25 14:52 Complement C4 23 mg/dL (10-40) 03/30/25 14:52 Free [place] Light Chains 78.1 mg/L (3.3-19.4) H 03/30/25 14:52 Free [place] Light Chain 50.9 mg/L (5.7-26.3) H 03/30/25 14:52 Free [place]/Lambda Ratio 1.53 (0.26-1.65) 03/30/25 14:52 Influenza A (PCR) Negative (Negative) 03/29/25 01:00 Influenza Type B (PCR) Negative (Negative) 03/29/25 01:00 RSV (PCR) Negative (Negative) 03/29/25 01:00 SARS-CoV-2 (PCR) Negative (Negative) 03/29/25 01:00 Phospholip A2 Rec IFA Negative (NEGATIVE) 03/30/25 14:52 Phospholip A2 Rec TIRSO <4 RU/mL 03/30/25 14:52 Vitals Last Vital Signs Temp 97.5 F L 04/04/25 11:21 Pulse 93 04/04/25 11:21 Resp 19 H 04/04/25 16:20 BP 130/69 04/04/25 11:21 Pulse Ox 96 04/04/25 16:20 O2 Del Method Room Air 04/04/25 11:21 O2 Flow Rate 2 04/02/25 08:47 Discharge Plan Discharge Patient Disposition: Home Condition: Stable Prescriptions: New (DME) glucometer testing kit See Rx Instructions .Route .MEDSUPPLY Qty: 1 0RF Rx Instructions: lancets#100 strips#100 glucagon HCl [Glucagon (HCl) Emergency Kit] 1 mg recon soln 1 mg SUBCUT Q20M PRN (Reason: hypoglycemia) Qty: 1 0RF Rx Instructions: until target blood sugar attained Continued cetirizine 10 mg tablet 10 mg PO DAILY clopidogrel [Plavix] 75 mg Tablet 75 mg PO DAILY aspirin 81 mg Tablet,Delayed Release (Dr/Ec) 81 mg PO DAILY pantoprazole [Protonix] 40 mg Tablet,Delayed Release (Dr/Ec) 40 mg PO DAILY promethazine 25 mg suppository 25 mg GA Q4H PRN (Reason: nausea and vomiting) Qty: 12 2RF hyoscyamine sulfate [Levsin/SL] 0.125 mg tablet, sublingual 0.125 mg sublingual Q8H PRN (Reason: epigastric abdominal pain) Qty: 20 0RF tizanidine 4 mg tablet 4 mg PO TID PRN (Reason: muscle spasms) alprazolam [Xanax] 0.5 mg Tablet 0.5 mg PO TID PRN (Reason: Anxiety) Discontinued Humulin R Regular U-100 Insuln 100 unit/mL solution See Rx Instructions .ROUTE .COMPLEX Rx Instructions: inject 20 units subcut in AM, 10 units at noon, and 20 units at HS No Action Humulin R Regular U-100 Insuln 100 unit/mL solution 40 unit SUBCUT TID 90 Days Qty: 108 1RF albuterol sulfate [Ventolin HFA] 90 mcg/actuation HFA aerosol inhaler 2 puff INHALATION .Q4-6H PRN (Reason: Shortness Of Breath) oxycodone 5 mg tablet 7.5 mg PO Q6H PRN (Reason: Pain) Discharge Orders: Discharge Order (Routine); Ordered 04/04/25 Ordered By: Steve Baker Other Ambulatory Orders: Miscellaneous Procedure (Order) Location: None Selected Ordered By: Steve Baker Referrals: [facility] [Provider Group, Infectious Disease] - 05/10/25 10:00 am Referral Note: We have notified your physician's clinic of the need for a follow-up appointment to be scheduled. If you have not heard from them within the next 2 business days, please call them directly. [facility] [Outside] Referral Note: If you have any questions about your IV antibiotic call [facility] Infusion Center [Outside] - 04/11/25 2:30 pm Scout Bennett MD [Physician, General Surgery] - 04/13/25 8:15 am Shasta Solorzano FNP [Nurse Practitioner, Wound Care] - 04/07/25 8:15 am Referral Note: Karin Carlos MD [Physician, Endocrinology] - 04/08/25 10:30 am Referral Note: Joselo Burris MD [Primary Care Provider, Family Practice] - 04/06/25 11:20 am Discharge Diet: Cardiac Discharge Activity: Resume usual activity Patient Instructions: Insulin Lispro (By injection), Acute Wound Care (DC), PICC (Peripherally Inserted Central Catheter) (GEN), Opioid Safety, Post Anesthesia Care Activity Restrictions/Additional Instructions: Wound Orders Wound Number 1: Dressing change frequency: Daily Wound Cleansing: Saline Primary Wound Care Dressing: Hydrofera Blue ready Secondary Wound Care Dressing: Tegaderm Bathing/Showering/Hygiene: May shower with protection but do not get dressing wet. Off-Loading: Other (Limit ambulation) -Inject NovoLog 40 units 3 times daily with meals -Please monitor your blood sugars closely -Monitor your blood sugars 3 times daily as after meals -Please record your blood sugars, and a blood sugar log -If your blood sugar is greater than 500 go to the emergency room -If your blood sugar is less than 60 or at anytime you feel lightheaded or dizzy or diaphoretic or have chest palpitations check your blood sugar, and eat a hard candy or drink orange juice and go immediately to the emergency room -Remember hypoglycemia kills, so if his blood sugar is less than 60 we have to increase it by taking in a sugary meal such as a hard candy or orange juice and go to the emergency room -If you have any questions please call us where here to help - cefazolin 2 g IV every 8 hours for total of 6 weeks start date 03/29/2025 Discharge Attestations Time Spent in Discharge Care*: greater than 30 min Quality Metrics Clinical Quality Measures [ No reported AMI, CVA or VTE this stay] Coding Level of Care Code 50318 Total time (in minutes) for Discharge: 45 Diagnoses Staphylococcus aureus bacteremia R78.81; B95.61 Infected venous access port T80.219A
[2025-04-04] MEDS: cefTRIAXone 2,000 mg SDV 2000 MG IVP (17:38)
--- NOTE | 2025-04-04 18:21 | PC.NURSE ---
Discussed discharge with patient and spouse. Discussed new medications, all the follow up appointments. Medications delivered to bedside. Patient and spouse verbalized understanding.
== END 2025-04-04 18:36 | disposition home or self-care (01) | DRG 314 ==
LOC: ER 03-29 02:20 → MEDSURG 03-29 02:24
PROVIDERS: Emergency Medicine; Internal Medicine Cardiovascular Disease; Internal Medicine Nephrology; Student in an Organized Health Care Education/Training Program; Surgery; Admitting Provider Internal Medicine; Emergency Provider Emergency Medicine; PCP Family Medicine; Visit Provider Family Medicine
PROC: 0JPT3WZ Removal of Totally Implantable Vascular Access Device from Trunk Subcutaneous Tissue and Fascia, Percutaneous Approach (ICD-10-PCS; principal; 2025-03-29 13:40)
PROC: B24BZZ4 Ultrasonography of Heart with Aorta, Transesophageal (ICD-10-PCS; CPT 93312; principal; 2025-03-31 09:00)
DX: T80.219A Unspecified infection due to central venous catheter, initial encounter (principal); A41.9 Sepsis, unspecified organism; L03.116 Cellulitis of left lower limb; L03.115 Cellulitis of right lower limb; Z68.44 Body mass index [BMI] 60.0-69.9, adult; N17.9 Acute kidney failure, unspecified; B95.61 Methicillin susceptible Staphylococcus aureus infection as the cause of diseases classified elsewhere; E11.22 Type 2 diabetes mellitus with diabetic chronic kidney disease; E11.621 Type 2 diabetes mellitus with foot ulcer; L97.512 Non-pressure chronic ulcer of other part of right foot with fat layer exposed; E11.65 Type 2 diabetes mellitus with hyperglycemia; N18.9 Chronic kidney disease, unspecified; E66.01 Morbid (severe) obesity due to excess calories; M79.10 Myalgia, unspecified site; D69.6 Thrombocytopenia, unspecified; I07.1 Rheumatic tricuspid insufficiency; D63.1 Anemia in chronic kidney disease; E83.42 Hypomagnesemia; Z79.02 Long term (current) use of antithrombotics/antiplatelets; Z79.82 Long term (current) use of aspirin; Z79.4 Long term (current) use of insulin; Z79.891 Long term (current) use of opiate analgesic; Z89.411 Acquired absence of right great toe; Z89.421 Acquired absence of other right toe(s); Z87.11 Personal history of peptic ulcer disease
CPT/HCPCS: 36415; 36416; 36569; 36573; 36600; 71045; 71250; 73630; 74176; 76770; 80048; 80053; 80202; 80306; 81001; 81025; 82009; 82044; 82436; 82533; 82550; 82570; 82803; 82962; 83010; 83036; 83520; 83605; 83615; 83690; 83735; 83883; 84100; 84133; 84145; 84155; 84156; 84165; 84300; 84443; 84550; 85025; 85045; 85651; 86038; 86140; 86160; 86225; 86255; 86334; 87040; 87070; 87075; 87077; 87150; 87186; 87205; 87637; 93005; 93306; 93312; 93320; 93325; 96365; 96372; 96375; 99285; C1751; J0131; J0330; J0690; J0692; J0696; J1171; J1644; J1815; J1938; J2020; J2185; J2250; J2270; J2405; J2470; J2543; J2550; J2704; J3010; J3372; J3475; J3490; J7030; J7120; J9999; Q3014

== ENCOUNTER → 2025-04-08 10:48 | Outpatient (BNVA) | payer MEDICAID, SELFPAY | PROVIDERS: PCP Family Medicine; Visit Provider Internal Medicine | DX: E11.621 Type 2 diabetes mellitus with foot ulcer (principal); L97.509 Non-pressure chronic ulcer of other part of unspecified foot with unspecified severity; Z79.4 Long term (current) use of insulin; E78.2 Mixed hyperlipidemia | CPT/HCPCS: 99204 ==

== ENCOUNTER 2025-04-12 11:27 | Emergency (ER) | payer MEDICAID, SELFPAY ==
--- OUTSIDE RECORDS SUMMARY | 2025-04-12 11:32 | XMS_ITS | Referral Summary ---
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 Potassium 4.1 3.6 - 5.0 mmol/L LAB CHEMISTRY METHOD 02/09/2025 7:23 AM CDT [facility] Chloride 100(L) 101 - 111 mmol/L LAB CHEMISTRY METHOD 02/09/2025 7:23 AM CDT [facility] Total Carbon Dioxide 26 22 - 30 mmol/L LAB CHEMISTRY METHOD 02/09/2025 7:23 AM CDT [facility] Anion Gap 10 9 - 17 mmol/L LAB CHEMISTRY METHOD 02/09/2025 7:23 AM CDT [facility] eGFR 15(L) >=60 mL/min/1. 73 m2 LAB CHEMISTRY METHOD 02/09/2025 7:23 AM CDT [facility] Comment:High Risk of Kidney Failure Blood Venous blood specimen / Unknown Venipuncture / Unknown 02/09/2025 5:40 AM CDT 02/09/2025 6:37 AM CDT Yomi Tejeda MD LAB BLOOD ORDERABLES Final Resul t [facility] [address] [address] * (ABNORMAL) CBC auto differential (02/08/2025 5:31 AM CDT) Only the most recent of5 resultswithin the time period is included. White Blood Count 8.3 4.0 - 11.4 K/mm3 02/08/2025 6:29 AM T [facility] Red Blood Count 3.72(L) 3.93 - 5.22 M/mm3 02/08/2025 6:29 AM CDT [facility] Hemoglobin 10.3(L) 11.2 - 15.7 g/dL 02/08/2025 6:29 AM CDT [facility] Hematocrit 30.6(L) 34.1 - 44.9 % 02/08/2025 6:29 AM CDT [facility] Mean Cell Volume 82.1 81.6 - 97.4 fL 02/08/2025 6:29 AM T [facility] MEAN CORPUSCULAR HEMOGLOBIN 27.7 26.7 - 32.8 pg 02/08/2025 6:29 AM T [facility] Mean Corpuscular Hemoglobin Concentration 33.7 31.6 - 36.0 g/dL 02/08/2025 6:29 AM CDT [facility] RED CELL DISTRIBUTION WIDTH-SD 46.4 35.6 - 49.5 fl 02/08/2025 6:29 AM [facility] Platelet Count 153 150 - 450 K/mm3 02/08/2025 6:29 AM [facility] Mean Platelet Volume 8.7 7.0 - 10.2 fL 02/08/2025 6:29 AM [facility] ANC (AUTOMATED) 5.7 2.0 - 9.8 K/ul 02/08/2025 6:29 AM [facility] Lymphocytes % 21.2 10.1 - 46.5 % 02/08/2025 6:29 AM [facility] Monocytes % 7.7 3.2 - 12.9 % 02/08/2025 6:29 AM [facility] Neutrophils % 69.1 40.6 - 81.1 % 02/08/2025 6:29 AM [facility] Eosinophils % 1.7 0.0 - 4.2 % 02/08/2025 6:29 AM [facility] Basophils % 0.3 0.0 - 1.1 % 02/08/2025 6:29 AM [facility] Lymphocytes Absolute 1.8 0.6 - 3.6 K/uL 02/08/2025 6:29 AM [facility] Monocytes Absolute 0.6 0.3 - 1.1 K/uL 02/08/2025 6:29 AM [facility] Neutrophils Absolute 5.7 2.0 - 9.8 K/uL 02/08/2025 6:29 AM [facility] Eosinophils Absolute 0.10 0.00 - 0.60 K/uL 02/08/2025 6:29 AM [facility] Basophils Absolute 0.0 0.0 - 0.1 1000/uL 02/08/2025 6:29 AM [facility] Nucleated RBC % 0.3(H) 0.0 - 0.2 % 02/08/2025 6:29 AM [facility] Nucleated RBC Absolute 0.02 0.00 - 0.03 K/ul 02/08/2025 6:29 AM [facility] Blood Venous blood specimen / Unknown Venipuncture / Unknown 02/08/2025 5:31 AM CDT 02/08/2025 6:17 AM CDT Roberto Moody MD LAB BLOOD ORDERABLES F inal Result Performing Organization Address [facility] [[email or web address]] Co de Phone Number [facility] [address] [phone] * Magnesium (02/08/2025 5:31 AM CDT) Only the most recent of4 resultswithin the time period is included. Magnesium 1.9 1.7 - 2.8 mg/dL LAB CHEMISTRY METHOD 02/08/2025 6:48 AM CDT [facility] Blood Venous blood specimen / Unknown Venipuncture / Unknown 02/08/2025 5:31 AM CDT 02/08/2025 6:18 AM CDT Roberto Moody MD LAB BLOOD ORDERABLES F inal Result Performing Organization Address City/[facility] [[email or web address]] Co de Phone Number [facility] [address] [place] [phone] * US retroperitoneum complete (02/07/2025 5:10 PM CDT) Anatomical Region Laterality Modality Body Ultrasound 02/08/2025 7:02 AM CDT Narrative 02/08/2025 7:04 AM CDT EXAMINATION: COMPLETE RENAL SONOGRAM HISTORY: Acute kidney injury COMPARISON: 10/14/2017 FINDINGS: Kidneys: The echogenicity of both kidneys is normal. The kidneys are normal in size. The right kidney measures 11.5 cm in length, and the left, 14.1 cm in length. There is no hydronephrosis in either kidney. There are no renal calculi visualized. Simple cyst measuring 1.5 cm on the left. In addition on the left there is a column of Odilon. Bladder: The urinary bladder is normal. Ureteral jets are not visualized. IMPRESSION: Normal kidneys. No hydronephrosis. Electronically signed on 02/08/2025 7:04 AM by: Cornelius Ontiveros MD Procedure Note Cornelius Ontiveros MD - 02/08/2025 EXAMINATION: COMPLETE RENAL SONOGRAM HISTORY: Acute kidney injury COMPARISON: 10/14/2017 FINDINGS: Kidneys: The echogenicity of both kidneys is normal. The kidneys arenormal in size. The right kidney measures 11.5 cm in length, and theleft, 14.1 cm in length. There is no hydronephrosis in either kidney.There are no renal calculi visualized. Simple cyst measuring 1.5 cm on theleft. In addition on the left there is a column of Odilon. Bladder: The urinary bladder is normal. Ureteral jets are notvisualized. IMPRESSION: Normal kidneys. No hydronephrosis. Electronically signed on 02/08/2025 7:04 AM by: Cornelius Ontiveros MD Roberto Moody MD IMG US PROCEDURES Otilia l Result * Electrolyes, Urine (02/07/2025 2:24 PM CDT) Sodium, Urine, Random 17 mmol/L LAB CHEMISTRY METHOD 02/07/2025 2:37 PM CDT [facility] Potassium, Urine, Random 53.8 mmol/L LAB CHEMISTRY METHOD 02/07/2025 2:37 PM CDT [facility] Chloride, Ur <10 mmol/L LAB CHEMISTRY METHOD 02/07/2025 2:37 PM CDT [facility] Urine Voided urine specimen / Unknown Non-blood Collection / Unknown 02/07/2025 2:24 PM CDT 02/07/2025 2:29 PM CDT Roberto Moody MD LAB URINE ORDERABLES F inal Result [facility] [address] [address] * Creatinine, urine, random (02/07/2025 2:24 PM CDT) Creatinine Urine 156 13 - 900 mg/dL LAB CHEMISTRY METHOD 02/07/2025 5:17 PM CDT [facility] Urine Urine specimen obtained by clean catch procedure / Unknown Non-blood Collection / Unknown 02/07/2025 2:24 PM CDT 02/07/2025 4:[address] [facility] Roberto Moody MD LAB URINE ORDERABLES F inal Result Performing Organization Address City/[facility]/ZIP Co de Phone Number [facility] [address] [address] * , Urine (02/06/2025 4:23 PM CDT) Only the most recent of3 resultswithin the time period is included. URINE PREG TEST Negative Negative 02/06/2025 4:48 PM CDT [facility] Urine Urine specimen obtained by clean catch procedure / Unknown Non-blood Collection / Unknown 02/06/2025 4:23 PM CDT 02/06/2025 4:[address] [facility] Roberto Moody MD LAB URINE ORDERABLES F inal Result Performing Organization Address City/[facility]/ZIP Co de Phone Number [facility] [address] [place] [phone] * ECG 12 lead (02/06/2025 9:53 AM CDT) Only the most recent of2 resultswithin the time period is included. 02/06/2025 9:53 AM CDT Narrative [facility] - 02/06/2025 9:53 AM CDT Interpretive Statements Sinus tachycardia Nonspecific T abnormalities, lateral leads Electronically Signed On 02-06-2025 09:53:38 CDT by Rolando Ordaz MD Procedure Note Rolando Ordaz MD - 02/06/2025 Interpretive Statements Sinus tachycardia Nonspecific T abnormalities, lateral leads Electronically Signed On 02-06-2025 09:53:38 CDT by Rolando Ordaz MD Joselo Gann DO ECG ORDERABLES Edited Resul t - Final Performing Organization Address City/[facility]/ZIP Co de Phone Number [facility] [address] [address] * Lavender Top (02/06/2025 9:05 AM CDT) Extra Tube Hold for add-ons. 02/06/2025 2:01 PM CDT [facility] Comment:Auto resulted. Blood Venous blood specimen / Unknown Venipuncture / Unknown 02/06/2025 9:05 AM CDT 02/06/2025 9:09 AM CDT Roberto Moody MD LAB BLOOD ORDERABLES F inal Result Performing Organization Address [facility] Co de Phone Number [facility] [address] [place] [phone] * (ABNORMAL) Hemoglobin A1c (02/06/2025 9:05 AM CDT) Hemoglobin A1c 10.0(H) % 02/08/2025 7:37 AM CDT [facility] Estimated Average Glucose 240 mg/dL 02/08/2025 7:37 AM CDT [facility] Blood Venous blood specimen / Unknown Venipuncture / Unknown 02/06/2025 9:05 AM CDT 02/06/2025 9:09 AM CDT Narrative [facility] - 02/08/2025 7:37 AM CDT HgbA1C ranges recommended by the [place] [employer] (ADA): >6.5% Diabetic 5.7-6.4% Pre-Diabetic <5.7% Non-Diabetic Roberto Moody MD LAB BLOOD ORDERABLES F inal Result Performing Organization Address City/[facility] [[email or web address]] Co de Phone Number [facility] [address] [phone] * (ABNORMAL) Basic Metabolic Panel (02/06/2025 9:05 AM CDT) Only the most recent of2 resultswithin the time period is included. Glucose 482(H) 70 - 100 mg/dL LAB CHEMISTRY METHOD 02/06/2025 9:32 AM CDT [facility] BUN 34(H) 7 - 17 mg/dL LAB CHEMISTRY METHOD 02/06/2025 9:32 AM CDT [facility] Creatinine 2.03(H) 0.52 - 1.04 mg/dl LAB CHEMISTRY METHOD 02/06/2025 9:32 AM CDT [facility] BUN/Creatinine Ratio 17 12 - 17 LAB CHEMISTRY METHOD 02/06/2025 9:32 AM CDT [facility] Sodium 129(L) 135 - 145 mmol/L LAB CHEMISTRY METHOD 02/06/2025 9:32 AM CDT [facility] Potassium 3.9 3.6 - 5.0 mmol/L LAB CHEMISTRY METHOD 02/06/2025 9:32 AM CDT [facility] Chloride 95(L) 101 - 111 mmol/L LAB CHEMISTRY METHOD 02/06/2025 9:32 AM CDT [facility] Total Carbon Dioxide 26 22 - 30 mmol/L LAB CHEMISTRY METHOD 02/06/2025 9:32 AM CDT [facility] Anion Gap 12 9 - 17 mmol/L LAB CHEMISTRY METHOD 02/06/2025 9:32 AM CDT [facility] Calcium 9.1 8.2 - 10.2 mg/dL LAB CHEMISTRY METHOD 02/06/2025 9:32 AM CDT [facility] eGFR 30(L) >=60 mL/min/1. 73 m2 LAB CHEMISTRY METHOD 02/06/2025 9:32 AM CDT [facility] Comment:Moderate Risk of Chr onic Kidney Disease Blood Venous blood specimen / Unknown Venipuncture / Unknown 02/06/2025 9:05 AM CDT 02/06/2025 9:09 AM CDT Roberto Moody MD LAB BLOOD ORDERABLES F inal Result [facility] [address] [address] * XR chest 1 view (02/05/2025 11:25 PM CDT) Anatomical Region Laterality Modality Body Digital Radiogra phy Narrative 02/05/2025 11:57 PM CDT Portable chest AP History: Chest pain nausea Findings: Left-sided dialysis catheter. Normal heart size. Lungs are clear and no pneumothorax or pleural effusion is seen. Impression: No acute process Procedure Note Angel Mcduffie MD - 02/05/2025 Portable chest AP History: Chest pain nausea Findings: Left-sided dialysis catheter. Normal heart size. Lungs are clearand no pneumothorax or pleural effusion is seen. Impression: No acute process us Joselo Gann DO IMG XR PROCEDURES Final Resu lt * CT angiogram chest pulmonary embolism w IV contrast (02/05/2025 11:04 PM CDT) Anatomical Region Laterality Modality Body Computed Tomogra phy 02/05/2025 10:3 6 PM CDT Narrative 02/05/2025 11:[address] Angiogram Chest History: 49 y.o female with a medical hx of GERD, HTN, morbid obesity, DM 2, hyperkalemia, CKD, CAD, osteomyelitis, CHF, and a surgical hx of multiple cardiac catheterizations (last one on 03/13/24), presenting to the ED for evaluation of CP, nausea, and diaphoresis since onset 0930 today. elevated D-dimer, CP, immobility (Hx) Technique: Angiographic images of the chest were obtained with coronal and sagittal and MIP reconstructions. Findings: Upper abdomen is unremarkable. Heart size is normal. Diffuse coronary artery calcification. No adenopathy. Lungs are clear. No pneumothorax or pleural effusion. No pulmonary embolus. Impression: No acute process Procedure Note Angel Mcduffie MD - 02/05/2025 CT Angiogram Chest History: 49 y.o female with a medical hx of GERD, HTN, morbid obesity, DM2, hyperkalemia, CKD, CAD, osteomyelitis, CHF, and a surgical hx of multiple cardiac catheterizations (last one on 03/13/24), presenting to the ED for evaluation of CP, nausea, and diaphoresis since onset 929 today. elevated D-dimer, CP, immobility (Hx) Technique: Angiographic images of the chest were obtained with coronal and sagittal and MIP reconstructions. Findings: Upper abdomen is unremarkable. Heart size is normal. Diffuse coronary artery calcification. No adenopathy. Lungs are clear. Nopneumothorax or pleural effusion. No pulmonary embolus. Impression: No acute process us Joselo Gnan DO IMG CT PROCEDURES Final Resu lt * CT abdomen pelvis wo IV contrast (02/05/2025 11:01 PM CDT) Only the most recent of2 resultswithin the time period is included. Anatomical Region Laterality Modality Body Computed Tomogra phy 02/05/2025 10:3 5 PM CDT Narrative 02/05/2025 11:36 PM CDT EXAM: CT Abdomen and Pelvis Without IV contrast CLINICAL HISTORY: 49 y.o female with a medical hx of GERD, HTN, morbid obesity, DM 2, hyperkalemia, CKD, CAD, osteomyelitis, CHF, and a surgical hx of multiple cardiac catheterizations (last one on 03/13/24), presenting to the ED for evaluation of CP, nausea, and diaphoresis since onset 929 today. N/V abd pain TECHNIQUE: Axial computed tomography images of the abdomen and pelvis without intravenous contrast. CONTRAST: No IV contrast. COMPARISON: 01/12/2025 FINDINGS: LUNG BASES: The lung bases appear clear. No pleural effusions are seen. LIVER: No suspicious hepatic lesion. GALLBLADDER AND BILE DUCTS: Gallbladder surgically absent. PANCREAS: Unremarkable. SPLEEN: Unremarkable. ADRENAL GLANDS: Stable 2.1 cm right adrenal nodule. KIDNEYS, URETERS, AND BLADDER: No renal stone or hydronephrosis. STOMACH AND BOWEL: Unremarkable appearance of the stomach and bowel. No evidence of bowel obstruction. No evidence suggesting enteritis or colitis. APPENDIX: No evidence of acute appendicitis on CT examination. PERITONEUM: No free fluid. No free air. LYMPH NODES: No lymphadenopathy is evident. REPRODUCTIVE: Unremarkable as visualized. VASCULATURE: Aorta is atherosclerotic but nonaneurysmal. BONES: No aggressive appearing osseous lesion. No acute osseous pathology evident. IMPRESSION: 1. No acute finding in the abdomen or pelvis. 2. Stable 2.1 cm right adrenal nodule. Procedure Note Filomena Daly MD - 02/05/2025 EXAM: CT Abdomen and Pelvis Without IV contrast CLINICAL HISTORY: 49 y.o female with a medical hx of GERD, HTN, morbid obesity, DM 2, hyperkalemia, CKD, CAD, osteomyelitis, CHF, and a surgical hx of multiple cardiac catheterizations (last one on 03/13/24), presenting to the ED for evaluation of CP, nausea, and diaphoresis since onset 929 today. N/V abdpain TECHNIQUE: Axial computed tomography images of the abdomen and pelvis withoutintravenous contrast. CONTRAST: No IV contrast. COMPARISON: 01/12/2025 FINDINGS: LUNG BASES: The lung bases appear clear. No pleural effusions are seen. LIVER: No suspicious hepatic lesion. GALLBLADDER AND BILE DUCTS: Gallbladder surgically absent. PANCREAS: Unremarkable. SPLEEN: Unremarkable. ADRENAL GLANDS: Stable 2.1 cm right adrenal nodule. KIDNEYS, URETERS, AND BLADDER: No renal stone or hydronephrosis. STOMACH AND BOWEL: Unremarkable appearance of the stomach and bowel. No evidence of bowel obstruction. No evidence suggesting enteritis or colitis. APPENDIX: No evidence of acute appendicitis on CT examination. PERITONEUM: No free fluid. No free air. LYMPH NODES: No lymphadenopathy is evident. REPRODUCTIVE: Unremarkable as visualized. VASCULATURE: Aorta is atherosclerotic but nonaneurysmal. BONES: No aggressive appearing osseous lesion. No acute osseous pathologyevident. IMPRESSION: 1. No acute finding in the abdomen or pelvis. 2. Stable 2.1 cm right adrenal nodule. Joselo Gann DO IM CT PROCEDURES Final Resu lt * (ABNORMAL) 2 Hour High Sensitivity Troponin (02/05/2025 11:00 PM CDT) High Sensitivity Troponin I 80(H) 3 - 54 ng/L ng/L LAB CHEMISTRY METHOD 02/05/2025 11:33 PM CDT [facility] HS Troponin Delta <7 <20 LAB CHEMISTRY METHOD 02/05/2025 11:33 PM CDT [facility] Comment: <7 negative >/= 20 significant 7-20 indeterminate Blood Venous blood specimen / Unknown Existing Catheter / Unknown 02/05/2025 11:00 PM CDT 02/05/2025 11:07 PM CDT Joselo Gann DO LAB BLOOD ORDERABLES Final R esult [facility] [address] [address] * (ABNORMAL) Urinalysis (02/05/2025 11:00 PM CDT) Only the most recent of2 resultswithin the time period is included. COLOR URINE Light Yellow Yellow LAB URINALYSIS - AUTOMATED METHOD 02/05/2025 11:24 PM CDT [facility] CLARITY URINE Clear Clear LAB URINALYSIS - AUTOMATED METHOD 02/05/2025 11:24 PM CDT [facility] GLUCOSE URINE >1000(A) Negative mg/dL LAB URINALYSIS - AUTOMATED METHOD 02/05/2025 11:24 PM CDT [facility] BILIRUBIN URINE Negative Negative LAB URINALYSIS - AUTOMATED METHOD 02/05/2025 11:24 PM CDT [facility] KETONE URINE Trace(A) Negative mg/dL LAB URINALYSIS - AUTOMATED METHOD 02/05/2025 11:24 PM CDT [facility] Specific [place], Urine 1.019 1.001 - 1.035 LAB URINALYSIS - AUTOMATED METHOD 02/05/2025 11:24 PM CDT [facility] pH, Urine 6.5 5.0 - 9.0 LAB URINALYSIS - AUTOMATED METHOD 02/05/2025 11:24 PM CDT [facility] PROTEIN URINE 300(A) Negative mg/dL LAB URINALYSIS - AUTOMATED METHOD 02/05/2025 11:24 PM CDT [facility] Urobilinogen Negative Negative mg/dL LAB URINALYSIS - AUTOMATED METHOD 02/05/2025 11:24 PM CDT [facility] Nitrite, Urine Negative Negative LAB URINALYSIS - AUTOMATED METHOD 02/05/2025 11:24 PM CDT [facility] Occult Blood, Urine 0.06(A) Negative LAB URINALYSIS - AUTOMATED METHOD 02/05/2025 11:24 PM CDT [facility] RBC, Urine 1 0 - 2 /HPF LAB URINALYSIS - AUTOMATED METHOD 02/05/2025 11:24 PM CDT [facility] WBC, Urine <1 0 - 4 /HPF LAB URINALYSIS - AUTOMATED METHOD 02/05/2025 11:24 PM CDT [facility] Squamous Epithelial, Urine 1 <=10 /HPF LAB URINALYSIS - AUTOMATED METHOD 02/05/2025 11:24 PM CDT [facility] Urine Urine specimen obtained by clean catch procedure / Unknown Non-blood Collection / Unknown 02/05/2025 11:00 PM CDT 02/05/2025 11:07 PM CDT Joselo Gann DO LAB URINE ORDERABLES Final R esult Performing Organization Address City/[facility]/ZIP Co de Phone Number [facility] [address] [place] [phone] * (ABNORMAL) High Sensitivity Troponin (02/05/2025 9:30 PM CDT) [facility] High Sensitivity Troponin I 90(H) 3 - 54 ng/L ng/L LAB CHEMISTRY METHOD 02/05/2025 10:12 PM CDT [facility] Blood Venous blood specimen / Unknown Existing Catheter / Unknown 02/05/2025 9:30 PM CDT 02/05/2025 9:39 PM CDT Joselo Gann DO LAB BLOOD ORDERABLES Final R esult Performing Organization Address City/[facility]/ZIP Co de Phone Number [facility] [address] [place] [phone] * Paulino Top (02/05/2025 9:30 PM CDT) Only the most recent of2 resultswithin the time period is included. Pathologist [facility] Extra Tube Hold for add-ons. 02/06/2025 2:01 AM CDT [facility] Comment:Auto resulted. Blood Venous blood specimen / Unknown Existing Catheter / Unknown 02/05/2025 9:30 PM CDT 02/05/2025 9:38 PM CDT Joselo Gann DO LAB BLOOD ORDERABLES Final R esult Performing Organization Address City/[facility]/ZIP Co de Phone Number [facility] [address] [phone] * Red Top (02/05/2025 9:30 PM CDT) Only the most recent of2 resultswithin the time period is included. Extra Tube Hold for add-ons. 02/06/2025 2:01 AM CDT [facility] Comment:Auto resulted. Blood Venous blood specimen / Unknown Venipuncture / Unknown 02/05/2025 9:30 PM CDT 02/05/2025 9:38 PM CDT Joselo Gann DO LAB BLOOD ORDERABLES Final R esult Performing Organization Address [facility] [[email or web address]] Co de Phone Number [facility] [address] [place] [phone] * Light Blue Top (02/05/2025 9:30 PM CDT) Only the most recent of2 resultswithin the time period is included. Extra Tube Hold for add-ons. 02/06/2025 2:01 AM CDT [facility] Comment:Auto resulted. Blood Venous blood specimen / Unknown Existing Catheter / Unknown 02/05/2025 9:30 PM CDT 02/05/2025 9:37 PM CDT Joselo Gann DO LAB BLOOD ORDERABLES Final R esult [facility] [address] [address] * (ABNORMAL) D-dimer, quantitative (02/05/2025 9:30 PM CDT) D-DIMER QUANTITATIVE 0.82(H) <=0.50 ug/mlFEU LAB COAGULATION METHOD 02/05/2025 9:58 PM CDT [facility] Blood Venous blood specimen / Unknown Existing Catheter / Unknown 02/05/2025 9:30 PM CDT 02/05/2025 9:37 PM CDT Joselo Gann DO LAB BLOOD ORDERABLES Final R esult Performing Organization Address [facility] de Phone Number [facility] [address] [place] [phone] * (ABNORMAL) B-type natriuretic peptide (02/05/2025 9:30 PM CDT) [facility] NT-proBNP 2,115(H) 0 - 450 pg/mL LAB CHEMISTRY METHOD 02/05/2025 10:08 PM CDT [facility] Blood Venous blood specimen / Unknown Existing Catheter / Unknown 02/05/2025 9:30 PM CDT 02/05/2025 9:37 PM CDT Joselo Gann DO LAB BLOOD ORDERABLES Final R [facility] Performing Organization Address [facility] de Phone Number [facility] [address] [place] [phone] * Lipase (02/05/2025 9:30 PM CDT) Only the most recent of2 resultswithin the time period is included. [facility] Lipase 21 13 - 75 U/L LAB CHEMISTRY METHOD 02/05/2025 10:07 PM CDT [facility] Comment:Lipase reference ran ge has been updated to better align with national standards. Previous Lipase reference range was 73-393 U/L Blood Venous blood specimen / Unknown Existing Catheter / Unknown 02/05/2025 9:30 PM CDT 02/05/2025 9:37 PM CDT Joselo Gann DO LAB BLOOD ORDERABLES Final R esult Performing Organization Address [facility]/State/ZIP Co de Phone Number [facility] [address] [address] * Lactic Acid, Plasma (02/05/2025 9:30 PM CDT) [facility] Lactic Acid 1.2 0.7 - 2.1 mmol/L LAB CHEMISTRY METHOD 02/05/2025 10:09 PM CDT [facility] Blood Venous blood specimen / Unknown Existing Catheter / Unknown 02/05/2025 9:30 PM CDT 02/05/2025 9:38 PM CDT Joselo Gann DO LAB BLOOD ORDERABLES Final R esult [facility] [address] [address] * (ABNORMAL) Comprehensive metabolic panel (02/05/2025 9:30 PM CDT) Only the most recent of2 resultswithin the time period is included. [facility] Glucose 373(H) 70 - 100 mg/dL LAB CHEMISTRY METHOD 02/05/2025 10:08 PM CDT [facility] BUN 29(H) 7 - 17 mg/dL LAB CHEMISTRY METHOD 02/05/2025 10:08 PM CDT [facility] Creatinine 1.54(H) 0.52 - 1.04 mg/dl LAB CHEMISTRY METHOD 02/05/2025 10:08 PM CDT [facility] BUN/Creatinine Ratio 19(H) 12 - 17 LAB CHEMISTRY METHOD 02/05/2025 10:08 PM CDT [facility] Sodium 137 135 - 145 mmol/L LAB CHEMISTRY METHOD 02/05/2025 10:08 PM CDT [facility] Potassium 4.3 3.6 - 5.0 mmol/L LAB CHEMISTRY METHOD 02/05/2025 10:08 PM CDT [facility] Chloride 104 101 - 111 mmol/L LAB CHEMISTRY METHOD 02/05/2025 10:08 PM CDT [facility] Total Carbon Dioxide 24 22 - 30 mmol/L LAB CHEMISTRY METHOD 02/05/2025 10:08 PM CDT [facility] Anion Gap 13 9 - 17 mmol/L LAB CHEMISTRY METHOD 02/05/2025 10:08 PM CDT [facility] Calcium 8.8 8.2 - 10.2 mg/dL LAB CHEMISTRY METHOD 02/05/2025 10:08 PM CDT [facility] Total Protein, Serum 7.2 5.6 - 8.5 g/dL LAB CHEMISTRY METHOD 02/05/2025 10:08 PM CDT [facility] Albumin 3.1(L) 3.5 - 5.2 g/dL LAB CHEMISTRY METHOD 02/05/2025 10:08 PM CDT [facility] GLOBULIN 4.1(H) 2.1 - 3.8 g/dL LAB CHEMISTRY METHOD 02/05/2025 10:08 PM CDT [facility] A/G Ratio 0.8(L) 1.4 - 1.7 LAB CHEMISTRY METHOD 02/05/2025 10:08 PM CDT [facility] Bilirubin, Total 0.5 0.1 - 1.3 mg/dL LAB CHEMISTRY METHOD 02/05/2025 10:08 PM CDT [facility] Alkaline Phosphatase 77 45 - 117 U/L LAB CHEMISTRY METHOD 02/05/2025 10:08 PM CDT [facility] ALT (SGPT) 21 11 - 58 U/L LAB CHEMISTRY METHOD 02/05/2025 10:08 PM CDT [facility] AST (SGOT) 15 9 - 55 U/L LAB CHEMISTRY METHOD 02/05/2025 10:08 PM CDT [facility] eGFR 42(L) >=60 mL/min/1. 73 m2 LAB CHEMISTRY METHOD 02/05/2025 10:08 PM CDT [facility] Comment:Moderate Risk of Chr onic Kidney Disease Blood Venous blood specimen / Unknown Existing Catheter / Unknown 02/05/2025 9:30 PM CDT 02/05/2025 9:39 PM CDT us Joselo Gann DO LAB BLOOD ORDERABLES Final R esult [facility] [address] [address] * Procalcitonin (01/12/2025 8:37 PM CDT) PROCALCITONIN 0.04 <=0.07 ng/mL 01/13/2025 7:51 AM CDT [facility] Blood Venous blood specimen / Unknown Existing Catheter / Unknown 01/12/2025 8:37 PM CDT 01/12/2025 8:43 PM CDT Yomi Tejeda MD LAB BLOOD ORDERABLES Final Resul t Performing Organization Address [facility] de Phone Number [facility] [address] [place] [id number] * Occult Blood Stool (01/03/2025 2:26 PM CDT) Occult Blood, Stool Negative Negative 01/03/2025 2:36 PM CDT [facility] Stool Rectal contents / Unknown Non-blood Collection / Unknown 01/03/2025 2:26 PM CDT 01/03/2025 2:30 PM CDT Ibrahima Ojeda DO LAB BODY FLUIDS AND STOOLS OR DERABLES Final Result Performing Organization Address [facility] de Phone Number [facility] [address] [place] [phone] * TRANSTHORACIC ECHO (TTE) LIMITED 2D W/ CONTRAST (09/05/2024 3:46 PM TANKAGE SUPERVISOR) Anatomical Region Laterality Modality Echocardiography 09/05/2024 3:12 PM TANKAGE SUPERVISOR Narrative 09/06/2024 8:01 AM TANKAGE SUPERVISOR Demographics Patient name: SCOTTIE RIVERA Gender: Female Age: 49 year(s) Date of : 1975 BMI: 70.59 kg/m^2 Height: 170 cm BSA: 2.85 m^2 Weight: 204 kg Ethnicity: None Race: Procedure Information Procedure type: Echo Proc. sub type: TTE procedure: Transthoracic Echo Limited TTE. Start date time: 09/05/2024 3:12 PM Accession no: [id number] Patient status: Routine Visit no: [id number] Contrast medium: Definity Study location: Portable HR: 83 bpm Technical quality: Technically difficult In/Out patient: Inpatient Limitation reason: Body habitus Blood pressure: 146 / 56 mmHg Room no: 253N Procedure Fish Hatchery Manager: Ирина Ivey Interpreting physician: Orlin Marshall MD Physician Conclusions Summary: Limited Echo Definity contrast 0.30 ml was used to enhance the 2-D images. Contrast was used because two or more left ventricular wall segments were not well visualized. 1. Normal left ventricular size and function with an estimated LVEF of 55-60%. 2. The IVC is 2.4 cm in diameter and collapses less than 50% with inspiration which is consistent with a mean right atrial pressure of 15 mmHg . 3. No evidence of pericardial effusion. There has been no significant change as compared to study dated 08/15/24. Indications Chest pain. Findings Left ventricle Normal left ventricular size and function with an estimated LVEF of 55-60%. summary: Definity contrast 0.30 ml was used to enhance the 2-D images. Contrast was used because two or more left ventricular wall segments were not well visualized. Aorta/Great vessels The IVC is 2.4 cm in diameter and collapses less than 50% with inspiration which is consistent with a summary: mean right atrial pressure of 15 mmHg . Pericardial summary: No evidence of pericardial effusion. Left Ventricle Diastolic dimension: 5.55 cm (3.8 - 5.2 cm) Systolic dimension: 3.97 cm (2.2 - 3.5 cm) 2D septum diastolic: 1.08 cm (0.6 - 0.9 cm) FS: 28 % 2D post wall diastolic: 1.14 cm (0.6 - 0.9 cm) LV mass (ASE formula): 248.66 g (67 - 162 g) LV mass index: 87.21 g/m^2 RWT: 0.41 LV M-Mode LV Ejection Fraction LVEDV : 150.5 ml (46 - 106 ml) LVESV : 68.8 ml (14 - 42 ml) LVEDVI Teichholz: 52.78 ml/m^2 LVESVI Teichholz: 24.13 ml/m^2 (8 - 24 ml/m^2) EF : 54 % LV 3D/Strain Right Ventricle Diastolic dimension: 2.75 cm Left Atrium LA diameter (2D): 4.4 cm (2.7 - 3.8 cm) Procedure Note Rolando Ordaz MD - 09/06/2024 Demographics Patient name: SCOTTIE Lima ID: [id number] Gender: FemaleAge: 49 year(s) Date of : 1975BMI: 70.59 kg/m^2 Height: 170 cmBSA: 2.85 m^2 Weight: 204 kgEthnicity: None Race: Procedure Information Procedure type: Echo Proc. sub type: TTE procedure: Transthoracic Echo Limited TTE. Start date time: 09/05/2024 3:12 PMAccession no: [id number] Patient status: RoutineVisit no: [id number] Contrast medium: DefinityStudy location: Portable HR: 83 bpmTechnical quality: Technically difficult In/Out patient: InpatientLimitation reason: Body habitus Blood pressure: 146 / 56 mmHg Room no: 253N Procedure Fish Hatchery Manager: Ирина Ivey Interpreting physician: Orlin Marshall MD Physician Conclusions Summary: Limited Echo Definity contrast 0.30 ml was used to enhancethe 2-D images. Contrast was used because two or more left ventricular wall segments were not wellvisualized. 1. Normal left ventricular size and functionwith an estimated LVEF of 55-60%. 2. The IVC is 2.4 cm in diameter and collapsesless than 50% with inspiration which is consistent with a mean right atrial pressure of 15 mmHg . 3. No evidence of pericardial effusion. There has been no significant change ascompared to study dated 08/15/24. Indications Chest pain. Electronically signed by Orlin Marshall MD (Interpreting physician) on09/06/2024 at 8:01 AM Findings Left ventricle Normal left ventricular size and functionwith an estimated LVEF of 55-60%. summary: Definity contrast 0.30 ml was used toenhance the 2-D images. Contrast was used because two or more left ventricular wall segments werenot well visualized. Aorta/Great vessels The IVC is 2.4 cm in diameter andcollapses less than 50% with inspiration which is consistent with a summary: mean right atrial pressure of 15 mmHg . Pericardial summary: No evidence of pericardial effusion. Left Ventricle Diastolic dimension: 5.55 cm (3.8 - 5.2 cm)Systolic dimension: 3.97 cm (2.2 - 3.5 cm) 2D septum diastolic: 1.08 cm (0.6 - 0.9 cm)FS: 28 % 2D post wall diastolic: 1.14 cm (0.6 - 0.9 cm) LV mass (ASE formula): 248.66 g (67 - 162 g) LV mass index: 87.21 g/m^2 RWT: 0.41 LV M-Mode LV Ejection Fraction LVEDV : 150.5 ml (46 - 106 ml)LVESV : 68.8 ml (14 - 42 ml) LVEDVI Teichholz: 52.78 ml/m^2LVESVI Teichholz: 24.13 ml/m^2 (8 - 24 ml/m^2) EF : 54 % LV 3D/Strain Right Ventricle Diastolic dimension: 2.75 cm Left Atrium LA diameter (2D): 4.4 cm (2.7 - 3.8 cm) Result [facility] CV ECHO PROCEDURES Final Result from Last 3 Months or Most Recently Relevant to Health Maintenance Additional Health Concerns Infection Onset Date Last Indicated MRSA Comment:03/22/2017 MRSA - lt foot wound ([facility]) 03/23/2017 MRSA - bone lt 5th metatarsal ([facility]) 03/22/2017 1 10/26/2021 MDRO-GNB Comment:03/22/2017 MDRO-GNB - Morganella morganii - lt foot wound ([facility]) 03/23/2017 MDRO-GNB - Morganella morganii - bone from left foot ([facility]) 04/20/2017 MDRO-GNB - Morganella morganii - lt foot wound ([facility]) 03/22/2017 01/13/2025 Insurance [employer] Advance Directives For more information, please contact: [phone] (7:30 AM - 5PM [facility], 7 days a week) * Full Code (Latest Code Status on File) Date Activated Date Inactivated Comments 02/06/2025 1:33 AM 02/09/2025 3:54 PM * Full Code Date Activated Date Inactivated Comments 01/13/2025 9:17 AM 01/15/2025 12:57 AM * Full Code Date Activated Date Inactivated Comments 01/04/2025 1:28 AM 01/05/2025 3:50 PM * Full Code Date Activated Date Inactivated Comments 07/28/2024 10:36 PM 09/09/2024 5:13 PM * Full Code Date Activated Date Inactivated Comments 05/08/2024 11:15 AM 05/11/2024 6:32 PM Care Teams Wheel Truing Machine Tender Relationship Specialty Start Date End Date Ashtyn Fournier NP [address] [place] [address] PCP - General Family Medicine 01/06/25
--- OUTSIDE RECORDS SUMMARY | 2025-04-12 11:32 | XMS_ITS | Encounter Summary ---
Author Organization [facility] Address [address] [place] [phone] Phone Care Team Providers Care Project Estimator Name Role Phone Ashtyn Fournier AD OPERATIONS ASSOCIATE Primary Care Provider + [phone] System, Provider Not In DO Primary Care Provider Ashtyn Fournier AD OPERATIONS ASSOCIATE Primary Care Provider + [phone] Reason for Visit * Reason Onset Date Comments RP call back 09/26/2023 Encounter Details Date Type Department Care Team (Late st Contact Info) Description 09/26/2023 Telephone [facility] [address] [place] [phone] Mekhi Brannon, [facility] [address] [place] [phone] RP call back Social History Tobacco Use Types Packs/Day Years Used Date Smoking Tobacco: Former [facility] Utilities Answer Date Recorded In the past 12 months has [facility] [email or web address], gas, oil, or water [employer] threatened to shut off services in your home? No 09/09/2023 Humiliation, Afraid, Rape, and Kick questionnair e Answer Date Recorded Within the last year, have y ou been afraid of your partner or ex-partner? No 09/09/2023 Within the last year, have y ou been humiliated or emotionally abused in other ways by your partner or ex-partner? No Within the last year, have y ou been kicked, hit, slapped, or otherwise physically hurt by your partner or ex-partner? No 09/09/2023 Within the last year, have y ou been raped or forced to have any kind of sexual activity by your partner or ex-partner? No 09/09/2023 Social Connection and Isolat ion Panel [NHANES] Answer Date Recorded In a typical week, how many times do you talk on the phone with family, friends, or neighbors? Three times a week 08/20/2023 How often do you get togethe r with friends or relatives? More than three times a week 08/20/2023 How often do you attend chur ch or latter-day services? Never 08/20/2023 Do you belong to any clubs o r organizations such as worship groups, unions, fraternal or athletic groups, or school groups? No 08/20/2023 How often do you attend meet ings of the clubs or organizations you belong to? Never 08/20/2023 Are you , , di vorced, , never , or living with a partner? Never 08/20/2023 AUDIT-C Answer Date Recorded Q1: How often do you have a drink containing alc ohol? Patient declined 08/20/2023 Q2: How many drinks containi ng alcohol do you have on a typical day when you are drinking? Patient declined 08/20/2023 Q3: How often do you have si x or more drinks on one occasion? Patient declined 08/20/2023 Overall Financial Resource Strain (CARDIA) Answe r Date Recorded How hard is it for you to pa y for the very basics like food, housing, medical care, and heating? Not very hard 09/09/2023 PHQ-2 Answer Date Recorded Patient Health Questionnaire-2 Score 0 09/30/2023 [facility] - Occupational Stress Questionnaire Answer Date Recorded Do you feel stress - tense, restless, nervous, or anxious, or unable to sleep at night because your mind is troubled all the time - these days? To some extent 08/20/2023 Exercise Vital Sign Answer Date Recorde d [...] you got the money to buy more. Sometimes true Within the past 12 months, t he food you bought just didn't last and you didn't have money to get more. Never true PRAPARE - Transportation Answer Date Re corded In the past 12 months, has l ack of transportation kept you from medical appointments or from getting medications? Yes 08/14 In the past 12 months, has l ack of transportation kept you from meetings, work, or from getting things needed for daily living? Yes 09/09/2023 Housing Stability Vital Sign Answer David e Recorded In the last 12 months, was t here a time when you were not able to pay the mortgage or rent on time? No 09/08/2023 In the last 12 months, how many places have you lived? 1 09/08/2023 In the last 12 months, was t here a time when you did not have a steady place to sleep or slept in a senior care (including now)? No 09/08/2023 Comments No Sex and Gender Information Value Date Recorded Sex Assigned at Female 08/25/2022 4:03 AM LATRINE CLEANER Legal Sex Female 11:21 AM CDT Gender Identity Female 08/25/2022 4:03 AM LATRINE CLEANER Sexual Orientation Straight 08/25/2022 4: 03 AM LATRINE CLEANER documented as of this encounter Miscellaneous Notes * Telephone Encounter - Hodan Ordaz MA - 09/26/2023 12:30 PM LATRINE CLEANER Scheduled Friday 8:45 INE CLEANER * Telephone Encounter - Caroline Webster - 09/26/2023 12:18 PM CST Recently did amputation. Came in for follow up and found a stitch that she took out. Wants to discuss treatment and possible infection with you. INE CLEANER documented in this encounter Plan of Treatment Upcoming Encounters Date Type Department Care Team (Late st Contact Info) Description 04/14/2025 3:00 PM CDT Office Visit [facility] BUILDING [address] [place] [phone] Mekhi Brannon DPM [address] [place] [address] [address] [place] [address] 06/06/2025 1:00 PM CDT Office Visit PULMONOLOGY CLINIC MEDICAL OFFICE BUILDING [address] [phone] [place] [address] [place] [address], [facility] [address] [place], [place] [id number] documented as of this encounter Visit Diagnoses Not on filedocumented in this encounter Additional Health Concerns Infection Onset Date Last Indicated Resolved Time MRSA Comment:03/22/2017 MRSA - lt foot wound ([facility]) 03/23/2017 MRSA - bone lt 5th metatarsal ([facility]) 03/22/2017 08/26/2022 MDRO-GNB Comment:03/22/2017 MDRO-GNB - Morganella morganii - lt foot wound ([facility]) 03/23/2017 MDRO-GNB - Morganella morganii - bone from left foot ([facility]) 04/20/2017 MDRO-GNB - Morganella morganii - lt foot wound ([facility]) 03/22/2017 01/13/2025 MDRO Comment:Added from external infection. ([facility]) 04/20/2017 08/26/2022 01/13/2025 8:49 AM CDT COVID-19 (Confirmed) Comment:>90 days past illness Added from external infection, [facility] [employer] Covid PCR per nasopharynx 08/29/2023 02/02/2024 9:2 5 AM CDT COVID-19 Rule-Out 02/05/2024 02/05/2024 02/05/2024 7:34 AM CDT COVID-19 Rule-Out 05/08/2024 05/08/2024 05/08/2024 1:01 PM CDT Respiratory Rule-Out 05/08/2024 05/08/2024 024 1:40 AM CDT MSSA Comment:Isolation not required for MSSA 07/28/2024 07/28/2024 07/30/2024 8:09 AM C DT MSSA Comment:MSSA does not require isolation 07/28/2024 07/30/2024 08/02/2024 9:14 AM C DT MSSA Comment:Isolation not required for MSSA 08/06/2024 08/06/2024 08/09/2024 8:40 AM C DT documented as of this encounter Care Teams Project Estimator Relationship Specialty Start Date End Date Ashtyn Fournier NP PCP - General Family Medicine 08/25/22 01/01/25 System, Provider Not In, DO [address] [place] [id number] PCP - General 01/04/25 01/05/25 Ashtyn Fournier NP [address] [place] [address] PCP - General Family Medicine 01/06/25 documented as of this encounter
--- OUTSIDE RECORDS SUMMARY | 2025-04-12 11:32 | XMS_ITS | Encounter Summary ---
Author Organization [facility] Address [address] [place] [address] Phone Care Team Providers Care Public Space Attendant Name Role Phone Ashtyn Fournier METAL SLITTER Primary Care Provider + [phone] System, Provider Not In DO Primary Care Provider Ashtyn Fournier METAL SLITTER Primary Care Provider + [phone] Reason for Visit * Reason Onset Date Comments Diabetic shoes 11/11/2022 Encounter Details Date Type Department Care Team (Late st Contact Info) Description 11/11/2022 Telephone [facility] BUILDING [address] [place] [address] Mekhi Brannon, [facility] [address] [address] Diabetic shoes Social History Tobacco Use Types Packs/Day Years Used Date Smoking Tobacco: Former Humiliation, Afraid, Rape, and Kick questionnair e Answer Date Recorded Within the last year, have y ou been afraid of your partner or ex-partner? No 08/25/2022 Within the last year, have y ou been humiliated or emotionally abused in other ways by your partner or ex-partner? No Within the last year, have y ou been kicked, hit, slapped, or otherwise physically hurt by your partner or ex-partner? No 08/25/2022 Within the last year, have y ou been raped or forced to have any kind of sexual activity by your partner or ex-partner? No 08/25/2022 Social Connection and Isolat ion Panel [NHANES] Answer Date Recorded In a typical week, how many times do you talk on the phone with family, friends, or neighbors? More than three times a week 08/25/2022 How often do you get togethe r with friends or relatives? More than three times a week 08/25/2022 How often do you attend chur or sabianism services? Never 08/25/2022 Do you belong to any clubs o r organizations such as voodoo groups, unions, fraternal or athletic groups, or school groups? No 08/25/2022 How often do you attend meet ings of the clubs or organizations you belong to? Never 08/25/2022 Are you , , di vorced, , never , or living with a partner? Patient declined 08/25/2022 AUDIT-C Answer Date Recorded Q1: How often do you have a drink containing alcohol? Never 08/25/2022 Q2: How many drinks containi ng alcohol do you have on a typical day when you are drinking? Patient does not drink Q3: How often do you have si x or more drinks on one occasion? Never 08/25/2022 Overall Financial Resource Strain (CARDIA) Answe r Date Recorded How hard is it for you to pa y for the very basics like food, housing, medical care, and heating? Very hard 08/25/2022 [facility] - Occupational Stress Questionnaire Answer Date Recorded Do you feel stress - tense, restless, nervous, or anxious, or unable to sleep at night because your mind is troubled all the time - these days? To some extent 08/25/2022 Exercise Vital Sign Answer Date Recorde d On average, how many days pe r week do you engage in moderate to strenuous exercise (like a brisk walk)? 0 days 08/25/2022 On average, how many minutes do you engage in exercise at this level? 0 min 08/25/2022 Hunger Vital Sign Answer Date Recorded Within the past 12 months, y ou worried that your food would run out before you got the money to buy more. Sometimes true Within the past 12 months, t he food you bought just didn't last and you didn't have money to get more. Sometimes true PRAPARE - Transportation Answer Date Re corded In the past 12 months, has l ack of transportation kept you from medical appointments or from getting medications? Yes 08/13 In the past 12 months, has l ack of transportation kept you from meetings, work, or from getting things needed for daily living? Yes 08/25/2022 Housing Stability Vital Sign Answer David e Recorded In the last 12 months, was t here a time when you were not able to pay the mortgage or rent on time? Patient refused 08/25/20 22 In the last 12 months, how many places have you lived? 3 08/25/2022 In the last 12 months, was t here a time when you did not have a steady place to sleep or slept in a long-term (including now)? No 08/25/2022 Comments Unknown Sex and Gender Information Value Date Recorded Sex Assigned at Female 08/25/2022 4:03 AM DESIGN ASSEMBLER Legal Sex Female 11:21 AM CDT Gender Identity Female 08/25/2022 4:03 AM DESIGN ASSEMBLER Sexual Orientation Straight 08/25/2022 4: 03 AM DESIGN ASSEMBLER documented as of this encounter Miscellaneous Notes * Telephone Encounter - Hodan Ordaz - 11/19/2022 9:59 AM CST faxed GN ASSEMBLER * Telephone Encounter - Minnie Higuera - 11/18/2022 11:38 AM CST Now Robert is needing chart notes. GN ASSEMBLER * Telephone Encounter - Hodan Ordaz - 11/12/2022 10:27 AM CST Refaxing CMN GN ASSEMBLER * Telephone Encounter - Mandie Dow - 11/11/2022 9:46 AM CST Calling regarding diabetic shoes. States he sent over CMN for toe filler. Needing pre-cert for insoles through [employer] for inserts. Code: [id number] Robert can be reached at [phone] GN ASSEMBLER documented in this encounter Plan of Treatment Upcoming Encounters Date Type Department Care Team (Late st Contact Info) Description 04/14/2025 3:00 PM CDT Office Visit [facility] MEDICAL OFFICE BUILDING [address] [place] [address] Mekhi Brannon DPM [address] [place] [address] [address] [place], [place] [phone] 06/06/2025 1:00 PM CDT Office Visit PULMONOLOGY CLINIC MEDICAL OFFICE BUILDING [address] [place] [phone] Santiago Morejon MD [address] [place] [address], [facility] [address] [place], [place] [phone] documented as of this encounter Visit Diagnoses Not on filedocumented in this encounter Additional Health Concerns Infection Onset Date Last Indicated Resolved Time MRSA Comment:03/22/2017 MRSA - lt foot wound ([facility]) 03/23/2017 MRSA - bone lt 5th metatarsal ([facility]) 03/22/2017 08/26/2022 MDRO-GNB Comment:03/22/2017 MDRO-GNB - Morganella morganii - lt foot wound ([facility]) 03/23/2017 MDRO-GNB - Morganella morganii - bone from left foot ([facility]) 04/20/2017 MDRO-GNB - Morganella morganii - lt foot wound ([facility]) 03/22/2017 01/13/2025 MDRO Comment:Added from external infection. ([facility]) 04/20/2017 08/26/2022 01/13/2025 8:49 AM CDT COVID-19 (Confirmed) Comment:>90 days past illness Added from external infection, [facility] Covid PCR per nasopharynx 08/29/2023 02/02/2024 9:2 5 AM CDT COVID-19 Rule-Out 09/08/2023 09/08/2023 09/08/2023 5:18 AM DESIGN ASSEMBLER COVID-19 Rule-Out 02/05/2024 02/05/2024 02/05/2024 7:34 AM [...] documented as of this encounter Care Teams Public Space Attendant Relationship Specialty Start Date End Date Ashtyn Fournier NP PCP - General Family Medicine 08/25/22 01/01/25 System, Provider Not In, DO [address] [place] [address] PCP - General 01/04/25 01/05/25 Ashtyn Fournier NP [address] [place] [address] PCP - General Family Medicine 01/06/25 documented as of this encounter
--- OUTSIDE RECORDS SUMMARY | 2025-04-12 11:32 | XMS_ITS | Encounter Summary ---
Author Organization [facility] Address [address] [place] [address] Care Team Providers Care Business Support Associate Name Role Phone Mekhi Fournier MD Primary Care Provider Reason for Visit * Reason Onset Date Comments Wound Check 09/11/2017 Encounter Details Date Type Department Care Team (Late st Contact Info) Description 09/11/2017 Telephone [facility] Orthopaedic Trauma Surgery [address] [address] Alin Evans PA [address] [place] [address] Wound Check Social History Tobacco Use Types Packs/Day Years Used Date Smoking Tobacco: Never Smokeless Tobacco: Never Alcohol Use Standard Drinks/Week Comments No 0 (1 standard drink = 0.6 oz pur e alcohol) Comments No Sex and Gender Information Value Date Recorded Sex Assigned at Not on file Legal Sex Female 10:57 AM INTERNATIONAL MARKETING INTERN Gender Identity Not on file Sexual Orientation Not on file documented as of this encounter Miscellaneous Notes * Telephone Encounter - Alin Evans PA - 09/11/2017 10:00 PM CST 09/11/2017 10:01 PM Received call on the on-call pager from HAYLEY at [facility] who was seeing the patient. The patient had a scheduled appointment today that she missed. The patient ran out of pain medication and thus went to a local ER. Per the PA the patient has developed some eschar at some of her distal incisions. Some slight drainage from the incisions. Afebrile. Pt asking for pain medication as she states that she ran out of the medication prescribed from acute rehab. The patient has not yet followed up with her fruit checker regarding her foot. Recommended that the patient call tomorrow for discussion of rescheduling her appointment. The nextavailable appointment is a week from now. Per PA at [facility], the patient is having home health come to her home for dressing changes. Pain medication at discretion of ER provider. Follow up at next available clinic. HAYLEY Tijerina RNATIONAL MARKETING INTERN documented in this encounter Plan of Treatment Not on file documented as of this encounter Visit Diagnoses Not on filedocumented in this encounter Additional Health Concerns Infection Onset Date Last Indicated Resolved Time R/O COVID-19 08/29/2023 08/29/2023 08/29/2023 3:57 AM INTERNATIONAL MARKETING INTERN COVID-19 08/29/2023 08/29/2023 09/18/2023 1:18 AM INTERNATIONAL MARKETING INTERN documented as of this encounter Care Teams Business Support Associate Relationship Specialty Start Date End Date Mekhi Fournier MD [address] [place] [address] PCP - General Family Practice 05/07/23 documented as of this encounter
--- OUTSIDE RECORDS SUMMARY | 2025-04-12 11:32 | XMS_ITS | Encounter Summary ---
Author Organization [facility] Address [address] [place] [phone] Phone Care Team Providers Care Microwave Technician Name Role Phone Ashtyn Fournier SILK WINDING MACHINE OPERATOR Primary Care Provider + [phone] System, Provider Not In DO Primary Care Provider Ashtyn Fournier SILK WINDING MACHINE OPERATOR Primary Care Provider + [phone] Encounter Details Date Type Department Care Team (Late st Contact Info) Description 09/22/2023 Telephone MED TELE [address] [address] Arielle Mckeon BSN,RN [address] [phone] Social History Tobacco Use Types Packs/Day Years Used Date Smoking Tobacco: Former [facility] Utilities Answer Date Recorded In the past [address] [facility] electric, gas, oil, or water company threatened to shut off services in your [...] often do you attend chur ch or taoism services? Never 08/20/2023 Do you belong to any clubs o r organizations such as hindu groups, unions, fraternal or athletic groups, or [...] Date Recorded Patient Health Questionnaire-2 Score 0 08/15/2023 [employer] - Occupational Stress Questionnaire Answer Date Recorded [...] place to sleep or slept in a mcc (including now)? No 09/08/2023 Comments No Sex and Gender Information Value Date Recorded Sex Assigned at Female 08/25/2022 4:03 AM ARTIST MANNEQUIN COLORING Legal Sex Female 11:21 AM CDT Gender Identity Female 08/25/2022 4:03 AM ARTIST MANNEQUIN COLORING Sexual Orientation Straight 08/25/2022 4: 03 AM ARTIST MANNEQUIN COLORING documented as of this encounter Nursing Notes * TERRY Mora,RN - 09/22/2023 8:32 AM CST Pt called w/ follow up appt Dr Christensen Oct 08 @ 2pm, spoke directly kenneth Shah [facility] [employer] documented in this encounter Plan of Treatment Upcoming Encounters Date Type Department Care Team (Late st Contact Info) Description 04/14/2025 3:00 PM CDT Office Visit P[facility]ATRY CLINIC MEDICAL OFFICE BUILDING [address] [phone] Mekhi Brannon DPM [address] [address] 06/06/2025 1:00 PM CDT Office Visit PULMONOLOGY CLINIC MEDICAL OFFICE BUILDING [address] [address] Santiago Morejon MD [address], [address] [place] [address] documented as of this encounter Visit Diagnoses Not on filedocumented in this encounter Additional Health Concerns Infection Onset Date Last Indicated Resolved Time MRSA Comment:03/22/2017 MRSA - lt foot wound ([facility]) 03/23/2017 MRSA - bone lt 5th metatarsal ([facility]) 03/22/2017 08/26/2022 MDRO-GNB Comment:03/22/2017 MDRO-GNB - Morganella morganii - lt foot wound ([facility]) 03/23/2017 MDRO-GNB - Morganella morganii - bone from left foot ([facility]) 04/20/2017 MDRO-GNB - Morganella morganii - lt foot wound ([facility]) 03/22/2017 01/13/2025 MDRO Comment:Added from external infection. ([facility]) 04/20/2017 08/26/2022 01/13/2025 8:49 AM CDT COVID-19 (Confirmed) Comment:>90 days past illness Added from external infection, [facility] Covid PCR per nasopharynx 08/29/2023 02/02/2024 9:2 5 AM CDT COVID-19 Rule-Out 02/05/2024 02/05/2024 02/05/2024 7:34 AM CDT COVID-19 Rule-Out 05/08/2024 05/08/2024 05/08/2024 1:01 PM CDT Respiratory Rule-Out 05/08/2024 05/08/2024 07/ 024 1:40 AM CDT MSSA Comment:Isolation not required for MSSA 07/28/2024 07/28/2024 07/30/2024 8:09 AM C DT MSSA Comment:MSSA does not require isolation 07/28/2024 07/30/2024 08/02/2024 9:14 AM C DT MSSA Comment:Isolation not required for MSSA 08/06/2024 08/06/2024 08/09/2024 8:40 AM C DT documented as of this encounter Care Teams Microwave Technician Relationship Specialty Start Date End Date Ashtyn Fournier NP PCP - General Family Medicine 08/25/22 01/01/25 System, Provider Not In, DO [address] [address] PCP - General 01/04/25 01/05/25 Ashtyn Fournier NP [address] [place] [address] PCP - General Family Medicine 01/06/25 documented as of this encounter
--- OUTSIDE RECORDS SUMMARY | 2025-04-12 11:32 | XMS_ITS | Encounter Summary ---
Author Organization [facility] Address [address] [place] [address] Phone Care Team Providers Care Lead Shop Operator Name Role Phone Ashtyn Fournier RELIABILITY SPECIALIST Primary Care Provider + [phone] System, Provider Not In DO Primary Care Provider Ashtyn Fournier RELIABILITY SPECIALIST Primary Care Provider + [phone] Reason for Visit * Reason Onset Date Comments form for transport 11/28/2022 Encounter Details Date Type Department Care Team (Late st Contact Info) Description 11/28/2022 Telephone [facility]RY [facility]INIC MEDICAL OFFICE BUILDING [address] [place] [address] Mekhi Brannon, [facility] [address] [address] form for transport Social History Tobacco Use Types Packs/Day Years [...] How often do you attend chur or bahai services? Never 08/25/2022 Do you belong to any clubs o r organizations such as faith groups, unions, fraternal or athletic groups, or [...] medical care, and heating? Very hard 08/25/2022 [facility] - Occupational [...] place to sleep or slept in a assisted (including now)? No 08/25/2022 Comments Unknown Sex and Gender Information Value Date Recorded Sex Assigned at Female 08/25/2022 4:03 AM COSMETIC SALES Legal Sex Female 11:21 AM CDT Gender Identity Female 08/25/2022 4:03 AM COSMETIC SALES Sexual Orientation Straight 08/25/2022 4: 03 AM COSMETIC SALES documented as of this encounter Miscellaneous Notes * Telephone Encounter - Hodan Ordaz - 11/28/2022 3:31 PM CST Refaxing form [employer] * Telephone Encounter - Marcelina Williamson - 11/28/2022 2:24 PM CST Patient is following up to see if the form has been filled out and faxed for transport to her appointment. [employer] documented in this encounter Plan of Treatment Upcoming Encounters Date Type Department Care Team (Late st Contact Info) Description 04/14/2025 3:00 PM CDT Office Visit P[facility]ATRY CLINIC MEDICAL OFFICE BUILDING [address] [place] [address] Mekhi Brannon DPM [address] [place] [address] 06/06/2025 1:00 PM CDT Office Visit PULMONOLOGY CLINIC MEDICAL OFFICE BUILDING [address] [place] [address] Santiago Morejon MD [address], [address] [place], [place] [address] documented as of this encounter Visit Diagnoses Not on filedocumented in this encounter Additional Health Concerns Infection Onset Date Last Indicated Resolved Time MRSA Comment:03/22/2017 MRSA - lt foot wound ([facility] [employer]) 03/23/2017 MRSA - bone lt 5th metatarsal ([facility]) 03/22/2017 08/26/2022 MDRO-GNB Comment:03/22/2017 MDRO-GNB - Morganella morganii - lt foot wound ([facility]) 03/23/2017 MDRO-GNB - Morganella morganii - bone from left foot ([facility] [employer]) 04/20/2017 MDRO-GNB - Morganella morganii - lt foot wound ([facility]) 03/22/2017 01/13/2025 MDRO Comment:Added from external infection. ([facility]) 04/20/2017 08/26/2022 01/13/2025 8:49 AM CDT COVID-19 (Confirmed) Comment:>90 days past illness Added from external infection, [facility] Covid PCR per nasopharynx 08/29/2023 02/02/2024 9:2 5 AM CDT COVID-19 Rule-Out 09/08/2023 09/08/2023 09/08/2023 5:18 AM COSMETIC SALES COVID-19 Rule-Out 02/05/2024 02/05/2024 02/05/2024 7:34 AM CDT COVID-19 Rule-Out 05/08/2024 05/08/2024 05/08/2024 1:01 PM CDT Respiratory Rule-Out 05/08/2024 05/08/202405/11/ 024 1:40 AM CDT MSSA Comment:Isolation not required for MSSA 07/28/2024 07/28/2024 07/30/2024 8:09 AM C DT MSSA Comment:MSSA does not require isolation 07/28/2024 07/30/2024 08/02/2024 9:14 AM C DT MSSA Comment:Isolation not required for MSSA 08/06/2024 08/06/2024 08/09/2024 8:40 AM C DT documented as of this encounter Care Teams Lead Shop Operator Relationship Specialty Start Date End Date Ashtyn Fournier NP PCP - General Family Medicine 08/25/22 01/01/25 System, Provider Not In, DO [address] [place], [place] [phone] PCP - General 01/04/25 01/05/25 Ashtyn Fournier NP [address] [place] [address] PCP - General Family Medicine 01/06/25 documented as of this encounter
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
--- OUTSIDE RECORDS SUMMARY | 2025-04-12 11:32 | XMS_ITS | Clinical Summary ---
Author Organization [facility] Address [address] [place] [phone] Phone Care Team Providers Care Legal Associate Name Role Phone Ashtyn Fournier NP Primary Care Provider [phone] Allergies Active Allergy Reactions Criticality Noted Date [...] needed for nausea or vomiting. 20 tablet Active Hospital, Clinic, or Other Facility Administered [...] (08/26/2022): Added automatically from request for surgery [id number] Foot laceration, left, initial encounter 017 Laceration [...] left toe 08/15/202302/13 Cellulitis of right toe 08/15/202301/2024 Acute on chronic diastolic c ongestive heart failure 05/18/2023 02/14/2024 Hematochezia 05/12/2023 02/14/2024 Cellulitis 05/09/2023 02/14/2024 Osteomyelitis of second toe of right foot 08/25/2022 02/14/2024 Acute blood loss anemia 08/21/201701/2024 Encounters Date Type Department Care Team Description 03/30/2025 Telephone [facility] [address] [address] Scout Weldon MD Appointment 02/24/2025 Telephone [facility] [address] [place] [phone] Mekhi Brannon DPM 02/16/2025 1:45 PM CDT Office Visit [facility] [address] [place] [phone] Mekhi Brannon DPM 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); Pre-ulcerative calluses 02/05/2025 8:23 PM CDT - 02/09/2025 1:34 PM CDT Hospital Encounter SURG ORTHO [address] [address] Joselo Gann, Ibrahima Summers, Roberto Hall MD Oun, Abdalla, MD Intractable pain (Primary Dx); Intractable nausea and vomiting; Shortness of breath Discharge Disposition: Discharged to Home or Self Care (Routine Discharge) 02/03/2025 Telephone [facility] [address] [place] [phone] Mekhi Brannon DPM Speak to nurse 01/12/2025 6:17 PM CDT - 01/14/2025 10:56 PM CDT Emergency SURG ORTHO [address] [place] [phone] Rocio Oliver MD Williams, Rachael A, MD Oun, Abdalla, MD Abdominal pain, unspecified abdominal location (Primary Dx) Discharge Disposition: Discharged to Home or Self Care (Routine Discharge) from Last 3 Months Immunizations Immunization Administration Dates Next Due Influenza, Unspecified 08/09/1996 Family History Medical History Relation Comments No Known Problems Brother Cancer Father Lung cancer Father No Known Problems Father's Brother No Known Problems Father's Sister No Known Problems Maternal Grandfather No Known Problems Maternal Grandmother Alzheimer's disease Mother Diabetes Mother Heart disease Mother No Known Problems Mother's Brother No Known Problems Mother's Sister No Known Problems Paternal Grandfather No Known Problems Paternal Grandmother Heart block Sister Heart disease Sister Anesthesia problems Neg Hx Kidney disease Neg Hx Malig Hypertension Neg Hx Malig Hyperthermia Neg Hx Pseudochol deficiency Neg Hx Stroke Neg Hx Relation Status Comments Brother Father Father's Brother Father's Sister Maternal Grandfather Maternal Grandmother Mother Mother's Brother Mother's Sister Paternal Grandfather Paternal Grandmother Sister Social History Tobacco Use Types Packs/Day Years Used Date Smoking Tobacco: Former Cigarettes 1 16 - 2007 Smokeless Tobacco: Never Tobacco Cessation:Counseling [...] from your doctor or pharmacy? Never 01/03/2025 [facility] Utilities Answer Date Recorded In the past 12 months has e [employer], gas, oil, or water company threatened to [...] attend chur ch or latter-day services? Never 02/06/2025 Do you belong to any clubs o r organizations such as latter day groups, unions, fraternal or athletic groups, or [...] Recorded Patient Health Questionnaire-2 Score 0 02/16/2025 [employer] [facility] - Occupational Stress [...] place to sleep or slept in a penitentiary (including now)? No 02/14/2024 Housing Stability Vital Sign Answer David e Recorded In the last 12 months, was t here a time when you were not able to pay the mortgage or rent on time? No 02/06/2025 In the past 12 months, how m any times have you moved where you were living? 0 02/06/2025 At any time in the past 12 m [facility], were you homeless or living in a penitentiary (including now)? No 02/06/2025 [facility] - Mental Health Answer Date Recorde d Little interest or pleasure in doing things Not at all 02/16/2025 Feeling down, depressed, or hopeless Not at all 02/16/2025 Feeling of Stress Not on file 02/16/2025 Comments No Sex and Gender Information Value Date Recorded Sex Assigned at Female 08/25/2022 4:03 AM [employer] Legal Sex Female 11:21 AM CDT Gender Identity Female 08/25/2022 4:03 AM [employer] Sexual Orientation Straight 08/25/2022 4: 03 AM [employer] Last Filed Vital Signs Vital Sign Reading [...] Mass Index 55.91 02/16/2025 1:34 PM CDT Plan of Treatment Upcoming Encounters Date Type Department Care Team (Late st Contact Info) Description 04/14/2025 3:00 PM CDT Office Visit [facility] [address] [place] [phone] Mekhi Brannon DPM [address] [place] [address] [address] [place] [address] 06/06/2025 1:00 PM CDT Office Visit [facility] MED[facility] OFF[facility] BUILDING [address] [place] [phone] Santiago Morejon MD [address] [place] [address], [address] [place], [place] [id number] Health Maintenance Due Date Last Done Comments CT Colonography 1977 FIT-DNA 1977 FIT 1977 Sigmoidoscopy 1977 MMR Vaccines (1 of 1 - Standard series) 1978 DTaP,Tdap,and Td Vaccines (1 - Tdap) 1984 Diabetes: Retinopathy Screening 1987 Varicella Vaccines (1 of 2 - 13+ 2-dose series) 1990 Social Drivers of Health (SDoH) 1995 Hepatitis B Vaccines (1 of 3 - 19+ 3-dose series) 1996 Pneumococcal Vaccine: 50+ Years (1 of 2 - PCV) 1996 Pneumococcal Vaccine (1 of 2 - PCV) 1996 Pap Smear 1998 Cervical Cancer Screening 2007 HPV/Cotest 2007 Mammogram 2017 Diabetes: Urine Protein Screening 05/09/2024 05/09/2023 COVID-19 Vaccine ( season) 2024 Diabetes: Hemoglobin A1C 05/08/2025 025, 02/13/2024, 09/10/2023, Additional history exists Influenza Vaccine (#1) 2025 08/09/1996 Diabetes: Foot Exam 07/28/2025 07/28/2024, Echocardiogram 09/05/2025 09/05/2024, 08/13, 08/04/2024, Additional history exists FOBT 01/03/2026 01/03/2025, 11/15/2024 Creatinine Level 02/09/2026 02/09/2025, , 02/07/2025, Additional history exists Potassium Level 02/09/2026 02/09/2025, 01/12, 02/07/2025, Additional history exists Zoster Vaccines (1 of 2) 2027 Colonoscopy 05/12/2033 05/12/2023 Colorectal Cancer Screening 05/12/2033 RSV Vaccines (1 - 1-dose 75+ series) 2052 HIB Vaccines Aged Out No longer eligi ble based on patient's age to complete this topic HPV Vaccines Aged Out No longer eligi ble based on patient's age to complete this topic Hepatitis A Vaccines Aged Out No long er eligible based on patient's age to complete this topic IPV Vaccines Aged Out No longer eligi ble based on patient's age to complete this topic Meningococcal B Vaccine Aged Out No l onger eligible based on patient's age to complete this topic Meningococcal Vaccine Aged Out No [place] eligible based on patient's age to complete this topic Rotavirus Vaccines Aged Out No longer eligible based on patient's age to complete this topic Medical Devices Implanted Type Area Educational Advisor Device Identifier Shelf Expiration Date Model / Serial / Lot Con JoselitoCardleyer Maik 3.0x15 - Sna - [id number] Implanted:Qt y: 1 on 02/02/2024 by Fito Shaw MD at [facility] Consignment Products Implant N/A: Coronary MEDTR [id number] 09/20/2026 [id number] / NA / [id number] Con Kimberly Rapides Maik 3.0x18 - Sna - [id number] Implanted:Qt y: 1 on 02/02/2024 by Fito Shaw MD at [facility] [employer]ignment Products Implant N/A: Coronary MEDTR [id number] 11/26/2026 [id number] / NA / [id number] Rashid-Left Leg Orthopedics Implant Left: Leg Con Stent Rapides 3.50x38 - Sna - [id number] Implanted:Qt y: 1 on 02/02/2024 by Fito Shaw MD at [facility] Vascular Implant N/A: Coronary MEDTR [id number] 10/23/2026 [id number] / NA / [id number] Con Stent Rapides 2x12 - Sna - [id number] Implanted:Qt y: 1 on 02/02/2024 by Fito Shaw MD at [facility] Vascular Implant N/A: Coronary MEDTRONIC [id number] 11/04/2026 [id number] / NA / [id number] Procedures Procedure Name Priority Date/Time Associated [...] 2D W/ CONTRAST Routine 09/05/2024 3:46 PM [employer] from Last 3 Months or Most Recently Relevant to Health Maintenance Results * (ABNORMAL) POCT glucose meter docked device (02/09/2025 11:36 AM CDT) Only the most recent of29 resultswithin the time period is included. [facility] GLUCOSE WHOLE BLOOD 321(H) 70 - 100 mg/dl 02/09/2025 11:37 AM CDT [facility] Comment: Nurse Notified Non Fasting Blood Capillary blood specimen / Unknown 02/09/2025 11:36 AM CDT 02/09/2025 11:37 AM CDT Yomi Tejeda MD LAB POINT OF CARE TE ST DOCKED DEVICE UNSOLICITED RESULTS Final Result [facility] [address] [address] * (ABNORMAL) Renal Function Panel (02/09/2025 5:40 AM CDT) Only the most recent of4 resultswithin the time period is included. Pathologist [facility] Phosphorus 5.1(H) 2.5 - 4.6 mg/dL LAB CHEMISTRY METHOD 02/09/2025 7:23 AM CDT [facility] Albumin 2.5(L) 3.5 - 5.2 g/dL LAB CHEMISTRY METHOD 02/09/2025 7:23 AM CDT [facility] Glucose 272(H) 70 - 100 mg/dL LAB CHEMISTRY METHOD 02/09/2025 7:23 AM CDT [facility] BUN 65(H) 7 - 17 mg/dL LAB CHEMISTRY METHOD 02/09/2025 7:23 AM CDT [facility] Creatinine 3.54(H) 0.52 - 1.04 mg/dl LAB CHEMISTRY METHOD 02/09/2025 7:23 AM CDT [facility] Calcium 8.0(L) 8.2 - 10.2 mg/dL LAB CHEMISTRY METHOD 02/09/2025 7:23 AM CDT [facility] Sodium 132(L) 135 - 145 mmol/L LAB CHEMISTRY METHOD 02/09/2025 7:23 AM CDT [facility] Potassium 4.1 3.6 - 5.0 mmol/L LAB CHEMISTRY METHOD 02/09/2025 7:23 AM CDT [facility] Chloride 100(L) 101 - 111 mmol/L LAB CHEMISTRY METHOD 02/09/2025 7:23 AM CDT [facility] Total Carbon Dioxide 26 22 - 30 mmol/L LAB CHEMISTRY METHOD 02/09/2025 7:23 AM CDT [facility] Anion Gap 10 9 - 17 mmol/L LAB CHEMISTRY METHOD 02/09/2025 7:23 AM CDT [facility] eGFR 15(L) >=60 mL/min/1. 73 m2 LAB CHEMISTRY METHOD 02/09/2025 7:23 AM CDT [facility] Comment:High Risk of Kidney Failure Blood Venous blood specimen / Unknown Venipuncture / Unknown 02/09/2025 5:40 AM CDT 02/09/2025 6:37 AM CDT Yomi Tejeda MD LAB BLOOD ORDERABLES Final Resul t [facility] [address] [address] * (ABNORMAL) CBC auto differential (02/08/2025 5:31 AM CDT) Only the most recent of5 resultswithin the time period is included. White Blood Count 8.3 4.0 - 11.4 K/mm3 02/08/2025 6:29 AM CDT [facility] Red Blood Count 3.72(L) 3.93 - 5.22 M/mm3 02/08/2025 6:29 AM CDT [facility] Hemoglobin 10.3(L) 11.2 - 15.7 g/dL 02/08/2025 6:29 AM CDT [facility] Hematocrit 30.6(L) 34.1 - 44.9 % 02/08/2025 6:29 AM CDT [facility] Mean Cell Volume 82.1 81.6 - 97.4 fL 02/08/2025 6:29 AM CDT [facility] MEAN CORPUSCULAR HEMOGLOBIN 27.7 26.7 - 32.8 pg 02/08/2025 6:29 AM CDT [facility] Mean Corpuscular Hemoglobin Concentration 33.7 31.6 - 36.0 g/dL 02/08/2025 6:29 AM CDT [facility] RED CELL DISTRIBUTION WIDTH-SD 46.4 35.6 - 49.5 fl 02/08/2025 6:29 AM [facility] Platelet Count 153 150 - 450 K/mm3 02/08/2025 6:29 AM [facility] Mean Platelet Volume 8.7 7.0 - 10.2 fL 02/08/2025 6:29 AM [facility] ANC (AUTOMATED) 5.7 2.0 - 9.8 K/ul 02/08/2025 6:29 AM [facility] Lymphocytes % 21.2 10.1 - 46.5 % 02/08/2025 6:29 AM [facility] Monocytes % 7.7 3.2 - 12.9 % 02/08/2025 6:29 AM [facility] Neutrophils % 69.1 40.6 - 81.1 % 02/08/2025 6:29 AM [facility] Eosinophils % 1.7 0.0 - 4.2 % 02/08/2025 6:29 AM [facility] Basophils % 0.3 0.0 - 1.1 % 02/08/2025 6:29 AM [facility] Lymphocytes Absolute 1.8 0.6 - 3.6 K/uL 02/08/2025 6:29 AM [facility] Monocytes Absolute 0.6 0.3 - 1.1 K/uL 02/08/2025 6:29 AM [facility] Neutrophils Absolute 5.7 2.0 - 9.8 K/uL 02/08/2025 6:29 AM [facility] Eosinophils Absolute 0.10 0.00 - 0.60 K/uL 02/08/2025 6:29 AM [facility] Basophils Absolute 0.0 0.0 - 0.1 1000/uL 02/08/2025 6:29 AM [facility] Nucleated RBC % 0.3(H) 0.0 - 0.2 % 02/08/2025 6:29 AM [facility] Nucleated RBC Absolute 0.02 0.00 - 0.03 K/ul 02/08/2025 6:29 AM [facility] Blood Venous blood specimen / Unknown Venipuncture / Unknown 02/08/2025 5:31 AM CDT 02/08/2025 6:17 AM CDT Roberto Moody MD LAB BLOOD ORDERABLES F inal Result Performing Organization Address [facility] de Phone Number [facility] [address] [address] * Magnesium (02/08/2025 5:31 AM CDT) Only the most recent of4 resultswithin the time period is included. Magnesium 1.9 1.7 - 2.8 mg/dL LAB CHEMISTRY METHOD 02/08/2025 6:48 AM CDT [facility] Blood Venous blood specimen / Unknown Venipuncture / Unknown 02/08/2025 5:31 AM CDT 02/08/2025 6:18 AM CDT Roberto Moody MD LAB BLOOD ORDERABLES F inal Result Performing Organization Address [facility] de Phone Number [facility] [address] [place] [phone] * US retroperitoneum complete (02/07/2025 5:10 PM [...] F inal Result [facility] [address] [address] * Creatinine, urine, random (02/07/2025 2:24 PM CDT) Creatinine Urine 156 13 - 900 mg/dL LAB CHEMISTRY METHOD 02/07/2025 5:17 PM CDT [facility] Urine Urine specimen obtained by clean catch procedure / Unknown Non-blood Collection / Unknown 02/07/2025 2:24 PM CDT 02/07/2025 4:55 PM CDT Roberto Moody MD LAB URINE ORDERABLES F inal Result Performing Organization Address [facility]/ZIP Co de Phone Number [facility] [address] [address] * , Urine (02/06/2025 4:23 PM CDT) Only the most recent of3 resultswithin the time period is included. URINE PREG TEST Negative Negative 02/06/2025 4:48 PM CDT [facility] Urine Urine specimen obtained by clean catch procedure / Unknown Non-blood Collection / Unknown 02/06/2025 4:23 PM CDT 02/06/2025 4:30 PM CDT Roberto Moody MD LAB URINE ORDERABLES F inal Result Performing Organization Address [facility]/ZIP Co de Phone Number [facility] [address] [address] * ECG 12 lead (02/06/2025 9:53 AM CDT) Only the most recent of2 resultswithin the time period is included. 02/06/2025 9:53 AM CDT Narrative [facility] - 02/06/2025 9:53 AM CDT Interpretive [...] Resul t - Final Performing Organization Address [facility]/ZIP Co de Phone Number [facility] [address] [address] * Lavender Top (02/06/2025 9:05 AM CDT) Pathologist [facility] Extra Tube Hold for add-ons. 02/06/2025 2:01 PM CDT [facility] Comment:Auto resulted. Blood Venous blood specimen / Unknown Venipuncture / Unknown 02/06/2025 9:05 AM CDT 02/06/2025 9:09 AM CDT Roberto Moody MD LAB BLOOD ORDERABLES F inal Result Performing Organization Address [facility] de Phone Number [facility] [address] [address] * (ABNORMAL) Hemoglobin A1c (02/06/2025 9:05 AM CDT) Pathologist [facility] Hemoglobin A1c 10.0(H) % 02/08/2025 7:37 AM CDT [facility] Estimated Average Glucose 240 mg/dL 02/08/2025 7:37 AM CDT [facility] Blood Venous blood specimen / Unknown Venipuncture / Unknown 02/06/2025 9:05 AM CDT 02/06/2025 9:09 AM CDT Narrative [facility] - 02/08/2025 7:37 AM CDT HgbA1C ranges recommended by the [place] [employer] (ADA): >6.5% Diabetic 5.7-6.4% Pre-Diabetic <5.7% Non-Diabetic Roberto Moody MD LAB BLOOD ORDERABLES F inal Result Performing Organization Address [facility] Co de Phone Number [facility] [address] [place] [phone] * (ABNORMAL) Basic Metabolic Panel (02/06/2025 9:05 AM CDT) Only the most recent of2 resultswithin the time period is included. Glucose 482(H) 70 - 100 mg/dL LAB CHEMISTRY METHOD 02/06/2025 9:32 AM CDT [facility] BUN 34(H) 7 - 17 mg/dL LAB CHEMISTRY METHOD 02/06/2025 9:32 AM CDT [facility] Creatinine 2.03(H) 0.52 - 1.04 mg/dl LAB CHEMISTRY METHOD 02/06/2025 9:32 AM CDT [facility] BUN/Creatinine Ratio 17 12 - 17 LAB CHEMISTRY METHOD 02/06/2025 9:32 AM CDT [facility] Sodium 129(L) 135 - 145 mmol/L LAB CHEMISTRY METHOD 02/06/2025 9:32 AM CDT [facility] Potassium 3.9 3.6 - 5.0 mmol/L LAB CHEMISTRY METHOD 02/06/2025 9:32 AM CDT [facility] Chloride 95(L) 101 - 111 mmol/L LAB CHEMISTRY METHOD 02/06/2025 9:32 AM CDT [facility] Total Carbon Dioxide 26 22 - 30 mmol/L LAB CHEMISTRY METHOD 02/06/2025 9:32 AM CDT [facility] Anion Gap 12 9 - 17 mmol/L LAB CHEMISTRY METHOD 02/06/2025 9:32 AM CDT [facility] Calcium 9.1 8.2 - 10.2 mg/dL LAB CHEMISTRY METHOD 02/06/2025 9:32 AM CDT [facility] eGFR 30(L) >=60 mL/min/1. 73 m2 LAB CHEMISTRY METHOD 02/06/2025 9:32 AM CDT [facility] Comment:Moderate Risk of Chr onic Kidney Disease Blood Venous blood specimen / Unknown Venipuncture / Unknown 02/06/2025 9:05 AM CDT 02/06/2025 9:09 AM CDT Roberto Moody MD LAB BLOOD ORDERABLES F inal Result [facility] [address] [address] * XR chest 1 view [...] No pulmonary embolus. Impression: No acute process Joselo Gann DO IMG CT PROCEDURES Final Resu lt [...] LAB CHEMISTRY METHOD 02/05/2025 11:33 PM CDT [facility] HS Troponin Delta <7 <20 LAB CHEMISTRY METHOD 02/05/2025 11:33 PM CDT [facility] Comment: <7 negative >/= 20 significant 7-20 indeterminate Blood Venous blood specimen / Unknown Existing Catheter / Unknown 02/05/2025 11:00 PM CDT 02/05/2025 11:07 PM CDT Joselo Gann DO LAB BLOOD ORDERABLES Final R esult [facility] [address] [address] * (ABNORMAL) Urinalysis (02/05/2025 11:00 PM CDT) Only the most recent of2 resultswithin the time period is included. COLOR URINE Light Yellow Yellow LAB URINALYSIS - AUTOMATED METHOD 02/05/2025 11:24 PM CDT [facility] CLARITY URINE Clear Clear LAB URINALYSIS - AUTOMATED METHOD 02/05/2025 11:24 PM CDT [facility] GLUCOSE URINE >1000(A) Negative mg/dL LAB URINALYSIS - AUTOMATED METHOD 02/05/2025 11:24 PM CDT [facility] BILIRUBIN URINE Negative Negative LAB URINALYSIS - AUTOMATED METHOD 02/05/2025 11:24 PM CDT [facility] KETONE URINE Trace(A) Negative mg/dL LAB URINALYSIS - AUTOMATED METHOD 02/05/2025 11:24 PM CDT [facility] Specific Bernice, Urine 1.019 1.001 - 1.035 LAB URINALYSIS - AUTOMATED METHOD 02/05/2025 11:24 PM CDT [facility] pH, Urine 6.5 5.0 - 9.0 LAB URINALYSIS - AUTOMATED METHOD 02/05/2025 11:24 PM CDT [facility] PROTEIN URINE 300(A) Negative mg/dL LAB URINALYSIS - AUTOMATED METHOD 02/05/2025 11:24 PM CDT [facility] Urobilinogen Negative Negative mg/dL LAB URINALYSIS - AUTOMATED METHOD 02/05/2025 11:24 PM CDT [facility] Nitrite, Urine Negative Negative LAB URINALYSIS - AUTOMATED METHOD 02/05/2025 11:24 PM CDT [facility] Occult Blood, Urine 0.06(A) Negative LAB URINALYSIS - AUTOMATED METHOD 02/05/2025 11:24 PM CDT [facility] RBC, Urine 1 0 - 2 /HPF LAB URINALYSIS - AUTOMATED METHOD 02/05/2025 11:24 PM CDT [facility] WBC, Urine <1 0 - 4 /HPF LAB URINALYSIS - AUTOMATED METHOD 02/05/2025 11:24 PM CDT [facility] Squamous Epithelial, Urine 1 <=10 /HPF LAB URINALYSIS - AUTOMATED METHOD 02/05/2025 11:24 PM CDT [facility] Urine Urine specimen obtained by clean catch procedure / Unknown Non-blood Collection / Unknown 02/05/2025 11:00 PM CDT 02/05/2025 11:07 PM CDT Joselo Gann LAB URINE ORDERABLES Final R esult Performing Organization Address [facility]/ZIP Co de Phone Number [facility] [address] [place] [phone] * (ABNORMAL) High Sensitivity Troponin (02/05/2025 9:30 PM CDT) [facility] High Sensitivity Troponin I 90(H) 3 - 54 ng/L ng/L LAB CHEMISTRY METHOD 02/05/2025 10:12 PM CDT [facility] Blood Venous blood specimen / Unknown Existing Catheter / Unknown 02/05/2025 9:30 PM CDT 02/05/2025 9:39 PM CDT Joselo Gann DO LAB BLOOD ORDERABLES Final R esult Performing Organization Address [facility]/ZIP Co de Phone Number [facility] [address] [address] * Paulino Top (02/05/2025 9:30 PM CDT) Only the most recent of2 resultswithin the time period is included. [facility] Extra Tube Hold for add-ons. 02/06/2025 2:01 AM CDT [facility] Comment:Auto resulted. Blood Venous blood specimen / Unknown Existing Catheter / Unknown 02/05/2025 9:30 PM CDT 02/05/2025 9:38 PM CDT Joselo Gann DO LAB BLOOD ORDERABLES Final R esult Performing Organization Address [facility]/ZIP Co de Phone Number [facility] [address] [phone] * Red Top (02/05/2025 9:30 PM CDT) Only the most recent of2 resultswithin the time period is included. Extra Tube Hold for add-ons. 02/06/2025 2:01 AM CDT [facility] Comment:Auto resulted. Blood Venous blood specimen / Unknown Venipuncture / Unknown 02/05/2025 9:30 PM CDT 02/05/2025 9:38 PM CDT Joselo Gann DO LAB BLOOD ORDERABLES Final R esult Performing Organization Address [facility] Co de Phone Number [facility] [address] [place] [phone] * Light Blue Top (02/05/2025 9:30 PM CDT) Only the most recent of2 resultswithin the time period is included. Extra Tube Hold for add-ons. 02/06/2025 2:01 AM CDT [facility] Comment:Auto resulted. Blood Venous blood specimen / Unknown Existing Catheter / Unknown 02/05/2025 9:30 PM CDT 02/05/2025 9:37 PM CDT Joselo Gann DO LAB BLOOD ORDERABLES Final R esult Performing Organization Address [facility]/ZIP Co de Phone Number [facility] [address] [address] * (ABNORMAL) D-dimer, quantitative (02/05/2025 9:30 PM CDT) D-DIMER QUANTITATIVE 0.82(H) <=0.50 ug/mlFEU LAB COAGULATION METHOD 02/05/2025 9:58 PM CDT [facility] Blood Venous blood specimen / Unknown Existing Catheter / Unknown 02/05/2025 9:30 PM CDT 02/05/2025 9:37 PM CDT Joselo Gann DO LAB BLOOD ORDERABLES Final R esult Performing Organization Address City/[facility] Co de Phone Number [facility] [address] [place] [phone] * (ABNORMAL) B-type natriuretic peptide (02/05/2025 9:30 PM CDT) Pathologist [facility] NT-proBNP 2,115(H) 0 - 450 pg/mL LAB CHEMISTRY METHOD 02/05/2025 10:08 PM CDT [facility] Blood Venous blood specimen / Unknown Existing Catheter / Unknown 02/05/2025 9:30 PM CDT 02/05/2025 9:37 PM CDT Joselo Gann DO LAB BLOOD ORDERABLES Final R [facility] Performing Organization Address [facility] de Phone Number [facility] [address] [place] [phone] * Lipase (02/05/2025 9:30 PM CDT) Only the most recent of2 resultswithin the time period is included. Pathologist [facility] Lipase 21 13 - 75 U/L LAB CHEMISTRY METHOD 02/05/2025 10:07 PM CDT [facility] Comment:Lipase reference ran ge has been updated to better align with national standards. Previous Lipase reference range was 73-393 U/L Blood Venous blood specimen / Unknown Existing Catheter / Unknown 02/05/2025 9:30 PM CDT 02/05/2025 9:37 PM CDT Joselo Gann DO LAB BLOOD ORDERABLES Final R esult Performing Organization Address City/[facility]/ZIP Co de Phone Number [facility] [address] [address] * Lactic Acid, Plasma (02/05/2025 9:30 PM CDT) [facility] Lactic Acid 1.2 0.7 - 2.1 mmol/L LAB CHEMISTRY METHOD 02/05/2025 10:09 PM CDT [facility] Blood Venous blood specimen / Unknown Existing Catheter / Unknown 02/05/2025 9:30 PM CDT 02/05/2025 9:38 PM CDT us Joselo Gann DO LAB BLOOD ORDERABLES Final R esult [facility] [address] [address] * (ABNORMAL) Comprehensive metabolic panel (02/05/2025 9:30 PM CDT) Only the most recent of2 resultswithin the time period is included. Pathologist [facility] Glucose 373(H) 70 - 100 mg/dL LAB CHEMISTRY METHOD 02/05/2025 10:08 PM CDT [facility] BUN 29(H) 7 - 17 mg/dL LAB CHEMISTRY METHOD 02/05/2025 10:08 PM CDT [facility] Creatinine 1.54(H) 0.52 - 1.04 mg/dl LAB CHEMISTRY METHOD 02/05/2025 10:08 PM CDT [facility] BUN/Creatinine Ratio 19(H) 12 - 17 LAB CHEMISTRY METHOD 02/05/2025 10:08 PM CDT [facility] Sodium 137 135 - 145 mmol/L LAB CHEMISTRY METHOD 02/05/2025 10:08 PM CDT [facility] Potassium 4.3 3.6 - 5.0 mmol/L LAB CHEMISTRY METHOD 02/05/2025 10:08 PM CDT [facility] Chloride 104 101 - 111 mmol/L LAB CHEMISTRY METHOD 02/05/2025 10:08 PM CDT [facility] Total Carbon Dioxide 24 22 - 30 mmol/L LAB CHEMISTRY METHOD 02/05/2025 10:08 PM CDT [facility] Anion Gap 13 9 - 17 mmol/L LAB CHEMISTRY METHOD 02/05/2025 10:08 PM CDT [facility] Calcium 8.8 8.2 - 10.2 mg/dL LAB CHEMISTRY METHOD 02/05/2025 10:08 PM CDT [facility] Total Protein, Serum 7.2 5.6 - 8.5 g/dL LAB CHEMISTRY METHOD 02/05/2025 10:08 PM CDT [facility] Albumin 3.1(L) 3.5 - 5.2 g/dL LAB CHEMISTRY METHOD 02/05/2025 10:08 PM CDT [facility] GLOBULIN 4.1(H) 2.1 - 3.8 g/dL LAB CHEMISTRY METHOD 02/05/2025 10:08 PM CDT [facility] A/G Ratio 0.8(L) 1.4 - 1.7 LAB CHEMISTRY METHOD 02/05/2025 10:08 PM CDT [facility] Bilirubin, Total 0.5 0.1 - 1.3 mg/dL LAB CHEMISTRY METHOD 02/05/2025 10:08 PM CDT [facility] Alkaline Phosphatase 77 45 - 117 U/L LAB CHEMISTRY METHOD 02/05/2025 10:08 PM CDT [facility] ALT (SGPT) 21 11 - 58 U/L LAB CHEMISTRY METHOD 02/05/2025 10:08 PM CDT [facility] AST (SGOT) 15 9 - 55 U/L LAB CHEMISTRY METHOD 02/05/2025 10:08 PM CDT [facility] eGFR 42(L) >=60 mL/min/1. 73 m2 LAB CHEMISTRY METHOD 02/05/2025 10:08 PM CDT [facility] Comment:Moderate Risk of Chr onic Kidney Disease Blood Venous blood specimen / Unknown Existing Catheter / Unknown 02/05/2025 9:30 PM CDT 02/05/2025 9:39 PM CDT us Joselo Gann DO LAB BLOOD ORDERABLES Final R esult [facility] [address] [address] * Procalcitonin (01/12/2025 8:37 PM CDT) PROCALCITONIN 0.04 <=0.07 ng/mL 01/13/2025 7:51 AM CDT [facility] Blood Venous blood specimen / Unknown Existing Catheter / Unknown 01/12/2025 8:37 PM CDT 01/12/2025 8:43 PM CDT Yomi Tejeda MD LAB BLOOD ORDERABLES Final Resul t Performing Organization Address [facility] de Phone Number [facility] [address] [place] [address] * Occult Blood Stool (01/03/2025 2:26 PM CDT) Occult Blood, Stool Negative Negative 01/03/2025 2:36 PM CDT [facility] Stool Rectal contents / Unknown Non-blood Collection / Unknown 01/03/2025 2:26 PM CDT 01/03/2025 2:30 PM CDT Ibrahima Ojeda DO LAB BODY FLUIDS AND STOOLS OR DERABLES Final Result Performing Organization Address [facility] de Phone Number [facility] [address] [place] [phone] * TRANSTHORACIC ECHO (TTE) LIMITED 2D W/ CONTRAST (09/05/2024 3:46 PM 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 sub type: TTE procedure: Transthoracic Echo Limited TTE. Start date time: 09/05/2024 3:12 PM Accession no: [id number] Patient status: Routine Visit no: [id number] Contrast medium: Definity Study location: Portable HR: 83 bpm Technical quality: Technically difficult In/Out patient: Inpatient Limitation reason: Body habitus Blood pressure: 146 / 56 mmHg Room no: 253N Procedure Associate Chemist: Ирина Ivey Interpreting physician: Olrin Marshall MD Physician Conclusions Summary: Limited Echo [...] MD - 09/06/2024 Demographics Patient name: SCOTTIE Reident ID: [id number] Gender: FemaleAge: 49 year(s) Date of : 1975BMI: 70.59 kg/m^2 Height: 170 cmBSA: 2.85 m^2 Weight: 204 kgEthnicity: None Race: Procedure Information Procedure type: Echo Proc. sub type: TTE procedure: Transthoracic Echo Limited TTE. Start date time: 09/05/2024 3:12 PMAccession no: [id number] Patient status: RoutineVisit no: [id number] Contrast medium: DefinityStudy location: Portable HR: 83 bpmTechnical quality: Technically difficult In/Out patient: InpatientLimitation reason: Body habitus Blood pressure: 146 / 56 mmHg Room no: 253N Procedure Associate Chemist: Ирина Ivey Interpreting physician: Orlin Marshall MD [...] (2D): 4.4 cm (2.7 - 3.8 cm) [facility] CV ECHO PROCEDURES Final Result from Last 3 Months or Most Recently Relevant to Health Maintenance Additional Health Concerns Infection Onset Date Last Indicated MRSA Comment:03/22/2017 MRSA - lt foot wound ([facility]) 03/23/2017 MRSA - bone lt 5th metatarsal ([facility]) 03/22/2017 1 10/26/2021 MDRO-GNB Comment:03/22/2017 MDRO-GNB - Morganella morganii - lt foot wound ([facility]) 03/23/2017 MDRO-GNB - Morganella morganii - bone from left foot ([facility]) 04/20/2017 MDRO-GNB - Morganella morganii - lt foot wound ([facility]) 03/22/2017 01/13/2025 Insurance [employer] Advance Directives For more information, please contact: [phone] (7:30 AM - 5PM [facility] [place], 7 days a week) * Full Code [...] 11:15 AM 05/11/2024 6:32 PM Care Teams Legal Associate Relationship Specialty Start Date End Date Ashtyn Fournier NP [address] [place] [address] PCP - General Family Medicine 01/06/25
[2025-04-12 11:48] VITALS: BP 187/83; PULSE 91; RESP 16; TEMP 36.4; O2SAT 98; BMI 61.0
--- NOTE | 2025-04-12 11:58 | XR_ITS ---
WS: [id number] XR chest 1V portable [id number] REASON FOR EXAM: dyspnea/cough FINDINGS: Compared to the previous examination of 04/04/2025, the PICC line has retracted from the mid to distal SVC to the junction of the innominate vein and the SVC. Heart and mediastinum are within normal limits. Calcified granulomatous disease bilaterally. No acute pulmonary parenchymal or pleural abnormality. XR/XR chest 1V portable [id number] IMPRESSION: No acute chest abnormality. PICC line retraction as above.
--- NOTE | 2025-04-12 12:06 | ED_ITS ---
HPI - General Adult 2 General: Chief complaint: General Medical Stated complaint: PICC Line pain Time Seen by Provider: 04/12/25 11:31 History of Present Illness: 49-year-old female presents to the emerg ency room with complaints of an abnormality in her PICC line PICC line is placed 1 week ago she has a osteomyelitis that she is being given long-term antibiotics for. She states the last couple of days there is a few inches underneath the occlusive dressing that have exteriorized. It is still working properly. She denies any fever sweats or chills. Associated symptoms: Deny chest pain, dyspnea or rash Related Data Home Medications ?Medication ?Instructions ?Recorded ?Confirmed cetirizine 10 mg tablet 10 mg PO DAILY 03/22/2311/06 aspirin 81 mg tablet,delayed 81 mg PO DAILY 02/25/25 0 04/12/25 release clopidogrel 75 mg tablet (Plavix) 75 mg PO DAILY 02/2504/12/25 pantoprazole 40 mg tablet,delayed 40 mg PO DAILY 02/2504/12/25 release (Protonix) alprazolam 0.5 mg tablet (Xanax) 0.5 mg PO TID PRN Anx iety 03/29/25 04/12/25 tizanidine 4 mg tablet 4 mg PO TID PRN muscle spasm s 03/29/25 04/12/25 albuterol sulfate 90 mcg/actuation 2 puff inhalation . Q4-6H PRN 04/12/25 04/12/25 aerosol inhaler (Ventolin HFA) Shortness Of Breath oxycodone 5 mg tablet 7.5 mg PO Q6H PRN Pain 04/1204/12/25 Previous Rx's ?Medication ?Instructions ?Recorded hyoscyamine sulfate 0.125 mg 0.125 mg sublingual Q8H P RN 02/26/25 sublingual tablet (Levsin/SL) epigastric abdominal paulo n #20 tabs promethazine 25 mg rectal 25 mg SC Q4H PRN nausea and 02/26/25 suppository vomiting #12 ea glucagon HCl 1 mg solution for 1 mg SUBCUT Q20M PRN hy poglycemia 04/04/25 injection (Glucagon (HCl) #1 ea Emergency Kit) glucometer testing kit #1 ea 04/04/25 insulin regular human 100 unit/mL 40 unit (0.4 mL) SUB CUT TID 90 04/08/25 injection solution (Humulin R days #108 mL Regular U-100 Insulin) Allergies Allergy/AdvReac Type Severity Reaction Status Date / Time tramadol Allergy Mild hives Verified 04/06/25 12:45 insulin lispro Allergy Unknown Unknown Verified 04/08/25 10:56 sulfamethoxazole (From Allergy ALGY-Hives Verified 04/06/25 12:45 Bactrim) trimethoprim (From Bactrim) Allergy ALGY-Hives Verified 04/06/25 12:45 daptomycin AdvReac blurry Verified 04/06/25 12:45 vision flurocet Allergy ADR-Confusi Uncoded 04/06/25 12:45 on Review of Systems 2 Const: Denies: fever(s) or chills Card: Denies: chest pain Resp: Denies: dyspnea GI: Denies: abdominal pain : Denies: dysuria, urinary frequency or urinary urgency Musc: Denies: neck pain or back pain Skin/Breast: Denies: rash PFSH ED 2 PFSH: Medical History (Updated 04/12/25 @ 13:08 by Cornelio Smith DO) Hyperlipemia, mixed Social History Smoking and tobacco/nicotine status: never used tobacco/nicotine Physical Exam 2 Const: COMMON NORMALS: no acute distress GENERAL APPEARANCE: cooperative and comfortable ORIENTATION/CONSCIOUSNESS: Yes awake, Yes oriented to person, Yes oriented to place and Yes oriented to time HENMT: COMMON NORMALS: normocephalic, atraumatic and hearing grossly normal bilaterally HEAD & SCALP: normocephalic and atraumatic Resp: COMMON NORMALS: normal respiratory effort, No retractions, No use of accessory muscles and clear to auscultation bilaterally AUSCULTATION: clear to auscultation bilaterally Cardio: COMMON NORMALS: regular rate, regular rhythm and No murmurs present (Cardio) RATE: regular rate RHYTHM: regular rhythm Extremity: COMMON NORMALS: normal to inspection, capillary refill normal, no clubbing, cyanosis or edema, no calf tenderness and no pedal edema Neuro: SENSORIUM/ORIENTATION: Yes oriented to person, Yes oriented to place and Yes oriented to time Skin: COMMON NORMALS: no rashes or lesions noted GENERAL SKIN EXAM: no rashes or lesions noted Course 2 Vital Signs: Vital signs: Vital Signs Temperature 97.6 F 04/12/25 11:48 Pulse Rate 87 04/12/25 13:16 Respiratory Rate 16 04/12/25 11:48 Blood Pressure 180/80 04/12/25 13:16 Pulse Oximetry 98 04/12/25 13:16 Oxygen Delivery Me thod Room Air 04/12/25 11:48 MDM - General Adult Medical Decision Making On exam the PICC line has retracted a bit manage probably 3 inches approximately exteriorized still flushes well repeat chest x-ray to confirm 60 retraction compared to initial film. It is still functioning at this time I reviewed with the PICC line nurse who usually places them. They feel they could replace it over a wire tomorrow in the PICC line clinic. Patient vies she can continue to use a line of think the line is displaced when she changes the bandage herself. Encouraged her not to change bandage have the nurse do all of the wound care work and bandage changes. She can continue to use the PICC line they will replace in the morning. Labs reviewed. Medical Records I reviewed the patient's medical records. Lab Data I reviewed the patient's lab results. 04/12/25 12:32 04/12/25 12:32 Radiology Impressions Chest X-Ray 04/12/25 11:58 IMPRESSION: No acute chest abnormality. PICC line retraction as above. Laboratory Results WBC 9.97 10^3/uL (3.29-11.43) 04/12/25 12:32 RBC 3.74 10^6/uL (3.85-5.65) L 04/12/25 12:32 Hgb 10.70 g/dL (11.27-16.99) L 04/12/25 12:32 Hct 33.6 % (36-47) L 04/12/25 12:32 MCV 89.8 fl (85-98) 04/12/25 12:32 MCH 28.6 pg (27-33) 04/12/25 12:32 MCHC 31.8 g/dL (30-55) 04/12/25 12:32 RDW 14.8 % (12.1-15.1) 04/12/25 12:32 Plt Count 248 10^3/cmm (157-399) 04/12/25 12:32 MPV 10.9 fL (7.4-10.4) H 04/12/25 12:32 Neut % (Auto) 72.8 % 04/12/25 12:32 Lymph % (Auto) 18.8 % 04/12/25 12:32 [place] % (Auto) 6.2 % 04/12/25 12:32 Eos % (Auto) 1.4 % 04/12/25 12:32 Baso % (Auto) 0.6 % 04/12/25 12:32 Neut # (Auto) 7.26 10^3/uL (1.8-7.7) 04/12/25 12:32 Lymph # (Auto) 1.9 10^3/uL (0.8-4.8) 04/12/25 12:32 [place] # (Auto) 0.6 10^3/uL (0.2-0.9) 04/12/25 12:32 Eos # (Auto) 0.1 10^3/uL (0.0-0.8) 04/12/25 12:32 Baso # (Auto) 0.1 10^3/uL (0.0-0.1) 04/12/25 12:32 Nucleated RBC % (auto) 0 % 04/12/25 12:32 Nucleated RBCs # 0.0 /100WBC 04/12/25 12:32 Sodium 133 mmol/L (136-145) L 04/12/25 12:32 Potassium 5.2 mmol/L (3.5-5.1) H 04/12/25 12:32 Chloride 95 mmol/L (98-107) L 04/12/25 12:32 Carbon Dioxide 25 mmol/L (22-29) 04/12/25 12:32 Anion Gap 18.2 (5-19) 04/12/25 12:32 BUN 34 mg/dL (6-20) H 04/12/25 12:32 Creatinine 1.4 mg/dL (0.5-0.9) H 04/12/25 12:32 GFR Calculation 40.3 mL/min (90-130) L 04/12/25 12:32 Glucose 398 mg/dL (65-115) H 04/12/25 12:32 Calculated Osmolality 300 mOsm/kg (285-295) H 04/12/25 12:32 Calcium 9.0 mg/dL (8.5-10.5) 04/12/25 12:32 Total Bilirubin 0.3 mg/dL (0.15-1.2) 04/12/25 12:32 AST 16 U/L (0-32) 04/12/25 12:32 ALT 7 U/L (0-33) 04/12/25 12:32 Alkaline Phosphatase 80 U/L (35-105) 04/12/25 12:32 Total Protein 6.3 g/dL (6.6-8.7) L 04/12/25 12:32 Albumin 3.3 g/dL (3.5-5.2) L 04/12/25 12:32 Globulin 3.0 g/dL (1.3-4.6) 04/12/25 12:32 All radiology interpretation(s) finalized by discharge Discharge Plan Discharge Patient Disposition: Home Clinical Impression: Complication associated with peripherally inserted central catheter (PICC) Condition: Stable Prescriptions: No Action cetirizine 10 mg tablet 10 mg PO DAILY Humulin R Regular U-100 Insuln 100 unit/mL solution 40 unit SUBCUT TID 90 Days Qty: 108 1RF clopidogrel [Plavix] 75 mg Tablet 75 mg PO DAILY aspirin 81 mg Tablet,Delayed Release (Dr/Ec) 81 mg PO DAILY pantoprazole [Protonix] 40 mg Tablet,Delayed Release (Dr/Ec) 40 mg PO DAILY promethazine 25 mg suppository 25 mg SC Q4H PRN (Reason: nausea and vomiting) Qty: 12 2RF hyoscyamine sulfate [Levsin/SL] 0.125 mg tablet, sublingual 0.125 mg sublingual Q8H PRN (Reason: epigastric abdominal pain) Qty: 20 0RF tizanidine 4 mg tablet 4 mg PO TID PRN (Reason: muscle spasms) alprazolam [Xanax] 0.5 mg Tablet 0.5 mg PO TID PRN (Reason: Anxiety) (DME) glucometer testing kit See Rx Instructions .Route .MEDSUPPLY Qty: 1 0RF Rx Instructions: lancets#100 strips#100 glucagon HCl [Glucagon (HCl) Emergency Kit] 1 mg recon soln 1 mg SUBCUT Q20M PRN (Reason: hypoglycemia) Qty: 1 0RF Rx Instructions: until target blood sugar attained albuterol sulfate [Ventolin HFA] 90 mcg/actuation HFA aerosol inhaler 2 puff INHALATION .Q4-6H PRN (Reason: Shortness Of Breath) oxycodone 5 mg tablet 7.5 mg PO Q6H PRN (Reason: Pain) Discharge Orders: Discharge ED (Routine); Ordered 04/12/25 Ordered By: Cornelio Smith Referrals: Joselo Burris MD [Primary Care Provider, Family Practice] Discharge Diet: Usual diet Discharge Activity: Increase activity as tolerated Patient Instructions: Opioid Safety, Pain Management, Patient Portal & Steve Instructions Activity Restrictions/Additional Instructions: [facility] It is very important that you follow up as instructed or that you return to the Emergency Department should you have concerns or if your condition changes or worsens in any way. You are seen in the emergency room with concerns about your PICC line PICC line is still functioning well. Portion of the line has been exteriorized. This should be replaced. We have made arrangements for you to have the PICC line replaced tomorrow in outpatients. You can continue to use the line until then. Recommend do not change the dressing yourself allow the nurses to change the dressing. Print Language: Peruvian Coding Level of Care Code ED Loan Approver for Marco Oglesby
[2025-04-12 12:40] LABS: Hematocrit 33.6 % (36-47); Hemoglobin 10.70 g/dL (11.27-16.99); Mean Corpuscular HGB Conc 31.8 g/dL (30-55); Mean Corpuscular Hemoglobin 28.6 pg (27-33); Mean Corpuscular Volume 89.8 fl (85-98); Nucleated Red Blood Cells % 0 %; Platelet Count 248 10^3/cmm (157-399); Red Blood Count 3.74 10^6/uL (3.85-5.65); White Blood Count 9.97 10^3/uL (3.29-11.43)
[2025-04-12 12:59] LABS: Alanine Aminotransferase 7 U/L (0-33); Albumin Level 3.3 g/dL (3.5-5.2); Alkaline Phosphatase 80 U/L (35-105); Blood Urea Nitrogen 34 mg/dL (6-20); Calcium 9.0 mg/dL (8.5-10.5); Carbon Dioxide 25 mmol/L (22-29); Chloride 95 mmol/L (98-107); Creatinine Clr Calc Pharmacy 84.4772; Globulin 3.0 g/dL (1.3-4.6); Glucose 398 mg/dL (65-115); Osmolality Calculated 300 mOsm/kg (285-295); Sodium 133 mmol/L (136-145); Total Protein 6.3 g/dL (6.6-8.7)
[2025-04-12 13:00] LABS: Anion Gap 18.2 (5-19); Aspartate Amino Transferase 16 U/L (0-32); Potassium 5.2 mmol/L (3.5-5.1)
[2025-04-12 13:16] VITALS: BP 180/80; PULSE 87; O2SAT 98
--- NOTE | 2025-04-12 13:20 | PC.PHAR ---
Pt has allergies to the binders or fillers in the kwik pen lispro insulin. Pt can take Humulin R U-100 in the vial.
== END 2025-04-12 13:17 | disposition home or self-care (01) ==
PROVIDERS: Emergency Provider Family Medicine; PCP Family Medicine
DX: T82.594A Other mechanical complication of infusion catheter, initial encounter (principal); X58.XXXA Exposure to other specified factors, initial encounter; Z79.02 Long term (current) use of antithrombotics/antiplatelets; Z79.82 Long term (current) use of aspirin; E78.2 Mixed hyperlipidemia
CPT/HCPCS: 71045; 80053; 85025; 99284

== ENCOUNTER → 2025-04-13 07:04 | Day surgery (SDC) | payer MEDICAID, SELFPAY ==
--- NOTE | 2025-04-13 07:10 | XR_ITS ---
WS: [id number] XR chest 1V portable [id number] REASON FOR EXAM: PICC PLACEMENT FINDINGS: Left arm PICC line has has been placed from left antecubital approach. The tip of the catheter is in the distal SVC in proper position for use. The appropriate position of the catheter was given to the interventional radiology rn over the phone at 8:15 a.m. XR/XR chest 1V portable [id number] IMPRESSION: Left arm PICC line in proper position as above.
[2025-04-13 07:12] VITALS: BP 179/109; PULSE 88; RESP 18; TEMP 36.1; O2SAT 97; BMI 61.0
== END ==
LOC: GILAB 07:05
PROVIDERS: PCP Family Medicine; Visit Provider Family Medicine
DX: T82.524A Displacement of infusion catheter, initial encounter (principal); Y82.8 Other medical devices associated with adverse incidents
CPT/HCPCS: 36573; 71045; 99213

== ENCOUNTER 2025-05-03 12:58 | Oncology outpatient (recurring) (ONCR) | payer MEDICAID, SELFPAY ==
[2025-05-03 13:31] LABS: Hematocrit 33.8 % (36-47); Hemoglobin 10.90 g/dL (11.27-16.99); Mean Corpuscular HGB Conc 32.2 g/dL (30-55); Mean Corpuscular Hemoglobin 28.5 pg (27-33); Mean Corpuscular Volume 88.5 fl (85-98); Nucleated Red Blood Cells % 0 %; Platelet Count 179 10^3/cmm (157-399); Red Blood Count 3.82 10^6/uL (3.85-5.65); White Blood Count 8.63 10^3/uL (3.29-11.43)
[2025-05-03 13:52] LABS: Alanine Aminotransferase 9 U/L (0-33); Albumin Level 3.3 g/dL (3.5-5.2); Alkaline Phosphatase 56 U/L (35-105); Aspartate Amino Transferase 14 U/L (0-32); Globulin 3.2 g/dL (1.3-4.6); Total Protein 6.5 g/dL (6.6-8.7)
== END 2025-05-12 23:59 | disposition home or self-care (01) ==
PROVIDERS: Internal Medicine Hematology & Oncology; PCP Family Medicine; Visit Provider Internal Medicine Medical Oncology
DX: R78.81 Bacteremia (principal); B95.61 Methicillin susceptible Staphylococcus aureus infection as the cause of diseases classified elsewhere; D72.829 Elevated white blood cell count, unspecified
CPT/HCPCS: 36592; 80076; 82550; 82565; 85025; 86140

== ENCOUNTER 2025-05-14 22:45 | Inpatient (IN) | payer MEDICAID, SELFPAY ==
--- OUTSIDE RECORDS SUMMARY | 2025-05-14 22:51 | XMS_ITS | Clinical Summary ---
Author Organization [facility] Address [address] [place] [address] Phone Care Team Providers Care System Programmer Name Role Phone Joselo Burris MD Primary Care Provider [phone] Allergies Active Allergy Reactions Criticality Noted Date [...] Inject 35 units with meals plus sliding scale:150-20 0=3 units,201-25 0=6 units,251-30 0=9 units,301-35 0=12 units. Active nitroglycerin (Nitrostat) 0.[address] 0.4 mg under the tongue every 5 (five) minutes if needed for chest pain. Active pantoprazole (Protonix) 40 mg EC tablet Take 1 tablet (40 mg total) by mouth 1 (one) time each day before breakfast. Do not crush, chew, or split. 30 tablet 11 06/02/20 24 025 Active albuterol (ProAir HFA) 90 mcg/actuation inhalerIndication s:Dyspnea, unspecified type Inhale 2 puffs every 4 (four) hours if needed for wheezing or shortness of breath. 8.5 g 07/19/20 24 025 Active magnesium oxide (Mag-Ox) 400 mg (241.3 mg magnesium) tablet Take 400 mg by mouth 1 (one) time each day. 09/30/20 23 Active ALPRAZolam (Xanax) 0.5 mg tablet Take 0.5 mg by mouth 3 (three) times a day if needed for anxiety. Active potassium chloride ER (Micro-K) 10 mEq ER capsule Take 10 mEq by mouth 1 (one) time each day. Do not crush or chew. Active oxygen (O2) gas Inhale 2.5 L/min continuously . via nasal canula Active metoprolol succinate XL (Toprol-XL) 25 mg 24 hr tablet Take 25 mg by mouth 1 (one) time each day. 12/02/19 25 Active bumetanide (Bumex) 2 mg tablet Take 1 tablet (2 mg total) by mouth 2 (two) times a day. 60 tablet 01/06/20 25 Active tiZANidine (Zanaflex) 4 mg tablet Take 1 tablet (4 mg total) by mouth every 6 (six) hours if needed for muscle spasms for up to 10 days. 30 tablet 01/06/20 25 Active ondansetron ODT (Zofran-ODT) 4 mg disintegrating tablet Take 1 tablet (4 mg total) by mouth every 6 (six) hours if needed for nausea or vomiting. 20 tablet 02/10/20 25 Active clopidogreL (Plavix) 75 mg tablet Take 75 mg by mouth 1 (one) time each day. Active aspirin 81 mg EC tablet Take 1 tablet by mouth 1 (one) time each day in the morning. 12/31/19 25 Active hyoscyamine (Levsin) 0.125 mg SL tablet Take 0.125 mg by mouth every 6 (six) hours if needed. 02/27/20 25 Active oxyCODONE (Roxicodone) 15 mg immediate release tabletIndications :pain Take 15 mg by mouth every 4 (four) hours if needed (pain). 07/30/20 24 025 Discontinued HYDROcodone-aceta minophen ([place]) 5-325 mg tabletIndications :Right foot pain,Type II diabetes mellitus with neurological manifestations (CMS/HCC),Diabeti c ulcer of toe of right foot associated with type 2 diabetes mellitus, with fat layer exposed (CMS/HCC) Take 1 tablet by mouth every 6 (six) hours if needed for severe pain (7-10) for up to 6 days. 24 tablet 05/06/20 25 025 Hospital, Clinic, or Other Facility Administered Medication Ordered Dose Route Frequency Start Date End Date Status albuterol (Proventil;Ventolin) 90 mcg/actuation inhaler 4 puffIndications:Shortness of breath 4 puff inhl Once 02/24/2024 Active Active Problems Problem Noted Date Diagnosed Date Chronic skin ulcer, limited to breakdown of skin 04/14/2025 Joint contracture of foot, right 04/14/2025 Nausea & vomiting 02/06/2025 Intractable pain 02/06/2025 [...] (08/26/2022): Added automatically from request for surgery [id number] Foot laceration, left, initial encounter 017 Laceration [...] foot 08/25/2022 02/14/2024 Acute blood loss anemia 08/21/2017 0501/2024 Encounters Date Type Department Care Team Description 05/06/2025 2:45 PM CDT Anesthesia Event OPERATING ROOM-[address] [address] Ze Bauman CRNA [place], Becky R, ADAP, SOCIAL MEDIA JOB TITLES 05/06/2025 2:20 PM CDT - 05/06/2025 3:10 PM CDT Surgery [facility] [address] [phone] Mekhi Brannon DPM Partial Phalangectomy of the right second toe proximal phalanx [48263 (CPT ) +1 more] 05/06/2025 1:01 PM CDT - 05/06/2025 4:16 PM CDT Hospital Encounter [facility] [address] [phone] Mekhi Brannon DPM Discharge Disposition: Discharged to Home or Self Care (Routine Discharge) 05/06/2025 Telephone [facility] [address] [place] [address] Mekhi Brannon DPM RP- Rescheduling 05/06/2025 Orders Only [facility] [address] [place] [address] Mekhi Brannon DPM Diabetic ulcer of toe of right foot associated with type 2 diabetes mellitus, with fat layer exposed (CMS/HCC) (Primary Dx); Right foot pain; Type II diabetes mellitus with neurological manifestations (CMS/HCC) 05/05/2025 Telephone [facility] [address] [place] [address] Elda Hobbs CST Speak to nurse 05/04/2025 2:00 PM CDT - 05/04/2025 11:59 PM CDT Hospital Encounter PREADMISSION TESTING - [facility] [address] [place] [address] Discharge Disposition: Discharged to Home or Self Care (Routine Discharge) 04/27/2025 Telephone [facility] [address] [place] [phone] Oliverio Jimenez DPM clearance/surgery 04/25/2025 Telephone [facility] [address] [place] [address] Hodan Ordaz MA RP pcp appt 04/21/2025 Telephone PREADMISSION TESTING - [facility] [address] [place] [address] Alexander Kohli RN 04/20/2025 2:00 PM CDT Lab LAB-MEDICAL OFFICE BUILDING [address] [place] [address] Preoperative testing; Chronic skin ulcer, limited to breakdown of skin (CMS/HCC); Joint contracture of foot, right; Cardiac volume overload; Nephrotic syndrome; Status post coronary artery stent placement; Shortness of breath; Other chest pain; Abnormal stress test; Stage 3a chronic kidney disease (CMS/HCC) 04/20/2025 1:00 PM CDT - 04/20/2025 11:59 PM CDT Hospital Encounter PREADMISSION TESTING - [facility] [address] [place] [address] Preoperative testing (Primary Dx); Chronic skin ulcer, limited to breakdown of skin (CMS/HCC); Joint contracture of foot, right; Cardiac volume overload; Nephrotic syndrome; Status post coronary artery stent placement; Shortness of breath; Other chest pain; Abnormal stress test; Stage 3a chronic kidney disease ([facility]) Discharge Disposition: Discharged to Home or Self Care (Routine Discharge) 04/20/2025 Telephone PREADMISSION TESTING - [address] [address] Alexander Kohli RN 04/20/2025 Orders Only [facility] [address] [place] [address] Mekhi Brannon DPM 04/14/2025 3:21 PM CDT - 04/14/2025 11:59 PM CDT Hospital Encounter XRAY [facility] [address] [place] [address] Right foot pain Discharge Disposition: Discharged to Home or Self Care (Routine Discharge) 04/14/2025 3:00 PM CDT Office Visit [facility] [address] [place] [address] Mekhi Brannon DPM Type II diabetes mellitus with neurological manifestations ([facility]) (Primary Dx); Right foot pain; Diabetic ulcer of toe of right foot associated with type 2 diabetes mellitus, with fat layer exposed ([facility]) 04/14/2025 Orders Only [facility] [address] [address] Mekhi Brannon DPM Chronic skin ulcer, limited to breakdown of skin (CMS/HCC) (Primary Dx); Right foot pain; Joint contracture of foot, right 03/30/2025 Telephone [facility] DD [address] [address] Scout Weldon MD Appointment 02/24/2025 Telephone [facility] [address] [address] Mekhi Brannon DPM 02/16/2025 1:45 PM CDT Office Visit [facility] [address] [place] [phone] Mekhi Brannon DPM 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); Pre-ulcerative calluses from Last 3 Months Immunizations Immunization Administration Dates Next Due Influenza, Unspecified 08/09/1996 Family History Medical History Relation Comments No Known Problems Brother 1 Cancer Father Lung cancer Father No Known Problems Father's Brother No Known Problems Father's Sister No Known Problems Maternal Grandfather No Known Problems Maternal Grandmother Alzheimer's disease Mother Cancer Mother Diabetes Mother Heart disease Mother No Known Problems Mother's Brother No Known Problems Mother's Sister No Known Problems Paternal Grandfather No Known Problems Paternal Grandmother COPD Sister 1 Heart block Sister 1 Heart disease Sister 1 Anesthesia problems Neg Hx Kidney disease Neg Hx Malig Hypertension Neg Hx Malig Hyperthermia Neg Hx Pseudochol deficiency Neg Hx Stroke Neg Hx Relation Status Comments Brother 1 Alive Brother 2 Alive Brother 3 Alive Brother 4 Alive Brother 5 Alive Father Father's Brother Father's Sister Maternal Grandfather Maternal Grandmother Mother Alive Mother's Brother Mother's Sister Paternal Grandfather Paternal Grandmother Sister 1 Alive Sister 2 Alive Sister 3 Alive Social History Tobacco Use Types Packs/Day Years [...] from your doctor or pharmacy? Never 01/03/2025 [facility] Utilities Answer Date Recorded In the past 12 months has th e [employer], gas, oil, or water company threatened to [...] 02/06/2025 How often do you attend chur or rastafarian services? Never 02/06/2025 Do you belong to any clubs o r organizations such as episcopal groups, unions, fraternal or athletic groups, or [...] place to sleep or slept in a correction (including now)? No 02/14/2024 Housing Stability Vital Sign Answer David e Recorded In the last 12 months, was t here a time when you were not able to pay the mortgage or rent on time? No 02/06/2025 In the past 12 months, how m any times have you moved where you were living? 0 02/06/2025 At any time in the past 12 m [facility], were you homeless or living in a correction (including now)? No 02/06/2025 [facility] - Mental Health Answer Date Recorde d Little interest or pleasure in doing things Not at all 02/16/2025 Feeling down, depressed, or hopeless Not at all 02/16/2025 Feeling of Stress Not on file 02/16/2025 Comments No Sex and Gender Information Value Date Recorded Sex Assigned at Female 08/25/2022 4:03 AM SLITTER AND REWINDER MACHINE OPERATOR Legal Sex Female 11:21 AM CDT Gender Identity Female 08/25/2022 4:03 AM SLITTER AND REWINDER MACHINE OPERATOR Sexual Orientation Straight 08/25/2022 4: 03 AM SLITTER AND REWINDER MACHINE OPERATOR Last Filed Vital Signs Vital Sign Reading Time Taken Comments Blood Pressure 154/87 05/06/2025 4:00 PM CDT Pulse 84 05/06/2025 4:00 PM CDT Temperature 36.2 C (97.2 F) 05/06/2025 3:20 PM CDT Respiratory Rate 25 05/06/2025 4:00 PM CDT Oxygen Saturation 98% 05/06/2025 3:50 PM CDT Inhaled Oxygen Concentration - - Weight 176 kg (388 lb 12.5 oz) 05/06/2025 1:00 P M CDT Height 169 cm (5' 6.54 ) 05/06/2025 1:00 PM CDT Body Mass Index 61.75 05/06/2025 1:00 PM CDT Plan of Treatment Upcoming Encounters Date Type Department Care Team (Late st Contact Info) Description 05/17/2025 2:45 PM CDT Office Visit [facility]ILDING [address] [address] Mekhi Brannon DPM [address] [place] [address] 06/06/2025 1:00 PM CDT Office Visit [facility] MEDICAL OFFICE BUILDING [address] [address] Santiago Morejon MD [facility] [address], [address] [place] [address] [phone] (Work) Health Maintenance Due Date Last Done Comments [...] 2025 08/09/1996 Diabetes: Foot Exam 07/28/2025 07/28/2024, 2 Echocardiogram 09/05/2025 09/05/2024, 08/13, 08/04/2024, Additional history exists FOBT 01/03/2026 01/03/2025, 11/15/2024 Depression Screening 02/17/2026 02/16/2025 Creatinine Level 04/20/2026 04/20/2025, , 02/08/2025, Additional history exists Potassium Level 04/20/2026 04/20/2025, 01/13, 02/08/2025, Additional history exists Zoster Vaccines (1 of [...] on patient's age to complete this topic Goals Goal Patient Goal Type Associated Problems Recent Progress Patient-Stated? Author Autogenerat ed Goal Care Plan Autogenerated Problem No Elda Hobbs, SLITTER AND REWINDER MACHINE OPERATOR Medical Devices Implanted Type Area Bit Bender Device Identifier Shelf Expiration Date Model / Serial / Lot Con Buckner Austin Maik 3.0x15 - Sna - [id number] Implanted:Qt y: 1 on 02/02/2024 by Fito Shaw MD at [facility] Consignment Products Implant N/A: Coronary MEDTR [id number] 09/20/2026 [id number] / NA / [id number] Con Buckner Austin Maik 3.0x18 - Sna - [id number] Implanted:Qt y: 1 on 02/02/2024 by Fito Shaw MD at [facility] Consignment Products Implant N/A: Coronary MEDTR [id number] 11/26/2026 [id number] / NA / [id number] Rashid-Left Leg [employer]opedics Implant Left: Leg Con Stent Austin 3.50x38 - Sna - [id number] Implanted:Qt y: 1 on 02/02/2024 by Fito Shaw MD at [facility] Vascular Implant N/A: Coronary MEDTR [id number] 10/23/2026 [id number] / NA / [id number] Con Stent Austin 2x12 - Sna - [id number] Implanted:Qt y: 1 on 02/02/2024 by Fito Shaw MD at [facility] Vascular Implant N/A: Coronary [employer] [id number] 11/04/2026 [id number] / NA / [id number] Procedures Procedure Name Priority Date/Time Associated Diagnosis Comments POCT GLUCOSE METER Routine 05/06/2025 3: 44 PM CDT TX RESECTION PARTIAL/COMPLETE PHALANGEAL BASE EACH 05/06/2025 2:47 PM CDT Chronic skin ulcer, limited to breakdown of skin (CMS/HCC) Right foot pain Joint contracture of foot, right TX PARTICAL EXCISION BONE PHALANX TOE 05/06/2025 2:47 PM CDT Chronic skin ulcer, limited to breakdown of skin (CMS/HCC) Right foot pain Joint contracture of foot, right POCT GLUCOSE METER Routine 05/06/2025 1: 24 PM CDT , URINE STAT 05/06/2025 1:19 PM CDT BASIC METABOLIC PANEL Routine 04/20/2025 2:06 PM CDT Preoperative testing Chronic skin ulcer, limited to breakdown of skin (CMS/HCC) Joint contracture of foot, right Cardiac volume overload Nephrotic syndrome Status post coronary artery stent placement Shortness of breath Other chest pain Abnormal stress test Stage 3a chronic kidney disease (CMS/HCC) XR FOOT 3+ VIEWS RIGHT Routine 3:27 PM CDT Right foot pain HEMOGLOBIN A1C Add-On 02/06/2025 9:05 AM CDT OCCULT BLOOD STOOL Routine 01/03/2025 2: 26 PM CDT TRANSTHORACIC ECHO (TTE) LIMITED 2D W/ CONTRAST Routine 09/05/2024 3:46 PM SLITTER AND REWINDER MACHINE OPERATOR from Last 3 Months or Most Recently Relevant to Health Maintenance Results * (ABNORMAL) POCT glucose meter docked device (05/06/2025 3:44 PM CDT) Only the most recent of2 resultswithin the time period is included. GLUCOSE WHOLE BLOOD 241(H) 70 - 100 mg/dL 05/06/2025 3:45 PM CDT [facility] Comment:Non Fasting Blood Capillary blood specimen / Unknown 05/06/2025 3:44 PM CDT 05/06/2025 3:45 PM CDT Mekhi Brannno DPM LAB POINT OF CARE T EST DOCKED DEVICE UNSOLICITED RESULTS Final Result Performing Organization Address [facility]/ZIP Co de Phone Number [facility] [address] [address] * , urine (05/06/2025 1:19 PM CDT) URINE PREG TEST Negative Negative 05/06/2025 1:42 PM CDT [facility] Urine Urine specimen obtained by clean catch procedure / Unknown Non-blood Collection / Unknown 05/06/2025 1:19 PM CDT 05/06/2025 1:35 PM CDT Tyler Carter MD LAB URINE ORDERABLES Final Res ult Performing Organization Address [facility]/ZIP Co de Phone Number [facility] [address] [place] [phone] * (ABNORMAL) Basic Metabolic Profile (04/20/2025 2:06 PM CDT) Glucose 524(HH) 70 - 100 mg/dL LAB CHEMISTRY METHOD 04/20/2025 7:02 PM CDT [facility] BUN 45(H) 7 - 17 mg/dL LAB CHEMISTRY METHOD 04/20/2025 7:02 PM CDT [facility] Creatinine 2.61(H) 0.52 - 1.04 mg/dl LAB CHEMISTRY METHOD 04/20/2025 7:02 PM CDT [facility] BUN/Creatinine Ratio 17 12 - 17 LAB CHEMISTRY METHOD 04/20/2025 7:02 PM CDT [facility] Sodium 131(L) 135 - 145 mmol/L LAB CHEMISTRY METHOD 04/20/2025 7:02 PM CDT [facility] Potassium 4.4 3.6 - 5.0 mmol/L LAB CHEMISTRY METHOD 04/20/2025 7:02 PM CDT [facility] Chloride 100(L) 101 - 111 mmol/L LAB CHEMISTRY METHOD 04/20/2025 7:02 PM CDT [facility] Total Carbon Dioxide 23 22 - 30 mmol/L LAB CHEMISTRY METHOD 04/20/2025 7:02 PM CDT [facility] Anion Gap 12 9 - 17 mmol/L LAB CHEMISTRY METHOD 04/20/2025 7:02 PM CDT [facility] Calcium 9.5 8.2 - 10.2 mg/dL LAB CHEMISTRY METHOD 04/20/2025 7:02 PM CDT [facility] eGFR 22(L) >=60 mL/min/1. 73 m2 LAB CHEMISTRY METHOD 04/20/2025 7:02 PM CDT [facility] Comment:Moderate Risk of Chr onic Kidney Disease Blood Venous blood specimen / Unknown Venipuncture / Unknown 04/20/2025 2:06 PM CDT 04/20/2025 2:06 PM CDT us Grazyna Bird DO LAB BLOOD ORDERABLES Final Re sult [facility] [address] [id number] * XR foot 3+ views right (04/14/2025 3:27 PM CDT) Anatomical Region Laterality Modality Lower Extremities, Foot Right Digital Radiography 04/21/2025 8:06 AM CDT Narrative 04/21/2025 8:07 AM CDT EXAMINATION: XR FOOT 3+ VIEWS RIGHT HISTORY: RIGHT FOOT PAIN FINDINGS: The patient is status post amputation of the 1st, 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 Severe degenerative changes are noted in the midfoot. Plantar calcaneal and Achilles tendon spurs are present. Amputation of the 3rd toe is new since 08/20/2023. IMPRESSION: Postoperative changes. Chronic changes consistent with neuropathic joint. No abnormal bone destruction. 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 Severedegenerative changes are noted in the midfoot. Plantar calcaneal andAchilles tendon spurs are present. Amputation of the 3rd toe is new since08/20/2023. IMPRESSION: Postoperative changes. Chronic changes consistent with neuropathic joint. No abnormal bone destruction. Electronically signed on 04/21/2025 8:07 AM by: Edwin Chaney MD Mekhi Brannon DPM IMG XR PROCEDURES Final Res ult * (ABNORMAL) Hemoglobin A1c (02/06/2025 9:05 AM CDT) Hemoglobin A1c 10.0(H) % 02/08/2025 7:37 AM CDT [facility] Estimated Average Glucose 240 mg/dL 02/08/2025 7:37 AM CDT [facility] Blood Venous blood specimen / Unknown Venipuncture / Unknown 02/06/2025 9:05 AM CDT 02/06/2025 9:09 AM CDT Narrative [facility] - 02/08/2025 7:37 AM CDT HgbA1C ranges recommended by the [place] [employer] (ADA): >6.5% Diabetic 5.7-6.4% Pre-Diabetic <5.7% Non-Diabetic Roberto Moody MD LAB BLOOD ORDERABLES F inal Result Performing Organization Address [facility] Co de Phone Number [facility] [address] [address] * Occult Blood Stool (01/03/2025 2:26 PM CDT) Occult Blood, Stool Negative Negative 01/03/2025 2:36 PM CDT [facility] Stool Rectal contents / Unknown Non-blood Collection / Unknown 01/03/2025 2:26 PM CDT 01/03/2025 2:30 PM CDT Ibrahima Ojeda DO LAB BODY FLUIDS AND STOOLS OR DERABLES Final Result [facility] [address] [address] * TRANSTHORACIC ECHO (TTE) LIMITED 2D W/ CONTRAST (09/05/2024 3:46 PM SLITTER AND REWINDER MACHINE OPERATOR) Anatomical Region Laterality Modality Echocardiography 09/05/2024 3:12 PM SLITTER AND REWINDER MACHINE OPERATOR Narrative 09/06/2024 8:01 AM SLITTER AND REWINDER MACHINE OPERATOR Demographics Patient name: SCOTTIE RIVERA Gender: Female Age: 49 year(s) Date of : 1975 BMI: 70.59 kg/m^2 Height: 170 cm BSA: 2.85 m^2 Weight: 204 kg Ethnicity: None Race: Procedure Information Procedure type: Echo Proc. sub type: TTE procedure: Transthoracic Echo Limited TTE. Start date time: 09/05/2024 3:12 PM Accession no: [id number] Patient status: Routine Visit no: [id number] Contrast medium: Definity Study location: Portable HR: 83 bpm Technical quality: Technically difficult In/Out patient: Inpatient Limitation reason: Body habitus Blood pressure: 146 / 56 mmHg Room no: 253N Procedure Liquified Natural Gas Technician: Ирина Ivey Interpreting physician: Orlin Marshall MD [...] 09/06/2024 Demographics Patient name: SCOTTIE Reident ID: [id number] Gender: FemaleAge: 49 year(s) Date of : 1975BMI: 70.59 kg/m^2 Height: 170 cmBSA: 2.85 m^2 Weight: 204 kgEthnicity: None Race: Procedure Information Procedure type: Echo Proc. sub type: TTE procedure: Transthoracic Echo Limited TTE. Start date time: 09/05/2024 3:12 PMAccession no: [id number] Patient status: RoutineVisit no: [id number] Contrast medium: DefinityStudy location: Portable HR: 83 bpmTechnical quality: Technically difficult In/Out patient: InpatientLimitation reason: Body habitus Blood pressure: 146 / 56 mmHg Room no: 253N Procedure Liquified Natural Gas Technician: Ирина Ivey Interpreting physician: Orlin Marshall MD [...] (2D): 4.4 cm (2.7 - 3.8 cm) us Robert Gonsalves DO CV ECHO PROCEDURES Final Result from Last 3 Months or Most Recently Relevant to Health Maintenance Additional Health Concerns Active Problems Noted Date Diagnosed Date Autogenerated Problem 04/14/2025 Infection Onset Date Last Indicated MRSA Comment:03/22/2017 MRSA - lt foot wound ([facility]) 03/23/2017 MRSA - bone lt 5th metatarsal ([facility]) 03/22/2017 1 10/26/2021 MDRO-GNB Comment:03/22/2017 MDRO-GNB - Morganella morganii - lt foot wound ([facility]) 03/23/2017 MDRO-GNB - Morganella morganii - bone from left foot ([facility]) 04/20/2017 MDRO-GNB - Morganella morganii - lt foot wound ([facility]) 03/22/2017 01/13/2025 Insurance [employer] Directives For more information, please contact: [phone] (7:30 AM - 5PM [facility], 7 days a week) * Full Code (Latest Code Status on File) Date Activated Date Inactivated Comments 05/06/2025 1:22 PM 05/06/2025 6:16 PM * Full Code Date Activated Date Inactivated Comments 02/06/2025 1:33 AM 02/09/2025 3:54 PM * Full Code Date Activated Date Inactivated Comments 01/13/2025 9:17 AM 01/15/2025 12:57 AM * Full Code Date Activated Date Inactivated Comments 01/04/2025 1:28 AM 01/05/2025 3:50 PM * Full Code Date Activated Date Inactivated Comments 07/28/2024 10:36 PM 09/09/2024 5:13 PM Care Teams System Programmer Relationship Specialty Start Date End Date Joselo Burris MD [address] [place] [id number] PCP - General Family Medicine 05/06/25
--- OUTSIDE RECORDS SUMMARY | 2025-05-14 22:51 | XMS_ITS | Encounter Summary ---
Author Organization [facility] Address [address] [address] Phone Care Team Providers Care Senior Care Specialist Name Role Phone Ashtyn Fournier NP Primary Care Provider + [phone] System, Provider Not In DO Primary Care Provider Ashtyn Fournier NP Primary Care Provider + [phone] Joselo Burris MD Primary Care Provider [phone] Reason for Visit * Reason Onset Date Comments form for transport 11/28/2022 Encounter Details Date Type Department Care Team (Late st Contact Info) Description 11/28/2022 Telephone [facility] [address] [place] [address] Mekhi Brannon, [facility] [address] [place] [address] form for transport Social History Tobacco Use [...] How often do you attend chur or protestant services? Never 08/25/2022 Do you belong to any clubs o r organizations such as yazidi groups, unions, fraternal or athletic groups, or [...] medical care, and heating? Very hard 08/25/2022 [facility] - Occupational [...] Sex Assigned at Female 08/25/2022 4:03 AM PANTRY GOODS MAKER Legal Sex Female 11:21 AM CDT Gender Identity Female 08/25/2022 4:03 AM PANTRY GOODS MAKER Sexual Orientation Straight 08/25/2022 4: 03 AM PANTRY GOODS MAKER documented as of this encounter Miscellaneous Notes * Telephone Encounter - Hodan Ordaz - 11/28/2022 3:31 PM CST Refaxing form RY GOODS MAKER * Telephone Encounter - Marcelina Williamson - 11/28/2022 2:24 PM CST Patient is following up to see if the form has been filled out and faxed for transport to her appointment. RY GOODS MAKER documented in this encounter Plan of Treatment Upcoming Encounters Date Type Department Care Team (Late st Contact Info) Description 05/17/2025 2:45 PM CDT Office Visit [facility] [address] [place] [address] Mekhi Brannon DPM [address] [place] [address] 06/06/2025 1:00 PM CDT Office Visit [facility]Y [facility] MED[facility] OFF[facility] BUILDING [address] [phone] Santiago Morejon MD [address], [address] [place], [place] [id number] documented as of this encounter Visit Diagnoses Not on filedocumented in this encounter Additional Health Concerns Infection Onset Date Last Indicated Resolved Time MRSA Comment:03/22/2017 MRSA - lt foot wound ([facility]) 03/23/2017 MRSA - bone lt 5th metatarsal ([facility]) 03/22/2017 08/26/2022 MDRO-GNB Comment:03/22/2017 MDRO-GNB - Morganella morganii - lt foot wound ([facility]) 03/23/2017 MDRO-GNB - Morganella morganii - bone from left foot ([facility]) 04/20/2017 MDRO-GNB - Morganella morganii - lt foot wound ([facility]) 03/22/2017 01/13/2025 MDRO Comment:Added from external infection. ([facility]) 04/20/2017 08/26/2022 01/13/2025 8:49 AM CDT COVID-19 (Confirmed) Comment:>90 days past illness Added from external infection, [facility] Covid PCR per nasopharynx 08/29/2023 02/02/2024 9:2 5 AM CDT COVID-19 Rule-Out 09/08/2023 09/08/2023 09/08/2023 5:18 AM PANTRY GOODS MAKER COVID-19 Rule-Out 02/05/2024 02/05/2024 02/05/2024 7:34 AM CDT COVID-19 Rule-Out 05/08/2024 05/08/2024 05/08/2024 1:01 PM CDT Respiratory Rule-Out 05/08/2024 05/08/20242 024 1:40 AM CDT MSSA Comment:Isolation not required for MSSA 07/28/2024 07/28/2024 07/30/2024 8:09 AM C DT MSSA Comment:MSSA does not require isolation 07/28/2024 07/30/2024 08/02/2024 9:14 AM C DT MSSA Comment:Isolation not required for MSSA 08/06/2024 08/06/2024 08/09/2024 8:40 AM C DT documented as of this encounter Care Teams Senior Care Specialist Relationship Specialty Start Date End Date Ashtyn Fournier NP PCP - General Family Medicine 08/25/22 01/01/25 System, Provider Not In, DO [address] [place] [address] PCP - General 01/04/25 01/05/25 Ashtyn Fournier NP [address] [place] [address] PCP - General Family Medicine 01/06/25 05/05/25 Joselo Burris MD [address] [place] [address] PCP - General Family Medicine 05/06/25 documented as of this encounter
--- OUTSIDE RECORDS SUMMARY | 2025-05-14 22:51 | XMS_ITS | Encounter Summary ---
Author Organization [facility] Address [address] [place] [address] Care Team Providers Care Ware Finisher Name Role Phone Mekhi Fournier MD Primary Care Provider Reason for Visit * Reason Onset Date Comments Wound Check 09/11/2017 Encounter Details Date Type Department Care Team (Late st Contact Info) Description 09/11/2017 Telephone [facility] Orthopaedic Trauma Surgery [address] [address] Alin Evans PA [address] [place] [address] Wound Check Social History Tobacco Use Types Packs/Day Years Used Date Smoking Tobacco: Never Smokeless Tobacco: Never Alcohol Use Standard Drinks/Week Comments No 0 (1 standard drink = 0.6 oz pur e alcohol) Comments No Sex and Gender Information Value Date Recorded Sex Assigned at Not on file Legal Sex Female 10:57 AM CARDIAC CATH RN Gender Identity Not on file Sexual Orientation Not on file documented as of this encounter Miscellaneous Notes * Telephone Encounter - Alin Evans PA - 09/11/2017 10:00 PM CST 09/11/2017 10:01 PM Received call on the on-call pager from HAYLEY at [facility] who was seeing the patient. The [...] has not yet followed up with her jig boring machine operator for metal regarding her foot. Recommended that the patient call tomorrow for discussion of rescheduling her appointment. The nextavailable appointment is a week from now. Per PA at [facility], the patient is having home health come to her home for dressing changes. Pain medication at discretion of ER provider. Follow up at next available clinic. HAYLEY Tijerina IAC CATH RN documented in this encounter Plan of Treatment Not on file documented as of this encounter Visit Diagnoses Not on filedocumented in this encounter Additional Health Concerns Infection Onset Date Last Indicated Resolved Time R/O COVID-19 08/29/2023 08/29/2023 08/29/2023 3:57 AM CARDIAC CATH RN COVID-19 08/29/2023 08/29/2023 09/18/2023 1:18 AM CARDIAC CATH RN documented as of this encounter Care Teams Ware Finisher Relationship Specialty Start Date End Date Mekhi Fournier MD [address] [place] [address] PCP - General Family Practice 05/07/23 documented as of this encounter
--- OUTSIDE RECORDS SUMMARY | 2025-05-14 22:51 | XMS_ITS | Encounter Summary ---
Author Organization [facility] Address [address] [address] Phone Care Team Providers Care Certified Surgical Assistant Name Role Phone Shantanu Ashtyn HARRIS Primary Care Provider + [phone] Joselo Burris MD Primary Care Provider [phone] Encounter Details Date Type Department Care Team (Late st Contact Info) Description 04/21/2025 Telephone PREADMISSION TESTING - [facility] [address] [address] Alexander Kohli, UJAN [address] [phone] Social History Tobacco Use Types Packs/Day Years Used Date Smoking Tobacco: Former Cigarettes 1 16 - 2007 Smokeless Tobacco: Never Alcohol Use Standard Drinks/Week Comments Not Currently 0 (1 standard drink = 0.6 oz pur e alcohol) HX HEAVY DRINKER IN 20'S B1300 Health Literacy Answer Date Recor ded How often do you need to hav e someone help you when you read instructions, pamphlets, or other written material from your doctor or pharmacy? Never 01/03/2025 [facility] Utilities Answer Date Recorded In the past 12 months has e electric, gas, oil, or water company threatened [...] often do you attend chur ch or restoration services? Never 02/06/2025 Do you belong to any clubs o r organizations such as religion groups, unions, fraternal or athletic groups, or [...] Recorded Patient Health Questionnaire-2 Score 0 02/16/2025 [facility] - Occupational Stress [...] place to sleep or slept in a [place] facility (including now)? No 02/14/2024 Housing Stability Vital Sign Answer David e Recorded In the last 12 months, was t here a time when you were not able to pay the mortgage or rent on time? No 02/06/2025 In the past 12 months, how m any times have you moved where you were living? 0 02/06/2025 At any time in the past 12 m [facility], were you homeless or living in a [place] facility (including now)? No 02/06/2025 [facility] - Mental Health Answer Date Recorde d Little interest or pleasure in doing things Not at all 02/16/2025 Feeling down, depressed, or hopeless Not at all 02/16/2025 Feeling of Stress Not on file 02/16/2025 Comments No Sex and Gender Information Value Date Recorded Sex Assigned at Female 08/25/2022 4:03 AM PATIENT RELATIONS MANAGER Legal Sex Female 11:21 AM CDT Gender Identity Female 08/25/2022 4:03 AM PATIENT RELATIONS MANAGER Sexual Orientation Straight 08/25/2022 4: 03 AM PATIENT RELATIONS MANAGER documented as of this encounter Functional Status * Are you deaf or [...] 05/11/2024 3:15 PM CDT Tomás Fong RN documented as of this encounter Mental Status * Because of a physical, mental, or emotional condition, do you have serious difficulty concentrating, remembering, or making decisions? (5 years old or older) Answer Entry Date Author No 05/11/2024 3:15 PM CDT Tomás Fong RN documented in this encounter Plan of Treatment Upcoming Encounters Date Type Department Care Team (Late st Contact Info) Description 05/17/2025 2:45 PM CDT Office Visit [facility]IN[facility] MEDICAL OFFICE BUILDING [address] [phone] Mekhi Brannon DPM [address] [place], [place] [phone] 06/06/2025 1:00 PM CDT Office Visit PULMONOLOGY CLINIC MEDICAL OFFICE BUILDING [address] [phone] Santiago Morejon MD [address], [address] [place], [place] [phone] documented as of this encounter Goals Goal Patient Goal Type Associated Problems Recent Progress Patient-Stated? Author Autogenerat ed Goal Care Plan Autogenerated Problem No Elda Hobbs, BRADY documented as of this encounter Visit Diagnoses Not on filedocumented in this encounter Additional Health Concerns Active Problems Noted Date Diagnosed Date Autogenerated Problem 04/14/2025 Infection Onset Date Last Indicated Resolved Time MRSA Comment:03/22/2017 MRSA - lt foot wound ([facility]) 03/23/2017 MRSA - bone lt 5th metatarsal ([facility]) 03/22/2017 08/26/2022 MDRO-GNB Comment:03/22/2017 MDRO-GNB - Morganella morganii - lt foot wound ([facility]) 03/23/2017 MDRO-GNB - Morganella morganii - bone from left foot ([facility]) 04/20/2017 MDRO-GNB - Morganella morganii - lt foot wound ([facility]) 03/22/2017 01/13/2025 documented as of this encounter Care Teams Certified Surgical Assistant Relationship Specialty Start Date End Date Ashtyn Fournier NP PCP - General Family Medicine 01/06/25 05/05/25 Joselo Burris MD [address] [place] [address] PCP - General Family Medicine 05/06/25 documented as of this encounter
--- OUTSIDE RECORDS SUMMARY | 2025-05-14 22:51 | XMS_ITS | Clinical Summary ---
Author Organization [facility] Address [address] [address] Care Team Providers Care Disbursing Agent Name Role Phone Robert Gomez MD Primary Care Provide r Allergies Active Allergy Reactions Criticality Noted Date Comments Acetaminophen Other (see comments) Medium 03/16/2025 Acetaminophen-Pamabrom Medium 02/05/2025 Other Reaction(s): Lost Consciousness Albiglutide Hives,Other (see comments) High 05/31/2015 Other reaction(s): Pancreatitis Albumin Human Hives,Nausea,Othe r (see comments) Medium 08/26/2024 Butalbital Other (see comments) Low 10/08/2017 [id number] 03/16/2025 Canagliflozin Other (see comments) 10/08/2017 Other reaction(s): bad stomach issues GI issues Carvedilol Other (see comments) 05/08/2024 Other Reaction(s): pt reported having had chest pain with this medication, Unknown Other reaction(s): Chest pain Cefdinir Other (see comments) 02/13/2024 Other Reaction(s): burry vision Other reaction(s): Blurry vision Tolerates ceftriaxone 07/2024 and 10/2024 Per patient Daptomycin Other (see comments),Swellin g 02/13/2024 Other Reaction(s): blurry vision, Unknown Other reaction(s): Blurry vision, confusion Empagliflozin Other (see comments) Low 01/02/2025 Other Reaction(s): low bsg Other reaction(s): Hypoglycemia Exenatide Nausea And Vomiting,Nausea,O ther (see comments) Medium 05/31/2015 Other reaction(s): Pancreatitis Fentanyl Hives,Rash Medium 05/08/2024 Gabapentin Nausea,Other (see comments) Medium 03/21/2017 makes my body jerk Other reaction(s): NAUSEA, Psychiatric Other reaction(s): Altered mental status Glipizide Hives High 10/08/2017 Other reaction(s): HIVES Heparin Hives,Rash Medium 01/02/2025 Ibuprofen Other (see comments) Low 10/07/2017 Other reaction(s): ABD PAIN Insulin Degludec Medium 01/02/2025 Insulin Detemir Hives,Other (see comments),Rash High 05/31/2015 Rash at site Insulin Glargine Hives,Rash High 01/21/2013 Severity depends on dose Insulin Lispro Swelling 09/08/2023 Liraglutide Hives High 08/15/2023 Lisinopril Other (see comments) Medium 05/09/2023 Other reaction(s): Renal dysfunction Metformin Hcl 08/19/2017 Other Reaction(s): Unknown Metoclopramide Other (see comments),Palpita tions Medium 09/28/2012 Other reaction(s): HEART PALPATATIONS Other reaction(s): Chest pain Pioglitazone Other (see comments),Palpita tions High 11/19/2010 Other reaction(s): Tachycardia, chest tightness Pregabalin Other (see comments),Swellin g Medium 03/20/2017 Other reaction(s): Altered mental status/psychiatric Prochlorperazine Other (see comments),Palpita tions Medium 05/31/2015 Depression Other reaction(s): Tremors Other reaction(s): Altered mental status, tremors, depression Rosiglitazone Other (see comments),Palpita tions Medium 11/19/2010 Other reaction(s): Tachycardia Sacubitril-Valsartan Other (see comments) Medium 01/02/2025 Other Reaction(s): CP Other reaction(s): Chest pain Saxagliptin Hcl Other (see comments) 10/08/2017 Other reaction(s): Tachycardia Sitagliptin Other (see comments),Palpita tions Low 11/19/2010 Other reaction(s): Tachycardia Sulfamethoxazole Hives High 10/07/2017 Other Reaction(s): Hives (Urticaria) Other reaction(s): HIVES Sulfamethoxazole-Trimeth oprim Hives,Rash High 05/31/2015 Tramadol Hives,Other (see comments) High 11/04/2011 Other Reaction(s): Hives (Urticaria) cramps Other reaction(s): Cramps Trimethoprim Hives High 10/08/2017 Medications acetaminophen (Tylenol) 325 MG tablet Take 650 mg by mouth every 6 (six) hours if needed 7 Active Ventolin HFA 108 (90 Base) MCG/ACT inhaler Inhale 2 puffs every 4 (four) to 6 (six) hours if needed Active ALPRAZolam (XANAX) 0.5 MG tablet Take 0.5 mg by mouth at night if needed Not Taking currently 5 Active aspirin (ST JUAN PABLO) 81 MG EC tablet Take 1 tablet by mouth in the morning. 5 Active bumetanide (BUMEX) 2 MG tablet Take 2 mg by mouth in the morning and 2 mg in the evening. 3 Active clopidogrel (PLAVIX) 75 MG tablet Take 75 mg by mouth 1 (one) time each day Active hyoscyamine (LEVSIN) 0.125 MG SL tablet Take 0.125 mg by mouth every 6 (six) hours if needed for cramping or diarrhea 5 Active metoprolol succinate XL (TOPROL XL) 25 MG 24 hr tablet Take 25 mg by mouth in the morning. 3 Active ondansetron ODT (ZOFRAN-ODT) 4 MG dispersible tablet Take 4 mg by mouth every 6 hours as needed 5 Active ondansetron ODT (ZOFRAN-ODT) 8 MG dispersible tablet Take 8 mg by mouth every 8 (eight) hours if needed for nausea or vomiting 5 Active pantoprazole (PROTONIX) 40 MG EC tablet Take 40 mg by mouth 1 (one) time each day before breakfast DO NOT CRUSH CHEW OR SPLIT Active magnesium oxide (MAG-OX) 400 MG tablet Take 400 mg by mouth in the morning. 3 Active potassium chloride (K-TAB) 20 MEQ CR tablet Take 20 mEq by mouth 1 (one) time each day Active insulin regular (HumuLIN R) 100 UNIT/ML injection Inject under the skin in the morning and at noon and in the evening. Inject before meals. Active Active Problems No known active problems Encounters Date Type Department Care Team Description 04/19/2025 Telephone [facility], [facility] [address] [place] [phone] Marisa Escalona DO 04/18/2025 Telephone [facility], [facility] [address] [place] [phone] Robert Gomez MD 03/16/2025 11:50 AM CDT Office Visit [facility], [facility] [address] [place], [place] [phone] Robert oGmez MD Stage 3b chronic kidney disease (HCC) (Primary Dx) 03/10/2025 Telephone [facility], [facility] [address] [place] [phone] Maribel Martinez 03/10/2025 Results Follow-Up [facility], [address] [address] Corrie Asher MA 03/10/2025 Documentation Only [facility], [address] [address] Corrie Asher MA from Last 3 Months Social History Tobacco Use Types Packs/Day Years Used Date Smoking Tobacco: Never Assessed Comments Unknown Sex and Gender Information Value Date Recorded Sex Assigned at Not on file Legal Sex Female 12:34 PM EDT Gender Identity Not on file Sexual Orientation Not on file Last Filed Vital Signs Vital Sign Reading Time Taken Comments Blood Pressure 140/80 03/16/2025 11:54 AM CDT Pulse 75 03/16/2025 11:54 AM CDT Temperature - - Respiratory Rate - - Oxygen Saturation 98% 03/16/2025 11:54 AM CDT Inhaled Oxygen Concentration - - Weight 172 kg (380 lb) 03/16/2025 11:54 AM CDT Height 170.2 cm (5' 7 ) 03/16/2025 11:54 AM CDT Body Mass Index 59.52 03/16/2025 11:54 AM CDT Plan of Treatment Health Maintenance Due Date Last Done Comments Hepatitis B Vaccine (1 of 3 - 19+ 3-dose series) 1996 Pneumococcal Vaccine: Peds ( 0 to 5 Years) and At-Risk Patients (6 to 49 Years) (1 of 2 - PCV) 1996 Diabetes: Ophthalmology Exam 05/16/2023 Diabetes: Pedal Pulse Checked 05/16/2023 Diabetes: Sensory Foot Exam 05/16/2023 Diabetes: Visual Foot Exam 05/16/2023 Diabetes: Hemoglobin A1C 05/08/2025 025, 12/27/2024, 02/13/2024, Additional history exists Influenza Vaccine (#1) 2025 08/09/1996 Procedures Procedure Name Priority Date/Time Associated Diagnosis Comments SPECIAL CHEMISTRY Routine 12/27/2024 from Last 3 Months or Most Recently Relevant to Health Maintenance Results * (ABNORMAL) SPECIAL CHEMISTRY (12/27/2024) Hemoglobin A1C 7.7(H) 4.8 - 5.9 % [facility] 12/27/2024 12/29/2024 9:3 1 AM CDT Narrative [facility] - 12/29/2024 Unless otherwise specified, test(s) performed at: [facility], [address] [place], [place] [id number] GAMING DEPARTMENT HEAD: Moe Bear M.D. For any questions, please call customer service at FREQUENCY:MONTHLY Resulting Agency Comment Specimen source: Blood us Robert Gomez MD LAB BLOOD BANK TEST O RDERABLES Final Result [employer] See order comments or contact performing lab [facility], [place] from Last 3 Months or Most Recently Relevant to Health Maintenance Insurance Medicaid [place] ([id number]) Care Teams Disbursing Agent Relationship Specialty Start Date End Date Robert Gomez MD [address] [facility] [address] [place] [id number] PCP - General Nephrology 04/19/25
--- OUTSIDE RECORDS SUMMARY | 2025-05-14 22:51 | XMS_ITS | Encounter Summary ---
Author Organization [facility] Address [address] [place] [address] Phone Care Team Providers Care Segmental Paving Supervisor Name Role Phone Joselo Burris MD Primary Care Provider [phone] Reason for Visit * Reason Onset Date Comments RP- Rescheduling 05/06/2025 Encounter Details Date Type Department Care Team (Late st Contact Info) Description 05/06/2025 Telephone [facility] MED[facility] OFF[facility] BUILDING [address] [place] [address] Mekhi Brannon, [facility] [address] [place] [address] RP- Rescheduling Social History Tobacco Use Types Packs/Day Years Used Date Smoking Tobacco: Former Cigarettes 1 16 1 992 - 2007 Smokeless Tobacco: Never Alcohol Use Standard Drinks/Week Comments Not Currently 0 (1 standard drink = 0.6 oz pur e alcohol) HX HEAVY DRINKER IN 20'S B1300 Health Literacy Answer Date Recor ded How often do you need to hav e someone help you when you read instructions, pamphlets, or other written material from your doctor or pharmacy? Never 01/03/2025 [facility] Utilities Answer Date Recorded In the past 12 months has th e electric, gas, oil, or water company [...] often do you attend chur ch or orthodox services? Never 02/06/2025 Do you belong to any clubs o r organizations such as lutheran groups, unions, fraternal or athletic groups, or [...] Recorded Patient Health Questionnaire-2 Score 0 02/16/2025 [facility] [place] of Occupat ional Health - Occupational Stress [...] place to sleep or slept in a halfway (including now)? No 02/14/2024 Housing Stability Vital Sign Answer David e Recorded In the last 12 months, was t here a time when you were not able to pay the mortgage or rent on time? No 02/06/2025 In the past 12 months, how m any times have you moved where you were living? 0 02/06/2025 At any time in the past 12 [facility], were you homeless or living in a halfway (including now)? No 02/06/2025 [facility] - Mental Health Answer Date Recorde d Little interest or pleasure in doing things Not at all 02/16/2025 Feeling down, depressed, or hopeless Not at all 02/16/2025 Feeling of Stress Not on file 02/16/2025 Comments No Sex and Gender Information Value Date Recorded Sex Assigned at Female 08/25/2022 4:03 AM DISTANCE LEARNING ADMINISTRATOR Legal Sex Female 11:21 AM CDT Gender Identity Female 08/25/2022 4:03 AM DISTANCE LEARNING ADMINISTRATOR Sexual Orientation Straight 08/25/2022 4: 03 AM DISTANCE LEARNING ADMINISTRATOR documented as of this encounter Functional Status [...] Tomás Fong RN documented in this encounter Miscellaneous Notes * Telephone Encounter - Ayaka Anguiano - 05/13/2025 10:04 AM CDT Rescheduled, thank you. * Telephone Encounter - Hodan Ordaz MA - 05/13/2025 10:00 AM CDT Friday * Telephone Encounter - Ayaka Anguiano - 05/13/2025 9:58 AM CDT Due to an hour or more drive time the patient needs some time later morning/afternoon, is there sometime this next week you can assist in scheduling this patient? * Telephone Encounter - Mary Fields - 05/12/2025 9:14 AM CDT 05/12 - Called and left a vm for patient to call us back to reschedule her surgery follow up appt with Dr. Brannon * Telephone Encounter - Hodan Ordaz MA - 05/11/2025 2:17 PM CDT Patient no showed her first post op appointment. Can we try to reach her to get her in 05/12 or Wednesday 05/16?? * Telephone Encounter - Keshia Pettit - 05/10/2025 1:55 PM CDT Scheduled for 05/11. * Telephone Encounter - Hodan Ordaz MA - 05/10/2025 9:37 AM CDT No answer - VM full * Telephone Encounter - Hodan Ordaz MA - 05/09/2025 8:19 AM CDT Friday AM * Telephone Encounter - Keshia Pettit - 05/06/2025 4:36 PM CDT Patient had post op appointment on 05/09, but needs to reschedule due to other appointment that day in [place]. Can I have an assist rescheduling this? documented in this encounter Plan of Treatment Upcoming Encounters Date Type Department Care Team (Late st Contact Info) Description 05/17/2025 2:45 PM CDT Office Visit [facility]INIC MEDICAL OFFICE BUILDING [address] [place] [address] Mekhi Brannon DPM [address] [place] [address] [address] [place] [address] 06/06/2025 1:00 PM CDT Office Visit PULMONOLOGY CLINIC MEDICAL OFFICE BUILDING [address] [id number] [place] [address] [place] [address], [address] [place], [place] [address] documented as of this encounter Goals Goal Patient Goal Type Associated Problems Recent Progress Patient-Stated? Author Autogenerat ed Goal Care Plan Autogenerated Problem No Elda Hobbs CST documented as of this encounter Visit Diagnoses Not on filedocumented in this encounter Additional Health Concerns Active Problems Noted Date Diagnosed Date Autogenerated Problem 04/14/2025 Infection Onset Date Last Indicated Resolved Time MRSA Comment:03/22/2017 MRSA - lt foot wound ([facility]) 03/23/2017 MRSA - bone lt 5th metatarsal ([facility]) 03/22/2017 08/26/2022 MDRO-GNB Comment:03/22/2017 MDRO-GNB - Morganella morganii - lt foot wound ([facility]) 03/23/2017 MDRO-GNB - Morganella morganii - bone from left foot ([facility]) 04/20/2017 MDRO-GNB - Morganella morganii - lt foot wound ([facility]) 03/22/2017 01/13/2025 documented as of this encounter Care Teams Segmental Paving Supervisor Relationship Specialty Start Date End Date Joselo Burris MD [address] [place] [phone] PCP - General Family Medicine 05/06/25 documented as of this encounter
--- OUTSIDE RECORDS SUMMARY | 2025-05-14 22:51 | XMS_ITS | Encounter Summary ---
Author Organization [facility] Address [address] [address] Phone Care Team Providers Care Grinder Setup Operator Name Role Phone Ashtyn Fournier NP Primary Care Provider [phone] System, Provider Not In DO Primary Care Provider Ashtyn Fournier NP Primary Care Provider [phone] Joselo Burris MD Primary Care Provider [phone] Encounter Details Date Type Department Care Team (Late st Contact Info) Description 09/22/2023 Telephone MED TELE [address] [address] Arielle Mckeon BSN,RN [address] [address] Social History Tobacco Use Types Packs/Day Years Used Date Smoking Tobacco: Former [facility] Utilities Answer Date Recorded In the past 12 months has e [employer], gas, oil, or water [employer] threatened to shut off services in your [...] often do you attend chur ch or congregation services? Never 08/20/2023 Do you belong to any clubs o r organizations such as jehovah's witness groups, unions, fraternal or athletic groups, or [...] Recorded Patient Health Questionnaire-2 Score 0 08/15/2023 [facility] of Occupat ional Health - Occupational Stress [...] Sex Assigned at Female 08/25/2022 4:03 AM LMSW Legal Sex Female 11:21 AM CDT Gender Identity Female 08/25/2022 4:03 AM LMSW Sexual Orientation Straight 08/25/2022 4: 03 AM LMSW documented as of this encounter Nursing Notes * TERRY Mora,RN - 09/22/2023 8:32 AM CST Pt called w/ follow up appt Dr Christensen Oct 08 @ 2pm, spoke directly shilpi/ Pablo documented in this encounter Plan of Treatment Upcoming Encounters Date Type Department Care Team (Late st Contact Info) Description 05/17/2025 2:45 PM CDT Office Visit [facility]INIC MEDICAL OFFICE BUILDING [address] [place] [address] Mekhi Brannon DPRakel [address] [place] [address] 06/06/2025 1:00 PM CDT Office Visit [facility]MONOLOGY [facility]INIC MEDICAL OFFICE BUILDING [address] [address] Santiago Morejon MD [address], [address] [place] [address] documented as of this encounter Visit Diagnoses Not on filedocumented in this encounter Additional Health Concerns Infection Onset Date Last Indicated Resolved Time MRSA Comment:03/22/2017 MRSA - lt foot wound ([facility]) 03/23/2017 MRSA - bone lt 5th metatarsal ([facility]) 03/22/2017 08/26/2022 MDRO-GNB Comment:03/22/2017 MDRO-GNB - Morganella morganii - lt foot wound ([facility]) 03/23/2017 MDRO-GNB - Morganella morganii - bone from left foot ([facility]) 04/20/2017 MDRO-GNB - Morganella morganii - lt foot wound ([facility]) 03/22/2017 01/13/2025 MDRO Comment:Added from external infection. ([facility]) 04/20/2017 08/26/2022 01/13/2025 8:49 AM CDT COVID-19 (Confirmed) Comment:>90 days past illness Added from external infection, [facility] Covid PCR per nasopharynx 08/29/2023 02/02/2024 [...] documented as of this encounter Care Teams Grinder Setup Operator Relationship Specialty Start Date End Date Ashtyn Fournier NP PCP - General Family Medicine 08/25/22 01/01/25 System, Provider Not In, DO [address] [address] PCP - General 01/04/25 01/05/25 Ashtyn Fournier NP [address] [place] [address] PCP - General Family Medicine 01/06/25 05/05/25 Joselo Burris MD [address] [place] [address] PCP - General Family Medicine 05/06/25 documented as of this encounter
--- OUTSIDE RECORDS SUMMARY | 2025-05-14 22:51 | XMS_ITS | Encounter Summary ---
Author Organization [facility] Address [address] [address] Phone Care Team Providers Care Rice Field Worker Name Role Phone Ashtyn Fournier NP Primary Care Provider [phone] System, Provider Not In DO Primary Care Provider Ashtyn Fournier NP Primary Care Provider [phone] Joselo Burris MD Primary Care Provider [phone] Reason for Visit * Reason Onset Date Comments RP call back 09/26/2023 Encounter Details Date Type Department Care Team (Late st Contact Info) Description 09/26/2023 Telephone [facility]IN[facility] MEDICAL OFFICE BUILDING [address] [place] [address] Mekhi Brannon, [facility] [address] [place] [address] RP call back Social History Tobacco Use Types Packs/Day Years Used Date Smoking Tobacco: Former [facility] Utilities Answer Date Recorded In the [...] 08/20/2023 How often do you attend chur or pentecostal services? Never 08/20/2023 Do you belong to [...] Recorded Patient Health Questionnaire-2 Score 0 09/30/2023 [facility] [place] of Occupat ional Health - Occupational Stress [...] place to sleep or slept in a [facility] (including now)? 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 Came in for follow up and found a stitch that she took out. Wants to discuss treatment and possible infection with you. OMS OPENER VERIFIER PACKER documented in this encounter Plan of Treatment Upcoming Encounters Date Type Department Care Team (Late st Contact Info) Description 05/17/2025 2:45 PM CDT Office Visit [facility]ATRY [facility]INIC MEDICAL OFFICE BUILDING [address] [place] [phone] Mekhi Brannon DPM [address] [place] [address] [address] [place], [place] [phone] 06/06/2025 1:00 PM CDT Office Visit PULMONOLOGY CLINIC MEDICAL OFFICE BUILDING [address] [place] [phone] Santiago Morejon MD [address] [place] [address], [address] [place], [place] [phone] documented as of this encounter Visit Diagnoses Not on filedocumented in this encounter Additional Health Concerns Infection Onset Date Last Indicated Resolved Time MRSA Comment:03/22/2017 MRSA - lt foot wound ([facility]) 03/23/2017 MRSA - bone lt 5th metatarsal ([facility]) 03/22/2017 08/26/2022 MDRO-GNB Comment:03/22/2017 MDRO-GNB - Morganella morganii - lt foot wound ([facility]) 03/23/2017 MDRO-GNB - Morganella morganii - bone from left foot ([facility]) 04/20/2017 MDRO-GNB - Morganella morganii - lt foot wound ([facility]) 03/22/2017 01/13/2025 MDRO Comment:Added from external infection. ([facility]) 04/20/2017 08/26/2022 01/13/2025 8:49 AM CDT COVID-19 (Confirmed) Comment:>90 days past illness Added from external infection, [facility] Covid PCR per nasopharynx 08/29/2023 02/02/2024 9:2 [...] documented as of this encounter Care Teams Rice Field Worker Relationship Specialty Start Date End Date Ashtyn Fournier NP PCP - General Family Medicine 08/25/22 01/01/25 System, Provider Not In, DO [address] [address] PCP - General 01/04/25 01/05/25 Ashtyn Fournier NP [address] [place] [address] PCP - General Family Medicine 01/06/25 05/05/25 Joselo Burris MD [address] [place] [address] PCP - General Family Medicine 05/06/25 documented as of this encounter
--- OUTSIDE RECORDS SUMMARY | 2025-05-14 22:51 | XMS_ITS | Clinical Summary ---
Author Organization [facility] Address [address] [place] [address] Phone Care Team Providers Care Press Assistant And Feeder Name Role Phone Mekhi Fournier MD Primary Care Provider Allergies Active Allergy Reactions Criticality Noted Date Comments Albiglutide Hives High 05/31/2015 Butalbital Hallucination Low 10/08/2017 Aovucoislu-Inrxahzbfr-J af-Cod Rash Low 11/19/2010 Butalbital-Acetaminophe n-Caff Other [...] administer insulin. 100 Each 7 4:14 PM STOGY ROLLER 08/22/20 17 Active blood sugar diagnostic Strip Use as directed to test blood sugar levels before meals. 100 Each 7 4:14 PM STOGY ROLLER 08/22/20 17 Active acetaminophen (TYLENOL) 325 mg [...] 05/18/20 23 Active naloxone (NARCAN) 4 mg/spray [place], Non-Aerosol EMERGENCY USE ONLY: Administer 1 spray [...] times daily. 180 Tablet 3 3:57 PM STOGY ROLLER 09/07/20 Active oxyCODONE (ROXICODONE) 5 mg tabletIndicatio ns:Postoperativ e wound dehiscence, initial encounter Take 2 Tablets (10 mg) by mouth every 4 hours as needed for Pain. Max Daily Amount: 60 mg 20 Tablet 3 1:43 PM STOGY ROLLER 09/07/20 Active Active Problems Problem Noted Date [...] External Device Data STL ABSTRACTION Provider, Abstract from Last 3 Months Social History Tobacco [...] on file Legal Sex Female 10:57 AM STOGY ROLLER Gender Identity Not on file Sexual Orientation Not on file Last Filed Vital Signs Vital Sign Reading Time Taken Comments Blood Pressure 122/74 09/07/2023 3:28 PM STOGY ROLLER Pulse 86 09/07/2023 3:28 PM STOGY ROLLER Temperature 36.4 C (97.6 F) 09/07/2023 7:00 AM STOGY ROLLER Respiratory Rate 15 09/07/2023 7:00 AM STOGY ROLLER Oxygen Saturation 98% 09/07/2023 7:00 AM STOGY ROLLER Inhaled Oxygen Concentration - - Weight 208.2 kg (459 lb) 09/05/2023 5:00 AM STOGY ROLLER Height 170.2 cm (5' 7 ) 09/01/2023 2:50 AM STOGY ROLLER Body Mass Index 71.89 09/01/2023 2:50 AM STOGY ROLLER Plan of Treatment Health Maintenance Due Date [...] Screening 05/12/2033 Medical Devices Implanted Type Area Drain Tile Press Operator Device Identifier Shelf Expiration Date Model / Serial / Lot Nail-Ex Tib Crv [id number] 04.034.449s - [id number] Implanted:Qty: 1 on 08/19/2017 by Harrison Hallman MD at [facility] Nail Left: Tibia [employer]ES [employer]ATEC 04/11/2026 [id number] S / / [id number] Description:This Synthes tib ial nail only, processed on requisition,[id number]. Screw Loc 3.5hex 5.0x36mm 458.936 - [id number] Implanted:Qty: 1 on 08/19/2017 by Harrison Hallman MD at [facility] Screw [employer]ES [employer]ATEC 458.936 / / Screw Loc 3.5hex 5.0x44mm 458.944 - [id number] Implanted:Qty: 2 on 08/19/2017 by Harrison Hallman MD at [facility] Screw [employer]EC 458.944 / / Screw Loc 3.5hex 5.0x46mm 458.946 - [id number] Implanted:Qty: 1 on 08/19/2017 by Harrison Hallman MD at [facility] Screw [employer]EC 458.946 / / Explanted Type Area Drain Tile Press Operator Device Identifier Shelf Expiration Date Model / Serial / Lot Plate Lcp 2.4mm 249.674 - [id number] Implanted:Harrison Webber MD (Quantity not on file) Explanted:Qty: 1 on 08/19/2017 by Harrison Hallman MD at [facility] Plate SYN[employer]ES [employer]ATEC 249.674 / / Screw St T8 2.4x6mm 201.756 - [id number] Implanted:Harrison Webber MD (Quantity not on file) Explanted:Qty: 2 on 08/19/2017 by Harrison Hallman MD at [facility] Screw [employer]ES [employer]ATEC 201.756 / / Screw St T8 2.4x7mm 201.757 - [id number] Implanted:Harrison Webber MD (Quantity not on file) Explanted:Qty: 1 on 08/19/2017 by Harrison Hallman MD at [facility] Screw [employer]ES [employer]ATEC 201.757 / / Screw St T8 2.4x8mm 201.758 - [id number] Implanted:Harrison Webber MD (Quantity not on file) Explanted:Qty: 1 on 08/19/2017 by Harrison Hallman MD at [facility] Screw [employer]ES [employer]ATEC 201.758 / / [...] Awad MD - 05/12/2023 9:17 AM CDT [facility] GI Patient Name: Pablo Saunders Procedure Date: [...] AM Scope Out: 9:13:30 AM [address] [place] Charan Awad MD GI PROCEDURE ORDERABLES Final [...] PM CDT Performing Organization Information: Site ID: [place] Name: [facility] Address: [address] [address] Director: Christiano Sandoval MD us Marisa Escalona DO URINE ORDERABLES Final Result [facility] * (ABNORMAL) HEMOGLOBIN A1C (05/09/2023 5:29 AM CDT) HEMOGLOBIN A1C 10.7(H) <=5.6 % 05/09/2023 12:55 PM CDT [facility] EST. AVG GLUCOSE, A1C 260 mg/dL 05/09/2023 12:55 PM CDT [facility] Blood Venipuncture / Unknown 05/09/2023 5:29 AM CDT 05/09/2023 5:37 AM CDT Narrative [facility] - 05/09/2023 12:55 PM CDT HGB A1C INTERPRETATION NORMAL: <5.7% PRE-DIABETES: 5.7 - 6.4% DIABETES: 6.5% OR GREATER us Marisa Escalona DO CHEMISTRY ORDERABLES Final Resu lt Performing Organization Address [facility] Co de Phone Number [facility] CLIA # [id number] [address] [place] [address] from Last 3 Months or Most Recently Relevant to Health Maintenance Insurance RX INFOCROSSING Medicaid RX FISH PLANS (INTERNAL) [facility] Internal Plans MEDICAID [place] Advance Directives For more information, please contact: [phone] * Full Code (Latest Code Status on [...] 2:55 PM 08/19/2017 9:04 PM Care Teams Press Assistant And Feeder Relationship Specialty Start Date End Date Mekhi Fournier MD [address] [place] [address] PCP - General Family Practice 05/07/23
--- OUTSIDE RECORDS SUMMARY | 2025-05-14 22:51 | XMS_ITS ---
Author Name [facility] Address [address] [place] [address] Phone [phone] Organization [facility] e, NA DOCUMENT DISCLAIMER Multiple document versions may exist, please be sure you review the latest version. The information in the [facility] Continuity of Care Document represents a summary of certain health and medical information. It may not contain the complete medical history for the patient and should be independently verified. The represented time in the document is Eastern Time. PROBLEMS No Known Problems ALLERGIES AND ADVERSE REACTIONS Substance Reaction Severity Status TRAMADOL Hives (Urticaria) Moderate Active carvedilol Unknown Active Reglan Unknown Active Levemir U-100 Insulin Flushing (Red Skin) Moderate Active Bactrim Hives Moderate Active albumin colloid, human Nausea/Vomiting Moderate Ac tive heparin Hives Moderate Active Actos Unknown Active fentanyl Hives Moderate Active daptomycin Unknown Active Tanzeum Hives (Urticaria) Moderate Active Omnicef Unknown Active Lantus U-100 Insulin Hives Moderate Active Januvia Unknown Active ibuprofen Unknown Active metformin Unknown Active Byetta Hives (Urticaria) Mild Active Midol Lost Consciousness Moderate Active LISINOPRIL Unknown Active Bydureon Unknown Active gabapentin Lost Consciousness Moderate Active Jardiance Unknown Active Entresto Hypotension Moderate Active sulfamethoxazole Hives (Urticaria) Moderate Active Compazine Lost Consciousness Moderate Active pregabalin Swelling Moderate Active SOCIAL HISTORY Tobacco Use Status Tobacco Type Unknown if ever consumed tobacco - Caregiver Characteristics No Information Available Characteristics of Home environment No Information Available Gender and Sex Information Gender Identity Sexual Orientation Female Decline to answer MEDICATIONS Home Medications Medication Instructions Dosage Route Start Date End Date Stat alprazolam 0.5 mg by mouth every eight hours 1 tablet ORAL December 30, 2024 Active aspirin 81 mg Take by mouth once a day 1 tablet ORAL December 30, 2024 Active atorvastatin 40 mg Take by mouth every night at bedtime 1 tablet ORAL December 30, 2024 Active bumetanide 2 mg Take by mouth twice a day 1 tablet ORAL December 30, 2024 Active docusate sodium 100 mg Take by mouth once a day as needed 1 capsule ORAL December 30, 2024 Active Entresto 24-26 mg Take by mouth twice a day 1 tablet ORAL December 30, 2024 Active Humulin 70/30 U-100 Insulin 100 unit/mL (70-30) SUBCUTANEOUS December 30, 2024 Active levothyroxine 150 mcg Take by mouth once a day 1 tablet ORAL December 30, 2024 Active metoprolol succinate 25 mg Take by mouth once a day 1 tablet ORAL December 30, 2024 Active oxycodone 15 mg by mouth every four hours as needed for pain 1 tablet ORAL December 30, 2024 Active Plavix 75 mg Take by mouth once a day 1 tablet ORAL December 30, 2024 Active polyethylene glycol (bulk) 100% Unknown December 30, 2024 Active Protonix 40 mg Take by mouth once a day as directed 1 tablet ORAL December 30, 2024 Active tizanidine 4 mg Take by mouth every night as needed 1 tablet ORAL December 30, 2024 Active Zyrtec 10 mg Take by mouth every night 1 tablet ORAL December 30, 2024 Active VITAL SIGNS Other Other Value Date / Time Height 172.72 cm January 25, 2025 1 2:00 AM HEALTH [facility]CERNS Tuberculosis Testing TST Date Administered TST Date Read TST Result 12/27/2024 12/29/2024 Negative (<5) mm LAB RESULTS Hematology Result Type Result Value Relevant Referen ce Range Interpretation Date Ferritin 91 ng/mL 10 - 291 ng/mL - December 27, 2024 Platelets 273 1000/mcL 130 - 400 1000/mcL - Edwin h 2024 Transferrin Sat. (Calc) 16 % 20 - 55 % Low December 27, 2024 TIBC (Calc) 338 mcg/dL 185 - 515 mcg/dL - December 112024 UIBC/TIBC 283 mcg/dL 155 - 355 mcg/dL - December Neutrophils 75.4 % 40.0 - 75.0 % High December 27, 2024 WBC (No Diff) 8.51 1000/mcL 4.80 - 10.80 1000/mcL - December 27, 2024 Ferritin 99 ng/mL 10 - 291 ng/mL - January 26, 2025 Platelets 237 1000/mcL 130 - 400 1000/mcL - Apri l 2024 UIBC/TIBC 251 mcg/dL 155 - 355 mcg/dL - January TIBC (Calc) 312 mcg/dL 185 - 515 mcg/dL - January 112024 Transferrin Sat. (Calc) 20 % 20 - 55 % - January 26, 2025 WBC (No Diff) 9.18 1000/mcL 4.80 - 10.80 1000/mcL - January 26, 2025 Neutrophils 74.0 % 40.0 - 75.0 % - January 26, 2025 Metabolic/Renal Result Type Result Value Relevant Reference Range Interpre tation Date Hemoglobin A1c 7.7 % 4.8 - 5.9 % High December 27, 2024 Bone/Mineral Result Type Result Value Relevant Referen ce Range Interpretation Date PTH-Intact, Plasma 100 pg/mL 16 - 80 pg/mL High Mar 2024 Magnesium 1.8 mg/dL 1.6 - 2.6 mg/dL - December 27, 2024 PTH-Intact, Plasma 129 pg/mL 16 - 80 pg/mL High Apr 2024 Immunochemistry Result Type Result Value Relevant Reference Range Interpre tation Date HCV s/co ratio 8.60 0.00 - 0.79 High December 27, 2024 Trace Elements Result Type Result Value Relevant Reference Range Interpre tation Date Aluminum < 5 mcg/L 0 - 10 mcg/L - December 27 Peritoneal Dialysis Testing Result Type Result Value Relevant Reference Range Interpre tation Date Creatinine, Urine 34.4 mg/dL No Reference R tucker Provided - January 26, 2025 Infectious Diseases Result Type Result Value Relevant Referen ce Range Interpretation Date Hep B Surface Ab (anti-HBs) 164 mIU/mL No Reference Range Provided - December 27, 2024 Hep B Surface Ag (HBsAg) Negative No Reference Range Provided - December 27, 2024 Hep B core Ab Total (anti-HBc) Positive No Reference Range Provided Abnormal December 27, 2024 HCV Ab (anti-HCV) Reactive No Reference R tucker Provided Abnormal December 27, 2024 TRANSPLANT WAITLIST STATUS No Information on Transplant Waitlist Status
--- OUTSIDE RECORDS SUMMARY | 2025-05-14 22:51 | XMS_ITS | Encounter Summary ---
Author Organization [facility] Address [address] [address] Phone Care Team Providers Care Geoduck Diver Name Role Phone Shantanu Ashtyn HARRIS Primary Care Provider + [phone] Joselo Burris MD Primary Care Provider [phone] Encounter Details Date Type Department Care Team (Late st Contact Info) Description 04/20/2025 Telephone PREADMISSION TESTING - [facility] [address] [address] Alexander Kohli, JUAN [address] [id number] Social History Tobacco Use Types Packs/Day Years [...] from your doctor or pharmacy? Never 01/03/2025 [facility] Utilities Answer Date Recorded In the past [...] often do you attend chur ch or baptist services? Never 02/06/2025 Do you belong to any clubs o r organizations such as oriental orthodox groups, unions, fraternal or athletic groups, or [...] Recorded Patient Health Questionnaire-2 Score 0 02/16/2025 [facility] - Occupational [...] place to sleep or slept in a longterm (including now)? No 02/14/2024 Housing Stability Vital Sign Answer David e Recorded In the last 12 months, was t here a time when you were not able to pay the mortgage or rent on time? No 02/06/2025 In the past 12 months, how m any times have you moved where you were living? 0 02/06/2025 At any time in the past 12 m [facility], were you homeless or living in a longterm (including now)? No 02/06/2025 [facility] - Mental Health Answer Date Recorde d Little interest or pleasure in doing things Not at all 02/16/2025 Feeling down, depressed, or hopeless Not at all 02/16/2025 Feeling of Stress Not on file 02/16/2025 Comments No Sex and Gender Information Value Date Recorded Sex Assigned at Female 08/25/2022 4:03 AM LASER BEAM COLOR SCANNER OPERATOR Legal Sex Female 11:21 AM CDT Gender Identity Female 08/25/2022 4:03 AM LASER BEAM COLOR SCANNER OPERATOR Sexual Orientation Straight 08/25/2022 4: 03 AM LASER BEAM COLOR SCANNER OPERATOR documented as of this encounter Functional Status [...] encounter Miscellaneous Notes * Telephone Encounter - Elda Hobbs CST - 05/03/2025 7:[address] Brannon no. Thank you * Telephone Encounter - Elda Hobbs CST - 04/28/2025 7:36 AM CDT I still have not received patient surgical clearance from her PCP. We are unable to reach the patient. * Telephone Encounter - Elda Hobbs CST - 04/25/2025 4:10 PM CDT Contacted and spoke to the patient, she verbalized understanding but was not happy with the information. She also informed me that she was going to see if Cardiology could get her in sooner because she can't wait until 06/08. Patient is suppose to keep me posted on when to reschedule. * Telephone Encounter - Elda Hobbs CST - 04/20/2025 4:03 PM CDT Thank you so much documented in this encounter Plan of Treatment Upcoming Encounters Date Type Department Care Team (Late st Contact Info) Description 05/17/2025 2:45 PM CDT Office Visit [facility] [address] [place] [phone] Mekhi Brannon DPM [address] [place] [address] [address] [place] [address] 06/06/2025 1:00 PM CDT Office Visit [facility] MED[facility]ILDING [address] [place] [phone] Santiago Morejon MD [address] [place] [address], [facility] [address] [place] [address] documented as of this encounter Goals Goal [...] MRSA Comment:03/22/2017 MRSA - lt foot wound ([facility]) 03/23/2017 MRSA - bone lt 5th metatarsal ([facility]) 03/22/2017 08/26/2022 MDRO-GNB Comment:03/22/2017 MDRO-GNB - Morganella morganii - lt foot wound ([facility]) 03/23/2017 MDRO-GNB - Morganella morganii - bone from left foot ([facility]) 04/20/2017 MDRO-GNB - Morganella morganii - lt foot wound ([facility]) 03/22/2017 01/13/2025 documented as of this encounter Care Teams Geoduck Diver Relationship Specialty Start Date End Date Ashtyn Fournier NP PCP - General Family Medicine 01/06/25 05/05/25 Joselo Burris MD [address] [place] [address] PCP - General Family Medicine 05/06/25 documented as of this encounter
--- OUTSIDE RECORDS SUMMARY | 2025-05-14 22:51 | XMS_ITS | Encounter Summary ---
Author Organization [facility] Address [address] [address] Phone Care Team Providers Care Environmental Solutions Engineer Name Role Phone Ashtyn Fournier NP Primary Care Provider + [phone] System, Provider Not In DO Primary Care Provider Ashtyn Fournier NP Primary Care Provider + [phone] Joselo Burris MD Primary Care Provider [phone] Reason for Visit * Reason Onset Date Comments Diabetic shoes 11/11/2022 Encounter Details Date Type Department Care Team (Late st Contact Info) Description 11/11/2022 Telephone [facility] [address] [place] [id number] Mekhi Brannon, [facility] [address] [address] Diabetic shoes Social History Tobacco Use Types [...] How often do you attend chur or synagogue services? Never 08/25/2022 Do you belong to any clubs o r organizations such as restorationist groups, unions, fraternal or athletic groups, or [...] medical care, and heating? Very hard 08/25/2022 [facility] - Occupational [...] slept in a correction (including now)? No 08/25/2022 Comments Unknown Sex and Gender Information Value Date Recorded Sex Assigned at Female 08/25/2022 4:03 AM WATER QUALITY CONTROL ENGINEER Legal Sex Female 11:21 AM CDT Gender Identity Female 08/25/2022 4:03 AM WATER QUALITY CONTROL ENGINEER Sexual Orientation Straight 08/25/2022 4: 03 AM WATER QUALITY CONTROL ENGINEER documented as of this encounter Miscellaneous Notes * Telephone Encounter - Hodan Ordaz - 11/19/2022 9:59 AM CST faxed R QUALITY CONTROL ENGINEER * Telephone Encounter - Minnie Higuera - 11/18/2022 11:38 AM CST Now Robert is needing chart notes. R QUALITY CONTROL ENGINEER * Telephone Encounter - Hodan Ordaz - 11/12/2022 10:27 AM CST Refaxing CMN R QUALITY CONTROL ENGINEER * Telephone Encounter - Mandie Dow - 11/11/2022 9:46 AM CST Calling regarding diabetic shoes. States he sent over CMN for toe filler. Needing pre-cert for insoles through [employer] for inserts. Code: [id number] Robert can be reached at [phone] R QUALITY CONTROL ENGINEER documented in this encounter Plan of Treatment Upcoming Encounters Date Type Department Care Team (Late st Contact Info) Description 05/17/2025 2:45 PM CDT Office Visit [facility]ILD[facility] [address] [place] [phone] Mekhi Brannon DPM [address] [place] [address] [address] [place] [address] 06/06/2025 1:00 PM CDT Office Visit [facility] BUILDING [address] [place] [phone] Santiago Morejon MD [address] [place] [address], [address] [place], [place] [id number] documented as of this encounter Visit Diagnoses Not on filedocumented in this encounter Additional Health Concerns Infection Onset Date Last Indicated Resolved Time MRSA Comment:03/22/2017 MRSA - lt foot wound ([facility]) 03/23/2017 MRSA - bone lt 5th metatarsal ([facility]) 03/22/2017 08/26/2022 MDRO-GNB Comment:03/22/2017 MDRO-GNB - Morganella morganii - lt foot wound ([facility]) 03/23/2017 MDRO-GNB - Morganella morganii - bone from left foot ([facility]) 04/20/2017 MDRO-GNB - Morganella morganii - lt foot wound ([facility]) 03/22/2017 01/13/2025 MDRO Comment:Added from external infection. ([facility]) 04/20/2017 08/26/2022 01/13/2025 8:49 AM CDT COVID-19 (Confirmed) Comment:>90 days past illness Added from external infection, [facility] Covid PCR per nasopharynx 08/29/2023 02/02/2024 9:2 5 AM CDT COVID-19 Rule-Out 09/08/2023 09/08/2023 09/08/2023 5:18 AM WATER QUALITY CONTROL ENGINEER COVID-19 Rule-Out 02/05/2024 02/05/2024 02/05/2024 7:34 AM [...] documented as of this encounter Care Teams Environmental Solutions Engineer Relationship Specialty Start Date End Date Ashtyn Fournier NP PCP - General Family Medicine 08/25/22 01/01/25 System, Provider Not In, DO [address] [address] PCP - General 01/04/25 01/05/25 Ashtyn Fournier NP [address] [address] PCP - General Family Medicine 01/06/25 05/05/25 Joselo Burris MD [address] [place] [id number] PCP - General Family Medicine 05/06/25 documented as of this encounter
[2025-05-14 22:52] VITALS: BP 152/56; PULSE 97; RESP 18; TEMP 37.3; O2SAT 96; BMI 58.7
[2025-05-15] VITALS (15 sets, daily range): BP systolic 121–184; BP diastolic 54–96; PULSE 73–105; RESP 15–22; TEMP 36.4–37.1; O2SAT 93–98
--- NOTE | 2025-05-15 00:56 | XRR_ITS ---
PROCEDURE INFORMATION: Exam: XR Right Foot Exam date and time: 05/15/2025 1:38 AM Age: 49 years old Clinical indication: Swelling, leg or foot; Prior surgery; Surgery date: 6+ months; Surgery type: Digit amputation; Patient has swelling and redness with open wound to incision site of RT 2nd digit partial amputation from a week ago. ; Additional info: Evaluate right third digit postoperative infection TECHNIQUE: Imaging protocol: Radiologic exam of the right foot. Views: 3 or more views. COMPARISON: CR XR foot RT min 3V* [id number] 03/30/2025 2:05 PM FINDINGS: Bones/joints: First proximal and distal phalanges are amputated. Second digit amputation level of the distal proximal phalanx with overlying soft tissue swelling. Third proximal, middle and distal phalanges are amputated. Os trigonum. Distal Achilles tendon degenerative calcification. Calcified heel spur. 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 Soft tissues: See Bones/joints finding. XR/XR foot RT min 3V* [id number] IMPRESSION: 1. Negative for findings to indicate osteomyelitis, consider further evaluation with MRI if concern for osteomyelitis remains clinically. 2. First proximal and distal phalanges are amputated. 3. Second digit amputation level of the distal proximal phalanx with overlying soft tissue swelling. 4. Third proximal, middle and distal phalanges are amputated. 5. Os trigonum. 6. Distal Achilles tendon degenerative calcification. 7. Calcified heel spur. 8. 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
[2025-05-15 01:36] LABS: Hematocrit 29.9 % (36-47); Hemoglobin 9.80 g/dL (11.27-16.99); Mean Corpuscular HGB Conc 32.8 g/dL (30-55); Mean Corpuscular Hemoglobin 28.3 pg (27-33); Mean Corpuscular Volume 86.4 fl (85-98); Nucleated Red Blood Cells % 0 %; Platelet Count 233 10^3/cmm (157-399); Red Blood Count 3.46 10^6/uL (3.85-5.65); White Blood Count 12.98 10^3/uL (3.29-11.43)
[2025-05-15 02:10] LABS: Alanine Aminotransferase 8 U/L (0-33); Albumin Level 3.0 g/dL (3.5-5.2); Alkaline Phosphatase 70 U/L (35-105); Aspartate Amino Transferase 12 U/L (0-32); Blood Urea Nitrogen 23 mg/dL (6-20); Calcium 8.4 mg/dL (8.5-10.5); Carbon Dioxide 23 mmol/L (22-29); Chloride 93 mmol/L (98-107); Creatinine Clr Calc Pharmacy 82.3428; Globulin 4.0 g/dL (1.3-4.6); Glucose 431 mg/dL (65-115); Lactic Sepsis W/Reflex 1.9 mmol/L (0.5-2.2); Osmolality Calculated 288 mOsm/kg (285-295); Sodium 128 mmol/L (136-145); Total Protein 7.0 g/dL (6.6-8.7)
[2025-05-15 02:11] LABS: Anion Gap 16.7 (5-19); Potassium 4.7 mmol/L (3.5-5.1)
--- NOTE | 2025-05-15 02:24 | W.ED.WOUNDLC ---
HPI - Wound/Laceration General: Chief Complaint: Wound/Laceration Stated Complaint: post surg right foot inflammed, red pain Time Seen by Provider: 05/15/25 00:17 History of Present Illness: HPI: 06 May patient had a toe amputation secondary to osteomyelitis at [facility] in [facility]. She required amputation because of the acute infection and was getting IV antibiotics. Has a PICC line in place. The last few days has described generalized malaise as well as worsening purulence coming from the wound of the right foot. Is a insulin-dependent diabetic. REVIEW OF SYSTEMS: 10 systems reviewed and otherwise unremarkable except for those noted in HPI. PHYSCIAL EXAM: Triage vital signs reviewed Gen: A&O NAD HEENT: NCAT, EOMI, not icteric. External ears normal. No rhinorrhea. Moist mucous membranes. Neck: Supple, full range of motion, no observable masses, No meningeal sign. Lungs: No Respiratory distress. CV: RRR, no edema. Abdomen: Soft, nondistended, No rebound tenderness. Obese. MSK: No joint swelling, no redness. Skin: No rashes, petechiae, lesions. Normal color per patient. Right foot with purulence draining from the surgical site, malodorous. Neuro: Normal Gait, Grossly intact. Psych: Appropriate for situation. PROCEDURES: N/A Related Data Home Medications ?Medication ?Instructions ?Recorded ?Confirmed cetirizine 10 mg tablet 10 mg PO DAILY 03/22/23 04/13/25 aspirin 81 mg tablet,delayed 81 mg PO DAILY 02/25/25 04/13/25 release clopidogrel 75 mg tablet (Plavix) 75 mg PO DAILY 02/25/25 04/13/25 pantoprazole 40 mg tablet,delayed 40 mg PO DAILY 02/25/25 04/13/25 release (Protonix) alprazolam 0.5 mg tablet (Xanax) 0.5 mg PO TID PRN Anxiety 03/29/25 04/13/25 tizanidine 4 mg tablet 4 mg PO TID PRN muscle spasms 03/29/25 04/13/25 albuterol sulfate 90 mcg/actuation 2 puff inhalation .Q4-6H PRN 04/12/25 04/13/25 aerosol inhaler (Ventolin HFA) Shortness Of Breath oxycodone 5 mg tablet 7.5 mg PO Q6H PRN Pain 04/12/25 04/13/25 Previous Rx's ?Medication ?Instructions ?Recorded hyoscyamine sulfate 0.125 mg 0.125 mg sublingual Q8H PRN 02/26/25 sublingual tablet (Levsin/SL) epigastric abdominal pain #20 tabs promethazine 25 mg rectal 25 mg NJ Q4H PRN nausea and 02/26/25 suppository vomiting #12 ea glucagon HCl 1 mg solution for 1 mg SUBCUT Q20M PRN hypoglycemia 04/04/25 injection (Glucagon (HCl) #1 ea Emergency Kit) glucometer testing kit #1 ea 04/04/25 insulin regular human 100 unit/mL 40 unit (0.4 mL) SUBCUT TID 90 04/08/25 injection solution (Humulin R days #108 mL Regular U-100 Insulin) Allergies Allergy/AdvReac Type Severity Reaction Status Date / Time tramadol Allergy Mild hives Verified 04/13/25 08:38 insulin lispro Allergy Unknown Unknown Verified 04/13/25 08:38 sulfamethoxazole (From Allergy ALGY-Hives Verified 04/13/25 08:38 Bactrim) trimethoprim (From Bactrim) Allergy ALGY-Hives Verified 04/13/25 08:38 daptomycin AdvReac blurry Verified 04/13/25 08:38 vision flurocet Allergy ADR-Confusi Uncoded 04/13/25 08:38 on [facility] ED PFS: Medical History (Updated 04/20/25 @ 00:00 by JESSY Chambers) Hyperlipemia, mixed Social History Smoking and tobacco/nicotine status: never used tobacco/nicotine Course Vital Signs: Vital signs: Vital Signs Temperature 99.1 F 05/14/25 22:52 Pulse Rate 97 05/14/25 22:52 Respiratory Rate 20 H 05/15/25 02:45 Blood Pressure 152/56 05/14/25 22:52 Pulse Oximetry 98 05/15/25 02:45 Oxygen Delivery Me thod Room Air 05/14/25 22:52 MDM - Wound/Laceration Medical Decision Making MEDICAL DECISION MAKING: Differential diagnoses considered but not limited to: Vitals nonactionable. Given history, examination, and pretest risk factors, feel patient is suffering from a right foot infection in the postoperative timeframe. Additionally patient has leukocytosis and elevated heart rate with source of infection being criteria for sepsis. Fluids and IV antibiotics ordered. 1 blood culture sent. Lab ran out of IV stick attempts to obtain second blood culture. Consulted on-call aerodynamics professor Dr. Ruggiero who will consult on the patient as an inpatient. Patient will be admitted to hospitalist for further evaluation and treatment. DISPO: Admit hospitalist Alan Story MD Staff physician, [facility] department [phone] Lab Data 05/15/25 01:28 05/15/25 01:28 Radiology Impressions Foot X-Ray 05/15/25 00:56 IMPRESSION: 1. Negative for findings to indicate osteomyelitis, consider further evaluation with MRI if concern for osteomyelitis remains clinically. 2. First proximal and distal phalanges are amputated. 3. Second digit amputation level of the distal proximal phalanx with overlying soft tissue swelling. 4. Third proximal, middle and distal phalanges are amputated. 5. Os trigonum. 6. Distal Achilles tendon degenerative calcification. 7. Calcified heel spur. 8. 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 Laboratory Results WBC 12.98 10^3/uL (3.29-11.43) H 05/15/25 01:28 RBC 3.46 10^6/uL (3.85-5.65) L 05/15/25 01:28 Hgb 9.80 g/dL (11.27-16.99) L 05/15/25 01:28 Hct 29.9 % (36-47) L 05/15/25: MCV 86.4 fl (85-98) 05/15/25 01:28 MCH 28.3 pg (27-33) 05/15/25 01: MCHC 32.8 g/dL (30-55) 05/15/25 01: RDW 14.3 % (12.1-15.1) 05/15/25 01: Plt Count 233 10^3/cmm (157-399) 05/15/25 01:28 MPV 11.0 fL (7.4-10.4) H 05/15/25 01: Neut % (Auto) 82.1 % 05/15/25 01: Lymph % (Auto) 10.2 % 05/15/25 01:28 [place] % (Auto) 5.9 % 05/15/25 01:28 Eos % (Auto) 1.2 % 05/15/25 01: Baso % (Auto) 0.2 % 05/15/25 01:28 Neut # (Auto) 10.65 10^3/uL (1.8-7.7) H 05/15/25 01:28 Lymph # (Auto) 1.3 10^3/uL (0.8-4.8) 05/15/25 01:28 [place] # (Auto) 0.8 10^3/uL (0.2-0.9) 05/15/25 01: Eos # (Auto) 0.2 10^3/uL (0.0-0.8) 05/15/25 01: Baso # (Auto) 0.0 10^3/uL (0.0-0.1) 05/15/25 01: Nucleated RBC % (auto) 0 % 05/15/25 01: Nucleated RBCs # 0.0 /100WBC 05/15/25 01:28 Sodium 128 mmol/L (136-145) L 05/15/25 01: Potassium 4.7 mmol/L (3.5-5.1) 05/15/25: Chloride 93 mmol/L (98-107) L 05/15/25 01: Carbon Dioxide 23 mmol/L (22-29) 05/15/25 01: Anion Gap 16.7 (5-19) 05/15/25 01:28 BUN 23 mg/dL (6-20) H 05/15/25 01:28 Creatinine 1.4 mg/dL (0.5-0.9) H 05/15/25 01:28 GFR Calculation 40.3 mL/min (90-130) L 05/15/25 01:28 Glucose 431 mg/dL (65-115) H 05/15/25 01: Calculated Osmolality 288 mOsm/kg (285-295) 05/15/25 01:28 Lactic Acid 1.9 mmol/L (0.5-2.2) 05/15/25 01:28 Calcium 8.4 mg/dL (8.5-10.5) L 05/15/25 01:28 Total Bilirubin 0.3 mg/dL (0.15-1.2) 05/15/25 01:28 AST 12 U/L (0-32) 05/15/25 01:28 ALT 8 U/L (0-33) 05/15/25 01:28 Alkaline Phosphatase 70 U/L (35-105) 05/15/25 01:28 C-Reactive Protein 152.2 mg/L (0.0-4.9) H 05/15/25 01:28 Total Protein 7.0 g/dL (6.6-8.7) 05/15/25 01:28 Albumin 3.0 g/dL (3.5-5.2) L 05/15/25 01:28 Globulin 4.0 g/dL (1.3-4.6) 05/15/25 01:28 All radiology interpretation(s) finalized by discharge Discharge Plan Discharge Condition: Stable Prescriptions: No Action cetirizine 10 mg tablet 10 mg PO DAILY Humulin R Regular U-100 Insuln 100 unit/mL solution 40 unit SUBCUT TID 90 Days Qty: 108 1RF clopidogrel [Plavix] 75 mg Tablet 75 mg PO DAILY aspirin 81 mg Tablet,Delayed Release (Dr/Ec) 81 mg PO DAILY pantoprazole [Protonix] 40 mg Tablet,Delayed Release (Dr/Ec) 40 mg PO DAILY promethazine 25 mg suppository 25 mg NJ Q4H PRN (Reason: nausea and vomiting) Qty: 12 2RF hyoscyamine sulfate [Levsin/SL] 0.125 mg tablet, sublingual 0.125 mg sublingual Q8H PRN (Reason: epigastric abdominal pain) Qty: 20 0RF tizanidine 4 mg tablet 4 mg PO TID PRN (Reason: muscle spasms) alprazolam [Xanax] 0.5 mg Tablet 0.5 mg PO TID PRN (Reason: Anxiety) (DME) glucometer testing kit See Rx Instructions .Route .MEDSUPPLY Qty: 1 0RF Rx Instructions: lancets#100 strips#100 glucagon HCl [Glucagon (HCl) Emergency Kit] 1 mg recon soln 1 mg SUBCUT Q20M PRN (Reason: hypoglycemia) Qty: 1 0RF Rx Instructions: until target blood sugar attained albuterol sulfate [Ventolin HFA] 90 mcg/actuation HFA aerosol inhaler 2 puff INHALATION .Q4-6H PRN (Reason: Shortness Of Breath) oxycodone 5 mg tablet 7.5 mg PO Q6H PRN (Reason: Pain) Referrals: Joselo Burris MD [Primary Care Provider, Family Practice] Print Language: Romanian Coding Level of Care Code ED Culture Manager for Marco Oglesby
--- NOTE | 2025-05-15 02:44 | PM.HP ---
Providers/Chief Complaint Admitting Physician: shannan fulton DO--after 12 midnight Primary Care Provider: Joselo Burris MD Chief Complaint: post surg right foot inflammed, red pain History of Present Illness Pablo Saunders is a 49 year old female with medical history significant for diabetes on insulin, morbidly obese with multiple toe amputation in the past and had just undergone another 1 amputation of the second toe of the right foot. Patient had this last amputation done just a week ago last Friday. And was supposed to follow-up with the podiatry in 3 days from there winning Friday. Patient stated that she could not follow-up with the appointment because she was not feeling well. She had the bandage on it all along and this day of presentation and patient decided to remove the bandage. The pulse gushed out from the wound. Because of the purulent drainage patient decided to come to the emergency room for evaluation and care Patient amputation this time was done at [facility]. Patient had second right toe amputation with abscess and cellulitis of the foot patient got blood culture vancomycin given and Zosyn given in the emergency room. I had ordered for pharmacy to dose vancomycin and continue with Zosyn at 3.75 g every 8 hours. The podiatry here has been consulted for incision of drainage of that foot and cleanout of the pus. Skin surrounding the forefoot or erythematous. Significant for cellulitis. Patient BMI is 62 Review of Systems Narrative: System review upon 10 organ review were significant for much systemic illness with diabetes and infection. Otherwise unremarkable Medications/Allergies Home Medications ?Medication ?Instructions ?Recorded ?Confirmed ?Last Taken ?Type cetirizine 10 mg tablet 10 mg PO DAILY 03/22/23 05/15/25 05/14/25 History aspirin 81 mg tablet,delayed 81 mg PO DAILY 02/25/25 05/15/25 05/14/25 History release clopidogrel 75 mg tablet (Plavix) 75 mg PO DAILY 02/25/25 05/15/25 05/14/25 History pantoprazole 40 mg tablet,delayed 40 mg PO DAILY 02/25/25 05/15/25 05/14/25 History release (Protonix) alprazolam 0.5 mg tablet (Xanax) 0.5 mg PO TID PRN Anxiety 03/29/25 05/15/25 04/12/25 History tizanidine 4 mg tablet 4 mg PO TID PRN muscle spasms 03/29/25 05/15/25 Unknown History glucagon HCl 1 mg solution for 1 mg SUBCUT Q20M PRN hypoglycemia 04/04/25 05/15/25 Unknown Rx injection (Glucagon (HCl) #1 ea Emergency Kit) glucometer testing kit #1 ea 04/04/25 05/15/25 04/12/25 Rx albuterol sulfate 90 mcg/actuation 2 puff inhalation .Q4-6H PRN 04/12/25 05/15/25 Unknown History aerosol inhaler (Ventolin HFA) Shortness Of Breath oxycodone 5 mg tablet 7.5 mg PO Q6H PRN Pain 04/12/25 05/15/25 05/14/25 History insulin regular human 100 unit/mL 55 unit SUBCUT TID 05/15/25 05/15/25 05/14/25 History injection solution (Humulin R Regular U-100 Insulin) metoprolol succinate 25 mg 25 mg PO DAILY 05/15/25 05/15/25 05/14/25 History tablet,extended release 24 hr Allergies Allergy/AdvReac Type Severity Reaction Status Date / Time tramadol Allergy Mild hives Verified 04/13/25 08:38 insulin lispro Allergy Unknown Unknown Verified 04/13/25 08:38 sulfamethoxazole (From Allergy ALGY-Hives Verified 04/13/25 08:38 Bactrim) trimethoprim (From Bactrim) Allergy ALGY-Hives Verified 04/13/25 08:38 daptomycin AdvReac blurry Verified 04/13/25 08:38 vision flurocet Allergy ADR-Confusi Uncoded 04/13/25 08:38 on PFSH Acute PFSH: Medical History Hyperlipemia, mixed Social History Smoking and tobacco/nicotine status: never used tobacco/nicotine Vitals/I&O/Wt Last Vital Signs Temp 99.1 F 05/14/25 22:52 Pulse 97 05/14/25 22:52 Resp 18 05/14/25 22:52 BP 152/56 05/14/25 22:52 Pulse Ox 96 05/14/25 22:52 O2 Del Method Room Air 05/14/25 22:52 Weight last 48 hrs Weight 170.097 kg Physical Exam Narrative: General The patient is lying supine in bed relaxed in no apparent distress at the bedside HEENT normocephalic atraumatic neck neck is supple cardiovascular heart rate is regular lungs are pretty much clear abdomen soft nontender nondistended unremarkable extremities are intact except for the right foot with purulent drainage from the recently amputated second toe with cellulitis of the forefoot of the right foot neurology has no focality patient is alert awake oriented. Data 05/15/25 05:14 05/15/25 05:14 Micro: Microbiology 05/15/25 01:28 Blood Culture - Preliminary Blood SPECIMEN COLLECTED A&P Assessment and plan 1. Type 2 diabetes mellitus with foot ulcer: Patient has much uncontrolled diabetes and this is causing a lot of amputation of the foot and all other like an associated illness such as morbid obesity Case had been discussed with the patient thoroughly. Need to have a tight blood sugar control. Need to have that the wound healing. 2. Cellulitis: Cellulitis of the right foot secondary to much infection of the second toe Empiric antibiotics at this time with vancomycin and Zosyn must continue to monitor and optimize 3. Foot abscess, right: Patient has right toe foot abscess Podiatry has been consulted for I&D of this area and clean at the place area is draining pus patient had been status post amputation of the second toe only 1 week ago and area is already infected with abscess draining pus. Empiric antibiotics initiated at this time with vancomycin and Zosyn patient had received a dose of HD in the emergency room. Vancomycin to continue with pharmacy dosing and to keep trough between 15 and 20 4. Hypertension: Keep patient normotensive continue home medication Plan: See above. GI and DVT prophylaxis in place PDMP PDMP Reviewed: Last Reviewed 05/15/25 07:33 by Shannan Fulton MD Attestations Medical Necessity Statement*: With much infection with cellulitis and abscess of the nearly amputated second toe patient needs to be in house for IV antibiotics patient is a diabetic uncontrolled blood sugar this is of inpatient stay for at least 2 midnights Coding Level of Care Code 74163 Diagnoses Type 2 diabetes mellitus with foot ulcer E11.621; L97.509 Cellulitis L03.90 Foot abscess, right L02.611 Hypertension I10 Time Spent (min) 60
[2025-05-15] MEDS: piperacillin-tazobactam 3.375 GM in sodium chloride 0.9% (plus) 50 ML IV ×3 (02:45→19:31)
[2025-05-15] MEDS: morphine 4 mg/mL SDV 1 mL IVP ×2 (02:45→19:31)
[2025-05-15] MEDS: pantoprazole 40 mg SDV IVP (04:57)
[2025-05-15] MEDS: morphine 4 mg/mL SDV 1 mL 2 MG IVP ×3 (04:57→14:47)
[2025-05-15 05:40] LABS: Hematocrit 29.5 % (36-47); Hemoglobin 9.50 g/dL (11.27-16.99); Mean Corpuscular HGB Conc 32.2 g/dL (30-55); Mean Corpuscular Hemoglobin 28.1 pg (27-33); Mean Corpuscular Volume 87.3 fl (85-98); Nucleated Red Blood Cells % 0 %; Platelet Count 196 10^3/cmm (157-399); Red Blood Count 3.38 10^6/uL (3.85-5.65); White Blood Count 12.77 10^3/uL (3.29-11.43)
[2025-05-15 05:54] LABS: Alanine Aminotransferase 8 U/L (0-33); Albumin Level 2.9 g/dL (3.5-5.2); Alkaline Phosphatase 67 U/L (35-105); Blood Urea Nitrogen 21 mg/dL (6-20); Calcium 8.1 mg/dL (8.5-10.5); Carbon Dioxide 23 mmol/L (22-29); Chloride 94 mmol/L (98-107); Creatinine Clr Calc Pharmacy 92.3851; Globulin 3.8 g/dL (1.3-4.6); Glucose 385 mg/dL (65-115); Magnesium 1.6 mg/dL (1.7-2.3); Osmolality Calculated 285 mOsm/kg (285-295); Sodium 128 mmol/L (136-145); Total Protein 6.7 g/dL (6.6-8.7)
--- NOTE | 2025-05-15 06:03 | PC.NURSE ---
Addendum entered by Radha Dubon RN 05/15/25 06:15: contacted pharmacy about MD orders for regular insulin of 30 units TID with meals, Ana stated he will figure out how to enter orders Original Note: contacted MD about patient being allergic to humalog and it being on her MAR, The patient stated she takes 55 units TID with meals, MD ordered 30 units of regular human insulin
[2025-05-15 06:13] LABS: Anion Gap 15.6 (5-19); Aspartate Amino Transferase 14 U/L (0-32); Potassium 4.6 mmol/L (3.5-5.1)
--- NOTE | 2025-05-15 07:59 | P.CONIM_ITS ---
Providers/Reason For Consult 2 Consulting Physician/Specialty*: Dr. Scout Ruggiero, D.P.M./podiatry Reason for Consult*: Right foot abscess Attending Physician: Shannan Brown MD Primary Care Provider: Joselo Burris MD History of Present Illness History of Present Illness Pablo Saunders is a 49 year old female who presented to the emergency department early this morning 05/15/2025 with complaint of general malaise. Patient underwent right foot second digit partial amputation on 05/06/2025 at [facility] in [place] for osteomyelitis. Patient states that she has not followed up with her electrical continuity tester who did the surgery as she was not feeling well enough to keep her appointment. She had a follow-up scheduled with him for this coming Friday. However, due to her feeling unwell and site of purulence upon removing dressing she came to the emergency department for evaluation. In the emergency department patient was found to be sepsis. Suspected source right foot secondary to amputation site. Podiatry was consulted to evaluate and provide further treatment recommendations. Past medical history significant for morbid obesity, type 2 diabetes. Review of Systems 2 General: Reports: 10 or more systems reviewed and unremarkable except in HPI and below Const: Denies: fever(s), chills, body aches or change in appetite Eyes: Denies: change in vision or blurry vision Card: Denies: chest pain, palpitations or irregular heart rhythm Resp: Denies: dyspnea GI: Denies: abdominal pain, nausea, vomiting or diarrhea Musc: Reports: joint stiffness Skin/Breast: Reports: non-healing lesions and lesions Neuro: Reports: numbness in extremities Medications/Allergies Home Medications ?Medication ?Instructions ?Recorded ?Confirmed ?Last Taken ?Type cetirizine 10 mg tablet 10 mg PO DAILY 03/22/23 08/01/0405/14/25 History aspirin 81 mg tablet,delayed 81 mg PO DAILY 02/25/25 0 05/15/25 05/14/25 History release clopidogrel 75 mg tablet (Plavix) 75 mg PO DAILY 02/2505/15/25 05/14/25 History pantoprazole 40 mg tablet,delayed 40 mg PO DAILY 02/2505/15/25 05/14/25 History release (Protonix) alprazolam 0.5 mg tablet (Xanax) 0.5 mg PO TID PRN Anx iety 03/29/25 05/15/25 04/12/25 History tizanidine 4 mg tablet 4 mg PO TID PRN muscle spasm s 03/29/25 05/15/25 Unknown History glucagon HCl 1 mg solution for 1 mg SUBCUT Q20M PRN hy poglycemia 04/04/25 05/15/25 Unknown Rx injection (Glucagon (HCl) #1 ea Emergency Kit) glucometer testing kit #1 ea 04/04/25 05/15/25 07/11/06 Rx albuterol sulfate 90 mcg/actuation 2 puff inhalation . Q4-6H PRN 04/12/25 05/15/25 Unknown History aerosol inhaler (Ventolin HFA) Shortness Of Breath oxycodone 5 mg tablet 7.5 mg PO Q6H PRN Pain 04/1205/15/25 05/14/25 History insulin regular human 100 unit/mL 55 unit SUBCUT TID 0 05/15/25 05/15/25 05/14/25 History injection solution (Humulin R Regular U-100 Insulin) metoprolol succinate 25 mg 25 mg PO DAILY 05/15/2501/0405/14/25 History tablet,extended release 24 hr Allergies Allergy/AdvReac Type Severity Reaction Status Date / Time tramadol Allergy Mild hives Verified 04/13/25 08:38 insulin lispro Allergy Unknown Unknown Verified 04/13/25 08:38 sulfamethoxazole (From Allergy ALGY-Hives Verified 04/13/25 08:38 Bactrim) trimethoprim (From Bactrim) Allergy ALGY-Hives Verified 04/13/25 08:38 daptomycin AdvReac blurry Verified 04/13/25 08:38 vision flurocet Allergy ADR-Confusi Uncoded 04/13/25 08:38 on Current Medications Generic Name Dose Route Start Last Admin Trade Name Freq PRN Reason Stop Dose Admin Heparin Sodium (Porcine) 5,000 unit 05/15/25 04:15 05/15/25 04:46 Heparin 5,000 Unit/Ml Inj 1 Ml SUBCUT Not Given Q12H HEATHER Morphine Sulfate 2 mg 05/15/25 04:08 05/15/25 04:57 Morphine 4 Mg/Ml Sdv 1 Ml IVP 2 mg Q4H PRN Administration SEVERE PAIN Pantoprazole Sodium 40 mg 05/15/25 04:15 05/15/25 04:57 Pantoprazole 40 Mg Sdv IVP 40 mg Q24H HEATHER Administration PFSH Acute 2 PFSH: Medical History (Updated 05/15/25 @ 07:29 by Shannan Brown MD) Hyperlipemia, mixed Social History Smoking and tobacco/nicotine status: never used tobacco/nicotine Vitals/I&O/Wt Last Vital Signs Temp 97.8 F 05/15/25 07:22 Pulse 73 05/15/25 07:22 Resp 19 H 05/15/25 07:22 BP 121/69 05/15/25 07:22 Pulse Ox 95 05/15/25 07:22 O2 Del Method Room Air 05/15/25 04:11 05/14/25 05/15/25 05/15/25 22:59 06:59 14:59 Intake Total 2540 / 2540 Balance 2540 / 2540 Weight last 48 hrs Weight 399 lb 3.2 oz Weight 399 lb 3.2 oz Weight 375 lb Physical Exam 2 Narrative: BELOW IS A FOCUSED LOWER EXTREMITY EXAM GENERAL: A&O x 3 VASCULAR: DP/PT pulses palpable 2/4 with CFT intact, <3seconds to distal digits. Significant edema to right forefoot DERMATOLOGICAL: Erythema and edema of right forefoot with epicenter being second digit amputation site. This shows maceration with active purulent drainage. Minimal underlying fluctuance. Sutures intact. Erythema extends to the level of the mid metatarsals. No underlying crepitus. Secondary finding of erythema on anterior medial right leg no open wounds of the leg. MUSCULOSKELETAL: Right hallux and third digit amputations. Partial amputation of right foot second digit. Tender to touch at amputation site NEUROLOGICAL: Neurological sensation to the affected foot and ankle is diminished, diminished sensation extends proximally to the level of the ankle IMAGING: Three-view x-rays of right foot taken in the emergency department were independently interpreted by me. These show status post amputation of hallux and third digit as well as partial amputation of second digit. No subcutaneous emphysema noted. No acute erosive changes indicative of osteomyelitis. Data 05/15/25 05:14 05/15/25 05:14 Micro: Microbiology 05/15/25 01:28 Blood Culture - Preliminary Blood SPECIMEN COLLECTED A&P Assessment and plan 1. Foot abscess, right: 2. Type 2 diabetes mellitus with foot ulcer: 3. Diabetes type 2: 4. Cellulitis: Plan: - Right foot abscess--sepsis -Labs and vitals reviewed -WBC 12.77 -ESR N/A -CRP 152.2 -HR 103 -RR 22 -Tmax 99.1 -Cultures obtained at bedside. Results pending -Abx Vanco/Zosyn -Diet: N.p.o. at midnight for procedure 05/16/25 -Patient to go to OR tomorrow 05/16/2025 for incision drainage right foot. Discussed with patient that based on intraoperative findings the remaining portion of the second digit may need to be excised to allow for appropriate soft tissue coverage for closure. Patient verbalized understand to this. I also discussed with patient that this is her third digit amputation on her right foot. From a functional standpoint patient would benefit from transmetatarsal amputation. However at this time source control his main concern. Patient is established with electrical continuity tester in [place]. After stabilizing infection this may be a conversation that she has with her electrical continuity tester upon discharge. Patient verbalized understanding to this. -Pain Mgmt: Per primary team -Weight bearing: Weightbearing to heel for transfers only -Dressings: Betadine wet-to-dry dressing applied by podiatry -Continue current Abx therapy until ID and Sensitivity results -Trend labs -Discharge plan: To be determined -Podiatry will continue to round on patient daily and provide recommendations PDMP PDMP Reviewed: Not Reviewed Coding Level of Care Code Acute Code for [facility] Diagnoses Foot abscess, right L02.611 Type 2 diabetes mellitus with foot ulcer E11.621; L97.509 Diabetes type 2 E11.9 Cellulitis L03.90
[2025-05-15] MEDS: insulin glargine 100 units/1 mL 30 UNIT SUBCUT (09:30)
[2025-05-15] MEDS: insulin regular-human 100 units/1 mL SUBCUT ×4 (09:46→21:40)
[2025-05-15] MEDS: metoprolol succinate ER (24 HR) 25 mg Tablet PO (09:47)
--- OUTSIDE RECORDS SUMMARY | 2025-05-15 10:52 | XMS_ITS | Clinical Summary ---
Author Organization [facility] Address [address] [address] Care Team Providers Care Command And Control Systems Integrator Name Role Phone Robert Gomez MD Primary Care Provide r Allergies Active Allergy Reactions Criticality Noted Date Comments Acetaminophen Other (see comments) Medium 03/16/2025 Acetaminophen-Pamabrom Medium 02/05/2025 Other Reaction(s): Lost Consciousness Albiglutide Hives,Other (see comments) High 05/31/2015 Other reaction(s): Pancreatitis Albumin Human Hives,Nausea,Othe r (see comments) Medium 08/26/2024 Butalbital Other (see comments) Low 10/08/2017 Euqnpxbuzl-Ctdt-Jwcklioy 03/16/2025 Canagliflozin Other (see comments) 10/08/2017 Other [...] Type Department Care Team Description 04/19/2025 Telephone [facility], [facility] [address] [place] [phone] Marisa Escalona DO 04/18/2025 Telephone [facility], [facility] [address] [place] [phone] Robert Gomez MD 03/16/2025 11:50 AM CDT Office Visit [facility], [facility] [address] [place], [place] [id number] Robert Gomez MD Stage 3b chronic kidney disease (HCC) (Primary Dx) 03/10/2025 Telephone [facility], [facility] [address] [place] [phone] Maribel Martinez 03/10/2025 Results Follow-Up [facility], [address] [address] Corrie Asher MA 03/10/2025 Documentation Only [facility], [address] [address] Corrie Asher MA from Last 3 Months [...] Hemoglobin A1C 7.7(H) 4.8 - 5.9 % [employer] 12/27/2024 12/29/2024 9:3 1 AM CDT Narrative [facility] - 12/29/2024 Unless otherwise specified, test(s) performed at: [facility], [address] [place], [place] [id number] HVAC TECHNICIAN: Moe Bear M.D. For any questions, please call customer service at FREQUENCY:MONTHLY Resulting Agency Comment Specimen source: Blood us Robert Gomez MD LAB BLOOD BANK TEST O RDERABLES Final Result [facility] See order comments or contact performing lab Formerly [facility], [place] from Last 3 Months or Most Recently Relevant to Health Maintenance Insurance Medicaid [place] ([id number]) Care Teams Command And Control Systems Integrator Relationship Specialty Start Date End Date Robert Gomez MD [address] [facility] [address] [place] [id number] PCP - General Nephrology 04/19/25
--- OUTSIDE RECORDS SUMMARY | 2025-05-15 10:52 | XMS_ITS | Encounter Summary ---
Author Organization [facility] Address [address] [place] [address] Care Team Providers Care Tub Operator Name Role Phone Mekhi Fournier MD Primary Care Provider Reason for Visit * Reason Onset Date Comments Wound Check 09/11/2017 Encounter Details Date Type Department Care Team (Late st Contact Info) Description 09/11/2017 Telephone [facility] Orthopaedic Trauma Surgery [address] [address] Alin Evans PA [address] [place] [address] Wound Check Social History Tobacco Use Types Packs/Day Years Used Date Smoking Tobacco: Never Smokeless Tobacco: Never Alcohol Use Standard Drinks/Week Comments No 0 (1 standard drink = 0.6 oz pur e alcohol) Comments No Sex and Gender Information Value Date Recorded Sex Assigned at Not on file Legal Sex Female 10:57 AM MARINE MACHINIST Gender Identity Not on file Sexual Orientation Not on file documented as of this encounter Miscellaneous Notes * Telephone Encounter - Alin Evans PA - 09/11/2017 10:00 PM CST 09/11/2017 10:01 PM Received call on the on-call pager from HAYLEY at [facility] who was seeing the patient. The patient [...] has not yet followed up with her pipe organ builder regarding her foot. Recommended that the patient call tomorrow for discussion of rescheduling her appointment. The nextavailable appointment is a week from now. Per PA at [facility], the patient is having home health come to her home for dressing changes. Pain medication at discretion of ER provider. Follow up at next available clinic. HAYLEY T[place] NE MACHINIST documented in this encounter Plan of Treatment Not on file documented as of this encounter Visit Diagnoses Not on filedocumented in this encounter Additional Health Concerns Infection Onset Date Last Indicated Resolved Time R/O COVID-19 08/29/2023 08/29/2023 08/29/2023 3:57 AM MARINE MACHINIST COVID-19 08/29/2023 08/29/2023 09/18/2023 1:18 AM MARINE MACHINIST documented as of this encounter Care Teams Tub Operator Relationship Specialty Start Date End Date Mekhi Fournier MD [address] [place] [address] PCP - General Family Practice 05/07/23 documented as of this encounter
--- OUTSIDE RECORDS SUMMARY | 2025-05-15 10:52 | XMS_ITS | Encounter Summary ---
Author Organization [facility] Address [address] [address] Phone Care Team Providers Care Coater Associate Name Role Phone Ashtyn Fournier NP Primary Care Provider + [phone] System, Provider Not In DO Primary Care Provider Ashtyn Fournier NP Primary Care Provider + [phone] Joselo Burris MD Primary Care Provider [phone] Encounter Details Date Type Department Care Team (Late st Contact Info) Description 09/22/2023 Telephone MED TELE [address] [address] Arielle Mckeon BSN,RN [address] [address] Social History Tobacco Use Types Packs/Day Years Used Date Smoking Tobacco: Former [facility] Utilities Answer Date Recorded In the past 12 months has e [employer], gas, oil, or water [employer] threatened to shut off services in your [...] often do you attend chur ch or confucianist services? Never 08/20/2023 Do you belong to any clubs o r organizations such as mosque groups, unions, fraternal or athletic groups, or [...] Recorded Patient Health Questionnaire-2 Score 0 08/15/2023 [facility] of Occupat ional Health - [...] place to sleep or slept in a intermediate (including now)? No 09/08/2023 Comments No Sex and Gender Information Value Date Recorded Sex Assigned at Female 08/25/2022 4:03 AM APPLICATION SUPPORT TECHNICIAN Legal Sex Female 11:21 AM CDT Gender Identity Female 08/25/2022 4:03 AM APPLICATION SUPPORT TECHNICIAN Sexual Orientation Straight 08/25/2022 4: 03 AM APPLICATION SUPPORT TECHNICIAN documented as of this encounter Nursing Notes * TERRY Mora,RN - 09/22/2023 8:32 AM CST Pt called w/ follow up appt Dr Christensen Oct 08 @ 2pm, spoke directly shilpi/ Pablo ICATION SUPPORT TECHNICIAN documented in this encounter Plan of Treatment Upcoming Encounters Date Type Department Care Team (Late st Contact Info) Description 05/17/2025 2:45 PM CDT Office Visit [facility] [address] [place] [phone] Mekhi Brannon DPRakel [address] [place] [address] 06/06/2025 1:00 PM CDT Office Visit [facility]ING [address] [address] Santiago Morejon MD [address], [address] [place] [address] documented as of this encounter Visit Diagnoses Not on filedocumented in this encounter Additional Health Concerns Infection Onset Date Last Indicated Resolved Time MRSA Comment:03/22/2017 MRSA - lt foot wound ([facility]) 03/23/2017 MRSA - bone lt 5th metatarsal ([facility]) 03/22/2017 08/26/2022 MDRO-GNB Comment:03/22/2017 MDRO-GNB - Morganella morganii - lt foot wound ([facility]) 03/23/2017 MDRO-GNB - Morganella morganii - bone from left foot ([facility]) 04/20/2017 MDRO-GNB - Morganella morganii - lt foot wound ([facility]) 03/22/2017 01/13/2025 MDRO Comment:Added from external infection. ([facility]) 04/20/2017 08/26/2022 01/13/2025 8:49 AM CDT COVID-19 (Confirmed) Comment:>90 days past illness Added from external infection, [facility] Covid PCR per nasopharynx 08/29/2023 02/02/2024 9:2 [...] documented as of this encounter Care Teams Coater Associate Relationship Specialty Start Date End Date Ashtyn Fournier NP PCP - General Family Medicine 08/25/22 01/01/25 System, Provider Not In, DO [address] [address] PCP - General 01/04/25 01/05/25 Ashtyn Fournier NP [address] [place] [address] PCP - General Family Medicine 01/06/25 05/05/25 Joselo Burris MD [address] [place] [address] PCP - General Family Medicine 05/06/25 documented as of this encounter
--- OUTSIDE RECORDS SUMMARY | 2025-05-15 10:52 | XMS_ITS | Encounter Summary ---
Author Organization [facility] Address [address] [address] Phone Care Team Providers Care Bi Architect Name Role Phone Ashtyn Fournier NP Primary Care Provider [phone] System, Provider Not In DO Primary Care Provider Ashtyn Fournier NP Primary Care Provider [phone] Joselo Burris MD Primary Care Provider [phone] Reason for Visit * Reason Onset Date Comments RP call back 09/26/2023 Encounter Details Date Type Department Care Team (Late st Contact Info) Description 09/26/2023 Telephone [facility] [address] [place] [address] Mekhi Brannon, [facility] [address] [place] [address] RP call back Social History Tobacco Use Types Packs/Day Years Used Date Smoking Tobacco: Former [facility] Utilities Answer Date Recorded In the [...] How often do you attend chur or nondenominational services? Never 08/20/2023 Do you belong to any clubs o r organizations such as spiritism groups, unions, fraternal or athletic groups, or [...] Recorded Patient Health Questionnaire-2 Score 0 09/30/2023 [facility] of Occupat ional Health - Occupational Stress [...] place to sleep or slept in a long term (including now)? No 09/08/2023 Comments No Sex and Gender Information Value Date Recorded Sex Assigned at Female 08/25/2022 4:03 AM HAND PLEATER Legal Sex Female 11:21 AM CDT Gender Identity Female 08/25/2022 4:03 AM HAND PLEATER Sexual Orientation Straight 08/25/2022 4: 03 AM HAND PLEATER documented as of this encounter Miscellaneous Notes * Telephone Encounter - Hodan Ordaz MA - 09/26/2023 12:30 PM HAND PLEATER Scheduled Friday 8:45 PLEATER * Telephone Encounter - Caroline Webster - 09/26/2023 12:18 PM CST Recently did amputation. Came in for follow up and found a stitch that she took out. Wants to discuss treatment and possible infection with you. PLEATER documented in this encounter Plan of Treatment Upcoming Encounters Date Type Department Care Team (Late st Contact Info) Description 05/17/2025 2:45 PM CDT Office Visit [facility] [address] [place] [phone] Mekhi Brannon DPM [address] [place] [address] [address] [place], [place] [phone] 06/06/2025 1:00 PM CDT Office Visit [facility]ING [address] [place] [phone] Santiago Morejon MD [address] [place] [address], [address] [place], [place] [phone] documented as of this encounter Visit Diagnoses Not on filedocumented in this encounter Additional Health Concerns Infection Onset Date Last Indicated Resolved Time MRSA Comment:03/22/2017 MRSA - lt foot wound ([facility]) 03/23/2017 MRSA - bone lt 5th metatarsal ([facility]) 03/22/2017 08/26/2022 MDRO-GNB Comment:03/22/2017 MDRO-GNB - Morganella morganii - lt foot wound ([facility]) 03/23/2017 MDRO-GNB - Morganella morganii - bone from left foot ([facility]) 04/20/2017 MDRO-GNB - Morganella morganii - lt foot wound ([facility]) 03/22/2017 01/13/2025 MDRO Comment:Added from external infection. ([facility]) 04/20/2017 08/26/2022 01/13/2025 8:49 AM CDT COVID-19 (Confirmed) Comment:>90 days past illness Added from external infection, [facility] Covid PCR per nasopharynx 08/29/2023 02/02/2024 9:2 [...] documented as of this encounter Care Teams Bi Architect Relationship Specialty Start Date End Date Ashtyn Fournier NP PCP - General Family Medicine 08/25/22 01/01/25 System, Provider Not In, DO [address] [address] PCP - General 01/04/25 01/05/25 Ashtyn Fournier NP [address] [place] [address] PCP - General Family Medicine 01/06/25 05/05/25 Joselo Burris MD [address] [place] [address] PCP - General Family Medicine 05/06/25 documented as of this encounter
--- OUTSIDE RECORDS SUMMARY | 2025-05-15 10:53 | XMS_ITS | Encounter Summary ---
Author Organization [facility] Address [address] [address] Phone Care Team Providers Care Bead Wire Taper Name Role Phone Ashtyn Fournier NP Primary Care Provider + [phone] System, Provider Not In DO Primary Care Provider Ashtyn Fournier NP Primary Care Provider + [phone] Joselo Burris MD Primary Care Provider [phone] Reason for Visit * Reason Onset Date Comments Diabetic shoes 11/11/2022 Encounter Details Date Type Department Care Team (Late st Contact Info) Description 11/11/2022 Telephone [facility] [address] [place] [address] Mekhi Brannon, [facility] [address] [address] Diabetic shoes Social History Tobacco Use Types [...] How often do you attend chur or yazidi services? Never 08/25/2022 Do you belong to [...] medical care, and heating? Very hard 08/25/2022 [facility] of Occupat ional Health - Occupational Stress [...] slept in a snf (including now)? No 08/25/2022 Comments Unknown Sex and Gender Information Value Date Recorded Sex Assigned at Female 08/25/2022 4:03 AM BOOKBINDER APPRENTICE Legal Sex Female 11:21 AM CDT Gender Identity Female 08/25/2022 4:03 AM BOOKBINDER APPRENTICE Sexual Orientation Straight 08/25/2022 4: 03 AM BOOKBINDER APPRENTICE documented as of this encounter Miscellaneous Notes * Telephone Encounter - Hodan Ordaz - 11/19/2022 9:59 AM CST faxed BINDER APPRENTICE * Telephone Encounter - Minnie Higuera - 11/18/2022 11:38 AM CST Now Robert is needing chart notes. BINDER APPRENTICE * Telephone Encounter - Hodan Ordaz - 11/12/2022 10:27 AM CST Refaxing CMN BINDER APPRENTICE * Telephone Encounter - Mandie Dow - 11/11/2022 9:46 AM CST Calling regarding diabetic shoes. States he sent over CMN for toe filler. Needing pre-cert for insoles through [employer] for inserts. Code: [id number] Robert can be reached at [phone] BINDER APPRENTICE documented in this encounter Plan of Treatment Upcoming Encounters Date Type Department Care Team (Late st Contact Info) Description 05/17/2025 2:45 PM CDT Office Visit [facility] [address] [place] [address] Mekhi Brannon DPM [address] [place] [address] [address] [place] [address] 06/06/2025 1:00 PM CDT Office Visit [facility]ILDING [address] [place] [phone] Santiago Morejon MD [address] [place] [address], [address] [place], [place] [phone] documented as of this encounter Visit Diagnoses [...] days past illness Added from external infection, [facility] Covid PCR per nasopharynx 08/29/2023 02/02/2024 9:2 5 AM CDT COVID-19 Rule-Out 09/08/2023 09/08/2023 09/08/2023 5:18 AM BOOKBINDER APPRENTICE COVID-19 Rule-Out 02/05/2024 02/05/2024 02/05/2024 7:34 AM [...] documented as of this encounter Care Teams Bead Wire Taper Relationship Specialty Start Date End Date Ashtyn Fournier NP PCP - General Family Medicine 08/25/22 01/01/25 System, Provider Not In, DO [address] [address] PCP - General 01/04/25 01/05/25 Ashtyn Fournier NP [address] [address] PCP - General Family Medicine 01/06/25 05/05/25 Joselo Burris MD [address] [place] [phone] PCP - General Family Medicine 05/06/25 documented as of this encounter
--- OUTSIDE RECORDS SUMMARY | 2025-05-15 10:53 | XMS_ITS | Encounter Summary ---
Author Organization [facility] Address [address] [address] Phone Care Team Providers Care Carpenter Maintenance Name Role Phone Shantanu Ashtyn HARRIS Primary Care Provider + [phone] Joselo Burris MD Primary Care Provider [phone] Encounter Details Date Type Department Care Team (Late st Contact Info) Description 04/21/2025 Telephone [facility] [address] [address] Alexander Kohli, JUAN [address] [phone] Social History Tobacco Use Types Packs/Day Years [...] from your doctor or pharmacy? Never 01/03/2025 [facility] Utilities Answer Date Recorded In [...] often do you attend chur ch or holiness services? Never 02/06/2025 Do you belong to any clubs o r organizations such as holiness groups, unions, fraternal or athletic groups, or [...] Patient Health Questionnaire-2 Score 0 02/16/2025 [facility] of Occupat ional Health - [...] any time in the past 12 m [facility], were you homeless or living in a penitentiary (including now)? No 02/06/2025 [facility] - Mental Health Answer Date Recorde d Little interest or pleasure in doing things Not at all 02/16/2025 Feeling down, depressed, or hopeless Not at all 02/16/2025 Feeling of Stress Not on file 02/16/2025 Comments No Sex and Gender Information Value Date Recorded Sex Assigned at Female 08/25/2022 4:03 AM DIE CUTTER OPERATOR Legal Sex Female 11:21 AM CDT Gender Identity Female 08/25/2022 4:03 AM DIE CUTTER OPERATOR Sexual Orientation Straight 08/25/2022 4: 03 AM DIE CUTTER OPERATOR documented as of this encounter Functional [...] CLINIC MEDICAL OFFICE BUILDING [address] [address] Mekhi Brannon DPM [address] [place], [place] [phone] 06/06/2025 1:00 PM CDT Office Visit [facility] BUILDING [address] [phone] Santiago Morejon MD [address], [address] [place], [place] [phone] documented as of this encounter Goals Goal [...] MRSA Comment:03/22/2017 MRSA - lt foot wound ([facility]) 03/23/2017 MRSA - bone lt 5th metatarsal ([facility]) 03/22/2017 08/26/2022 MDRO-GNB Comment:03/22/2017 MDRO-GNB - Morganella morganii - lt foot wound ([facility]) 03/23/2017 MDRO-GNB - Morganella morganii - bone from left foot ([facility]) 04/20/2017 MDRO-GNB - Morganella morganii - lt foot wound ([facility]) 03/22/2017 01/13/2025 documented as of this encounter Care Teams Carpenter Maintenance Relationship Specialty Start Date End Date Ashtyn Fournier NP PCP - General Family Medicine 01/06/25 05/05/25 Joselo Burris MD [address] [place] [address] PCP - General Family Medicine 05/06/25 documented as of this encounter
--- OUTSIDE RECORDS SUMMARY | 2025-05-15 10:53 | XMS_ITS | Encounter Summary ---
Author Organization [facility] Address [address] [place] [address] Phone Care Team Providers Care Nailhead Operator Name Role Phone Joselo Burris MD Primary Care Provider [phone] Reason for Visit * Reason Onset Date Comments RP- Rescheduling 05/06/2025 Encounter Details Date Type Department Care Team (Late st Contact Info) Description 05/06/2025 Telephone [facility]ILDING [address] [place] [address] Mekhi Brannon, [facility] [address] [place] [address] RP- Rescheduling Social History Tobacco Use Types [...] from your doctor or pharmacy? Never 01/03/2025 [facility] Utilities Answer Date Recorded In the past [...] often do you attend chur ch or quaker services? Never 02/06/2025 Do you belong to any clubs o r organizations such as anglican groups, unions, fraternal or athletic groups, or [...] Recorded Patient Health Questionnaire-2 Score 0 02/16/2025 [facility] [place] of Occupat ional Health - Occupational Stress [...] place to sleep or slept in a skilled nursing (including now)? No 02/14/2024 Housing Stability Vital Sign Answer David e Recorded In the last 12 months, was t here a time when you were not able to pay the mortgage or rent on time? No 02/06/2025 In the past 12 months, how m any times have you moved where you were living? 0 02/06/2025 At any time in the past [address] [facility], were you homeless or living in a skilled nursing (including now)? No 02/06/2025 [facility] - Mental Health Answer Date Recorde d Little interest or pleasure in doing things Not at all 02/16/2025 Feeling down, depressed, or hopeless Not at all 02/16/2025 Feeling of Stress Not on file 02/16/2025 Comments No Sex and Gender Information Value Date Recorded Sex Assigned at Female 08/25/2022 4:03 AM SUPERVISOR ACCOUNTS RECEIVABLE Legal Sex Female 11:21 AM CDT Gender Identity Female 08/25/2022 4:03 AM SUPERVISOR ACCOUNTS RECEIVABLE Sexual Orientation Straight 08/25/2022 4: 03 AM SUPERVISOR ACCOUNTS RECEIVABLE documented as of this encounter Functional Status [...] due to other appointment that day in [place]. Can I have an assist rescheduling this? documented in this encounter Plan of Treatment Upcoming Encounters Date Type Department Care Team (Late st Contact Info) Description 05/17/2025 2:45 PM CDT Office Visit [facility] BUILDING [address] [place] [address] Mekhi Brannon DPM [address] [place] [address] [address] [place] [address] 06/06/2025 1:00 PM CDT Office Visit [facility] MED[facility] OFF[facility] BUILDING [address] [phone] [place] [address] [place] [address], [address] [place], [place] [address] documented as of this encounter Goals Goal [...] MRSA Comment:03/22/2017 MRSA - lt foot wound ([facility]) 03/23/2017 MRSA - bone lt 5th metatarsal ([facility]) 03/22/2017 08/26/2022 MDRO-GNB Comment:03/22/2017 MDRO-GNB - Morganella morganii - lt foot wound ([facility]) 03/23/2017 MDRO-GNB - Morganella morganii - bone from left foot ([facility]) 04/20/2017 MDRO-GNB - Morganella morganii - lt foot wound ([facility]) 03/22/2017 01/13/2025 documented as of this encounter Care Teams Nailhead Operator Relationship Specialty Start Date End Date Joselo Burris MD [address] [place] [phone] PCP - General Family Medicine 05/06/25 documented as of this encounter
--- OUTSIDE RECORDS SUMMARY | 2025-05-15 10:53 | XMS_ITS | Encounter Summary ---
Author Organization [facility] Address [address] [address] Phone Care Team Providers Care Cement Handler Name Role Phone Ashtyn Fournier NP Primary Care Provider + [phone] System, Provider Not In DO Primary Care Provider Ashtyn Fournier NP Primary Care Provider + [phone] Joselo Burris MD Primary Care Provider [phone] Reason for Visit * Reason Onset Date Comments form for transport 11/28/2022 Encounter Details Date Type Department Care Team (Late st Contact Info) Description 11/28/2022 Telephone [facility] MED[facility] OFF[facility] BUILDING [address] [place] [address] Mekhi Brannon, [facility] [address] [place] [address] form for transport Social History Tobacco Use [...] you attend chur or rastafarian services? Never 08/25/2022 Do you belong to [...] medical care, and heating? Very hard 08/25/2022 [facility] - Occupational [...] slept in a intermediate (including now)? No 08/25/2022 Comments Unknown Sex and Gender Information Value Date Recorded Sex Assigned at Female 08/25/2022 4:03 AM LIFTER/DRIVER Legal Sex Female 11:21 AM CDT Gender Identity Female 08/25/2022 4:03 AM LIFTER/DRIVER Sexual Orientation Straight 08/25/2022 4: 03 AM LIFTER/DRIVER documented as of this encounter Miscellaneous Notes * Telephone Encounter - Hodan Ordaz - 11/28/2022 3:31 PM CST Refaxing form ER/DRIVER * Telephone Encounter - Marcelina Williamson - 11/28/2022 2:24 PM CST Patient is following up to see if the form has been filled out and faxed for transport to her appointment. ER/DRIVER documented in this encounter Plan of Treatment Upcoming Encounters Date Type Department Care Team (Late st Contact Info) Description 05/17/2025 2:45 PM CDT Office Visit [facility]INIC MEDICAL OFFICE BUILDING [address] [place] [address] Mekhi Brannon DPM [address] [place] [address] 06/06/2025 1:00 PM CDT Office Visit PULMONOLOGY CLINIC MEDICAL OFFICE BUILDING [address] [phone] Santiago Morejon MD [address], [address] [place], [place] [address] documented as of this encounter Visit Diagnoses Not on filedocumented in this encounter Additional Health Concerns Infection Onset Date Last Indicated Resolved Time MRSA Comment:03/22/2017 MRSA - lt foot wound ([facility]) 03/23/2017 MRSA - bone lt 5th metatarsal ([facility]) 03/22/2017 08/26/2022 MDRO-GNB Comment:03/22/2017 MDRO-GNB - Morganella morganii - lt foot wound ([facility]) 03/23/2017 MDRO-GNB - Morganella morganii - bone from left foot ([facility]) 04/20/2017 MDRO-GNB - Morganella morganii - lt foot wound ([facility]) 03/22/2017 01/13/2025 MDRO Comment:Added from external infection. ([facility]) 04/20/2017 08/26/2022 01/13/2025 8:49 AM CDT COVID-19 (Confirmed) Comment:>90 days past illness Added from external infection, [facility] Covid PCR per nasopharynx 08/29/2023 02/02/2024 9:2 5 AM CDT COVID-19 Rule-Out 09/08/2023 09/08/2023 09/08/2023 5:18 AM LIFTER/DRIVER COVID-19 Rule-Out 02/05/2024 02/05/2024 02/05/2024 7:34 AM [...] documented as of this encounter Care Teams Cement Handler Relationship Specialty Start Date End Date Ashtyn Fournier NP PCP - General Family Medicine 08/25/22 01/01/25 System, Provider Not In, DO [address] [place] [address] PCP - General 01/04/25 01/05/25 Ashtyn Fournier NP [address] [place] [address] PCP - General Family Medicine 01/06/25 05/05/25 Joselo Burris MD [address] [place] [address] PCP - General Family Medicine 05/06/25 documented as of this encounter
--- OUTSIDE RECORDS SUMMARY | 2025-05-15 10:53 | XMS_ITS | Clinical Summary ---
Author Organization [facility] Address [address] [place] [address] Phone Care Team Providers Care Grocery Store Courtesy Clerk Name Role Phone Mekhi Fournier MD Primary Care Provider Allergies Active Allergy Reactions Criticality Noted Date Comments Albiglutide Hives High 05/31/2015 Butalbital Hallucination Low 10/08/2017 Dakndpenpw-Jjrmueggoh-K af-Cod Rash Low 11/19/2010 Butalbital-Acetaminophe n-Caff Other [...] administer insulin. 100 Each 7 4:14 PM ETHICS INSTRUCTOR 08/22/20 17 Active blood sugar diagnostic Strip Use as directed to test blood sugar levels before meals. 100 Each 7 4:14 PM ETHICS INSTRUCTOR 08/22/20 17 Active acetaminophen (TYLENOL) 325 mg [...] 05/18/20 23 Active naloxone (NARCAN) 4 mg/spray Topmost, Non-Aerosol EMERGENCY USE ONLY: Administer 1 spray [...] times daily. 180 Tablet 3 3:57 PM ETHICS INSTRUCTOR 09/07/20 Active oxyCODONE (ROXICODONE) 5 mg tabletIndicatio ns:Postoperativ e wound dehiscence, initial encounter Take 2 Tablets (10 mg) by mouth every 4 hours as needed for Pain. Max Daily Amount: 60 mg 20 Tablet 3 1:43 PM ETHICS INSTRUCTOR 09/07/20 Active Active Problems Problem Noted Date [...] on file Legal Sex Female 10:57 AM ETHICS INSTRUCTOR Gender Identity Not on file Sexual Orientation Not on file Last Filed Vital Signs Vital Sign Reading Time Taken Comments Blood Pressure 122/74 09/07/2023 3:28 PM ETHICS INSTRUCTOR Pulse 86 09/07/2023 3:28 PM ETHICS INSTRUCTOR Temperature 36.4 C (97.6 F) 09/07/2023 7:00 AM ETHICS INSTRUCTOR Respiratory Rate 15 09/07/2023 7:00 AM ETHICS INSTRUCTOR Oxygen Saturation 98% 09/07/2023 7:00 AM ETHICS INSTRUCTOR Inhaled Oxygen Concentration - - Weight 208.2 kg (459 lb) 09/05/2023 5:00 AM ETHICS INSTRUCTOR Height 170.2 cm (5' 7 ) 09/01/2023 2:50 AM ETHICS INSTRUCTOR Body Mass Index 71.89 09/01/2023 2:50 AM ETHICS INSTRUCTOR Plan of Treatment Health Maintenance Due Date [...] Screening 05/12/2033 Medical Devices Implanted Type Area Hand Mica Plate Layer Device Identifier Shelf Expiration Date Model / Serial / Lot Nail-Ex Tib Crv [id number] 04.034.449s - [id number] Implanted:Qty: 1 on 08/19/2017 by Harrison Hallman MD at [facility] Nail Left: Tibia SYNTHES STRATEC 04/11/2026 04.034.449 S / / [id number] Description:This Synthes tib ial nail only, processed on requisition,[id number]. Screw Loc 3.5hex 5.0x36mm 458.936 - [id number] Implanted:Qty: 1 on 08/19/2017 by Harrison Hallman MD at [facility] Screw SYNTHES STRATEC 458.936 / / Screw Loc 3.5hex 5.0x44mm 458.944 - [id number] Implanted:Qty: 2 on 08/19/2017 by Harrison Hallman MD at [facility] Screw SYNTHES STRATEC 458.944 / / Screw Loc 3.5hex 5.0x46mm 458.946 - [id number] Implanted:Qty: 1 on 08/19/2017 by Harrison Hallman MD at [facility] Screw SYNTHES STRATEC 458.946 / / Explanted Type Area Hand Mica Plate Layer Device Identifier Shelf Expiration Date Model / Serial / Lot Plate Lcp 2.4mm 249.674 - [id number] Implanted:Harrison Webber MD (Quantity not on file) Explanted:Qty: 1 on 08/19/2017 by Harrison Hallman MD at [facility] Plate SYNTHES STRATEC 249.674 / / Screw St T8 2.4x6mm 201.756 - [id number] Implanted:Harrison Webber MD (Quantity not on file) Explanted:Qty: 2 on 08/19/2017 by Harrison Hallman MD at [facility] Screw SYNTHES STRATEC 201.756 / / Screw St T8 2.4x7mm 201.757 - [id number] Implanted:Harrison Webber MD (Quantity not on file) Explanted:Qty: 1 on 08/19/2017 by Harrison Hallman MD at [facility] Screw SYNTHES STRATEC 201.757 / / Screw St T8 2.4x8mm 201.758 - [id number] Implanted:Harrison Webber MD (Quantity not on file) Explanted:Qty: 1 on 08/19/2017 by Harrison Hallman MD at [facility] Screw SYNTHES STRATEC 201.758 / / [...] Awad MD - 05/12/2023 9:17 AM CDT [facility] GI Patient Name: Pablo Suanders Procedure Date: 05/12/2023 Date of : 1975 [...] AM Scope Out: 9:13:30 AM [address] [place] Charan Awad MD GI PROCEDURE [...] PM CDT Performing Organization Information: Site ID: [email or web address] Name: [email or web address] Address: [address] [address] Director: Christiano Sandoval MD us Marisa Escalona DO URINE ORDERABLES Final Result [facility] * (ABNORMAL) HEMOGLOBIN A1C (05/09/2023 5:29 AM CDT) HEMOGLOBIN A1C 10.7(H) <=5.6 % 05/09/2023 12:55 PM CDT [facility] [employer] [facility] EST. AVG GLUCOSE, A1C 260 mg/dL 05/09/2023 12:55 PM CDT [facility] [employer] [facility] Blood Venipuncture / Unknown 05/09/2023 5:29 AM CDT 05/09/2023 5:37 AM CDT Narrative [facility] [employer] [facility] - 05/09/2023 12:55 PM CDT HGB A1C INTERPRETATION NORMAL: <5.7% PRE-DIABETES: 5.7 - 6.4% DIABETES: 6.5% OR GREATER us Marisa Escalona DO CHEMISTRY ORDERABLES Final Resu lt Performing Organization Address [facility] Co de Phone Number [facility] CLIA # [id number] [id number] [place] [address] from Last 3 Months or Most Recently Relevant to Health Maintenance Insurance RX INFOCROSSING Medicaid RX FISH PLANS (INTERNAL) [facility] Plans MEDICAID [place] Advance Directives For more information, please contact: [phone] * Full Code (Latest Code Status on [...] 2:55 PM 08/19/2017 9:04 PM Care Teams Grocery Store Courtesy Clerk Relationship Specialty Start Date End Date Mekhi Fournier MD [address] [place] [address] PCP - General Family Practice 05/07/23
--- OUTSIDE RECORDS SUMMARY | 2025-05-15 10:53 | XMS_ITS | Clinical Summary ---
Author Organization [facility] Address [address] [place] [address] Phone Care Team Providers Care Invas Tech Name Role Phone Joselo Burris MD Primary Care Provider [phone] Allergies Active Allergy Reactions Criticality Noted Date [...] (pain). 07/30/20 24 025 Discontinued HYDROcodone-aceta minophen ([place]) 5-325 mg tabletIndications :Right foot pain,Type II [...] (08/26/2022): Added automatically from request for surgery [id number] Foot laceration, left, initial encounter 017 Laceration [...] 05/06/2025 2:45 PM CDT Anesthesia Event OPERATING ROOM-[address] [address] Ze Bauman CRNA [place], Becky R, ADAP, CRIME SCENE PHOTOGRAPHER 05/06/2025 2:20 PM CDT - 05/06/2025 3:10 PM CDT Surgery OPERATING ROOM-HOSPITAL [address] [phone] Mekhi Brannon DPM Partial Phalangectomy of the right second toe proximal phalanx [64291 (CPT ) +1 more] 05/06/2025 1:01 PM CDT - 05/06/2025 4:16 PM CDT Hospital Encounter OPERATING ROOM-HOSPITAL [address] [phone] Mekhi Brannon DPM Discharge Disposition: Discharged to Home or Self Care (Routine Discharge) 05/06/2025 Telephone [facility]RY [facility]INIC MEDICAL OFFICE BUILDING [address] [place] [address] Mekhi Brannon DPM RP- Rescheduling 05/06/2025 Orders Only P[facility]RY [facility]INIC MEDICAL OFFICE BUILDING [address] [place] [address] Mekhi Brannon DPM Diabetic ulcer of toe of right foot associated with type 2 diabetes mellitus, with fat layer exposed (CMS/HCC) (Primary Dx); Right foot pain; Type II diabetes mellitus with neurological manifestations (CMS/HCC) 05/05/2025 Telephone [facility] MEDICAL OFFICE BUILDING [address] [place] [address] Elda Hobbs CST Speak to nurse 05/04/2025 2:00 PM CDT - 05/04/2025 11:59 PM CDT Hospital Encounter PREADMISSION TESTING - [facility] [address] [place] [address] Discharge Disposition: Discharged to Home or Self Care (Routine Discharge) 04/27/2025 Telephone [facility]RY [facility]INIC MEDICAL OFFICE BUILDING [address] [place] [address] Oliverio Jimenez DPM clearance/surgery 04/25/2025 Telephone [facility] MEDICAL OFFICE BUILDING [address] [place] [address] Hodan Ordaz MA RP pcp appt 04/21/2025 Telephone PREADMISSION TESTING - [facility] [address] [place] [address] Alexander Kohli RN 04/20/2025 2:00 PM CDT Lab LAB-MEDICAL OFFICE BUILDING [address] [place] [address] Preoperative testing; Chronic skin ulcer, limited to breakdown of skin (CMS/HCC); Joint contracture of foot, right; Cardiac volume overload; Nephrotic syndrome; Status post coronary artery stent placement; Shortness of breath; Other chest pain; Abnormal stress test; Stage 3a chronic kidney disease (CMS/HCC) 04/20/2025 1:00 PM CDT - 04/20/2025 11:59 PM CDT Hospital Encounter PREADMISSION TESTING - [facility] [address] [place] [address] Preoperative testing (Primary Dx); Chronic skin ulcer, limited to breakdown of skin (CMS/HCC); Joint contracture of foot, right; Cardiac volume overload; Nephrotic syndrome; Status post coronary artery stent placement; Shortness of breath; Other chest pain; Abnormal stress test; Stage 3a chronic kidney disease ([facility]) Discharge Disposition: Discharged to Home or Self Care (Routine Discharge) 04/20/2025 Telephone PREADMISSION TESTING - [address] [address] Alexander Kohli RN 04/20/2025 Orders Only P[facility]RY [facility]INIC MEDICAL OFFICE BUILDING [address] [place] [address] Mekhi Brannon DPM 04/14/2025 3:21 PM CDT - 04/14/2025 11:59 PM CDT Hospital Encounter XRAY [facility] [address] [place] [address] Right foot pain Discharge Disposition: Discharged to Home or Self Care (Routine Discharge) 04/14/2025 3:00 PM CDT Office Visit P[facility]RY [facility]INIC MEDICAL OFFICE BUILDING [address] [place] [address] Mekhi Brannon DPM Type II diabetes mellitus with neurological manifestations ([facility]) (Primary Dx); Right foot pain; Diabetic ulcer of toe of right foot associated with type 2 diabetes mellitus, with fat layer exposed ([facility]) 04/14/2025 Orders Only PODIATRY CLINIC MEDICAL OFFICE BUILDING [address] [address] Mekhi Brannon DPM Chronic skin ulcer, limited to breakdown of skin (CMS/HCC) (Primary Dx); Right foot pain; Joint contracture of foot, right 03/30/2025 Telephone [facility] DD [address] [address] Scout Weldon MD Appointment 02/24/2025 Telephone P[facility]RY [facility]IN[facility] MEDICAL OFFICE BUILDING [address] [address] Mekhi Brannon DPM 02/16/2025 1:45 PM CDT Office Visit PODIATRY CLINIC MEDICAL OFFICE BUILDING [address] [place] [address] Mekhi Brannon DPM Type II diabetes mellitus [...] from your doctor or pharmacy? Never 01/03/2025 [facility] Utilities Answer Date Recorded In the past 12 months has th e [employer], gas, oil, or water company threatened to [...] How often do you attend chur or quaker services? Never 02/06/2025 Do you belong to any clubs o r organizations such as hoahaoism groups, unions, fraternal or athletic groups, or [...] Recorded Patient Health Questionnaire-2 Score 0 02/16/2025 [facility] - [...] slept in a mcc (including now)? No 02/14/2024 Housing Stability Vital [...] time in the past [address] [facility], were you homeless or living in a mcc (including now)? No 02/06/2025 [facility] - Mental Health Answer Date Recorde d Little interest or pleasure in doing things Not at all 02/16/2025 Feeling down, depressed, or hopeless Not at all 02/16/2025 Feeling of Stress Not on file 02/16/2025 Comments No Sex and Gender Information Value Date Recorded Sex Assigned at Female 08/25/2022 4:03 AM SALES SPECIALIST Legal Sex Female 11:21 AM CDT Gender Identity Female 08/25/2022 4:03 AM SALES SPECIALIST Sexual Orientation Straight 08/25/2022 4: 03 AM SALES SPECIALIST Last Filed Vital Signs Vital Sign Reading [...] CLINIC MEDICAL OFFICE BUILDING [address] [address] Mekhi Brannon DPM [address] [place] [address] 06/06/2025 1:00 PM CDT Office Visit PULMONOLOGY CLINIC MEDICAL OFFICE BUILDING [address] [address] Santiago Morejon MD [facility] [address], [address] [place] [address] [phone] (Work) Health Maintenance Due Date Last Done [...] Care Plan Autogenerated Problem No Elda Hobbs, SALES SPECIALIST Medical Devices Implanted Type Area Instructional Systems Designer Device Identifier Shelf Expiration Date Model / Serial / Lot Con Weidman [place] Maik 3.0x15 - Sna - [id number] Implanted:Qt y: 1 on 02/02/2024 by Fito Shaw MD at [facility] Consignment Products Implant N/A: Coronary MEDTR [id number] 09/20/2026 [id number] 015UX / NA / [id number] Con Weidman [place] Maik 3.0x18 - Sna - [id number] Implanted:Qt y: 1 on 02/02/2024 by Fito Shaw MD at [facility] Consignment Products Implant N/A: Coronary MEDTR [id number] 11/26/2026 [id number] 018UX / NA / [id number] Rashid-Left Leg Orthopedics Implant Left: Leg Con Stent [place] 3.50x38 - Sna - [id number] Implanted:Qt y: 1 on 02/02/2024 by Fito Shaw MD at [facility] Vascular Implant N/A: Coronary MEDTR [id number] 10/23/2026 [id number] 038UX / NA / [id number] Con Stent [place] 2x12 - Sna - [id number] Implanted:Qt y: 1 on 02/02/2024 by Fito Shaw MD at [facility] Vascular Implant N/A: Coronary MEDTR[employer]IC [id number] 11/04/2026 [id number] 012UX / NA / [id number] Procedures Procedure Name Priority Date/Time Associated Diagnosis Comments POCT GLUCOSE METER Routine 05/06/2025 3: 44 PM CDT MA RESECTION PARTIAL/COMPLETE PHALANGEAL BASE EACH 05/06/2025 2:47 PM CDT Chronic skin ulcer, limited to breakdown of skin (CMS/HCC) Right foot pain Joint contracture of foot, right MA PARTICAL EXCISION BONE PHALANX TOE 05/06/2025 2:47 [...] 2D W/ CONTRAST Routine 09/05/2024 3:46 PM SALES SPECIALIST from Last 3 Months or Most Recently Relevant to Health Maintenance Results * (ABNORMAL) POCT glucose meter docked device (05/06/2025 3:44 PM CDT) Only the most recent of2 resultswithin the time period is included. GLUCOSE WHOLE BLOOD 241(H) 70 - 100 mg/dL 05/06/2025 3:45 PM CDT [facility] Comment:Non Fasting Blood Capillary blood specimen / Unknown 05/06/2025 3:44 PM CDT 05/06/2025 3:45 PM CDT Mekhi Brannon DPM LAB POINT OF CARE T EST DOCKED DEVICE UNSOLICITED RESULTS Final Result Performing Organization Address [facility]/ZIP Co de Phone Number [facility] [address] [address] * , urine (05/06/2025 1:19 PM CDT) URINE PREG TEST Negative Negative 05/06/2025 1:42 PM CDT [facility] Urine Urine specimen obtained by clean catch procedure / Unknown Non-blood Collection / Unknown 05/06/2025 1:19 PM CDT 05/06/2025 1:35 PM CDT Tyler Carter MD LAB URINE ORDERABLES Final Res ult Performing Organization Address [facility]/ZIP Co de Phone Number [facility] [address] [place] [address] * (ABNORMAL) Basic Metabolic Profile (04/20/2025 2:06 PM CDT) Glucose 524(HH) 70 - 100 mg/dL LAB CHEMISTRY METHOD 04/20/2025 7:02 PM CDT [facility] BUN 45(H) 7 - 17 mg/dL LAB CHEMISTRY METHOD 04/20/2025 7:02 PM CDT [facility] Creatinine 2.61(H) 0.52 - 1.04 mg/dl LAB CHEMISTRY METHOD 04/20/2025 7:02 PM CDT [facility] BUN/Creatinine Ratio 17 12 - 17 LAB CHEMISTRY METHOD 04/20/2025 7:02 PM CDT [facility] Sodium 131(L) 135 - 145 mmol/L LAB CHEMISTRY METHOD 04/20/2025 7:02 PM CDT [facility] Potassium 4.4 3.6 - 5.0 [...] DO LAB BLOOD ORDERABLES Final Re sult [facility] [address] [id number] * XR foot 3+ views right (04/14/2025 [...] Glucose 240 mg/dL 02/08/2025 7:37 AM CDT [facility] Blood Venous blood specimen / Unknown Venipuncture / Unknown 02/06/2025 9:05 AM CDT 02/06/2025 9:09 AM CDT Narrative [facility] - 02/08/2025 7:37 AM CDT HgbA1C ranges recommended by the [place] Diabetes Association (ADA): >6.5% Diabetic 5.7-6.4% Pre-Diabetic <5.7% Non-Diabetic Roberto Moody MD LAB BLOOD ORDERABLES F inal Result Performing Organization Address City/[facility] Co de Phone Number [facility] [address] [address] * Occult Blood Stool (01/03/2025 2:26 PM CDT) Occult Blood, Stool Negative Negative 01/03/2025 2:36 PM CDT [facility] Stool Rectal contents / Unknown Non-blood Collection / Unknown 01/03/2025 2:26 PM CDT 01/03/2025 2:30 PM CDT Ibrahima Ojeda DO LAB BODY FLUIDS AND STOOLS OR DERABLES Final Result [facility] [address] [address] * TRANSTHORACIC ECHO (TTE) LIMITED 2D W/ CONTRAST (09/05/2024 3:46 PM SALES SPECIALIST) Anatomical Region Laterality Modality Echocardiography 09/05/2024 3:12 PM SALES SPECIALIST Narrative 09/06/2024 8:01 AM SALES SPECIALIST Demographics Patient name: SCOTTIE RIVERA Gender: Female Age: 49 year(s) Date of : 1975 BMI: 70.59 kg/m^2 Height: 170 cm BSA: 2.85 m^2 Weight: 204 kg Ethnicity: None Race: Procedure Information Procedure type: Echo Proc. sub type: TTE procedure: Transthoracic Echo Limited TTE. Start date time: 09/05/2024 3:12 PM Accession no: [id number] Patient status: Routine Visit no: [id number] Contrast medium: Definity Study location: Portable HR: 83 bpm Technical quality: Technically difficult In/Out patient: Inpatient Limitation reason: Body habitus Blood pressure: 146 / 56 mmHg Room no: 253N Procedure Rampman: Ирина Ivey Interpreting physician: Orlin Marshall MD [...] 09/06/2024 Demographics Patient name: SCOTTIE Reident ID: [id number] Gender: FemaleAge: 49 year(s) Date of : 1975BMI: 70.59 kg/m^2 Height: 170 cmBSA: 2.85 m^2 Weight: 204 kgEthnicity: None Race: Procedure Information Procedure type: Echo Proc. sub type: TTE procedure: Transthoracic Echo Limited TTE. Start date time: 09/05/2024 3:12 PMAccession no: [id number] Patient status: RoutineVisit no: [id number] Contrast medium: DefinityStudy location: Portable HR: 83 bpmTechnical quality: Technically difficult In/Out patient: InpatientLimitation reason: Body habitus Blood pressure: 146 / 56 mmHg Room no: 253N Procedure Rampman: Ирина Ivey Interpreting physician: Orlin Marshall MD [...] MRSA Comment:03/22/2017 MRSA - lt foot wound ([facility]) 03/23/2017 MRSA - bone lt 5th metatarsal ([facility]) 03/22/2017 1 10/26/2021 MDRO-GNB Comment:03/22/2017 MDRO-GNB - Morganella morganii - lt foot wound ([facility]) 03/23/2017 MDRO-GNB - Morganella morganii - bone from left foot ([facility]) 04/20/2017 MDRO-GNB - Morganella morganii - lt foot wound ([facility]) 03/22/2017 01/13/2025 Insurance [employer] Advance Directives For more information, please contact: [phone] (7:30 AM - 5PM [facility], 7 days a week) * Full Code [...] 10:36 PM 09/09/2024 5:13 PM Care Teams Invas Tech Relationship Specialty Start Date End Date Joselo Burris MD [address] [place] [phone] PCP - General Family Medicine 05/06/25
--- OUTSIDE RECORDS SUMMARY | 2025-05-15 10:53 | XMS_ITS | Encounter Summary ---
Author Organization [facility] Address [address] [address] Phone Care Team Providers Care Plastic Welder Name Role Phone Shantanu Ashtyn HARRIS Primary Care Provider [phone] Joselo Burris MD Primary Care Provider [phone] Encounter Details Date Type Department Care Team (Late st Contact Info) Description 04/20/2025 Telephone PREADMISSION TESTING - [facility] [address] [address] Alexander Kohli, JUAN [address] [id number] Social History Tobacco Use Types Packs/Day Years [...] from your doctor or pharmacy? Never 01/03/2025 [facility] Utilities Answer Date Recorded In the [...] attend chur ch or confucianist services? Never 02/06/2025 Do you belong to [...] Recorded Patient Health Questionnaire-2 Score 0 02/16/2025 [facility] [...] place to sleep or slept in a care home (including now)? No 02/14/2024 Housing Stability Vital Sign Answer David e Recorded In the last 12 months, was t here a time when you were not able to pay the mortgage or rent on time? No 02/06/2025 In the past 12 months, how m any times have you moved where you were living? 0 02/06/2025 At any time in the past 12 m [facility], were you homeless or living in a care home (including now)? No 02/06/2025 [facility] - Mental Health Answer Date Recorde d Little interest or pleasure in doing things Not at all 02/16/2025 Feeling down, depressed, or hopeless Not at all 02/16/2025 Feeling of Stress Not on file 02/16/2025 Comments No Sex and Gender Information Value Date Recorded Sex Assigned at Female 08/25/2022 4:03 AM COMBER OPERATOR Legal Sex Female 11:21 AM CDT Gender Identity Female 08/25/2022 4:03 AM COMBER OPERATOR Sexual Orientation Straight 08/25/2022 4: 03 AM COMBER OPERATOR documented as of this encounter Functional [...] [facility] [address] [place] [id number] Mekhi Brannon DPM [address] [place] [address] [address] [place] [address] 06/06/2025 1:00 PM CDT Office Visit PULMONOLOGY CLINIC MEDICAL OFFICE BUILDING [address] [place] [phone] Santiago Morejon MD [address] [place] [address], [facility] [address] [place] [address] documented as of this encounter Goals Goal [...] MRSA Comment:03/22/2017 MRSA - lt foot wound ([facility]) 03/23/2017 MRSA - bone lt 5th metatarsal ([facility]) 03/22/2017 08/26/2022 MDRO-GNB Comment:03/22/2017 MDRO-GNB - Morganella morganii - lt foot wound ([facility]) 03/23/2017 MDRO-GNB - Morganella morganii - bone from left foot ([facility]) 04/20/2017 MDRO-GNB - Morganella morganii - lt foot wound ([facility]) 03/22/2017 01/13/2025 documented as of this encounter Care Teams Plastic Welder Relationship Specialty Start Date End Date Ashtyn Fournier NP PCP - General Family Medicine 01/06/25 05/05/25 Joselo Burris MD [address] [place] [address] PCP - General Family Medicine 05/06/25 documented as of this encounter
--- NOTE | 2025-05-15 13:25 | PC.NURSE ---
Called report to [facility] med/surg floor.
[2025-05-15 15:13] LABS: Glucose Urine UA 3+ (Normal); Nitrate Urine Negative (Negative); Specific Gravity, Urine 1.022 (1.005-1.030)
[2025-05-15 15:20] LABS: PCP Screen Urine Negative (Negative)
[2025-05-15] MEDS: oxyCODONE 5 mg IR Tab/Cap 7.5 MG PO ×2 (16:09→22:28)
--- NOTE | 2025-05-15 16:38 | PM.PN ---
Subjective Subjective: Patient is on antibiotics for right foot infection including Zosyn and vancomycin. She states that her last PICC line antibiotics for Friday the and she was supposedTo come in and have it line removed on but did not. She states she felt poorly. She changed her own dressing 05/13/2025 2 days prior to admission and foot looked red. On 05/15/2025 there was lots of pus and so she came to the emergency department. She has been having fevers for 2 days Patient states she was briefly on dialysis and weighed up to 510 pounds was dialyzed and lost some weight got down to 360 but now is up to 399. She denies sleep apnea. Vitals/I&O/Wt Last Vital Signs Temp 98.8 F 05/15/25 12:00 Pulse 79 05/15/25 12:00 Resp 15 05/15/25 16:09 BP 132/54 05/15/25 12:00 Pulse Ox 94 05/15/25 16:09 O2 Del Method Room Air 05/15/25 04:11 05/15/25 05/15/25 05/15/25 06:59 14:59 22:59 Intake Total 2540 / 2540 930 / 930 Output Total 1100 / 1100 Balance 2540 / 2540 -170 / -170 Weight last 48 hrs Weight 181.074 kg Weight 181.074 kg Weight 170.097 kg Physical Exam Narrative: General Well-developed morbidly obese female in no acute cardiopulmonary stress Oropharynx Mallampati 1 CV regular rate and rhythm Lungs clear to auscultation bilaterally Abdomen soft there is a large overhanging pannus. Mild edema in the pannus and dependent area. Right foot is in a gauze dressing there is some soiling and bleeding. The right lower leg erythema has been marked and receding from the borders Data 05/15/25 05:14 05/15/25 05:14 Micro: Microbiology 05/15/25 16:04 Blood Culture - Preliminary Blood SPECIMEN COLLECTED 05/15/25 01:28 Blood Culture - Preliminary Blood SPECIMEN COLLECTED A&P Assessment and plan 1. Cellulitis: Continue vancomycin and Zosyn. There is evidence of recession of the erythema border suggesting that antibiotics are effective. Debridement is needed and perhaps further amputation 2. Type 2 diabetes mellitus with foot ulcer, with long-term current use of insulin: Uncontrolled diabetes exacerbated by ongoing infection. Patient will go to the OR tomorrow with Dr. Ruggiero Patient was counseled regarding need for close diabetic control. She states she is on short acting insulin 45 units 3 times daily She is agreeable to starting long acting insulin and targeting a 2000-calorie ADA diet for weight loss 3. Foot abscess, right: Patient has right toe foot abscess Podiatry has been consulted for I&D patient had been status post amputation of the second toe only 1 week ago and area is already infected with abscess draining pus. Empiric antibiotics initiated at this time with vancomycin and Zosyn patient had received a dose of HD in the emergency room. Vancomycin to continue with pharmacy dosing and to keep trough between 15 and 20 Wound culture Gram stain still pending. I ordered a PICC line culture from this morning 4. Hypertension: Stable 5. Morbid obesity with BMI of 60.0-69.9, adult: As above weight loss diet Plan: See above. GI and DVT prophylaxis in place PDMP PDMP Reviewed: Not Reviewed Attestations Medical Necessity Statement*: Patient is a hospital for IV antibiotics surgery and set up for long-term IV antibiotics outpatient again. Coding Level of Care Code Acute Code for Chg Fwd High MDM includes number and complexity of problems actively addressed during encounter (5), amount and/or complexity of data reviewed/ordered (Blood cultures and labs reviewed from this morning ordered additionally PICC line and modified diabetic regimen) [ ordered lab(s)/test(s)] and described risk of complication, morbidity or mortality of management (Reevaluated due to high risk of decompensation with osteomyelitis and cellulitis) as documented and Moderate Time for a total of 35 minutes, includes reviewing past or interval history, examining/interviewing patient, placing orders, counseling patient/family/other support and documenting encounter Other Coding Information Focused coding review requested Prolonged care (total time indicated above or notated here) Diagnoses Cellulitis L03.90 Type 2 diabetes mellitus with foot ulcer, with long-term current use of insulin E11.621; L97.509; Z79.4 Diabetes mellitus superintendent container terminal insulin use: with prison use Foot abscess, right L02.611 Hypertension I10 Morbid obesity with BMI of 60.0-69.9, adult E66.01; Z68.44 Time Spent (min) 35 Comment Extended care 30 minutes
[2025-05-16] VITALS (15 sets, daily range): BP systolic 100–157; BP diastolic 42–68; PULSE 66–73; RESP 14–25; TEMP 36.1–36.9; O2SAT 94–98
[2025-05-16] MEDS: morphine 4 mg/mL SDV 1 mL IVP ×2 (00:11→04:40)
[2025-05-16] MEDS: piperacillin-tazobactam 3.375 GM in sodium chloride 0.9% (plus) 50 ML IV ×2 (03:21→17:31)
[2025-05-16 04:48] LABS: Hematocrit 29.4 % (36-47); Hemoglobin 9.40 g/dL (11.27-16.99); Mean Corpuscular HGB Conc 32.0 g/dL (30-55); Mean Corpuscular Hemoglobin 28.8 pg (27-33); Mean Corpuscular Volume 90.2 fl (85-98); Nucleated Red Blood Cells % 0 %; Platelet Count 236 10^3/cmm (157-399); Red Blood Count 3.26 10^6/uL (3.85-5.65); White Blood Count 13.01 10^3/uL (3.29-11.43)
[2025-05-16] MEDS: pantoprazole 40 mg SDV IVP (05:00)
[2025-05-16 05:03] LABS: Blood Urea Nitrogen 23 mg/dL (6-20); Calcium 8.4 mg/dL (8.5-10.5); Carbon Dioxide 23 mmol/L (22-29); Chloride 97 mmol/L (98-107); Creatinine Clr Calc Pharmacy 92.9060; Glucose 283 mg/dL (65-115); Osmolality Calculated 286 mOsm/kg (285-295); Sodium 131 mmol/L (136-145)
[2025-05-16 05:06] LABS: Anion Gap 15.8 (5-19); Potassium 4.8 mmol/L (3.5-5.1)
[2025-05-16] MEDS: metoprolol succinate ER (24 HR) 25 mg Tablet PO (08:35)
[2025-05-16] MEDS: insulin glargine 100 units/1 mL 30 UNIT SUBCUT (08:35)
--- NOTE | 2025-05-16 09:06 | ANES.PREANE2 ---
Pre-Anesthetic Assessment Height/Weight: Height 1.7 m Weight 182.616 kg Temp Pulse Resp BP Pulse Ox O2 Del Method 98.0 F 70 17 157/66 95 Room Air 05/16/25 04:00 05/16/25 04:00 05/16/25 04:40 05/16/25 04:00 05/16/25 04:40 05/16/25 04:00 Operation Date: 05/16/25 09:35 Proposed Procedures p Incision And Drainage Incision of Bone Cortex(Right) - Scout Ruggiero DPM Familial anesthetic complications: None Was Beta Andrea taken within 24 hours: N/A Was Clonidine taken within 24 hours: N/A Last intake: Intake Last Liquid Date 05/15/25 Last Liquid Time 23:59 Last Solid Date 05/15/25 Last Solid Time 23:30 Social No alcohol and No tobacco Exam alert, oriented x 3, clear to auscultation bilaterally and regular rate & rhythm Airway Mallampati: Class III Dentition: other (none) Pulmonary Asthma CV/HEM Coronary Artery Disease (stents > 1 year ago, on plavix and asa) GI Gastroesophageal Reflux Disease Metabolic Diabetes Mellitus and Morbid Obesity Anesthetic Plan ASA status: 4 Anesthesia: Choice Risk of > 500 ml blood loss (7ml/kg in children): No Medications/Allergies Home Medications ?Medication ?Instructions ?Recorded ?Confirmed ?Last Taken ?Type cetirizine 10 mg tablet 10 mg PO DAILY 03/22/23 05/15/25 05/14/25 History aspirin 81 mg tablet,delayed 81 mg PO DAILY 02/25/25 05/15/25 05/14/25 History release clopidogrel 75 mg tablet (Plavix) 75 mg PO DAILY 02/25/25 05/15/25 05/14/25 History pantoprazole 40 mg tablet,delayed 40 mg PO DAILY 02/25/25 05/15/25 05/14/25 History release (Protonix) alprazolam 0.5 mg tablet (Xanax) 0.5 mg PO TID PRN Anxiety 03/29/25 05/15/25 04/12/25 History tizanidine 4 mg tablet 4 mg PO TID PRN muscle spasms 03/29/25 05/15/25 Unknown History glucagon HCl 1 mg solution for 1 mg SUBCUT Q20M PRN hypoglycemia 04/04/25 05/15/25 Unknown Rx injection (Glucagon (HCl) #1 ea Emergency Kit) glucometer testing kit #1 ea 04/04/25 05/15/25 04/12/25 Rx albuterol sulfate 90 mcg/actuation 2 puff inhalation .Q4-6H PRN 04/12/25 05/15/25 Unknown History aerosol inhaler (Ventolin HFA) Shortness Of Breath oxycodone 5 mg tablet 7.5 mg PO Q6H PRN Pain 04/12/25 05/15/25 05/14/25 History insulin regular human 100 unit/mL 55 unit SUBCUT TID 05/15/25 05/15/25 05/14/25 History injection solution (Humulin R Regular U-100 Insulin) metoprolol succinate 25 mg 25 mg PO DAILY 05/15/25 05/15/25 05/14/25 History tablet,extended release 24 hr Allergies Allergy/AdvReac Type Severity Reaction Status Date / Time tramadol Allergy Mild hives Verified 04/13/25 08:38 insulin lispro Allergy Unknown Unknown Verified 04/13/25 08:38 sulfamethoxazole (From Allergy ALGY-Hives Verified 04/13/25 08:38 Bactrim) trimethoprim (From Bactrim) Allergy ALGY-Hives Verified 04/13/25 08:38 daptomycin AdvReac blurry Verified 04/13/25 08:38 vision flurocet Allergy ADR-Confusi Uncoded 04/13/25 08:38 on Current Medications Generic Name Dose Route Start Last Admin Trade Name Freq PRN Reason Stop Dose Admin Alprazolam 0.5 mg 05/15/25 14:57 05/15/25 16:09 Alprazolam 0.5 Mg Tablet PO 0.5 mg On Hold: 05/16/25 08:56 TID PRN Administration Comment: Order held by Process ANXIETY Transfer Aspirin 81 mg 05/15/25 09:00 05/16/25 08:35 Aspirin 81 Mg Ec Tablet PO 81 mg On Hold: 05/16/25 08:56 DAILY HEATHER Administration Comment: Order held by Process Transfer Cetirizine HCl 10 mg 05/15/25 09:00 05/16/25 08:35 Cetirizine 10 Mg Tablet PO 10 mg On Hold: 05/16/25 08:56 DAILY HEATHER Administration Comment: Order held by Process Transfer Clopidogrel Bisulfate 75 mg 05/15/25 09:00 05/16/25 08:35 Clopidogrel 75 Mg Tablet PO 75 mg On Hold: 05/16/25 08:56 DAILY HEATHER Administration Comment: Order held by Process Transfer Docusate Sodium 100 mg 05/15/25 09:00 05/16/25 08:35 Docusate Sodium 100 Mg Capsule PO 100 mg On Hold: 05/16/25 08:56 BID HEATHER Administration Comment: Order held by Process Transfer Heparin Sodium (Porcine) 5,000 unit 05/15/25 04:15 05/16/25 04:56 Heparin 5,000 Unit/Ml Inj 1 Ml SUBCUT Not Given On Hold: 05/16/25 08:56 Q12H HEATHER Comment: Order held by Process Transfer Piperacillin Sod/Tazobactam 50 mls @ 12.5 mls/hr 05/15/25 10:30 05/16/25 07:48 Sod 3.375 gm/ Sodium Chloride IV Infused On Hold: 05/16/25 08:56 Q8H HEATHER Infusion Comment: Order held by Process Protocol Transfer Vancomycin HCl 2,000 mg in 400 mls @ 200 mls/hr 05/15/25 11:15 05/16/25 02:02 Vancocin IV Infused On Hold: 05/16/25 08:56 Q12H HEATHER Infusion Comment: Order held by Process Transfer Insulin Glargine 30 unit 05/15/25 09:00 05/16/25 08:35 Insulin Glargine 100 Units/1 Ml SUBCUT 30 unit On Hold: 05/16/25 08:56 BID HEATHER Administration Comment: Order held by Process Transfer Insulin Human Regular 0 unit 05/15/25 08:00 05/15/25 21:40 Insulin Regular-Human 100 Units/1 Ml SUBCUT 14 unit On Hold: 05/16/25 08:56 WM&BEDTIME HEATHER Administration Comment: Order held by Process Protocol Transfer Metoprolol Succinate 25 mg 05/15/25 09:00 05/16/25 08:35 Metoprolol Succinate Er (24 Hr) 25 Mg Tablet PO 25 mg On Hold: 05/16/25 08:56 DAILY HEATHER Administration Comment: Order held by Process Transfer Morphine Sulfate 4 mg 05/15/25 14:57 05/16/25 04:40 Morphine 4 Mg/Ml Sdv 1 Ml IVP 4 mg On Hold: 05/16/25 08:56 Q4H PRN Administration Comment: Order held by Process SEVERE PAIN Transfer Oxycodone HCl 7.5 mg 05/15/25 14:57 05/15/25 22:28 Oxycodone 5 Mg Ir Tab/Cap PO 7.5 mg On Hold: 05/16/25 08:56 Q6H PRN Administration Comment: Order held by Process PAIN Transfer Pantoprazole Sodium 40 mg 05/15/25 04:15 05/16/25 05:00 Pantoprazole 40 Mg Sdv IVP 40 mg On Hold: 05/16/25 08:56 Q24H HEATHER Administration Comment: Order held by Process Transfer [facility] Anesthesia Medical History (Updated 05/15/25 @ 16:43 by Gustavo Tolbert MD) Morbid obesity with BMI of 60.0-69.9, adult Hyperlipemia, mixed Social History Smoking and tobacco/nicotine status: never used tobacco/nicotine Data Anesthesia 05/16/25 03:20 05/16/25 03:20 Short CBC 05/15/25 05/15/25 05/16/25 Range/Units 01:28 05:14 03:20 WBC 12.98 H 12.77 H 13.01 H (3.29-11.43) 10^3/uL Hgb 9.80 L 9.50 L 9.40 L (11.27-16.99) g/dL Hct 29.9 L 29.5 L 29.4 L (36-47) % MCV 86.4 87.3 90.2 (85-98) fl Plt Count 233 196 236 (157-399) 10^3/cmm Neut % (Auto) 82.1 79.6 73.3 % Neut # (Auto) 10.65 H 10.17 H 9.54 H (1.8-7.7) 10^3/uL BMP 05/15/25 05/15/25 05/16/25 01:28 05:14 03:20 Sodium 128 L 128 L 131 L Potassium 4.7 4.6 4.8 Chloride 93 L 94 L 97 L Carbon Dioxide 23 23 23 BUN 23 H 21 H 23 H Creatinine 1.4 H 1.3 H 1.3 H Glucose 431 H 385 H 283 H Calcium 8.4 L 8.1 L 8.4 L Liver Function 05/15/25 05/15/25 Range/Units 01:28 05:14 Total Bilirubin 0.3 0.3 (0.15-1.2) mg/dL AST 12 14 (0-32) U/L ALT 8 8 (0-33) U/L Alkaline Phosphatase 70 67 (35-105) U/L Albumin 3.0 L 2.9 L (3.5-5.2) g/dL Urine 05/15/25 Range/Units 14:37 Urine Color Yellow (Yellow) Urine Appearance Clear (CLEAR) Urine pH 5.5 (5-7) Ur Specific [place] 1.022 (1.005-1.030) Urine Protein 3+ A (Negative) Urine Glucose (UA) 3+ H (Normal) Urine Ketones Negative (Negative) Urine Nitrate Negative (Negative) Urine Bilirubin Negative (Negative) Ur Leukocyte Esterase Negative (Negative) Urine RBC 0-2 (0-2) /hpf Urine WBC 0-5 (0-5) /hpf Coags 05/15/25 01:28 C-Reactive Protein 152.2 H Microbiology 05/15/25 01:28 Blood Culture - Preliminary Blood NEGATIVE TO DATE 05/15/25 07:50 Gram Stain - Final Toe - Abscess 05/15/25 16:04 Blood Culture - Preliminary Blood SPECIMEN COLLECTED Cardiac Studies: Echocardiogram 03/29/25 Transesophageal Echocardiogram 03/31/25
--- NOTE | 2025-05-16 09:07 | P.HPUD_ITS ---
Surgery/Procedure H&P Update DATE OF PROCEDURE: May 16, 2025 DATE H&P PERFORMED: 05/15/25 H&P UPDATE INFORMATION: I have reviewed H&P completed within last 30 days, I have examined patient prior to procedure, No changes to prior documentation, H&P is in [facility] EMR on date indicated and Risks and benefits of the procedure reviewed PLANNED PROCEDURE: Operation Date: 05/16/25 09:35 Proposed Procedures p Incision And Drainage Incision of Bone Cortex(Right) - Scout Ruggiero DPM
[2025-05-16 09:26] LABS: HCG Qualitative Urine. Negative (Negative)
[2025-05-16] MEDS: BUPivacaine 0.5% INJ 30 mL INJECTION (09:55)
--- NOTE | 2025-05-16 10:21 | PM.OP ---
Operative Report Date of procedure: May 16, 2025 Surgeon: Scout Ruggiero DPM Procedure: Date of procedure: 05/16/2025 Pre-op diagnosis: Right foot abscess Post-op diagnosis: Same Post-op findings: Abscess right foot second metatarsal phalangeal joint Procedure done: Incision bone cortex right foot CPT 89981 Implants: None Specimens removed: Cultures aerobic and anaerobic, surgical specimen sent to pathology of second proximal phalanx Surgeon: Dr. Scout Ruggiero DPM Applications Development Analyst: Padmini Estimated blood loss: 5 cc Tourniquet time: No tourniquet used Complications: None Patient is a 49-year-old female that has a history of right foot abscess. The extent of infection warrants surgical intervention. A lengthy discussion regarding the procedure, including risks and complications has been had with the patient and is noted in the recent clinic note. Written and verbal consent have been obtained. All patient questions have been answered to the patient?s satisfaction. No written or verbal guarantees have been given or implied. The patient has been NPO since midnight. The history has been reviewed and the history and physical is current. The signed consent was confirmed and placed in the patient chart. Patient imaging has been reviewed and is consistent with the diagnosis. Under mild sedation, the patient was brought into the operating room and left on the gurney in the supine position. patient is receiving antibiotics [id number] on the floor. MAC sedation was then performed by the anesthesiateam. A local field block was performed using 0.5% Marcaine plain. The foot was then prepped and draped in standard fashion. The following procedure was then performed. Attention was directed to the right foot where erythematous and edematous second digit amputation site was visualized. #15 blade was used to make a full-thickness incision linearly over the metatarsophalangeal joint. Immediate extravasation of purulence from the underlying soft tissues was noted. Cultures aerobic and anaerobic were obtained at this point. Dissection was carried down to the metatarsophalangeal joint. Incision of bone cortex of the base of proximal phalanx was performed using #15 blade. Dissection was carried out to expose the entirety of the proximal phalanx. The proximal phalanx was removed from the foot and passed from the operative field be sent as surgical specimen. Purulence was expressed from site. Site underwent copious amounts of irrigation with sterile saline. No further purulence remained. Metatarsal head did not appear to have erosive changes or signs of infection. However, given the purulence surrounding the area cannot rule out osteomyelitis. After irrigation attention was directed to closure. Incision was closed with 3-0 Prolene before being dressed with Xeroform, 4 x 4 gauze, Kerlix, Js bandage. The patient tolerated the procedure and anesthesia well and without complication. The patient was transported from the operating room to the recovery room with vital signs stable and vascular status intact to all digits of the right foot. Thepatient was instructed to remain minimal weightbearing for transfers only to the operative extremity, to keep surgical dressing clean, dry and intact. The patient will be transferred back to the floor once anesthesia criteria is met. I will continue to round on and follow the patient in the inpatientsetting and provide recommendations to stabilize the patient for discharge.
[2025-05-16] MEDS: fentaNYL 50 mcg/mL INJ 2mL IVP (10:35)
[2025-05-16] MEDS: insulin regular-human 100 units/1 mL 10 UNIT IVP (10:45)
--- NOTE | 2025-05-16 10:50 | ANE.PACU2 ---
Inpatient post-anesthesia follow up: Airway intact: Yes Vital signs: Temperature 97.8 F Pulse Rate 70 Respiratory Rate 18 Blood Pressure 118/68 Pulse Oximetry 94 Oxygen Delivery Me thod Room Air Oxygen Flow Rate Fraction of Inspir ed Oxygen Hydration adequate: Yes Nausea and vomiting: No Pain level: 1 Mental status: Baseline
[2025-05-16] MEDS: oxyCODONE 5 mg IR Tab/Cap 7.5 MG PO ×3 (11:21→23:54)
[2025-05-16] MEDS: HYDROmorphone 0.5 MG/0.5 ML INJ 0.4 MG IVP (12:43)
[2025-05-16 12:52] LABS: Procalcitonin 0.15 ng/mL (0-0.5); Vitamin B12 240 pg/mL (232-1245)
[2025-05-16 13:03] LABS: Iron 39 ug/dL (37-145)
[2025-05-16 14:22] LABS: Total Iron Binding Capacity 223 mcg/dl; Unsaturated Iron Binding 184 ug/dL (112-347)
--- NOTE | 2025-05-16 16:46 | PM.PN ---
Subjective Subjective: Hospital course, labs appreciated. Today morning seen after amputation. Patient sitting comfortably in bed. Complaining of pain in the foot. Has been refusing her insulins. Discussed with her the need for insulin treatment given hyperglycemia and uncontrolled type 2 diabetes mellitus. Vitals/I&O/Wt Last Vital Signs Temp 97.9 F 05/16/25 16:00 Pulse 66 05/16/25 16:00 Resp 18 05/16/25 16:00 BP 106/49 05/16/25 16:00 Pulse Ox 94 05/16/25 16:00 O2 Del Method Room Air 05/16/25 16:00 05/16/25 05/16/25 05/16/25 06:59 14:59 22:59 Intake Total 450 / 2700 736 / 736 Output Total 1600 / 2700 5 Balance -1150 / 0 731 / 731 Weight last 48 hrs Weight 182.616 kg Weight 181.074 kg Weight 181.074 kg Weight 170.097 kg Physical Exam Narrative: General Well-developed morbidly obese female in no acute cardiopulmonary stress Oropharynx Mallampati 1 CV regular rate and rhythm Lungs clear to auscultation bilaterally Abdomen soft there is a large overhanging pannus. Mild edema in the pannus and dependent area. Right foot is in a gauze dressing there is some soiling and bleeding. The right lower leg erythema has been marked and receding from the borders Data 05/16/25 03:20 05/16/25 03:20 Micro: Microbiology 05/15/25 16:04 Blood Culture - Preliminary Blood NEGATIVE TO DATE 05/16/25 09:56 Gram Stain - Final Tissue 05/15/25 07:50 Gram Stain - Final Toe - Abscess Wound Culture - Preliminary Coag positive Staphylococcus 05/15/25 01:28 Blood Culture - Preliminary Blood NEGATIVE TO DATE A&P Assessment and plan 1. Foot abscess, right: Post I&D. Appreciate wound care by podiatry team. Follow-up cultures. Continue with empiric IV vancomycin and Zosyn. De-escalate as per culture sensitivities. Patient requesting higher pain medications. States morphine does not work and requesting if she can get Dilaudid. Discussed for now we will continue with IV morphine and will restart home dose of oxycodone IR 7.5 mg every 6 hours as needed. Will add gabapentin. 2. Cellulitis: Continue vancomycin and Zosyn. There is evidence of recession of the erythema border suggesting that antibiotics are effective. Debridement is needed and perhaps further amputation 3. Type 2 diabetes mellitus with foot ulcer, with long-term current use of insulin: Uncontrolled type 2 diabetes mellitus. Appreciate A1c. Patient has been refusing insulin on and off. On discussion it seems patient is allergic to Lantus. She states she is allergic to any medication which comes in a pen as she believes to be allergic to the material used to contain medications in the pen. States she develops a rash and issues with the pancreas in the past. Patient after multiple counseling is agreeable to take Humalog Continue with insulin sliding scale. Changed to moderate dose protocol. Lantus discontinued as per patient request. Add Humalog 15 mg 3 times daily. Added gabapentin 100 mg 3 times daily. 4. Hypertension: Goal blood pressure less than 140/90 mmHg. Continue with home dose of metoprolol. 5. Uncontrolled type 2 diabetes mellitus: 6. MSSA bacteremia: Past history. PICC line still in place. Finished course of IV cefazolin on 05/10. Will reconsult ID. 7. CKD (chronic kidney disease): In the past have required dialysis as well. Currently creatinine stable at 1.3. Monitor daily. 8. Morbid obesity with BMI of 60.0-69.9, adult: As above weight loss diet Plan: Heparin for DVT prophylaxis Protonix for PUD prophylaxis PDMP PDMP Reviewed: Last Reviewed 05/16/25 12:14 by Jaime Arvizu MD Attestations Medical Necessity Statement*: Requires further hospitalization for management of abscess with cellulitis of the foot in setting of uncontrolled type 2 diabetes mellitus post I&D in a patient with recent MSSA bacteremia Diagnoses Foot abscess, right L02.611 Cellulitis L03.90 Type 2 diabetes mellitus with foot ulcer, with long-term current use of insulin E11.621; L97.509; Z79.4 Diabetes mellitus intermission coordinator insulin use: with intermission coordinator use Hypertension I10 Uncontrolled type 2 diabetes mellitus MSSA bacteremia R78.81; B95.61 CKD (chronic kidney disease) N18.9 Morbid obesity with BMI of 60.0-69.9, adult E66.01; Z68.44
[2025-05-16] MEDS: insulin regular-human 100 units/1 mL SUBCUT ×2 (17:29→21:12)
--- NOTE | 2025-05-16 18:01 | PC.NURSE ---
pt was found to be pushing buttons on her iv pump. turning off and on, educ pt severity messing with pump. pt agreed to not bother it.
--- NOTE | 2025-05-16 18:03 | PC.NURSE ---
pt eating tray that was delivered, called dietary stated she didn't like the choice and asked for new tray. pt consumed both trays. pt educ on sticking to current diet as blood sugars are greater than 400.
--- NOTE | 2025-05-16 19:02 | PC.NURSE ---
pt refused heparin and humalog lispro, educ on benefits of taking medications and risks of not taking the meds. pt still refused meds.
[2025-05-16] MEDS: morphine 4 mg/mL SDV 1 mL 2 MG IVP (21:30)
--- NOTE | 2025-05-16 23:19 | PC.NURSE ---
vanc trough 32.6, tele-pharm notified, instruction received to hold tonight's dose and they will make a note for day pharmacy to check
[2025-05-17] VITALS (12 sets, daily range): BP systolic 106–176; BP diastolic 57–84; PULSE 66–77; RESP 16–20; TEMP 36.4–36.9; O2SAT 94–99
[2025-05-17] MEDS: piperacillin-tazobactam 3.375 GM in sodium chloride 0.9% (plus) 50 ML IV ×3 (02:37→17:32)
[2025-05-17] MEDS: morphine 4 mg/mL SDV 1 mL 2 MG IVP ×2 (02:38→09:25)
[2025-05-17 05:04] LABS: Hematocrit 25.8 % (36-47); Hemoglobin 8.20 g/dL (11.27-16.99); Mean Corpuscular HGB Conc 31.8 g/dL (30-55); Mean Corpuscular Hemoglobin 28.6 pg (27-33); Mean Corpuscular Volume 89.9 fl (85-98); Nucleated Red Blood Cells % 0 %; Platelet Count 222 10^3/cmm (157-399); Red Blood Count 2.87 10^6/uL (3.85-5.65); White Blood Count 9.46 10^3/uL (3.29-11.43)
[2025-05-17] MEDS: pantoprazole 40 mg SDV IVP (05:10)
[2025-05-17 05:29] LABS: Cholesterol 127 mg/dL (0-200); HDL Cholesterol 34 mg/dL (60-100); Magnesium 1.8 mg/dL (1.7-2.3); Triglycerides 147 mg/dL (0-150); VLDL Cholestrol Calculation 29 mg/dL (0-30)
[2025-05-17 05:30] LABS: Alanine Aminotransferase 7 U/L (0-33); Albumin Level 2.7 g/dL (3.5-5.2); Alkaline Phosphatase 71 U/L (35-105); Aspartate Amino Transferase 11 U/L (0-32); Blood Urea Nitrogen 29 mg/dL (6-20); Calcium 8.3 mg/dL (8.5-10.5); Carbon Dioxide 22 mmol/L (22-29); Chloride 98 mmol/L (98-107); Creatinine Clr Calc Pharmacy 67.0988; Globulin 3.7 g/dL (1.3-4.6); Glucose 297 mg/dL (65-115); Osmolality Calculated 287 mOsm/kg (285-295); Sodium 130 mmol/L (136-145); Total Protein 6.4 g/dL (6.6-8.7)
[2025-05-17 05:38] LABS: Anion Gap 15.1 (5-19); Potassium 5.1 mmol/L (3.5-5.1)
[2025-05-17] MEDS: oxyCODONE 5 mg IR Tab/Cap 7.5 MG PO ×3 (07:23→20:15)
--- NOTE | 2025-05-17 07:45 | P.PN_ITS ---
Subjective 2 Subjective: Patient seen at bedside this morning. Resting comfortably. No overnight events. Continues to complain of pain. Vitals/I&O/Wt Last Vital Signs Temp 98.4 F 05/17/25 07:44 Pulse 66 05/17/25 07:44 Resp 18 05/17/25 07:44 BP 116/67 05/17/25 07:44 Pulse Ox 99 05/17/25 07:44 O2 Del Method Room Air 05/17/25 07:44 05/16/25 05/17/25 05/17/25 22:59 06:59 14:59 Intake Total 450 / 1186 480 / 1666 Balance 450 / 1181 480 / 1661 Weight last 48 hrs Weight 411 lb 8 oz Weight 402 lb 9.6 oz Physical Exam 2 Narrative: BELOW IS A FOCUSED LOWER EXTREMITY EXAM GENERAL: A&O x 3 VASCULAR: DP/PT pulses palpable 2/4 with CFT intact, <3seconds to distal digits. Significant edema to right forefoot DERMATOLOGICAL: Surgical dressing clean, dry, intact. Surgical dressing removed incision inspected well coapted no active drainage. No underlying fluctuance. MUSCULOSKELETAL: Right hallux and third digit amputations. Partial amputation of right foot second digit. Tender to touch at amputation site NEUROLOGICAL: Neurological sensation to the affected foot and ankle is diminished, diminished sensation extends proximally to the level of the ankle IMAGING: Three-view x-rays of right foot taken in the emergency department were independently interpreted by me. These show status post amputation of hallux and third digit as well as partial amputation of second digit. No subcutaneous emphysema noted. No acute erosive changes indicative of osteomyelitis. Data 05/17/25 04:38 05/17/25 04:38 Micro: Microbiology 05/15/25 16:04 Blood Culture - Preliminary Blood NEGATIVE TO DATE 05/16/25 09:56 Gram Stain - Final Tissue 05/15/25 07:50 Gram Stain - Final Toe - Abscess Wound Culture - Preliminary Coag positive Staphylococcus A&P Assessment and plan 1. Foot abscess, right: 2. Type 2 diabetes mellitus with foot ulcer: 3. Diabetes type 2: 4. Cellulitis: Plan: - Right foot abscess--sepsis -Labs and vitals reviewed -WBC 12.77--> 9.46 -ESR N/A -CRP 152.2 - VSS -Cultures obtained at bedside. Results pending -Abx Vanco/Zosyn -Diet: Okay for diet from podiatry standpoint - No further surgical intervention by podiatry during this admission. -Pain Mgmt: Per primary team -Weight bearing: Weightbearing to heel for transfers only -Dressings: Leave surgical dressing clean, dry, intact -Continue current Abx therapy until ID and Sensitivity results -Trend labs -Discharge plan: Patient will need to be reestablished with infectious disease as she no-showed her appointment on 05/10/2025. Patient will need continued parenteral antibiotic therapy. Final antibiotic recommendations pending culture results. Patient is established with podiatry Dr. Brannon in [facility]. Patient will follow-up with Dr. Brannon within 1 week of discharge. -Podiatry will continue to round on patient daily and provide recommendations PDMP PDMP Reviewed: Not Reviewed Attestations 2 Medical Necessity Statement*: See hospitalist note Coding Level of Care Code Acute Code for g Fwd Diagnoses Foot abscess, right L02.611 Type 2 diabetes mellitus with foot ulcer E11.621; L97.509 Diabetes type 2 E11.9 Cellulitis L03.90
[2025-05-17] MEDS: metoprolol succinate ER (24 HR) 25 mg Tablet PO (08:26)
[2025-05-17] MEDS: insulin regular-human 100 units/1 mL SUBCUT ×4 (08:28→20:14)
[2025-05-17] MEDS: insulin regular-human 100 units/1 mL 15 UNIT SUBCUT ×3 (08:29→17:27)
--- NOTE | 2025-05-17 11:56 | PHA.VACGOAL ---
Vancomycin Goal - Goal Vancomycin Indication:: Other - Therapy Day of therpy:: Day []of [] . Actual body weight (kg): 411 lb 8 oz - Data Labs: WBC 9.46 10^3/uL (3.29-11.43) 05/17/25 04:38 RBC 2.87 10^6/uL (3.85-5.65) L 05/17/25 04:38 Hgb 8.20 g/dL (11.27-16.99) L 05/17/25 04:38 Hct 25.8 % (36-47) L 05/17/25 04:38 MCV 89.9 fl (85-98) 05/17/25 04:38 MCH 28.6 pg (27-33) 05/17/25 04:38 MCHC 31.8 g/dL (30-55) 05/17/25 04:38 RDW 14.5 % (12.1-15.1) 05/17/25 04:38 Sodium 130 mmol/L (136-145) L 05/17/25 04:38 Potassium 5.1 mmol/L (3.5-5.1) 05/17/25 04:38 Chloride 98 mmol/L (98-107) 05/17/25 04:38 Carbon Dioxide 22 mmol/L (22-29) 05/17/25 04:38 Anion Gap 15.1 (5-19) 05/17/25 04:38 BUN 29 mg/dL (6-20) H 05/17/25 04:38 Creatinine 1.8 mg/dL (0.5-0.9) H 05/17/25 04:38 GFR Calculation 30.2 mL/min (90-130) L 05/17/25 04:38 Regimen:: TROUGH HIGH AT 32.6 REDUCE DOSE TO 2000 MG Q24 H NEXT TROUGH @ 2200
--- NOTE | 2025-05-17 14:37 | PM.PN ---
Subjective Subjective: No acute events overnight. Patient seen laying comfortably in bed. Was sleeping when entering the room but on waking up complaints pain medications are not working. Denies any nausea, vomiting, headache. Vitals/I&O/Wt Last Vital Signs Temp 97.5 F L 05/17/25 10:58 Pulse 77 05/17/25 10:58 Resp 18 05/17/25 10:58 BP 106/57 05/17/25 10:58 Pulse Ox 95 05/17/25 10:58 O2 Del Method Room Air 05/17/25 10:58 05/16/25 05/17/25 05/17/25 22:59 06:59 14:59 Intake Total 450 / 1186 530 / 1716 960 / 960 Balance 450 / 1181 530 / 1711 960 / 960 Weight last 48 hrs Weight 186.653 kg Weight 182.616 kg Physical Exam Narrative: General Well-developed morbidly obese female in no acute cardiopulmonary stress CV regular rate and rhythm Lungs clear to auscultation bilaterally Abdomen soft there is a large overhanging pannus. Mild edema in the pannus and dependent area. Right foot is in a gauze dressing there is some soiling and bleeding. The right lower leg erythema has been marked and receding from the borders Data 05/17/25 04:38 05/17/25 04:38 Micro: Microbiology 05/16/25 09:56 Gram Stain - Final Tissue Anaerobic Culture - Preliminary Abscess Culture - Preliminary Coag negative Staphylococcus 05/15/25 16:04 Blood Culture - Preliminary Blood NEGATIVE TO DATE 05/15/25 07:50 Gram Stain - Final Toe - Abscess Wound Culture - Preliminary Coag positive Staphylococcus A&P Assessment and plan 1. Foot abscess, right: Post I&D. Appreciate wound care by podiatry team. Follow-up cultures. Continue with empiric IV vancomycin and Zosyn. De-escalate as per culture sensitivities. Patient requesting higher pain medications. States morphine does not work and requesting if she can get Dilaudid. Discussed for now we will continue with IV morphine and will restart home dose of oxycodone IR 7.5 mg every 6 hours as needed. Will add gabapentin. 2. Cellulitis: Continue vancomycin and Zosyn. There is evidence of recession of the erythema border suggesting that antibiotics are effective. Debridement is needed and perhaps further amputation 3. Type 2 diabetes mellitus with foot ulcer, with long-term current use of insulin: Uncontrolled type 2 diabetes mellitus. Appreciate A1c. Patient has been refusing insulin on and off. On discussion it seems patient is allergic to Lantus. She states she is allergic to any medication which comes in a pen as she believes to be allergic to the material used to contain medications in the pen. States she develops a rash and issues with the pancreas in the past. Patient after multiple counseling is agreeable to take Humalog Continue with insulin sliding scale. Changed to moderate dose protocol. Lantus discontinued as per patient request. Add Humalog 15 mg 3 times daily. Added gabapentin 100 mg 3 times daily. 4. Hypertension: Goal blood pressure less than 140/90 mmHg. Continue with home dose of metoprolol. 5. Uncontrolled type 2 diabetes mellitus: 6. MSSA bacteremia: Past history. PICC line still in place. Finished course of IV cefazolin on 05/10. Will reconsult ID. 7. CKD (chronic kidney disease): In the past have required dialysis as well. Currently creatinine stable at 1.3. Monitor daily. 8. Morbid obesity with BMI of 60.0-69.9, adult: As above weight loss diet Plan: Heparin for DVT prophylaxis Protonix for PUD prophylaxis Plan for the day: Follow-up cultures. Blood cultures so far negative. OR cultures growing coag negative staph, abscess culture growing coag positive staph. Will await final specificities and sensitivities. Will consult ID. Blood sugars elevated. Patient persistently hesitant in taking Lantus. Agreeable for Humalog at high dose protocol along with regular insulin subcu 15 units 3 times daily. Will monitor blood sugars for next 24 hours and increase the dose accordingly. Can add glimepride 2 mg BID. Will start patient on NS at 75 cc/h. Continue with pain management with oxycodone 7.5 mg. Will change to every 6 hours for now. Morphine 1 mg every 4 hours as needed. If needed can add oxycodone IR. 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
--- NOTE | 2025-05-17 15:52 | PC.NURSE ---
Messaged Dr. Arvizu patient refused Gabapentin due to giving patient bad thoughts
[2025-05-17] MEDS: morphine 4 mg/mL SDV 1 mL 1 MG IVP ×2 (15:53→22:54)
--- NOTE | 2025-05-17 15:56 | PC.NURSE ---
Patient refused Heparin. States does not feel like she needs its. Understands it is a precautionary medication for blood clots.
[2025-05-18] VITALS (13 sets, daily range): BP systolic 107–165; BP diastolic 66–84; PULSE 76–90; RESP 16–20; TEMP 36.6–37.2; O2SAT 91–98
[2025-05-18 01:08] LABS: Magnesium 1.9 mg/dL (1.7-2.3)
[2025-05-18] MEDS: morphine 4 mg/mL SDV 1 mL 2 MG IVP (01:47)
[2025-05-18] MEDS: piperacillin-tazobactam 3.375 GM in sodium chloride 0.9% (plus) 50 ML IV ×3 (03:32→18:25)
[2025-05-18] MEDS: pantoprazole 40 mg SDV IVP (03:33)
[2025-05-18] MEDS: oxyCODONE 5 mg IR Tab/Cap 7.5 MG PO ×3 (03:49→22:28)
[2025-05-18] MEDS: morphine 4 mg/mL SDV 1 mL 1 MG IVP ×4 (06:14→21:10)
[2025-05-18] MEDS: insulin regular-human 100 units/1 mL SUBCUT ×4 (08:31→21:08)
[2025-05-18] MEDS: insulin regular-human 100 units/1 mL 15 UNIT SUBCUT ×3 (08:32→18:21)
[2025-05-18] MEDS: metoprolol succinate ER (24 HR) 25 mg Tablet PO (08:35)
[2025-05-18 09:41] LABS: Hematocrit 29.5 % (36-47); Hemoglobin 9.00 g/dL (11.27-16.99); Mean Corpuscular HGB Conc 30.5 g/dL (30-55); Mean Corpuscular Hemoglobin 28.3 pg (27-33); Mean Corpuscular Volume 92.8 fl (85-98); Nucleated Red Blood Cells % 0 %; Platelet Count 262 10^3/cmm (157-399); Red Blood Count 3.18 10^6/uL (3.85-5.65); White Blood Count 9.90 10^3/uL (3.29-11.43)
[2025-05-18 09:58] LABS: Alanine Aminotransferase 7 U/L (0-33); Albumin Level 3.0 g/dL (3.5-5.2); Alkaline Phosphatase 75 U/L (35-105); Anion Gap 22.1 (5-19); Aspartate Amino Transferase 10 U/L (0-32); Blood Urea Nitrogen 35 mg/dL (6-20); Calcium 8.0 mg/dL (8.5-10.5); Carbon Dioxide 17 mmol/L (22-29); Chloride 98 mmol/L (98-107); Creatinine Clr Calc Pharmacy 81.9330; Globulin 3.3 g/dL (1.3-4.6); Glucose 241 mg/dL (65-115); Osmolality Calculated 290 mOsm/kg (285-295); Potassium 5.1 mmol/L (3.5-5.1); Sodium 132 mmol/L (136-145); Total Protein 6.3 g/dL (6.6-8.7)
--- NOTE | 2025-05-18 12:43 | PM.PN ---
Subjective Subjective: No acute events overnight. Patient remained hemodynamically stable and afebrile. Complaining of increased pain in the foot even on oral pain medications. Asking if the dose can be increased. Denies any nausea, vomiting, headache. Blood sugars have been stable. Vitals/I&O/Wt Last Vital Signs Temp 98.2 F 05/18/25 11:15 Pulse 83 05/18/25 11:15 Resp 18 05/18/25 12:34 BP 133/73 05/18/25 11:15 Pulse Ox 96 05/18/25 12:34 O2 Del Method Room Air 05/18/25 11:15 05/17/25 05/18/25 05/18/25 22:59 06:59 14:59 Intake Total 1750 / 2710 2043.75 / 4753.75 530 / 530 Balance 1750 / 2710 2043.75 / 4753.75 530 / 530 Weight last 48 hrs Weight 187.447 kg Weight 186.653 kg Physical Exam Narrative: General Well-developed morbidly obese female in no acute cardiopulmonary stress CV regular rate and rhythm Lungs clear to auscultation bilaterally Abdomen soft there is a large overhanging pannus. Mild edema in the pannus and dependent area. Right foot is in a gauze dressing there is some soiling and bleeding. The right lower leg erythema has been marked and receding from the borders Data 05/18/25 00:36 05/18/25 00:36 Micro: Microbiology 05/16/25 09:56 Gram Stain - Final Tissue Anaerobic Culture - Preliminary Abscess Culture - Preliminary Coag positive Staphylococcus A&P Assessment and plan 1. Foot abscess, right: Post I&D. Appreciate wound care by podiatry team. Follow-up cultures. Continue with empiric IV vancomycin and Zosyn. De-escalate as per culture sensitivities. Patient requesting higher pain medications. States morphine does not work and requesting if she can get Dilaudid. Discussed for now we will continue with IV morphine and will restart home dose of oxycodone IR 7.5 mg every 6 hours as needed. Will add gabapentin. 2. Cellulitis: Continue vancomycin and Zosyn. There is evidence of recession of the erythema border suggesting that antibiotics are effective. Debridement is needed and perhaps further amputation 3. Type 2 diabetes mellitus with foot ulcer, with long-term current use of insulin: Uncontrolled type 2 diabetes mellitus. Appreciate A1c. Patient has been refusing insulin on and off. On discussion it seems patient is allergic to Lantus. She states she is allergic to any medication which comes in a pen as she believes to be allergic to the material used to contain medications in the pen. States she develops a rash and issues with the pancreas in the past. Patient after multiple counseling is agreeable to take Humalog Continue with insulin sliding scale. Changed to moderate dose protocol. Lantus discontinued as per patient request. Add Humalog 15 mg 3 times daily. Added gabapentin 100 mg 3 times daily. 4. Hypertension: Goal blood pressure less than 140/90 mmHg. Continue with home dose of metoprolol. 5. Uncontrolled type 2 diabetes mellitus: 6. MSSA bacteremia: Past history. PICC line still in place. Finished course of IV cefazolin on 05/10. Will reconsult ID. 7. CKD (chronic kidney disease): In the past have required dialysis as well. Currently creatinine stable at 1.3. Monitor daily. 8. Morbid obesity with BMI of 60.0-69.9, adult: As above weight loss diet Plan: Heparin for DVT prophylaxis Protonix for PUD prophylaxis Plan for the day: Follow-up cultures. OR cultures for now change from coag negative to coag positive staph. Will consult ID. Continue with current IV antibiotic with Zosyn and vancomycin. Monitor trough levels. Blood sugars slightly better controlled. Overall patient had 87 units of insulin yesterday along with glimepiride. For now continue with Humalog 15 units 3 times daily along with high-dose sliding scale. Increase glimepiride to 3 mg twice daily. Continue with NS at 75 cc/h. Continue with oxycodone 7.5 mg every 6 hours as needed along with morphine. Add Oxy ER 10 mg twice daily. PDMP PDMP Reviewed: Last Reviewed 05/16/25 12:14 by Jaime Arvizu MD Attestations Medical Necessity Statement*: Requires further hospitalization for management of foot abscess post I&D on IV antibiotics, uncontrolled type 2 diabetes mellitus in a patient with recent history of MSSA bacteremia. 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
--- NOTE | 2025-05-18 16:21 | PC.NURSE ---
Patient refuses Heparin. Patient does not think she needs it. This nurse explained it was for precaution for blood clots. Still refuses medication.
[2025-05-18] MEDS: oxyCODONE 10 mg ER (12 HR) Tablet PO (18:22)
--- NOTE | 2025-05-18 22:47 | P.CONIM_ITS ---
Providers/Reason For Consult 2 Consulting Physician/Specialty*: Lucy Díaz MD/ Infectious Disease Reason for Consult*: Osteomyelitis. Requesting Physician: Jaime Arvizu MD Attending Physician: Jaime Arvizu MD Primary Care Provider: Joselo Burris MD History of Present Illness History of Present Illness Pablo Saunders is a 49 year old female with a recent history of MSSA bacteremia related to an infected Mcdermott catheter. She has just completed 6 weeks of IV cefazolin treatment on May 09, 2025. On On May 06, 2025 she developed worsening of her previously sustained ulceration over the medial aspect of her right toe. She visited with podiatry. I have reviewed the x-ray from [facility] which did not show any signs of osteomyelitis at that time. She reports that part of the bone was removed, sutures placed and she was discharged the same day. Over the next 2 to 3 days since discontinuing the IV cefazolin, the wound started to get worse. She noted puslike drainage and therefore came into the hospital. States she also developed a low-grade fever and chills at home. X-ray of the foot was negative for osteomyelitis. Patient was seen by podiatry and was taken to the OR on May 16, 2025 for I&D of an abscess of the right foot and incision of the bone cortex. Intraoperative findings showed copious amounts of purulence around the metatarsal phalangeal joint. Cultures were taken which are thus far showing coag positive staph. Metatarsal head did not appear to have erosive changes or signs of infection, however given the purulence surrounding the area osteomyelitis was not definitively able to be ruled out. Pathology is currently awaited. Leukocytosis seen on admission has now resolved. Patient is afebrile at this time. Review of Systems 2 General: Reports: 10 or more systems reviewed and unremarkable except in HPI and below Const: Denies: fever(s), chills or body aches Eyes: Denies: change in vision, blurry vision or photophobia ENMT: Reports: hoarseness; Denies: throat pain, enlarged tonsils, odynophagia or nasal congestion Card: Denies: chest pain, palpitations, irregular heart rhythm, edema, swelling of feet/ankles, lightheadedness, pre-syncope, dyspnea on exertion or orthopnea Resp: Denies: dyspnea, productive cough, non-productive cough, wheezing, stridor, pain on inspiration, change in phlegm color, hemoptysis or chest congestion GI: Denies: abdominal pain, nausea, vomiting, hematemesis, coffee ground emesis, dysphagia, heartburn, diarrhea, constipation, GI cramping, change in stool character, hematochezia or melena : Denies: flank pain, difficulty voiding, dysuria, urinary frequency, urinary urgency, urinary hesitancy or hematuria Musc: Denies: neck pain, back pain, extremity pain, joint swelling, joint warmth or deformity Neuro: Denies: headache(s), numbness in extremities, weakness in extremities, sensory changes, difficulty walking, frequent falls, dizziness, vertigo, behavioral changes, Slurred speech present or seizure-like activity Psych: Denies: anxiety, depression, suicidal ideation or homicidal ideation Endo: Denies: polyuria, polydipsia, tired all the time, cold intolerance or hot flashes Chris/Lymph: Denies: easy bruising or easy bleeding Medications/Allergies Home Medications ?Medication ?Instructions ?Recorded ?Confirmed ?Last Taken ?Type cetirizine 10 mg tablet 10 mg PO DAILY 03/22/2301/0405/14/25 History aspirin 81 mg tablet,delayed 81 mg PO DAILY 02/25/25 0 05/15/25 05/14/25 History release clopidogrel 75 mg tablet (Plavix) 75 mg PO DAILY 02/2505/15/25 05/14/25 History pantoprazole 40 mg tablet,delayed 40 mg PO DAILY 02/2505/15/25 05/14/25 History release (Protonix) alprazolam 0.5 mg tablet (Xanax) 0.5 mg PO TID PRN Anx iety 03/29/25 05/15/25 04/12/25 History tizanidine 4 mg tablet 4 mg PO TID PRN muscle spasm s 03/29/25 05/15/25 Unknown History glucagon HCl 1 mg solution for 1 mg SUBCUT Q20M PRN hy poglycemia 04/04/25 05/15/25 Unknown Rx injection (Glucagon (HCl) #1 ea Emergency Kit) glucometer testing kit #1 ea 04/04/25 05/15/2511/06 Rx albuterol sulfate 90 mcg/actuation 2 puff inhalation . Q4-6H PRN 04/12/25 05/15/25 Unknown History aerosol inhaler (Ventolin HFA) Shortness Of Breath oxycodone 5 mg tablet 7.5 mg PO Q6H PRN Pain 04/1205/15/25 05/14/25 History insulin regular human 100 unit/mL 55 unit SUBCUT TID 0 05/15/25 05/15/25 05/14/25 History injection solution (Humulin R Regular U-100 Insulin) metoprolol succinate 25 mg 25 mg PO DAILY 05/15/2501/0405/14/25 History tablet,extended release 24 hr glimepiride 2 mg tablet 4 mg (2 x 2 mg) PO BIDAC 30 days 05/19/25 Unknown Rx #120 tabs Allergies Allergy/AdvReac Type Severity Reaction Status Date / Time tramadol Allergy Mild hives Verified 04/13/25 08:38 insulin lispro Allergy Unknown Unknown Verified 04/13/25 08:38 sulfamethoxazole (From Allergy ALGY-Hives Verified 04/13/25 08:38 Bactrim) trimethoprim (From Bactrim) Allergy ALGY-Hives Verified 04/13/25 08:38 daptomycin AdvReac blurry Verified 04/13/25 08:38 vision flurocet Allergy ADR-Confusi Uncoded 04/13/25 08:38 on Current Medications Generic Name Dose Route Start Last Admin Trade Name Freq PRN Reason Stop Dose Admin Alprazolam 0.5 mg 05/15/25 14:57 05/18/25 21:08 Alprazolam 0.5 Mg Tablet PO 0.5 mg TID PRN Administration ANXIETY Aspirin 81 mg 05/15/25 09:00 05/18/25 08:34 Aspirin 81 Mg Ec Tablet PO 81 mg DAILY HEATHER Administration Cetirizine HCl 10 mg 05/15/25 09:00 05/18/25 08:36 Cetirizine 10 Mg Tablet PO 10 mg DAILY HEATHER Administration Clopidogrel Bisulfate 75 mg 05/15/25 09:00 05/18/25 08:33 Clopidogrel 75 Mg Tablet PO 75 mg DAILY HEATHER Administration Docusate Sodium 100 mg 05/15/25 09:00 05/18/25 18:22 Docusate Sodium 100 Mg Capsule PO 100 mg BID HEATHER Administration Glimepiride 4 mg 05/18/25 17:00 05/18/25 17:03 Glimepiride 2 Mg Tablet PO 4 mg BIDAC HEATHER Administration Heparin Sodium (Porcine) 5,000 unit 05/15/25 04:15 05/18/25 16:21 Heparin 5,000 Unit/Ml Inj 1 Ml SUBCUT Not Given Q12H HEATHER Piperacillin Sod/Tazobactam 50 mls @ 12.5 mls/hr 05/15/25 10:30 05/18/25 22:34 Sod 3.375 gm/ Sodium Chloride IV Infused Q8H HEATHER Infusion Protocol Sodium Chloride 1,000 mls @ 75 mls/hr 05/17/25 14:45 05/18/25 22:33 Sodium Chloride 0.9% IV 0 mls/hr .[id number] HEATHER Infusion Vancomycin HCl 2,000 mg in 400 mls @ 200 mls/hr 05/18/25 23:00 05/18/25 22:28 Vancocin IV 200 mls/hr Q24H HEATHER Administration Insulin Human Regular 0 unit 05/15/25 08:00 05/18/25 21:08 Insulin Regular-Human 100 Units/1 Ml SUBCUT 12 unit WM&BEDTIME [facility] Administration Protocol Insulin Human Regular 15 unit 05/17/25 08:00 05/18/25 18:21 Insulin Regular-Human 100 Units/1 Ml SUBCUT 15 unit TIDWM [facility] Administration Metoprolol Succinate 25 mg 05/15/25 09:00 05/18/25 08:35 Metoprolol Succinate Er (24 Hr) 25 Mg Tablet PO 25 mg DAILY HEATHER Administration Morphine Sulfate 1 mg 05/17/25 10:32 05/18/25 21:10 Morphine 4 Mg/Ml Sdv 1 Ml IVP 1 mg Q4H PRN Administration SEVERE PAIN Morphine Sulfate 2 mg 05/18/25 01:26 05/18/25 01:47 Morphine 4 Mg/Ml Sdv 1 Ml IVP 2 mg ONCE PRN Administration SEVERE PAIN Oxycodone HCl 7.5 mg 05/15/25 14:57 05/18/25 22:28 Oxycodone 5 Mg Ir Tab/Cap PO 7.5 mg Q6H PRN Administration PAIN Oxycodone HCl 10 mg 05/18/25 18:00 05/18/25 18:22 Oxycodone 10 Mg Er (12 Hr) Tablet PO 10 mg BID HEATHER Administration Pantoprazole Sodium 40 mg 05/15/25 04:15 05/18/25 03:33 Pantoprazole 40 Mg Sdv IVP 40 mg Q24H HEATHER Administration PFSH Acute 2 PFSH: Medical History Osteomyelitis CKD (chronic kidney disease) MSSA bacteremia Uncontrolled type 2 diabetes mellitus Morbid obesity with BMI of 60.0-69.9, adult Hyperlipemia, mixed Social History Smoking and tobacco/nicotine status: never used tobacco/nicotine Vitals/I&O/Wt Last Vital Signs Temp 98.3 F 05/18/25 20:00 Pulse 76 05/18/25 20:00 Resp 17 05/18/25 21:10 BP 146/84 05/18/25 20:00 Pulse Ox 94 05/18/25 20:00 O2 Del Method Room Air 05/18/25 20:00 05/18/25 05/18/25 05/18/25 06:59 14:59 22:59 Intake Total 2043.75 / 4753.75 1300 / 1300 1542.5 / 2842.5 Balance 2043.75 / 4753.75 1300 / 1300 1542.5 / 2842.5 Weight last 48 hrs Weight 187.447 kg Weight 186.653 kg Physical Exam 2 Narrative: General: No acute distress, AO x3 HEENT: PERRLA, pupils bilaterally equal and reactive, pallors not present Chest: Normal vesicular breath sounds, no added sounds, equal good air entry bilaterally CVS: S1-S2 regular, no murmurs, no tachycardia, no gallops, no rubs Abdomen: Soft, nontender, no organomegaly, bowel sounds present Neuro: No focal deficits, no facial deformity, AO x3, power 5/5 in all limbs Data 05/19/25 04:26 05/19/25 04:26 Micro: Microbiology 05/16/25 09:56 Gram Stain - Final Tissue Anaerobic Culture - Preliminary Abscess Culture - Preliminary Coag positive Staphylococcus Other data: Radiology Impressions Foot X-Ray 05/15/25 00:56 IMPRESSION: 1. Negative for findings to indicate osteomyelitis, consider further evaluation with MRI if concern for osteomyelitis remains clinically. 2. First proximal and distal phalanges are amputated. 3. Second digit amputation level of the distal proximal phalanx with overlying soft tissue swelling. 4. Third proximal, middle and distal phalanges are amputated. 5. Os trigonum. 6. Distal Achilles tendon degenerative calcification. 7. Calcified heel spur. 8. 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 Laboratory Results WBC 8.80 10^3/uL (3.29-11.43) 05/19/25 04:26 RBC 2.93 10^6/uL (3.85-5.65) L 05/19/25 04:26 Hgb 8.40 g/dL (11.27-16.99) L 05/19/25 04:26 Hct 25.7 % (36-47) L 05/19/25 04:26 MCV 87.7 fl (85-98) 05/19/25 04:26 MCH 28.7 pg (27-33) 05/19/25 04:26 MCHC 32.7 g/dL (30-55) D 05/19/25 04:26 RDW 14.3 % (12.1-15.1) 05/19/25 04:26 Plt Count 276 10^3/cmm (157-399) 05/19/25 04:26 MPV 10.7 fL (7.4-10.4) H 05/19/25 04:26 Neut % (Auto) 65.8 % 05/19/25 04:26 Lymph % (Auto) 22.6 % 05/19/25 04:26 [place] % (Auto) 6.6 % 05/19/25 04:26 Eos % (Auto) 3.6 % 05/19/25 04:26 Baso % (Auto) 0.3 % 05/19/25 04:26 Neut # (Auto) 5.78 10^3/uL (1.8-7.7) 05/19/25 04:26 Lymph # (Auto) 2.0 10^3/uL (0.8-4.8) 05/19/25 04:26 [place] # (Auto) 0.6 10^3/uL (0.2-0.9) 05/19/25 04:26 Eos # (Auto) 0.3 10^3/uL (0.0-0.8) 05/19/25 04:26 Baso # (Auto) 0.0 10^3/uL (0.0-0.1) 05/19/25 04:26 Nucleated RBC % (auto) 0 % 05/19/25 04:26 Nucleated RBCs # 0.0 /100WBC 05/19/25 04:26 Sodium 133 mmol/L (136-145) L 05/19/25 04:26 Potassium 5.4 mmol/L (3.5-5.1) H 05/19/25 04:26 Chloride 103 mmol/L (98-107) 05/19/25 04:26 Carbon Dioxide 19 mmol/L (22-29) L 05/19/25 04:26 Anion Gap 16.4 (5-19) 05/19/25 04:26 BUN 26 mg/dL (6-20) H 05/19/25 04:26 Creatinine 1.3 mg/dL (0.5-0.9) H 05/19/25 04:26 GFR Calculation 43.9 mL/min (90-130) L 05/19/25 04:26 Glucose 245 mg/dL (65-115) H 05/19/25 04:26 POC Glucose 342 mg/dL (70-110) H 05/19/25 10:37 Calculated Osmolality 289 mOsm/kg (285-295) 05/19/25 04:26 Lactic Acid 1.9 mmol/L (0.5-2.2) 05/15/25 01:28 Calcium 7.8 mg/dL (8.5-10.5) L 05/19/25 04:26 Phosphorus 3.1 mg/dL (2.5-4.5) 05/15/25 05:14 Magnesium 1.8 mg/dL (1.7-2.3) 05/19/25 04:26 Iron 39 ug/dL (37-145) 05/16/25 03:20 TIBC 223 mcg/dl 05/16/25 03:20 % Saturation 17.4 % (20-50) L 05/16/25 03:20 Unsat Iron Binding 184 ug/dL (112-347) 05/16/25 03:20 Total Bilirubin 0.2 mg/dL (0.15-1.2) 05/19/25 04:26 AST 12 U/L (0-32) 05/19/25 04:26 ALT 8 U/L (0-33) 05/19/25 04:26 Alkaline Phosphatase 77 U/L (35-105) 05/19/25 04:26 C-Reactive Protein 152.2 mg/L (0.0-4.9) H 05/15/25 01:28 Total Protein 6.1 g/dL (6.6-8.7) L 05/19/25 04:26 Albumin 2.8 g/dL (3.5-5.2) L 05/19/25 04:26 Globulin 3.3 g/dL (1.3-4.6) 05/19/25 04:26 Triglycerides 147 mg/dL (0-150) 05/17/25 04:38 Cholesterol 127 mg/dL (0-200) 05/17/25 04:38 LDL Cholesterol, Calc 64 mg/dL (50-129) 05/17/25 04:38 Total VLDL Cholesterol 29 mg/dL (0-30) 05/17/25 04:38 HDL Cholesterol 34 mg/dL (60-100) L 05/17/25 04:38 Cholesterol/HDL Ratio 3.74 mg/dL (0.0-4.40) 05/17/25 04:38 Vitamin B12 240 pg/mL (232-1245) 05/16/25 03:20 Folate 7.7 ng/mL (4.8-37.3) 05/17/25 04:38 Procalcitonin 0.15 ng/mL (0-0.5) 05/16/25 03:20 HCG, Qual Negative (Negative) 05/16/25 14:37 Urine Color Yellow (Yellow) 05/15/25 14:37 Urine Appearance Clear (CLEAR) 05/15/25 14:37 Urine pH 5.5 (5-7) 05/15/25 14:37 Ur Specific [place] 1.022 (1.005-1.030) 05/15/25 14:37 Urine Protein 3+ (Negative) A 05/15/25 14:37 Urine Glucose (UA) 3+ (Normal) H 05/15/25 14:37 Urine Ketones Negative (Negative) 05/15/25 14:37 Urine Blood 1+ (Negative) A 05/15/25 14:37 Urine Nitrate Negative (Negative) 05/15/25 14:37 Urine Bilirubin Negative (Negative) 05/15/25 14:37 Urine Urobilinogen 0.2 mg/dL (Negative) 05/15/25 14:37 Ur Leukocyte Esterase Negative (Negative) 05/15/25 14:37 Urine RBC 0-2 /hpf (0-2) 05/15/25 14:37 Urine WBC 0-5 /hpf (0-5) 05/15/25 14:37 Ur Squamous Epith Cells 0-5 /hpf (0-5) 05/15/25 14:37 Amorphous Sediment Not Reportable 05/15/25 14:37 Urine Bacteria None seen /hpf (NONE) 05/15/25 14:37 Hyaline Casts 0-4 /lpf H 05/15/25 14:37 Vancomycin Trough 19.5 ug/mL (10-15) H 05/18/25 20:44 Random Vancomycin 24.0 ug/mL (20.0-40.0) 05/17/25 10:40 Urine Opiates Screen Positive ng/mL (Negative) H 05/15/25 14:37 Ur Barbiturates Screen Negative ng/mL (Negative) 05/15/25 14:37 Ur Phencyclidine Scrn Negative ng/mL (Negative) 05/15/25 14:37 Ur Amphetamines Screen Negative ng/mL (Negative) 05/15/25 14:37 U Benzodiazepines Scrn Negative ng/mL (Negative) 05/15/25 14:37 Urine Cocaine Screen Negative ng/mL (Negative) 05/15/25 14:37 U Marijuana (THC) Screen Positive ng/mL (Negative) H 05/15/25 14:37 A&P Assessment and plan 1. Foot abscess, right: 49-year-old lady with a recent history of MSSA bacteremia, relating to an infected Mcdermott catheter, endocarditis ruled out, completing a course of 6 weeks of IV cefazolin on May 09, 2025 for treatment. Patient underwent what appears to be partial amputation of the toe related to a previously sustained chronic ulcer on May 06, 2025 About 3 days after discontinuing IV antibiotics the wound started to drain and became purulent. Clinical picture was consistent with a right foot abscess for which patient was taken to the operating room on May 16, 2025 Intraoperative note reviewed, purulence encountered around first metatarsal phalangeal joint. Pathology is currently awaited to a certain osteomyelitis. X-ray reviewed from [facility] and also from [facility] at admission, no current signs for osteomyelitis. Blood cultures are negative Abscess culture from OR showing coag positive Staphylococcus. Anticipate this to be Staph aureus, MSSA versus MRSA remains to be determined. Based on final cultures, will optimize antibiotic regimen Please maintain patient's PICC line that was placed on the previous admission. Will follow PDMP PDMP Reviewed: Not Reviewed Consult Attestations 2 Medical Necessity Statement: Per admitting Coding Level of Care Code Acute Code for Chg Fwd Diagnoses Foot abscess, right L02.611
[2025-05-19] VITALS (10 sets, daily range): BP systolic 137–176; BP diastolic 58–79; PULSE 75–85; RESP 16–20; TEMP 36.6–36.8; O2SAT 94–96
[2025-05-19] MEDS: morphine 4 mg/mL SDV 1 mL 1 MG IVP ×2 (01:35→14:31)
[2025-05-19] MEDS: piperacillin-tazobactam 3.375 GM in sodium chloride 0.9% (plus) 50 ML IV (01:36)
[2025-05-19] MEDS: pantoprazole 40 mg SDV IVP (04:58)
[2025-05-19] MEDS: oxyCODONE 5 mg IR Tab/Cap 7.5 MG PO ×3 (04:58→16:53)
[2025-05-19 05:39] LABS: Hematocrit 25.7 % (36-47); Hemoglobin 8.40 g/dL (11.27-16.99); Mean Corpuscular HGB Conc 32.7 g/dL (30-55); Mean Corpuscular Hemoglobin 28.7 pg (27-33); Mean Corpuscular Volume 87.7 fl (85-98); Nucleated Red Blood Cells % 0 %; Platelet Count 276 10^3/cmm (157-399); Red Blood Count 2.93 10^6/uL (3.85-5.65); White Blood Count 8.80 10^3/uL (3.29-11.43)
[2025-05-19 05:53] LABS: Alanine Aminotransferase 8 U/L (0-33); Albumin Level 2.8 g/dL (3.5-5.2); Alkaline Phosphatase 77 U/L (35-105); Anion Gap 16.4 (5-19); Aspartate Amino Transferase 12 U/L (0-32); Blood Urea Nitrogen 26 mg/dL (6-20); Calcium 7.8 mg/dL (8.5-10.5); Carbon Dioxide 19 mmol/L (22-29); Chloride 103 mmol/L (98-107); Creatinine Clr Calc Pharmacy 94.5381; Globulin 3.3 g/dL (1.3-4.6); Glucose 245 mg/dL (65-115); Osmolality Calculated 289 mOsm/kg (285-295); Potassium 5.4 mmol/L (3.5-5.1); Sodium 133 mmol/L (136-145); Total Protein 6.1 g/dL (6.6-8.7)
[2025-05-19 06:00] LABS: Magnesium 1.8 mg/dL (1.7-2.3)
[2025-05-19] MEDS: metoprolol succinate ER (24 HR) 25 mg Tablet PO (08:10)
[2025-05-19] MEDS: oxyCODONE 10 mg ER (12 HR) Tablet PO ×2 (08:10→18:02)
[2025-05-19] MEDS: insulin regular-human 100 units/1 mL 15 UNIT SUBCUT ×3 (08:11→18:01)
[2025-05-19] MEDS: insulin regular-human 100 units/1 mL SUBCUT ×3 (08:11→18:00)
[2025-05-19] MEDS: ceFAZolin 2,000 mg SDV 2000 MG IVP ×2 (11:10→18:00)
--- NOTE | 2025-05-19 11:22 | P.DS_ITS ---
Discharge Providers Date of Admission: 05/15/25 03:01 Date of Discharge: May 19, 2025 Attending Provider at Admission: Shannan Brown MD Attending Provider at Discharge: Jaime Arvizu MD Consults: Podiatry: Dr. Ruggiero ID: Dr. Díaz Primary Care Provider: Joselo Burris MD Diagnoses at Discharge Discharge Diagnosis 1. Foot abscess, right: 2. Cellulitis: 3. Type 2 diabetes mellitus with foot ulcer, with long-term current use of insulin: 4. Hypertension: 5. Uncontrolled type 2 diabetes mellitus: 6. MSSA bacteremia: 7. CKD (chronic kidney disease): 8. Morbid obesity with BMI of 60.0-69.9, adult: Reason for Visit Reason for Visit: post surg right foot inflammed, red pain Brief History: Per HPI: Pablo Saunders is a 49 year old female with medical history significant for diabetes on insulin, morbidly obese with multiple toe amputation in the past and had just undergone another 1 amputation of the second toe of the right foot. Patient had this last amputation done just a week ago last Friday. And was supposed to follow-up with the podiatry in 3 days from there winning Friday. Patient stated that she could not follow-up with the appointment because she was not feeling well. She had the bandage on it all along and this day of presentation and patient decided to remove the bandage. The pulse gushed out from the wound. Because of the purulent drainage patient decided to come to the emergency room for evaluation and care Patient amputation this time was done at [facility]. Patient had second right toe amputation with abscess and cellulitis of the foot patient got blood culture vancomycin given and Zosyn given in the emergency room. I had ordered for pharmacy to dose vancomycin and continue with Zosyn at 3.75 g every 8 hours. The podiatry here has been consulted for incision of drainage of that foot and cleanout of the pus. Skin surrounding the forefoot or erythematous. Significant for cellulitis. Patient BMI is 62 Hospital Course Hospital Course Patient was admitted to the hospital for evaluation and management of right foot abscess with concerns for osteomyelitis. Osteomyelitis was ruled out. Podiatry was consulted and she underwent deep I&D and incision bone cortex of the right foot on 05/16. Her blood cultures during hospitalization remain negative, wound cultures are growing coag positive staph with concerns for MSSA. Given patient patient being on IV cefazolin's till 05/10 and developing an abscess ID was consulted. Patient continued to have uncontrolled type 2 diabetes mellitus with blood sugars mostly running in 300s. Multiple modalities of treatment for diabetes were discussed in detail with the patient. As per patient he is allergic to most of the medications including Lantus, any kind of long-acting insulin, any kind of insulin which comes in a pen as she believes she is allergic to fillers which are used for insulin pens giving her rash and pancreatitis. Patient was agreeable to start on glimepiride and continuing her Humulin. Hospitalization was otherwise unremarkable other than patient requiring extremely high doses of pain medications. She is discharged in medically stable condition on her home pain regimen, IV cefazolin 2 g every 8 hourly as per ID recommendations, glimepiride 4 mg twice daily along with her home dose of Humulin R. She is advised to monitor her fasting blood sugars daily with target of less than 140. 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 Patient was counseled in detail regarding need for compliance with medications and subsequent follow-ups. Physical Exam Narrative: General Well-developed morbidly obese female in no acute cardiopulmonary stress CV regular rate and rhythm Lungs clear to auscultation bilaterally Abdomen soft there is a large overhanging pannus. Mild edema in the pannus and dependent area. Right foot is in a gauze dressing there is some soiling and bleeding. The right lower leg erythema has been marked and receding from the borders Discharge Data Studies Completed and Pending Completed Studies During Hospitalization Category Date Time Status XR foot RT min 3V* [id number] Stat Exams 05/15/25 00:56 Completed Pending at discharge Category Date Time Status Abscess Culture and Gram Stain Routine Lab 05/16/25 09:56 Results Anaerobic Culture Routine Lab 05/16/25 09:56 Results Blood Culture Stat Lab 05/15/25 00:03 Results Blood Culture Stat Lab 05/15/25 16:04 Results Wound Culture and Gram Stain Routine Lab 05/15/25 07:50 Results Pathology: Surgical [PTH] Routine Pth 05/16/25 10:13 Received Radiology Impressions Foot X-Ray 05/15/25 00:56 IMPRESSION: 1. Negative for findings to indicate osteomyelitis, consider further evaluation with MRI if concern for osteomyelitis remains clinically. 2. First proximal and distal phalanges are amputated. 3. Second digit amputation level of the distal proximal phalanx with overlying soft tissue swelling. 4. Third proximal, middle and distal phalanges are amputated. 5. Os trigonum. 6. Distal Achilles tendon degenerative calcification. 7. Calcified heel spur. 8. 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 Microbiology 05/16/25 09:56 Tissue Gram Stain - Final 05/16/25 09:56 Tissue Anaerobic Culture - Preliminary 05/16/25 09:56 Tissue Abscess Culture - Preliminary Coag positive Staphylococcus 05/15/25 16:04 Blood Blood Culture - Preliminary NEGATIVE TO DATE 05/15/25 07:50 Toe - Abscess Gram Stain - Final 05/15/25 07:50 Toe - Abscess Wound Culture - Preliminary Coag positive Staphylococcus 05/15/25 01:28 Blood Blood Culture - Preliminary NEGATIVE TO DATE Laboratory Results WBC 8.80 10^3/uL (3.29-11.43) 05/19/25 04:26 RBC 2.93 10^6/uL (3.85-5.65) L 05/19/25 04:26 Hgb 8.40 g/dL (11.27-16.99) L 05/19/25 04:26 Hct 25.7 % (36-47) L 05/19/25 04:26 MCV 87.7 fl (85-98) 05/19/25 04:26 MCH 28.7 pg (27-33) 05/19/25 04:26 MCHC 32.7 g/dL (30-55) D 05/19/25 04:26 RDW 14.3 % (12.1-15.1) 05/19/25 04:26 Plt Count 276 10^3/cmm (157-399) 05/19/25 04:26 MPV 10.7 fL (7.4-10.4) H 05/19/25 04:26 Neut % (Auto) 65.8 % 05/19/25 04:26 Lymph % (Auto) 22.6 % 05/19/25 04:26 Robertson % (Auto) 6.6 % 05/19/25 04:26 Eos % (Auto) 3.6 % 05/19/25 04:26 Baso % (Auto) 0.3 % 05/19/25 04:26 Neut # (Auto) 5.78 10^3/uL (1.8-7.7) 05/19/25 04:26 Lymph # (Auto) 2.0 10^3/uL (0.8-4.8) 05/19/25 04:26 Robertson # (Auto) 0.6 10^3/uL (0.2-0.9) 05/19/25 04:26 Eos # (Auto) 0.3 10^3/uL (0.0-0.8) 05/19/25 04:26 Baso # (Auto) 0.0 10^3/uL (0.0-0.1) 05/19/25 04:26 Nucleated RBC % (auto) 0 % 05/19/25 04: Nucleated RBCs # 0.0 /100WBC 05/19/25 04:26 Sodium 133 mmol/L (136-145) L 05/19/25 04:26 Potassium 5.4 mmol/L (3.5-5.1) H 05/19/25 04:26 Chloride 103 mmol/L (98-107) 05/19/25 04:26 Carbon Dioxide 19 mmol/L (22-29) L 05/19/25 04:26 Anion Gap 16.4 (5-19) 05/19/25 04:26 BUN 26 mg/dL (6-20) H 05/19/25 04:26 Creatinine 1.3 mg/dL (0.5-0.9) H 05/19/25 04:26 GFR Calculation 43.9 mL/min (90-130) L 05/19/25 04:26 Glucose 245 mg/dL (65-115) H 05/19/25 04:26 POC Glucose 342 mg/dL (70-110) H 05/19/25 10:37 Calculated Osmolality 289 mOsm/kg (285-295) 05/19/25 04:26 Lactic Acid 1.9 mmol/L (0.5-2.2) 05/15/25 01:28 Calcium 7.8 mg/dL (8.5-10.5) L 05/19/25 04:26 Phosphorus 3.1 mg/dL (2.5-4.5) 05/15/25 05:14 Magnesium 1.8 mg/dL (1.7-2.3) 05/19/25 04:26 Iron 39 ug/dL (37-145) 05/16/25 03:20 TIBC 223 mcg/dl 05/16/25 03:20 % Saturation 17.4 % (20-50) L 05/16/25 03:20 Unsat Iron Binding 184 ug/dL (112-347) 05/16/25 03:20 Total Bilirubin 0.2 mg/dL (0.15-1.2) 05/19/25 04:26 AST 12 U/L (0-32) 05/19/25 04:26 ALT 8 U/L (0-33) 05/19/25 04:26 Alkaline Phosphatase 77 U/L (35-105) 05/19/25 04:26 C-Reactive Protein 152.2 mg/L (0.0-4.9) H 05/15/25 01:28 Total Protein 6.1 g/dL (6.6-8.7) L 05/19/25 04:26 Albumin 2.8 g/dL (3.5-5.2) L 05/19/25 04:26 Globulin 3.3 g/dL (1.3-4.6) 05/19/25 04:26 Triglycerides 147 mg/dL (0-150) 05/17/25 04:38 Cholesterol 127 mg/dL (0-200) 05/17/25 04:38 LDL Cholesterol, Calc 64 mg/dL (50-129) 05/17/25 04:38 Total VLDL Cholesterol 29 mg/dL (0-30) 05/17/25 04:38 HDL Cholesterol 34 mg/dL (60-100) L 05/17/25 04:38 Cholesterol/HDL Ratio 3.74 mg/dL (0.0-4.40) 05/17/25 04:38 Vitamin B12 240 pg/mL (232-1245) 05/16/25 03:20 Folate 7.7 ng/mL (4.8-37.3) 05/17/25 04:38 Procalcitonin 0.15 ng/mL (0-0.5) 05/16/25 03:20 HCG, Qual Negative (Negative) 05/16/25 14:37 Urine Color Yellow (Yellow) 05/15/25 14:37 Urine Appearance Clear (CLEAR) 05/15/25 14:37 Urine pH 5.5 (5-7) 05/15/25 14:37 Ur Specific Bristow 1.022 (1.005-1.030) 05/15/25 14:37 Urine Protein 3+ (Negative) A 05/15/25 14:37 Urine Glucose (UA) 3+ (Normal) H 05/15/25 14:37 Urine Ketones Negative (Negative) 05/15/25 14:37 Urine Blood 1+ (Negative) A 05/15/25 14:37 Urine Nitrate Negative (Negative) 05/15/25 14:37 Urine Bilirubin Negative (Negative) 05/15/25 14:37 Urine Urobilinogen 0.2 mg/dL (Negative) 05/15/25 14:37 Ur Leukocyte Esterase Negative (Negative) 05/15/25 14:37 Urine RBC 0-2 /hpf (0-2) 05/15/25 14:37 Urine WBC 0-5 /hpf (0-5) 05/15/25 14:37 Ur Squamous Epith Cells 0-5 /hpf (0-5) 05/15/25 14:37 Amorphous Sediment Not Reportable 05/15/25 14:37 Urine Bacteria None seen /hpf (NONE) 05/15/25 14:37 Hyaline Casts 0-4 /lpf H 05/15/25 14:37 Vancomycin Trough 19.5 ug/mL (10-15) H 05/18/25 20:44 Random Vancomycin 24.0 ug/mL (20.0-40.0) 05/17/25 10:40 Urine Opiates Screen Positive ng/mL (Negative) H 05/15/25 14:37 Ur Barbiturates Screen Negative ng/mL (Negative) 05/15/25 14:37 Ur Phencyclidine Scrn Negative ng/mL (Negative) 05/15/25 14:37 Ur Amphetamines Screen Negative ng/mL (Negative) 05/15/25 14:37 U Benzodiazepines Scrn Negative ng/mL (Negative) 05/15/25 14:37 Urine Cocaine Screen Negative ng/mL (Negative) 05/15/25 14:37 U Marijuana (THC) Screen Positive ng/mL (Negative) H 05/15/25 14:37 Vitals Last Vital Signs Temp 98.1 F 05/19/25 07:45 Pulse 82 05/19/25 07:45 Resp 16 05/19/25 11:00 BP 143/66 05/19/25 07:45 Pulse Ox 96 05/19/25 07:45 O2 Del Method Room Air 05/19/25 07:45 Discharge Plan Discharge Patient Disposition: Home Condition: Stable Prescriptions: New glimepiride 2 mg Tablet 4 mg PO BIDAC 30 Days Qty: 120 0RF Continued cetirizine 10 mg tablet 10 mg PO DAILY clopidogrel [Plavix] 75 mg Tablet 75 mg PO DAILY aspirin 81 mg Tablet,Delayed Release (Dr/Ec) 81 mg PO DAILY pantoprazole [Protonix] 40 mg Tablet,Delayed Release (Dr/Ec) 40 mg PO DAILY tizanidine 4 mg tablet 4 mg PO TID PRN (Reason: muscle spasms) alprazolam [Xanax] 0.5 mg Tablet 0.5 mg PO TID PRN (Reason: Anxiety) (DME) glucometer testing kit See Rx Instructions .Route .MEDSUPPLY Qty: 1 0RF Rx Instructions: lancets#100 strips#100 glucagon HCl [Glucagon (HCl) Emergency Kit] 1 mg recon soln 1 mg SUBCUT Q20M PRN (Reason: hypoglycemia) Qty: 1 0RF Rx Instructions: until target blood sugar attained albuterol sulfate [Ventolin HFA] 90 mcg/actuation HFA aerosol inhaler 2 puff INHALATION .Q4-6H PRN (Reason: Shortness Of Breath) oxycodone 5 mg tablet 7.5 mg PO Q6H PRN (Reason: Pain) Humulin R Regular U-100 Insuln 100 unit/mL solution 55 unit SUBCUT TID metoprolol succinate 25 mg tablet extended release 24 hr 25 mg PO DAILY 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: Infectious Disease Other Ambulatory Orders: DME: Commode (Order) Location: None Selected Ordered By: Jaime Arvizu DME: Wheelchair (Order) Location: None Selected Ordered By: Jaime Arvizu Miscellaneous Procedure (Order) Location: None Selected Ordered By: Jaime Arvizu Referrals: [facility] [Provider Group, Infectious Disease] - 06/03/25 12:00 pm [facility] [Outside] [facility] [Outside] Mekhi Brannon DPM [Referring, Podiatry] - 05/30/25 4:00 pm Joselo Burris MD [Primary Care Provider, [facility]] - 05/26/25 9:15 am Discharge Diet: Cardiac and Diabetic Patient Instructions: Acute Wound Care (DC), Opioid Safety, Post Anesthesia Care, Patient Portal & Steve Instructions Activity Restrictions/Additional Instructions: Please continue to comply with medications. Please maintain your follow-ups with different specialities. Please continue to monitor your fasting blood glucose levels. Goal fasting blood glucose level is less than 140. Continue taking your Humulin R as before. Take glimepiride 4 mg twice daily. PICC line should be removed after completion of IV antibiotic course. Weekly PICC line dressings. Podiatry discharge instructions: -Weight bearing: Weightbearing to heel for transfers only -Dressings: Leave surgical dressing clean, dry, intact Discharge Attestations Time Spent in Discharge Care*: greater than 30 min Specific Discharge Activities: educating patient, educating and/or supporting family/caregiver, discussing with pcp/other providers, discussing with case finisher/social workers/dc planners, documenting/other paperwork and evaluating patient/reviewing data Status at Discharge: Cognitive status at discharge: cognitively intact , Behavioral status at discharge: cooperative , Functional status at discharge: other assisted ambulation , Overall status at discharge: patient is progressing back to baseline Quality Metrics Clinical Quality Measures [ No reported AMI, CVA or VTE this stay] Coding Level of Care Code 02248 Total time (in minutes) for Discharge: 65 Diagnoses Foot abscess, right L02.611 Cellulitis L03.90 Type 2 diabetes mellitus with foot ulcer, with long-term current use of insulin E11.621; L97.509; Z79.4 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
--- NOTE | 2025-05-19 16:28 | P.PN_ITS ---
Subjective 2 Subjective: Infectious disease progress note Operating room cultures have been updated to reflect MSSA. No new complaints today. Anticipated discharge later this afternoon. Medications: Reviewed: Yes Vitals/I&O/Wt Last Vital Signs Temp 98.0 F 05/19/25 15:28 Pulse 79 05/19/25 15:28 Resp 16 05/19/25 15:28 BP 137/79 05/19/25 15:28 Pulse Ox 96 05/19/25 15:28 O2 Del Method Room Air 05/19/25 15:28 05/19/25 05/19/25 05/19/25 06:59 14:59 22:59 Intake Total 1170 / 4012.5 1307.5 / 1307.5 Balance 1170 / 4012.5 1307.5 / 1307.5 Weight last 48 hrs Weight 191.671 kg Weight 187.447 kg Physical Exam 2 Narrative: General: No acute distress, AO x3 HEENT: PERRLA, pupils bilaterally equal and reactive, pallors not present Chest: Normal vesicular breath sounds, no added sounds, equal good air entry bilaterally CVS: S1-S2 regular, no murmurs, no tachycardia, no gallops, no rubs Abdomen: Soft, nontender, no organomegaly, bowel sounds present Neuro: No focal deficits, no facial deformity, AO x3, power 5/5 in all limbs Data 05/19/25 04:26 05/19/25 04:26 Micro: Microbiology 05/16/25 09:56 Gram Stain - Final Tissue Anaerobic Culture - Preliminary Abscess Culture - Final Staphylococcus aureus NAME: Pablo Saunders LOC: [facility] #: [id number] AGE/SX: 49/F ROOM: 256 R E05/15/[address]: Jaime Arvizu MD : [id number] BED: 2 D IS: FAX #: STATUS: ADM IN TLOC: Spec #: [id number] Amaury: 05/16/25-56 Status: RES Req #: [id number] Recd: 05/16/25-[address]: Scout Ruggiero DPM Src: Tissue SpDesc: Ordered: Absces Cult&GS, Anaer Comments: Comment right foot abscess Procedure Result Verified Site Gram Stain Final 05/16/25-1151 Result MODERATE WHITE BLOOD CELLS FEW GRAM POSITIVE COCCI IN PAIRS Anaerobic Culture Preliminary 05/19/25-1531 NO ANAEROBES ISOLATED ON DAY 3 Anaerobic Culture Preliminary (changed) 05/18/25-1209 NO ANAEROBES ISOLATED ON DAY 2 Anaerobic Culture Preliminary (changed) 05/17/25-1122 NO ANAEROBES ISOLATED ON DAY 1 Abscess Culture Final 05/19/25-1417 Organism 1 Staphylococcus aureus Growth HEAVY DAY 3 S aureus M.I.C. RX --------- ------ * Ciprofloxacin <=1 S * Clindamycin <=0.5 S * Erythromycin <=0.5 S * Gentamicin <=4 S * Levofloxacin <=1 S * Linezolid 4 S * Moxifloxacin <=0.5 S * Oxacillin 1 S * Penicillin >8 R * Rifampin <=1 S * Tetracycline <=4 S * Trimethoprim/Sulfamethoxazole <=0.5/9.5 S Vancomycin 2 S Daptomycin 1 S 05/15/25 07:50 Gram Stain - Final Toe - Abscess Wound Culture - Final Staphylococcus aureus A&P Assessment and plan 1. Foot abscess, right: 49-year-old lady with a recent history of MSSA bacteremia, relating to an infected Mcdermott catheter, endocarditis ruled out, completing a course of 6 weeks of IV cefazolin on May 09, 2025 for treatment. Patient underwent what appears to be partial amputation of the toe related to a previously sustained chronic ulcer on May 06, 2025 About 3 days after discontinuing IV antibiotics the wound started to drain and became purulent. Clinical picture was consistent with a right foot abscess for which patient was taken to the operating room on May 16, 2025 Intraoperative note reviewed, purulence encountered around first metatarsal phalangeal joint. Pathology is currently awaited to a certain osteomyelitis. [facility] and also from [facility] at admission, no current signs for osteomyelitis. Blood cultures are negative Abscess culture from OR showing coag positive Staphylococcus. Anticipate this to be Staph aureus, MSSA versus MRSA remains to be determined. Based on final cultures, will optimize antibiotic regimen Please maintain patient's PICC line that was placed on the previous admission. Will follow May 19, 2025 Patient's operating room cultures have been updated to reflect MSSA. Recommend discharge on cefazolin 2 g IV every 8 hours for the next 2 weeks. Patient to follow-up in infectious disease clinic on June 03, 2025 at 12 PM at which time final pathology results will be reviewed. If pathology ends up showing osteomyelitis, will likely extend IV antibiotic duration. If pathology remains negative for osteomyelitis, will likely discontinue antibiotics at that time. IV antibiotics to be arranged by home infusion pharmacy with PICC line dressing change at [facility]. Case management is working on this. Follow-up in infectious disease clinic on June 03, 2025. PDMP PDMP Reviewed: Not Reviewed Attestations 2 Medical Necessity Statement*: Per admitting Coding Level of Care Code Acute Code for [facility] Fwd Diagnoses Foot abscess, right L02.611
--- NOTE | 2025-05-19 18:39 | PC.NURSE ---
PICC line was not removed. Education given via verbal and written instruction. All questions answered. Pt wheeled out via wheelchair accompanied by spouse.
== END 2025-05-19 18:40 | DRG 504 ==
LOC: ER 05-15 02:25 → CSU 05-15 04:09 → MEDSURG 05-15 13:52
PROVIDERS: Anesthesiology; Family Medicine; Internal Medicine; Podiatrist Foot & Ankle Surgery; Admitting Provider Internal Medicine; Emergency Provider General Practice; PCP Family Medicine; Visit Provider Student in an Organized Health Care Education/Training Program
PROC: 0Y6R0Z0 Detachment at Right 2nd Toe, Complete, Open Approach (ICD-10-PCS; principal; 2025-05-16 09:25)
DX: T87.43 Infection of amputation stump, right lower extremity (principal); L02.611 Cutaneous abscess of right foot; L03.115 Cellulitis of right lower limb; Z68.44 Body mass index [BMI] 60.0-69.9, adult; Y79.8 Miscellaneous orthopedic devices associated with adverse incidents, not elsewhere classified; B95.61 Methicillin susceptible Staphylococcus aureus infection as the cause of diseases classified elsewhere; E11.621 Type 2 diabetes mellitus with foot ulcer; L97.519 Non-pressure chronic ulcer of other part of right foot with unspecified severity; I12.9 Hypertensive chronic kidney disease with stage 1 through stage 4 chronic kidney disease, or unspecified chronic kidney disease; E11.22 Type 2 diabetes mellitus with diabetic chronic kidney disease; N18.9 Chronic kidney disease, unspecified; E66.01 Morbid (severe) obesity due to excess calories; E78.2 Mixed hyperlipidemia; Z79.4 Long term (current) use of insulin; Z79.84 Long term (current) use of oral hypoglycemic drugs; Z89.411 Acquired absence of right great toe; Z89.421 Acquired absence of other right toe(s); Z79.02 Long term (current) use of antithrombotics/antiplatelets; Z79.82 Long term (current) use of aspirin; Z79.891 Long term (current) use of opiate analgesic; Z95.828 Presence of other vascular implants and grafts
CPT/HCPCS: 36415; 36416; 36592; 73630; 80048; 80053; 80061; 80202; 80306; 81001; 81025; 82607; 82746; 82962; 83540; 83550; 83605; 83735; 84100; 84145; 85025; 86140; 87040; 87070; 87075; 87077; 87186; 87205; 88305; 88311; 96365; 96367; 96372; 96375; 97161; 97530; 99285; J0690; J1171; J1815; J2270; J2470; J2543; J2704; J3010; J3372; J3373; J3490; J7030; J7050; J9999